=== PATIENT | female | born 1960 | race Caucasian/White ===

== ENCOUNTER → 2020-12-25 09:37 | Outpatient (BNVA) | payer MEDICARE, MEDICAID, SELFPAY | PROVIDERS: Visit Provider Psychiatry & Neurology Neurology | DX: G47.61 Periodic limb movement disorder (principal); G25.81 Restless legs syndrome; G47.33 Obstructive sleep apnea (adult) (pediatric) | CPT/HCPCS: Q3014 ==

== ENCOUNTER 2021-02-05 | Outpatient (REF) | payer MEDICARE, MEDICAID, SELFPAY | END 2021-02-05 00:01 | disposition home or self-care (01) | LOC: HO.LNP | PROVIDERS: Visit Provider Hospitalist | DX: B34.9 Viral infection, unspecified (principal); Z20.822 Contact with and (suspected) exposure to COVID-19 | CPT/HCPCS: U0003; U0005 ==

== ENCOUNTER → 2021-02-26 09:47 | Outpatient (BNVA) | payer MEDICARE, MEDICAID, SELFPAY | PROVIDERS: PCP Internal Medicine; Visit Provider Psychiatry & Neurology Neurology | DX: G47.61 Periodic limb movement disorder (principal); G25.81 Restless legs syndrome; G47.33 Obstructive sleep apnea (adult) (pediatric); Z88.2 Allergy status to sulfonamides; Z88.8 Allergy status to other drugs, medicaments and biological substances; Z99.89 Dependence on other enabling machines and devices | CPT/HCPCS: Q3014 ==

== ENCOUNTER → 2021-05-07 09:31 | Outpatient (BNVA) | payer MEDICARE, MEDICAID, SELFPAY | PROVIDERS: PCP Internal Medicine; Visit Provider Psychiatry & Neurology Neurology | CPT/HCPCS: Q3014 ==

== ENCOUNTER 2021-05-08 14:12 | Outpatient (REF) | payer MEDICARE, MEDICAID, SELFPAY ==
[2021-05-08 16:30] LABS: MANUAL DIFF FLAG NO
[2021-05-08 16:35] LABS: Glucose Urine UA NEG (NEG); Leukocyte Esterase Urine NEG (NEG); Nitrite Urine NEG (NEG); Specific Gravity - Urine >= 1.030 (1.005-1.025); Urine Blood 2+ (NEG); Urine Ketones NEG (NEG); Urine Protein NEG (NEG-TRACE)
[2021-05-08 16:37] LABS: Basophils Percent Auto 0.6 % (0-2); Eosinophils Absolute Auto 0.1 X10*3/uL (0.0-0.4); Eosinophils Percent Auto 1.8 % (0-4); Hematocrit 38.9 % (37-47); Hemoglobin 12.8 g/dl (12.0-16.0); Imm Gran Abs Auto 0.02 X10*3/uL (0.00-0.03); Imm Gran Pct Auto 0.3 % (0.0-0.4); Lymphocytes Absolute Auto 1.9 X10*3/uL (1.2-4.9); Lymphocytes Percent Auto 26.2 % (20-40); Mean Corpuscular HGB Conc 32.9 g/dl (31.0-35.0); Mean Corpuscular Hemoglobin 28.6 pg (27.0-33.0); Mean Platelet Volume 9.4 fL (9.4-12.3); Monocytes Absolute Auto 0.5 X10*3/uL (0.1-1.2); Monocytes Percent Auto 6.6 % (2-11); Neutrophils Absolute Auto 4.7 X10*3/uL (2.0-8.3); Neutrophils Percent Auto 64.5 % (45-73); Platelet Count 285 X10*3/uL (160-400); Red Blood Count 4.47 X10*6/uL (4.20-5.50); Red Cell Distribution Width 13.1 % (11.0-16.0); White Blood Count 7.3 X10*3/uL (4.8-10.8)
[2021-05-08 16:38] LABS: Appearance Urine CLEAR; Color Urine YELLOW
[2021-05-08 17:01] LABS: Mucus Urine TRACE /LPF; WBC Urine 0 /HPF (0-4)
[2021-05-08 17:01] LABS: Alanine Aminotransferase 9 U/L (0-31); Albumin Level 4.1 g/dL (3.5-5.0); Alkaline Phosphatase 130 U/L (39-117); Anion Gap 12 (12-20); Aspartate Amino Transferase 17 U/L (5-31); Bilirubin Total 0.4 mg/dL (0.0-1.0); Blood Urea Nitrogen 23 mg/dL (9-16); Calcium 9.3 mg/dL (8.4-10.2); Carbon Dioxide 26 mmol/L (22-29); Chloride 105 mmol/L (96-108); Estimated Glomerular Filt Rate > 60; Glucose Random 102 mg/dL (60-115); Lipase 5 U/L (8-78); Potassium 4.2 mmol/L (3.3-5.1); Sodium 139 mmol/L (135-145); Total Protein 6.5 g/dL (6.5-8.0)
[2021-05-09 03:48] LABS: SARS COV2 IgG Negative (Negative)
== END 2021-05-08 14:13 | disposition home or self-care (01) ==
LOC: HO.HMGCLDS 14:12
PROVIDERS: Absent Provider Internal Medicine; PCP Internal Medicine; Visit Provider Hospitalist
DX: Z20.822 Contact with and (suspected) exposure to COVID-19 (principal); B34.9 Viral infection, unspecified
CPT/HCPCS: 36415; 80053; 81001; 83690; 85025; 86769

== ENCOUNTER 2021-05-23 14:40 | Outpatient (REF) | payer MEDICARE, MEDICAID, SELFPAY ==
[2021-05-23 16:32] LABS: Glucose Urine UA NEG (NEG); Leukocyte Esterase Urine NEG (NEG); Nitrite Urine NEG (NEG); Specific Gravity - Urine >= 1.030 (1.005-1.025); Urine Blood 2+ (NEG); Urine Ketones 5 MG/DL (NEG); Urine Protein NEG (NEG-TRACE)
[2021-05-23 16:36] LABS: Appearance Urine CLEAR; Color Urine YELLOW
[2021-05-23 16:51] LABS: Calcium Oxalate Crystals Urine 2+ /LPF; Mucus Urine TRACE /LPF; Squamous Epithelial Cell Urine TRACE /LPF; WBC Urine 0 /HPF (0-4)
== END 2021-05-23 14:41 | disposition home or self-care (01) ==
LOC: HO.HMGCLDS 14:40
PROVIDERS: PCP Internal Medicine; Visit Provider Internal Medicine
DX: R31.9 Hematuria, unspecified (principal); R30.0 Dysuria
CPT/HCPCS: 81001

== ENCOUNTER → 2021-07-23 10:01 | Outpatient (BNVA) | payer MEDICARE, MEDICAID, SELFPAY | PROVIDERS: PCP Internal Medicine; Visit Provider Psychiatry & Neurology Neurology | CPT/HCPCS: Q3014 ==

== ENCOUNTER → 2021-08-27 10:25 | Outpatient (BNVA) | payer MEDICARE, MEDICAID, SELFPAY | PROVIDERS: PCP Internal Medicine; Visit Provider Psychiatry & Neurology Neurology | DX: Z13.89 Encounter for screening for other disorder (principal) | CPT/HCPCS: Q3014 ==

== ENCOUNTER 2021-10-22 | Outpatient (REF) | payer MEDICARE, MEDICAID, SELFPAY ==
[2021-10-23 11:41] LABS: Appearance Urine CLEAR; Color Urine YELLOW; Glucose Urine UA NEG (NEG); Leukocyte Esterase Urine NEG (NEG); Nitrite Urine NEG (NEG); Specific Gravity - Urine 1.015 (1.005-1.025); Urine Blood NEG (NEG); Urine Ketones NEG (NEG); Urine Protein NEG (NEG-TRACE)
== END 2021-10-22 00:01 | disposition home or self-care (01) ==
LOC: HO.LNP
PROVIDERS: Visit Provider Internal Medicine
DX: R35.0 Frequency of micturition (principal)
CPT/HCPCS: 81003

== ENCOUNTER 2021-10-22 16:09 | Outpatient (REF) | payer MEDICARE, MEDICAID, SELFPAY ==
--- NOTE | ~2021-10-22 | XR_ITS ---
EXAMINATION: XR CHEST CLINICAL INFORMATION: Other specified symptoms and signs involving respiratory system COMPARISON: Previous chest x-ray December 2019 TECHNIQUE: 2 views of the chest were obtained. FINDINGS: No significant abnormality is noted involving the heart, lungs, mediastinum, bony thorax or soft tissues. XR/XR chest 2V IMPRESSION: Unremarkable examination.
== END 2021-10-22 16:10 | disposition home or self-care (01) ==
LOC: HO.HMGCX 16:09
PROVIDERS: PCP Internal Medicine; Visit Provider Internal Medicine
DX: R09.89 Other specified symptoms and signs involving the circulatory and respiratory systems (principal); R05.9 Cough, unspecified
CPT/HCPCS: 71046

== ENCOUNTER 2021-10-23 11:15 | Outpatient (REF) | payer MEDICARE, MEDICAID, SELFPAY | END 2021-10-23 11:16 | disposition home or self-care (01) | LOC: HO.LNP 11:15 | PROVIDERS: Visit Provider Internal Medicine | DX: Z13.89 Encounter for screening for other disorder (principal) ==

== ENCOUNTER → 2021-12-12 15:35 | Outpatient (BNVA) | payer MEDICARE, MEDICAID, SELFPAY | PROVIDERS: PCP Internal Medicine; Visit Provider Psychiatry & Neurology Neurology | DX: G47.33 Obstructive sleep apnea (adult) (pediatric) (principal); G47.61 Periodic limb movement disorder; G25.81 Restless legs syndrome | CPT/HCPCS: 99212 ==

== ENCOUNTER 2022-02-13 14:48 | Outpatient (REF) | payer MEDICARE, MEDICAID, SELFPAY ==
--- NOTE | ~2022-02-13 | XR_ITS ---
EXAMINATION: XR CHEST CLINICAL INFORMATION: Cough. COMPARISON: Most recent chest radiograph dated 10/22/2021. TECHNIQUE: 2 views of the chest were obtained. FINDINGS: The lungs are clear. The cardiomediastinal silhouette is normal in size. There is no pleural effusion or pneumothorax. No acute osseous abnormality. XR/XR chest 2V IMPRESSION: No acute cardiopulmonary findings.
[2022-02-13 16:49] LABS: Alanine Aminotransferase 12 U/L (0-31); Alkaline Phosphatase 126 U/L (39-117); Anion Gap 12 (12-20); Aspartate Amino Transferase 19 U/L (5-31); Bilirubin Total 0.4 mg/dL (0.0-1.0); Blood Urea Nitrogen 17 mg/dL (9-16); Calcium 9.3 mg/dL (8.4-10.2); Carbon Dioxide 27 mmol/L (22-29); Chloride 103 mmol/L (96-108); Estimated Glomerular Filt Rate > 60; Glucose Random 97 mg/dL (60-115); Potassium 4.4 mmol/L (3.3-5.1); Sodium 138 mmol/L (135-145); Total Protein 6.6 g/dL (6.5-8.0)
== END 2022-02-13 14:49 | disposition home or self-care (01) ==
LOC: HO.HMGCX 14:48
PROVIDERS: Absent Provider Internal Medicine; PCP Internal Medicine; Visit Provider Physician Assistant
DX: R05.9 Cough, unspecified (principal); E66.09 Other obesity due to excess calories; I10 Essential (primary) hypertension
CPT/HCPCS: 36415; 71046; 80053

== ENCOUNTER 2022-02-20 14:00 | Outpatient (REF) | payer MEDICARE, MEDICAID, SELFPAY ==
[2022-02-20 16:28] LABS: Appearance Urine CLEAR; Color Urine YELLOW; Glucose Urine UA NEG (NEG); Leukocyte Esterase Urine NEG (NEG); Nitrite Urine NEG (NEG); PH 5.5 (5.0-8.0); Specific Gravity - Urine 1.025 (1.005-1.025); Urine Blood NEG (NEG); Urine Ketones NEG (NEG); Urine Protein NEG (NEG-TRACE)
== END 2022-02-20 14:01 | disposition home or self-care (01) ==
LOC: HO.HMGCLDS 14:00
PROVIDERS: Visit Provider Internal Medicine
DX: R30.0 Dysuria (principal)
CPT/HCPCS: 81003

== ENCOUNTER → 2022-03-12 13:55 | Outpatient (BNVA) | payer MEDICARE, MEDICAID, SELFPAY | PROVIDERS: PCP Internal Medicine; Visit Provider Psychiatry & Neurology Neurology | DX: G47.33 Obstructive sleep apnea (adult) (pediatric) (principal); G25.81 Restless legs syndrome; G47.61 Periodic limb movement disorder | CPT/HCPCS: Q3014 ==

== ENCOUNTER → 2022-05-07 11:11 | Outpatient (BNVA) | payer MEDICARE, MEDICAID, SELFPAY | PROVIDERS: PCP Internal Medicine; Visit Provider Nurse Practitioner Family | DX: G47.33 Obstructive sleep apnea (adult) (pediatric) (principal); E66.09 Other obesity due to excess calories; Z68.38 Body mass index [BMI] 38.0-38.9, adult; G25.81 Restless legs syndrome; Z99.89 Dependence on other enabling machines and devices | CPT/HCPCS: 99212 ==

== ENCOUNTER → 2022-09-04 09:58 | Outpatient (BNVA) | payer MEDICARE, MEDICAID, SELFPAY | PROVIDERS: PCP Internal Medicine; Visit Provider Nurse Practitioner Family | DX: E66.09 Other obesity due to excess calories (principal); G47.33 Obstructive sleep apnea (adult) (pediatric); G25.81 Restless legs syndrome | CPT/HCPCS: 99212 ==

== ENCOUNTER 2022-09-24 11:31 | Outpatient (REF) | payer MEDICARE, MEDICAID, SELFPAY ==
[2022-09-24 14:36] LABS: MANUAL DIFF FLAG NO
[2022-09-24 14:44] LABS: Basophils Absolute Auto 0.1 X10*3/uL (0.0-0.2); Basophils Percent Auto 0.9 % (0-2); Eosinophils Absolute Auto 0.3 X10*3/uL (0.0-0.4); Eosinophils Percent Auto 2.6 % (0-4); Hematocrit 39.4 % (37.0-47.0); Hemoglobin 12.8 g/dl (12.0-16.0); Imm Gran Abs Auto 0.04 X10*3/uL (0.00-0.03); Imm Gran Pct Auto 0.4 % (0.0-0.4); Lymphocytes Absolute Auto 1.8 X10*3/uL (1.2-4.9); Lymphocytes Percent Auto 19.1 % (20-40); Mean Corpuscular HGB Conc 32.5 g/dl (31.0-35.0); Mean Corpuscular Hemoglobin 28.4 pg (27.0-33.0); Mean Corpuscular Volume 87.4 fL (80.0-98.0); Mean Platelet Volume 9.2 fL (9.4-12.3); Monocytes Absolute Auto 0.6 X10*3/uL (0.1-1.2); Monocytes Percent Auto 6.6 % (2-11); Neutrophils Absolute Auto 6.7 x10*3/uL (2.0-8.3); Neutrophils Percent Auto 70.4 % (45-73); Platelet Count 301 X10*3/uL (160-400); Red Blood Count 4.51 X10*6/uL (4.20-5.50); Red Cell Distribution Width 13.1 % (11.0-16.0); White Blood Count 9.5 X10*3/uL (4.8-10.8)
[2022-09-24 15:06] LABS: Alanine Aminotransferase 12 U/L (0-31); Alkaline Phosphatase 127 U/L (39-117); Anion Gap 16 (12-20); Aspartate Amino Transferase 19 U/L (5-31); Bilirubin Total < 0.2 mg/dL (0.0-1.0); Blood Urea Nitrogen 26 mg/dL (9-16); Carbon Dioxide 27 mmol/L (22-29); Chloride 100 mmol/L (96-108); Estimated Glomerular Filt Rate > 60; Glucose Random 104 mg/dL (60-115); Sodium 139 mmol/L (135-145); Total Protein 6.6 g/dL (6.5-8.0)
== END 2022-09-24 11:32 | disposition home or self-care (01) ==
LOC: HO.HMGCLDS 11:31
PROVIDERS: PCP Internal Medicine; Visit Provider Internal Medicine
DX: E66.09 Other obesity due to excess calories (principal); I10 Essential (primary) hypertension
CPT/HCPCS: 36415; 80053; 85025

== ENCOUNTER 2022-10-02 15:14 | Outpatient (REF) | payer MEDICARE, MEDICAID, SELFPAY ==
[2022-10-02 18:36] LABS: Influenza A PCR NEGATIVE (Negative); Influenza B PCR NEGATIVE (Negative); Resp Syncy Virus RNA Qual PCR NEGATIVE (Negative); SARS COV2 PCR INHOUSE NEGATIVE (Negative)
== END 2022-10-02 15:15 | disposition home or self-care (01) ==
LOC: HO.LAB 15:14
DX: J06.9 Acute upper respiratory infection, unspecified (principal); Z20.822 Contact with and (suspected) exposure to COVID-19
CPT/HCPCS: 0241U

== ENCOUNTER → 2022-12-08 10:52 | Outpatient (BNVA) | payer BC, SELFPAY | PROVIDERS: PCP Internal Medicine; Referring Provider Internal Medicine; Visit Provider Internal Medicine | DX: R94.31 Abnormal electrocardiogram [ECG] [EKG] (principal) | CPT/HCPCS: 93005 ==

== ENCOUNTER → 2022-12-10 10:32 | Outpatient (REF) | payer MEDICARE, SELFPAY ==
--- NOTE | 2022-12-10 10:34 | CA_ITS ---
Transthoracic Echocardiogram Patient (Last, First, Middle): Gayatri Stoddard, Gender: Female Date of : 1960 Age: 62 Procedure Date: 12/10/2022 Procedure Type: Transthoracic Echocardiogram Location: OP Height: 147.32 cm Weight: 83.46 kg BSA: 1.76 m2 Heart Rate: bpm BP: 130 / 90 mmHg Insulation Hoseman: TO Referring MD: Miles Polanco MD Sales Counselor: Oral López MD Symptoms: R07.2 CHEST PAIN, R94.31 - Abnormal electrocardiogram [ECG] [EKG] Study Quality: Fair ECG Rhythm: Sinus Conclusions: - 1. Normal LV systolic function with grade 1 diastolic dysfunction 2. Normal cardiac valvular Doppler 3. Normal RV systolic pressure 4. No gross pericardial effusion Findings Procedure Information Contrast agent, definity, is being given per protocol without apparent complications. Left Ventricle Normal left ventricular size, thickness, and systolic function. The visually estimated ejection fraction is between 60-65%. Spectral Doppler is indicative of an impaired relaxation filling pattern. E/E prime ratio is <8, consistent with normal filling pressures. Right Ventricle Normal right ventricular cavity size and systolic function. Atria Both atria are normal in size. Interatrial shunt cannot be excluded. Aortic Valve Normal aortic valve structure and function. There is no aortic valve stenosis. There is no aortic valve regurgitation. Mitral Valve Normal mitral valve structure and function. There is trace mitral valve regurgitation. There is no mitral valve stenosis. Pulmonic Valve The pulmonic valve is likely normal. Tricuspid Valve Normal tricuspid valve structure. There is trace tricuspid valve regurgitation. The right ventricular systolic pressure is normal. The right ventricular systolic pressure is 19 mmHg. Normal right atrial pressure. There is no evidence of pulmonary hypertension. Great Vessels All visible segments of the aorta are normal in size. The pulmonary artery was not well visualized. Venous The inferior vena cava is normal in size and collapses greater than 50% with inspiration. Pericardium/Pleural There is no evidence of pericardial effusion. Prior Study Comparison No prior study available for comparison. Measurements 2D Linear Measurements IVSd: 1.13 0.6-0.9/0.6-1.0 cm LVIDd: 4.52 3.9-5.3/4.2-5.9 cm LVIDd Index: 2.57 2.4-3.2/2.2-3.1 cm/m2 LVIDs: 3.01 2.0-3.6 cm LVPWd: 0.91 0.7-1.1 cm LA Diam: 3.70 2.7-3.8/3.0-4.0 cm LAIDs Index: 2.10 1.5-2.3 cm/m2 LV Mass: 198.09 67-162/88-224 g LV Mass Index: 112.55 43-95/49-115 g/m2 LVOT Diam: 2.00 3.0+(-)1.3 cm 2D Systolic Function EF 4C: 63.40 >55% EF 2C: 65.80 >55% EF BiP: 65.80 >55% Mitral Valve MV Pk E: 0.48 MV PK A: 0.89 MV Decel Time: 194.00 E/A: 0.50 E'Lateral: 5.77 E'Medial: 6.85 E/E' Med: 7.00 E/E' Lat: 8.30 PHT: 57.00 MVA PHT: 3.86 Decel [place]: 2.47 Aortic Valve AoV Pk Manjinder: 1.54 AoV Mn Manjinder: 1.07 AoV VTI: 0.29 AoV Pk Grad: 9.00 Aov Mn Grad: 5.00 TOYA Cont.VTI: 1.98 LVOT LVOT Pk Manjinder: 0.95 LVOT Mn Manjinder: 0.62 LVOT VTI: 0.18 LVOT Pk Grad: 4.00 LVOT Mn Grad: 2.00 LVOT Diam: 2.00 LVOT Area: 3.14 Diastolic Function MV Pk E: 0.48 MV Pk A: 0.89 E/A: 0.50 E'Medial: 6.85 E/E' Med: 7.00 E' Laterial: 5.77 E/E' Lat: 8.30 Right Ventricle TAPSE (mm): 25.00 TVS' Manjinder: 14.00 Tricuspid Valve TR Pk Manjinder: 2.00 TR Pk Grad: 16.00 RA Press: 3.00 RVSP: 19.00 Great Vessels Aorta Ao Asc: 3.40 2.1-3.4 cm Updated in Other Vendor System with Status of Final Oral López MD electronically signed on 12/11/2022 1:52:32 PM with status of Final
--- NOTE | 2022-12-10 10:34 | CA_ITS ---
Acquisition Time: 2022-12-10 10:58:15 Total Exercise Time: 00:05:31 Test Indications: abn ekg Medications: see chart Protocol: CELESTE Max HR: 134 BPM 85% of Pred: 156 BPM Max BP: 194/068 mmHG Max Work Load: 6.5 METS Exercise stress test with exercise 5 min 31 sec of Celeste protocol ( last minute speed reduced to 2.2 MPH) achieving 82% MPHR, with moderate shortness of breath and need to stop exercise, with isolated PACs, with hypertensive response to exercise with max BP 194/68, without EKG changes meeting criteria for ischemia at acheived workload. In recovery her breathing gradually improved back to baseline normal and BP came down to 142/76. Test reviewed with Dr López Referred By: Miles Polanco Overread By: ALAYNA LANE
== END ==
LOC: HO.CARD 10:32
PROVIDERS: PCP Internal Medicine; Visit Provider Internal Medicine
DX: R07.2 Precordial pain (principal); R94.31 Abnormal electrocardiogram [ECG] [EKG]
CPT/HCPCS: 93017; 93306; Q9957

== ENCOUNTER → 2022-12-31 11:30 | Outpatient (BNVA) | payer MEDICARE, MEDICAID, SELFPAY | PROVIDERS: PCP Internal Medicine; Visit Provider Nurse Practitioner Family | DX: K59.04 Chronic idiopathic constipation (principal); Z87.19 Personal history of other diseases of the digestive system | CPT/HCPCS: 99202 ==

== ENCOUNTER 2023-02-23 11:30 | Outpatient (REF) | payer MEDICARE, MEDICAID, SELFPAY ==
--- NOTE | ~2023-02-23 | MM_ITS ---
EXAMINATION: MM SCREENING DIGITAL BREAST TOMOSYNTHESIS, BILATERAL CLINICAL INFORMATION: Screening. Asymptomatic. The lifetime risk of breast cancer based on the Tyrer-Cuzick Model is 8%. COMPARISON: Outside mammography 03/18/2021, 12/14/2019, 11/30/2018 ([facility]). TECHNIQUE: Digital breast tomosynthesis is performed in both the craniocaudal and mediolateral oblique views along with computer-aided detection (CAD). Synthesized 2D images are generated from the tomosynthesis. Additional left CC view is provided. FINDINGS: There are scattered areas of fibroglandular density (ACR BI-RADS breast composition Category b). There is fine fibronodular parenchymal pattern is similar to prior studies. No developing density, significant mass, or architectural abnormality. There are random diffuse calcifications bilateral central and anterior breasts bilateral slightly increased over time without focal grouping or pleomorphic types. The axilla and skin contours are unremarkable. There are no significant changes. MM/MM tomosynthesis screening BI IMPRESSION: No significant changes from prior studies. ASSESSMENT: BI-RADS 2: Benign RECOMMENDATION: Routine annual mammography screening. This patient's information was entered into a reminder system with a target due date for their next mammogram.
== END 2023-02-23 11:31 | disposition home or self-care (01) ==
LOC: HO.MAMMO 11:30
PROVIDERS: PCP Internal Medicine; Visit Provider Internal Medicine
DX: Z12.31 Encounter for screening mammogram for malignant neoplasm of breast (principal)
CPT/HCPCS: 77063; 77067

== ENCOUNTER 2023-05-04 13:20 | Outpatient (REF) | payer MEDICARE, MEDICAID, SELFPAY ==
[2023-05-04 15:57] LABS: C Reactive Protein 0.21 mg/dL (< or = 0.50)
== END 2023-05-04 13:21 | disposition home or self-care (01) ==
LOC: HO.LAB 13:20
PROVIDERS: Absent Provider Internal Medicine; PCP Internal Medicine; Visit Provider Nurse Practitioner Family
DX: K58.2 Mixed irritable bowel syndrome (principal); K59.04 Chronic idiopathic constipation; Z87.19 Personal history of other diseases of the digestive system
CPT/HCPCS: 36415; 86140; 99212

== ENCOUNTER 2023-05-04 20:05 | Emergency (ER) | payer OTHER, SELFPAY ==
--- NOTE | ~2023-05-04 | XR_ITS ---
EXAMINATION: XR LUMBOSACRAL SPINE CLINICAL INFORMATION: Pain. COMPARISON: None available. TECHNIQUE: Three views of the lumbosacral spine. FINDINGS: Lumbar vertebrae have normal height. No fracture or bone destruction. Multilevel degenerative spondylosis spine. L5-S1: Marked disc height narrowing L5-S1 and severe bilateral facet joint arthrosis. L4-L5: Marked disc height narrowing L4-L5 facet joint arthrosis. Grade 1 anterolisthesis of L4 and L5 due to spondylolysis. L3-L4: Mild disc height narrowing at L3-L4. Mild facet joint arthrosis. L2-L3: Mild lumbar disc height narrowing. Facet joints are normal. L1-L2: Lumbar disc height normal. Mild anterior vertebral endplate spur. Normal facet joint. T12-L1: Marked disc height narrowing vacuum disc phenomena. Anterior vertebral endplate spurs. T11-T12: Marked disc height narrowing vacuum disc phenomenon and vertebral endplate spurs. Degenerative spurring and disc height narrowing at the anterior lower thoracic vertebrae visualized through the T7 vertebral body. No fracture. No bone destruction. Sacroiliac joints are normal. Large volume of stool in right colon. No abnormally dilated bowel loop. Nonobstructive bowel pattern. No radiopaque urinary calculus. XR/XR lumbar spine 2-3V IMPRESSION: 1. No acute abnormality. 2. Multilevel degenerative spondylosis of the lumbar spine. 3. Grade 1 anterolisthesis of L4 and L5 due to spondylolysis. 4. Degenerative spondylosis of the lower thoracic spine.
[2023-05-04 20:35] VITALS: BP 147/78; PULSE 106; RESP 18; TEMP 36.6; O2SAT 96; BMI 38.3
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
[2023-05-04] MEDS: Ibuprofen 400 MG TABLET PO (22:03)
== END 2023-05-04 22:19 | disposition home or self-care (01) ==
PROVIDERS: Emergency Provider Emergency Medicine Emergency Medical Services; PCP Internal Medicine
DX: M54.50 Low back pain, unspecified (principal); V43.52XA Car driver injured in collision with other type car in traffic accident, initial encounter; Y93.9 Activity, unspecified; Y92.9 Unspecified place or not applicable; Y99.9 Unspecified external cause status
CPT/HCPCS: 72100; 99283

== ENCOUNTER 2023-06-02 13:57 | Outpatient (AMB) | payer MEDICARE, MEDICAID, SELFPAY ==
--- NOTE | 2023-06-02 14:23 | A.OFFVIS_ITS ---
Intake Vital Signs 06/02/23 14:24 Height 4 ft 10 in Weight 180 lb 12.465 oz BMI 37.8 Blood Pressure Location Lt brachial Position Sitting Intake Visit Reasons: 1 [facility] Intake Note: Gayatri presents in office as a est.patient for a 1month f/u for [facility] PT CC: pt reports having some constipation , pt denies any other Issues Aquatics Specialist Required: No Accompanied by: Self / Same As Patient Allergies amlodipine Allergy (Unknown, Verified 06/02/23 14:25) unknown prednisolone Allergy (Unknown, Verified 06/02/23 14:25) anaphylaxis prednisone [PREDNISONE] Allergy (Unknown, Verified 06/02/23 14:25) DEPRESSION Sulfa (Sulfonamide Antibiotics) Allergy (Unknown, Verified 06/02/23 14:25) hives, rash sulfamethoxazole [From BACTRIM] Allergy (Unknown, Verified 06/02/23 14:25) RASH trimethoprim [From BACTRIM] Allergy (Unknown, Verified 06/02/23 14:25) RASH clindamycin Adverse Reaction (Severe, Verified 06/02/23 14:25) joint pain sumatriptan [From IMITREX] Adverse Reaction (Unknown, Verified 06/02/23 14:25) UNK ORCHIDS Allergy (Intermediate, Uncoded 06/02/23 14:35) Angioedema HPI 1 [facility] HPI Details LAST VISIT: History of rectal bleeding Patient denies rectal bleeding. Will send a script for practice so to see if we can help with hemorrhoid. Patient was also encouraged to do Epsom salt bath. Chronic idiopathic constipation Continue taking MiraLax. Patient will try to take Linzess again. She was encouraged to drink plenty fluids and increase activity to promote better bowel motility. IBS (irritable bowel syndrome) Episode of diarrhea in the past. Unsure if this was related to Linzess or just incidental. Patient does not remember if she was eating anything that could caused her having the episodes of diarrhea. Patient reports that currently she is constipated. Discussed with her low FODMAP diet. I will see patient in 1 month, sooner on as needed basis. Patient is agreeable to this plan and verbalizes understanding of instructions. She was given the opportunity to ask questions and all questions answered. ? Thank you for allowing me to participate in her care Plan Orders Orders C Reactive Protein Today K58.9 Medications New hydrocortisone 2.5% (Proctosol HC) 1 appl DE BID-QID 30 grams 2RF hemorrhoids K64.9 TODAY'S VISIT patient is here today for follow-up and to discuss going for colonoscopy. Patient reports of occasional constipation and postprandial abdominal bloating. History of colonoscopy in the past at [facility]. Patient denies melena, hematochezia, unintentional weight loss or ribbon like stools. Patient denies any dyspepsia, dysphagia or odynophagia. History of OS A. Not on any anticoagulation medication. No history of infectious diseases in the past or present. Patient denies any cardiac or respiratory symptoms. No issues with anesthesia in the past. [facility] Medical History (Updated 06/15/23 @ 10:09 by Samina Jenkins [facility]) History of deviated nasal septum History of nephrolithotomy with removal of calculi Surgical History H/O adenoidectomy History of back surgery History of tonsillectomy Family History Mother Hypertension Lung cancer Father Lung cancer COPD (chronic obstructive pulmonary disease) Arterial vascular disease Sister Stroke Hypertension Social History Housing: House Alcohol intake: current Alcohol intake frequency: holidays/special occasions only Patient Tobacco Use Status: Never used Tobacco e-Cigarette/Vaping Use: Never Used Second Hand Smoke Exposure: No Current occupational status: disabled Cognitive needs: No Hearing needs: No Vision needs: No Review of Systems Const Denies weight gain and Denies weight loss ENT Reports no additional complaints, Denies dysphagia and Denies odynophagia Card Reports no additional complaints Resp Reports no additional complaints GI Denies abdominal pain, Denies belching, Denies melena, Reports bloating (Occasional), Reports constipation (Occasional), Denies dysphagia, Denies ex cessive flatus, Denies dyspepsia, Denies heartburn, Denies diarrhea, Denies loose stools, Denies nausea, Denies odynophagia and Denies vomiting Reports no additional complaints Musc Reports no additional complaints Neuro Reports no additional complaints Psych Reports no additional complaints Endo Reports no additional complaints Physical Exam Vital Signs: BMI result Body Mass Index 37.8 Const General: healthy appearing, no acute distress and well developed Nutritional Appearance: obese Orientation/consciousness: patient oriented x3 HEENT Head: Yes normal to inspection, Yes normocephalic and Yes atraumatic Face and sinus: Yes normal facial exam Mouth: Normal oral and palatal mucosa present Throat: Yes posterior oropharynx normal, Yes tonsils normal and Yes uvula midline Eyes General: appearance normal, both eyes and all related structures Neck Neck: Yes normal visual inspection, Yes full ROM and Yes trachea midline Thyroid: Thyroid normal Resp Effort & Inspection: normal respiratory effort, able to speak in complete sentences, no tracheal deviation and symmetric chest movement Auscultation: clear to auscultation bilaterally Cardio Rate: regular rate Heart sounds: S1 normal heart sound present and S2 normal heart sound present GI Inspection: Yes normal to inspection, No distended and Yes obesity Palpation (GI): Soft to palpation, not firm, nontender and No hepatosplenomegaly present Auscultation: normal bowel sounds General: Yes no CVA tenderness Back/Spine/Pelvis Back: no CVA tenderness Skin General skin exam: elasticity normal, turgor normal and dry skin Neuro General: patient oriented x3 Psych Appearance: grossly normal Mental Status: mental status grossly normal Speech and movement: Normal speech and movement present Affect: normal affect Assessment & Plan Assessment & Plan (1) Chronic idiopathic constipation: Code(s): K59.04 - Chronic idiopathic constipation Plan: Continue taking MiraLax daily. Patient was encouraged to increase fluid intake and activity to promote better bowel motility (2) IBS (irritable bowel syndrome): Code(s): K58.9 - Irritable bowel syndrome without diarrhea Qualifiers: Irritable bowel syndrome type: with both diarrhea and constipation Qualified Code(s): K58.2 - Mixed irritable bowel syndrome Plan: Occasional postprandial abdominal bloating and occasional loose stools, however patient is more constipated now. Patient can use MiraLax daily. Low FODMAP diet discussed with patient. Patient does have a list of food that is recommended and food to avoid at home. (3) Screen for colon cancer: Code(s): Z12.11 - Encounter for screening for malignant neoplasm of colon Plan: Patient denies melena, hematochezia, unintentional weight loss or ribbon like stools. Patient does report occasional blood in the stool when she wipes, however patient has been constipated as well. History of polyps on previous colonoscopies. Colonoscopy done at [facility] over 5 years ago. Patient denies any issues with anesthesia in the past. Not on any anticoagulation medication. No history of infectious diseases in the past or present. History of sleep apnea. Patient denies any cardiac or respiratory symptoms. Discussed with patient the importance of good bowel prep and clear liquid diet day before the procedure. I will see her after the procedure, sooner on as needed basis. Patient is agreeable to this plan and verbalizes understanding of instructions. She was given the opportunity to ask questions and all questions answered. Thank you for allowing me to participate in her care Medications: New bisacodyl (Dulcolax (bisacodyl)) take 2 tabs at noon the day before your colonoscopy 10 mg (2 x 5 mg) PO ONCE 2 tabs 0RF 1 day Z12.11 - Encounter for screening for malignant neoplasm of colon polyethylene glycol 3350 (Miralax) As directed by gastroenterology department at [facility] 238 grams PO ONCE 238 grams 0RF Z12.11 - Encounter for screening for malignant neoplasm of colon Discontinued sennosides Discontinued Reason: Patient no longer taking 17.2 mg (2 x 8.6 mg) PO BEDTIME 60 tabs 3RF constipation K59.00 - Constipation, unspecified linaclotide Discontinued Reason: Patient no longer taking 145 mcg PO DAILY 30 caps 2RF Coding Level of Care Code Est Pt Level 3 (24965) Diagnoses Chronic idiopathic constipation K59.04 IBS (irritable bowel syndrome) K58.2 Irritable bowel syndrome type: with both diarrhea and constipation Screen for colon cancer Z12.11 Time Spent (min) 35 Comment 20 minutes spent with patient and additional 15 minutes spent reviewing her records
[2023-06-02 14:24] VITALS: BMI 37.8
== END 2023-06-02 15:44 | disposition home or self-care (01) ==
PROVIDERS: PCP Internal Medicine; Visit Provider Nurse Practitioner Family
DX: K59.04 Chronic idiopathic constipation (principal); K58.2 Mixed irritable bowel syndrome; Z12.11 Encounter for screening for malignant neoplasm of colon
CPT/HCPCS: 99213

== ENCOUNTER → 2023-06-02 13:57 | Outpatient (BNVA) | payer MEDICARE, MEDICAID, SELFPAY | PROVIDERS: PCP Internal Medicine; Visit Provider Nurse Practitioner Family | DX: Z01.818 Encounter for other preprocedural examination (principal); K59.04 Chronic idiopathic constipation; K58.2 Mixed irritable bowel syndrome | CPT/HCPCS: 99212 ==

== ENCOUNTER 2023-06-24 07:29 | Outpatient (REF) | payer MEDICARE, MEDICAID, SELFPAY ==
--- NOTE | ~2023-06-24 | XR_ITS ---
EXAMINATION: XR KNEE, RIGHT CLINICAL INFORMATION: Pain in right knee COMPARISON: Same day left knee TECHNIQUE: 3 views of the right knee. FINDINGS: No fracture or joint effusion. There is moderate to marked narrowing of the medial and patellofemoral joint compartments with tricompartment marginal osteophytes. Chondrocalcinosis is seen within the medial and lateral joint compartments. There is curvilinear calcification posterior to the knee. Question of loose body within the posterior knee joint. XR/XR knee RT 3V IMPRESSION: 1. Moderate to marked osteoarthritis. 2. Chondrocalcinosis. 3. Question of loose body within the posterior knee joint.
--- NOTE | ~2023-06-24 | XR_ITS ---
EXAMINATION: XR KNEE, LEFT CLINICAL INFORMATION: Pain in left knee COMPARISON: Same-day right knee TECHNIQUE: Four views of the left knee. FINDINGS: No fracture. Small joint effusion. Alignment is anatomic. Moderate narrowing of the patellofemoral joint compartment with marginal osteophytes.. No abnormal soft tissue calcification. XR/XR knee LT 3V IMPRESSION: Moderate osteoarthritis of the patellofemoral joint compartment.
== END 2023-06-24 07:30 | disposition home or self-care (01) ==
LOC: HO.HOSX 07:29
PROVIDERS: Visit Provider Orthopaedic Surgery
DX: M17.0 Bilateral primary osteoarthritis of knee (principal)
CPT/HCPCS: 20610; 73562; J3301

== ENCOUNTER 2023-06-24 11:01 | Outpatient (AMB) | payer MEDICARE, MEDICAID, SELFPAY ==
[2023-06-24 11:03] VITALS: BMI 37.6
--- NOTE | 2023-06-24 11:03 | MHC.OFFVIS ---
Intake Vital Signs 06/24/23 11:03 Height 4 ft 10 in Weight 180 lb BMI 37.6 Intake Visit Reasons: New Pt - Knee Pain Intake Note: Gayatri is a 63 year old female who presents today as a new patient for her bilateral knee pain. Previous patient of Dr. Cox. Patient reports that her right knee is worse the left. Hx of injections. Hx of PT. Her pain is worse when using the stairs, getting up from a sitting position, walking for a long time, and standing per patient. She has done physical therapy which aggravated her pain. She has also tried Tylenol and anti-inflammatory medicines which gave her minimal relief. She would like to hold off on surgery for as long as possible. Allergies amlodipine Allergy (Unknown, Verified 06/24/23 11:08) unknown prednisolone Allergy (Unknown, Verified 06/24/23 11:08) anaphylaxis prednisone [PREDNISONE] Allergy (Unknown, Verified 06/24/23 11:08) DEPRESSION Sulfa (Sulfonamide Antibiotics) Allergy (Unknown, Verified 06/24/23 11:08) hives, rash sulfamethoxazole [From BACTRIM] Allergy (Unknown, Verified 06/24/23 11:08) RASH trimethoprim [From BACTRIM] Allergy (Unknown, Verified 06/24/23 11:08) RASH clindamycin Adverse Reaction (Severe, Verified 06/24/23 11:08) joint pain sumatriptan [From IMITREX] Adverse Reaction (Unknown, Verified 06/24/23 11:08) UNK ORCHIDS Allergy (Intermediate, Uncoded 06/02/23 14:35) Angioedema Medication List - Last Reconciled 06/24/23 by Rakesh Cox MD albuterol sulfate 90 mcg/actuation (ProAir HFA) 2 puffs inhalation Q6H PRN 30 days bisacodyl (Dulcolax (bisacodyl)) 10 mg (2 x 5 mg) PO ONCE 1 day docusate sodium 100 mg PO BEDTIME duloxetine 20 mg PO DAILY fluticasone propionate 50 mcg/actuation (Flonase Allergy Relief) 2 sprays intranasal DAILY hydrocortisone 2.5% (Proctosol HC) 1 appl MD BID-QID hydroxyzine HCl 25 mg PO BEDTIME PRN 14 days ibuprofen 400 mg PO Q6H PRN mirabegron ER (Myrbetriq) 50 mg PO DAILY polyethylene glycol 3350 (Miralax) 238 grams PO ONCE ropinirole 3 mg PO BID sumatriptan succinate 50 mg PO Q2-4H PRN verapamil ER 120 mg PO DAILY PFSH Medical History History of deviated nasal septum History of nephrolithotomy with removal of calculi Surgical History H/O adenoidectomy History of back surgery History of tonsillectomy Family History Mother Hypertension Lung cancer Father Lung cancer COPD (chronic obstructive pulmonary disease) Arterial vascular disease Sister Stroke Hypertension Social History Housing: House Alcohol intake: current Alcohol intake frequency: holidays/special occasions only Patient Tobacco Use Status: Never used Tobacco e-Cigarette/Vaping Use: Never Used Second Hand Smoke Exposure: No Current occupational status: disabled Cognitive needs: No Hearing needs: No Vision needs: No Physical Exam Vital Signs: BMI result Body Mass Index 37.6 Const Other: Well-nourished well-developed very friendly female awake alert and oriented x3 in no acute distress Extrem Other: Bilateral lower extremity examination shows good capillary refill, no skin lesions noted, normal sensation light touch Bilateral knee examination shows minimal effusions, palpable crepitus with range of motion, pain with range of motion, range of motion from -3 degrees to 115 degrees, no instability Office Procedures Joint Injection/Drain Joint Injection/Drain Primary Site: left knee Prep: site was prepped using aseptic technique Injected: 40 mg of, Kenalog and 1% plain lidocaine Procedure: The patient tolerated the procedure well Coding 89106 - Large joint Procedure code (CPT) selection complete Joint Injection/Drain Joint Injection/Drain Primary Site: right knee Prep: site was prepped using aseptic technique Injected: 40 mg of, Kenalog and 1% plain lidocaine Procedure: The patient tolerated the procedure well Coding 18140 - Large joint Procedure code (CPT) selection complete Results Reviewed Results Reviewed: 06/24/23 11:32 Lidocaine HCl 2 % MPF [Xylocaine 2 % MPF] 5 ml .ROUTE .[facility]MED ONE Triamcinolone Acetonide [Kenalog-40] 40 mg .ROUTE .[facility]-MED ONE X-rays of the patient's bilateral knees taken today show moderate diffuse joint space narrowing most significant in the medial compartments, subchondral sclerosis, no acute bony Assessment & Plan Assessment & Plan (1) Arthritis of both knees: Code(s): M17.0 - Bilateral primary osteoarthritis of knee Plan Ms. Stoddard presents with bilateral knee pains due to degenerative joint disease. I had a lengthy discussion with the patient regarding the treatment options. She wishes to hold off on surgery for as long as possible. I agree with this plan. The risks and benefits of bilateral knee cortisone injections were discussed at length with the patient. The patient wished to proceed. She tolerated the bilateral knee injections well. She will continue with her home exercise program. She will follow up with me on an as-needed basis should her symptoms not plateau at an acceptable level over the next few months. Feel free to call me at any time should questions regarding her orthopedic management arise. I spent 24 minutes in reviewing the patient's records and imaging studies, seeing the patient and documenting in the medical record. Orders: Orders XR knee LT 3V Today M25.562 - Pain in left knee XR knee RT 3V Today M25.561 - Pain in right knee AMB Joint Injection/Aspiration Today M25.562 - Pain in left knee AMB Joint Injection/Aspiration Today M25.561 - Pain in right knee Coding Level of Care Code Est Pt Level 2 (29993) Diagnoses Arthritis of both knees M17.0 CPT Codes Coding - 20002 Large joint: 79755 - Large joint ([id number]) Coding - 10201 Large joint: 13224 - Large joint ([id number])
== END 2023-06-24 11:53 | disposition home or self-care (01) ==
PROVIDERS: PCP Internal Medicine; Visit Provider Orthopaedic Surgery
DX: M17.0 Bilateral primary osteoarthritis of knee (principal)
CPT/HCPCS: 20610; 99204

== ENCOUNTER 2023-07-01 09:17 | Outpatient (AMB) | payer MEDICARE, MEDICAID, SELFPAY ==
--- NOTE | 2023-07-01 09:14 | MHC.OFFVIS ---
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 Allergies amlodipine Allergy (Unknown, Verified 07/01/23 09:14) unknown prednisolone Allergy (Unknown, Verified 07/01/23 09:14) anaphylaxis prednisone [PREDNISONE] Allergy (Unknown, Verified 07/01/23 09:14) DEPRESSION Sulfa (Sulfonamide Antibiotics) Allergy (Unknown, Verified 07/01/23 09:14) hives, rash sulfamethoxazole [From BACTRIM] Allergy (Unknown, Verified 07/01/23 09:14) RASH trimethoprim [From BACTRIM] Allergy (Unknown, Verified 07/01/23 09:14) RASH clindamycin Adverse Reaction (Severe, Verified 07/01/23 09:14) joint pain sumatriptan [From IMITREX] Adverse Reaction (Unknown, Verified 07/01/23 09:14) UNK ORCHIDS Allergy (Intermediate, Uncoded 07/01/23 09:14) Angioedema HPI HPI Comments History of Present Illness Details 63 y/o female patient presents for follow up of GERRY on BiPAP. Pt is not compliant BiPAP. Pt states she is not tolerate the BiPAP mask, and not having good sleep hours. She is interested in [facility] to manage her GERRY. She tried clonazepam 0.5 mg but it caused SI and she stopped it. She uses Xanax 0.5 mg as needed and it helps her sleep more. The last sleep study was 2 years ago. Pt's restless legs manages well with ropinirole BID. Pt states that she still has difficulty to cope with the loss of her daughter. Pt's anxiety has been worsened, and she is in processing to have new therapist. [facility] Medical History History of deviated nasal septum History of nephrolithotomy with removal of calculi Surgical History H/O adenoidectomy History of back surgery History of tonsillectomy Family History Mother Hypertension Lung cancer Father Lung cancer COPD (chronic obstructive pulmonary disease) Arterial vascular disease Sister Stroke Hypertension Social History Housing: House Alcohol intake: current Alcohol intake frequency: holidays/special occasions only Patient Tobacco Use Status: Never used Tobacco e-Cigarette/Vaping Use: Never Used Second Hand Smoke Exposure: No Current occupational status: disabled Cognitive needs: No Hearing needs: No Vision needs: No Review of Systems Const All systems reviewed & are unremarkable except as noted in HPI and below ENT Reports Normal hearing present Neuro Reports Normal hearing present Physical Exam Vital Signs: Last Vital Signs Pulse 88 07/01/23 09:27 BP 122/76 07/01/23 09:27 Pulse Ox 98 07/01/23 09:27 Oxygen Delivery Method Room Air 07/01/23 09:27 Const General: cooperative Nutritional Appearance: obese Orientation/consciousness: patient oriented x3 Resp Effort & Inspection: normal respiratory effort and able to speak in complete sentences Neuro General: patient oriented x3, gait normal and moves all extremities Cranial nerves: Yes Bilaterally intact EOM present, Yes Normal facial strength present, Yes Midline tongue present, Yes Symmetric palate elevation present, Yes Normal hearing present and Yes Ability to bilaterally rotate head present Cognition (Neuro): normal cognition Psych Appearance: grossly normal Mental Status: mental status grossly normal Speech and movement: Normal speech and movement present Attitude: cooperative Assessment & Plan Assessment & Plan (1) Obstructive sleep apnea: Code(s): G47.33 - Obstructive sleep apnea (adult) (pediatric) (2) Restless legs syndrome: Code(s): G25.81 - Restless legs syndrome Plan Advised patient to have a repeat sleep study to assess sleep apnea and refer for [facility] consult. Continue to take ropinirole 3mg BID to manage restless legs. Wt reduction advised. Orders: Orders RT PSG in-lab sleep study Today E66.09 - Other obesity due to excess calories, G25.81 - Restless legs syndrome, G47.33 - Obstructive sleep apnea (adult) (pediatric), G47.61 - Periodic limb movement disorder, I10 - Essential (primary) hypertension, R94.31 - Abnormal electrocardiogram [ECG] [EKG] Coding Level of Care Code Est Pt Level 4 (00706) Diagnoses Obstructive sleep apnea G47.33 Restless legs syndrome G25.81
[2023-07-01 09:27] VITALS: BP 122/76; PULSE 88; O2SAT 98; BMI 37.6
== END 2023-07-01 09:48 | disposition home or self-care (01) ==
PROVIDERS: PCP Internal Medicine; Visit Provider Nurse Practitioner Family
DX: G47.33 Obstructive sleep apnea (adult) (pediatric) (principal); G25.81 Restless legs syndrome
CPT/HCPCS: 99214

== ENCOUNTER → 2023-07-01 09:17 | Outpatient (BNVA) | payer MEDICARE, MEDICAID, SELFPAY | PROVIDERS: PCP Internal Medicine; Visit Provider Nurse Practitioner Family | DX: G47.33 Obstructive sleep apnea (adult) (pediatric) (principal); G25.81 Restless legs syndrome | CPT/HCPCS: 99212 ==

== ENCOUNTER 2023-07-29 10:32 | Day surgery (SDC) | payer MEDICARE, MEDICAID, SELFPAY ==
--- NOTE | 2023-07-28 10:08 | HO.ANESPROP2 ---
Documented by User: Magi Dial NP 07/28/23 10:11 HPI - Anesthesia Eval Consult details Narrative: 63yo F for Colonoscopy Cardiac w/u 11/2022 for abn EKG, all negative. No cardiac f/u needed [facility] Active Problems Active Problems: All Active Problems (Updated 06/24/23 @ 12:31 by Rakesh Cox MD) Arthritis of both knees (Acute) Left knee pain (Acute) Right knee pain (Acute) Impaired fasting blood sugar (Acute) Pain in both feet (Acute) Stress and adjustment reaction (Acute) Encounter for general adult medical examination with abnormal findings (Acute) Prolonged QT interval (Acute) Nonspecific ST-T wave electrocardiographic changes (Acute) Family history of coronary artery disease (Acute) History of rectal bleeding (Acute) Left arm pain (Acute) Strain of left trapezius muscle (Acute) Medicare annual wellness visit, subsequent (Acute) Bereavement counseling (Acute) Headache syndrome (Acute) Psychiatric illness (Acute) Pneumonia (Acute) Frequency of urination (Acute) Cough (Acute) Chest congestion (Acute) Obesity due to excess calories (Acute) Hypertension, essential (Acute) Urine blood (Acute) Dysuria (Acute) Viral syndrome (Acute) Hypertension (Acute) Periodic limb movement disorder (Acute) Restless legs syndrome (Acute) Obstructive sleep apnea (Acute) Past Medical History Medical History History of deviated nasal septum History of nephrolithotomy with removal of calculi Family History Family History Mother Hypertension Lung cancer Father Lung cancer COPD (chronic obstructive pulmonary disease) Arterial vascular disease Sister Stroke Hypertension Surgical History Surgical History H/O adenoidectomy History of back surgery History of tonsillectomy Social History Social History Housing: House Alcohol intake: current Alcohol intake frequency: holidays/special occasions only Patient Tobacco Use Status: Never used Tobacco e-Cigarette/Vaping Use: Never Used Second Hand Smoke Exposure: No Advance Directives: No Advance Directives Information Provided: Yes Current occupational status: disabled Cognitive needs: No Hearing needs: No Vision needs: No Meds Allergies Allergy/AdvReac Type Severity Reaction Status Date / Time amlodipine Allergy Unknown unknown Verified 07/01/23 09:14 prednisolone Allergy Unknown anaphylaxis Verified 07/01/23 09:14 prednisone [PREDNISONE] Allergy Unknown DEPRESSION Verified 07/01/23 09:14 Sulfa (Sulfonamide Allergy Unknown hives, rash Verified 07/01/23 09:14 Antibiotics) sulfamethoxazole Allergy Unknown RASH Verified 07/01/23 09:14 [From BACTRIM] trimethoprim [From BACTRIM] Allergy Unknown RASH Verified 07/01/23 09:14 clindamycin AdvReac Severe joint pain Verified 07/01/23 09:14 sumatriptan [From IMITREX] AdvReac Unknown UNK Verified 07/01/23 09:14 ORCHIDS Allergy Intermediate Angioedema Uncoded 07/01/23 09:14 Home Medications Medication Instructions Recorded Confirmed Last Taken Type duloxetine 30 mg capsule,delayed 20 mg PO DAILY 09/24/22 06/24/23 Unknown History release mirabegron 50 mg tablet,extended 50 mg PO DAILY 02/24/23 06/24/23 Unknown History release 24 hr (Myrbetriq) Exam Exam Date and Time: July 28, 2023 1008 Narrative Narrative: EKG 11/2022 sinus rhythm at 85/Min; sinus arrhythmia; cannot exclude old lateral infarct but could be from body habitus. Exercise Stress 11/2022 Protocol: JORGE ? Max HR: 134 BPM? 85% of? Pred: 156 BPM Max BP: 194/068 mmHG Max Work Load: 6.5 METS ? Exercise stress test with exercise 5 min 31 sec of Jorge protocol ( last minute speed reduced to 2.2 MPH) achieving 82% MPHR, with moderate shortness of breath ?and need to stop exercise, with isolated PACs, with hypertensive response to ?exercise with max BP 194/68, without EKG changes meeting criteria for ischemia ?at acheived workload. In recovery her breathing gradually improved back to ?baseline normal and BP came down to 142/76.? Test reviewed with Dr López ECHO 11/2022 Conclusions: - 1.? Normal LV systolic function with grade 1 diastolic ? dysfunction? 2.? Normal cardiac valvular Doppler? 3.? Normal RV systolic pressure? 4.? No gross pericardial effusion? ?? Assessment and Plan Assessment Anesthesia Assessment: Chart Reviewed Documented by User: Josh Holcomb MD 07/29/23 11:04 [facility] Past Medical History Medical History History of deviated nasal septum History of nephrolithotomy with removal of calculi Family History Family History Mother Hypertension Lung cancer Father Lung cancer COPD (chronic obstructive pulmonary disease) Arterial vascular disease Sister Stroke Hypertension Family history of problems with anesthesia: No Surgical History Surgical History H/O adenoidectomy History of back surgery History of tonsillectomy History of Problems with Anesthesia: No Social History Social History Housing: House Alcohol intake: current Alcohol intake frequency: holidays/special occasions only Patient Tobacco Use Status: Never used Tobacco e-Cigarette/Vaping Use: Never Used Second Hand Smoke Exposure: No Advance Directives: No Advance Directives Information Provided: Yes Current occupational status: disabled Cognitive needs: No Hearing needs: No Vision needs: No Meds Allergies Allergy/AdvReac Type Severity Reaction Status Date / Time amlodipine Allergy Unknown unknown Verified 07/01/23 09:14 prednisolone Allergy Unknown anaphylaxis Verified 07/01/23 09:14 prednisone [PREDNISONE] Allergy Unknown DEPRESSION Verified 07/01/23 09:14 Sulfa (Sulfonamide Allergy Unknown hives, rash Verified 07/01/23 09:14 Antibiotics) sulfamethoxazole Allergy Unknown RASH Verified 07/01/23 09:14 [From BACTRIM] trimethoprim [From BACTRIM] Allergy Unknown RASH Verified 07/01/23 09:14 clindamycin AdvReac Severe joint pain Verified 07/01/23 09:14 sumatriptan [From IMITREX] AdvReac Unknown UNK Verified 07/01/23 09:14 ORCHIDS Allergy Intermediate Angioedema Uncoded 07/01/23 09:14 Home Medications Medication Instructions Recorded Confirmed Last Taken Type duloxetine 30 mg capsule,delayed 20 mg PO DAILY 09/24/22 06/24/23 Unknown History release mirabegron 50 mg tablet,extended 50 mg PO DAILY 02/24/23 06/24/23 Unknown History release 24 hr (Myrbetriq) Exam Airway Mallampati Class: II TM Dist: >3cm Neck ROM: Full Assessment and Plan Assessment Anesthesia Assessment: Anesthesia Plan Discussed Final Anesthetic Review Family History of Problems with Anesthesia: No History of Problems with Anesthesia: No NPO: Yes ASA Class: III Final Preanesthetic Review: No Changes in Pt Med Stat, Meds/Allgs Chart Reviewed, Consent Obtained/Reviewed and Anes Risks/Benef Reviewed Patient Risk: Intermediate Procedure Risk: Low Anesthetic Plan Anesthetic Plan: MAC: Disposition: Standard PACU
--- NOTE | 2023-07-29 10:38 | MHC.SHP ---
Pre-Procedural Eval Section A Date of Service: 07/29/23 Section B Chief Complaint: Chronic idiopathic constipation Relevant Family History (Specify if Yes): No Relevant Social History: None Present Medications: see Short Stay Collaborative assessment Medical History: Significant History (History of deviated nasal septum History of nephrolithotomy with removal of calculi) History of Previous Operations: Relevant previous surgery/procedure and date(s) (H/O adenoidectomy History of back surgery History of tonsillectomy) Allergies: Allergies Allergy/AdvReac Type Severity Reaction Status Date / Time amlodipine Allergy Unknown unknown Verified 07/01/23 09:14 prednisolone Allergy Unknown anaphylaxis Verified 07/01/23 09:14 prednisone [PREDNISONE] Allergy Unknown DEPRESSION Verified 07/01/23 09:14 Sulfa (Sulfonamide Allergy Unknown hives, rash Verified 07/01/23 09:14 Antibiotics) sulfamethoxazole Allergy Unknown RASH Verified 07/01/23 09:14 [From BACTRIM] trimethoprim [From BACTRIM] Allergy Unknown RASH Verified 07/01/23 09:14 clindamycin AdvReac Severe joint pain Verified 07/01/23 09:14 sumatriptan [From IMITREX] AdvReac Unknown UNK Verified 07/01/23 09:14 ORCHIDS Allergy Intermediate Angioedema Uncoded 07/01/23 09:14 Review of Systems Sugical H&P ROS: Negative: Constitution, Cardiovascular, Respiratory, Neurological, Psychiatric, Hem-Onc, Allergic/Immunologic, Gastrointestinal, Genitourinary, Musculoskeletal, Integumentary, Endocrine and Eyes/Ears/Nose/Throat Exam Surgical H&P Exam: Normal: HEENT, Normal: Heart, Normal: Lungs, Normal: Extremities, Normal: Abdomen, Normal: Skin and Normal: Neurological Plan Diagnosis/Plan: Unchanged I have reviewed the history and physical and performed a pertinent physical examination on my patient. No changes have occurred unless specified. Time Spent With Patient Time: Total time managing care of this patient today ____ minutes.
[2023-07-29 10:40] VITALS: BMI 36.6
[2023-07-29 10:51] VITALS: BP 152/74; PULSE 81; RESP 16; TEMP 36.2; O2SAT 96
[2023-07-29] MEDS: Lactated Ringers 1,000 ML 100 ML IVCONT (10:53)
--- NOTE | 2023-07-29 11:49 | W.PM.OPN ---
Operative Note Operative Note Date of Service: 07/29/23 Narrative: Operative Information Procedure Description: Colonoscopy Indication: screening Anesthesia: MAC COLONOSCOPY Instrument: Olympus variable stiffness pediatric scope 190L Colonoscopy Monitoring: Vital signs and clinical assessment, continuous EKG monitoring, Pulse oximetry, Carbon Dioxide monitoring and blood pressure monitoring were done throughout the procedure. Colon withdrawal time was 16 minutes. Procedure: The patient was placed in the left lateral decubitis position and pre-procedure medications were administered. After a digital rectal examination of the ano-rectum, the video colonoscope was inserted into the rectum and advanced through the colon to the cecum/TI. The colonoscope was slowly withdrawn in a retrograde panoramic fashion and the colon mucosa was carefully examined including a retroflexed view of the rectum. Findings and interventions are described below. Procedure Difficulty: moderate due to looping Findings: Terminal Ileum- normal Cecum:normal Ascending Colon: normal Transverse Colon -normal Descending Colon:normal Sigmoid Colon: normal Rectum: Retroflexion with small internal hemorrhoids, grade I, x2 sessile polyps 8-9 mm, one removed with cold snare and the other with cold forceps Anorectum - normal Colon preparation: [place] Bowel Preparation Scale Right colon; 2 Transverse colon: 1-2 Left colon; 2 (0 = Unprepared colon segment with mucosa not seen due to solid stool that cannot be cleared. 1 = Portion of mucosa of the colon segment seen, but other areas of the colon segment not well seen due to staining, residual stool and/or opaque liquid. 2 = Minor amount of residual staining, small fragments of stool and/or opaque liquid, but mucosa of colon segment seen well. 3 = Entire mucosa of colon segment seen well with no residual staining, small fragments of stool or opaque liquid) Impression and Post Procedure Diagnosis: polyps internal hemorrhoids Plan: High fiber diet leaflet Avoid straining at stool, epsom salts and sitz bath, anusol supps or cream Repeat Colonoscopy in 5 years due to fair prep in some areas or earlier if clinically indicated Above findings were reviewed with the patient and relevant handouts were provided if indicated.
[2023-07-29 11:56] VITALS: BP 98/45; PULSE 76; RESP 16; TEMP 36.1; O2SAT 97
[2023-07-29 12:11] VITALS: BP 114/88; PULSE 70; RESP 16; TEMP 36.6; O2SAT 98
== END 2023-07-29 13:00 | disposition home or self-care (01) ==
PROVIDERS: PCP Internal Medicine; Visit Provider Internal Medicine Gastroenterology
PROC: 0DJD8ZZ Inspection of Lower Intestinal Tract, Via Natural or Artificial Opening Endoscopic (ICD-10-PCS; CPT 45378; principal; 2023-07-29 12:00)
DX: Z12.11 Encounter for screening for malignant neoplasm of colon (principal); K62.1 Rectal polyp; K64.0 First degree hemorrhoids; K59.04 Chronic idiopathic constipation; Z79.899 Other long term (current) drug therapy; Z88.2 Allergy status to sulfonamides; Z88.8 Allergy status to other drugs, medicaments and biological substances; Z87.442 Personal history of urinary calculi
CPT/HCPCS: 45385; 45380; 88305

== ENCOUNTER → 2023-07-29 10:32 | Outpatient (BNV) | payer MEDICARE, MEDICAID, SELFPAY | PROVIDERS: PCP Internal Medicine; Visit Provider Internal Medicine Gastroenterology | DX: Z12.11 Encounter for screening for malignant neoplasm of colon (principal); K63.5 Polyp of colon; K64.9 Unspecified hemorrhoids | CPT/HCPCS: 45380; 45385 ==

== ENCOUNTER → 2023-08-11 20:30 | Outpatient (REF) | payer MEDICARE, MEDICAID, SELFPAY | LOC: HO.SL 20:30 | PROVIDERS: PCP Internal Medicine; Visit Provider Nurse Practitioner Family | DX: R94.31 Abnormal electrocardiogram [ECG] [EKG] (principal); E66.09 Other obesity due to excess calories; I10 Essential (primary) hypertension; G25.81 Restless legs syndrome; G47.33 Obstructive sleep apnea (adult) (pediatric); G47.61 Periodic limb movement disorder; G47.19 Other hypersomnia | CPT/HCPCS: 95810 ==

== ENCOUNTER → 2023-08-11 22:35 | Outpatient (BNV) | payer MEDICARE, MEDICAID, SELFPAY | PROVIDERS: PCP Internal Medicine; Visit Provider Psychiatry & Neurology Neurology | DX: G47.33 Obstructive sleep apnea (adult) (pediatric) (principal); R94.31 Abnormal electrocardiogram [ECG] [EKG] | CPT/HCPCS: 95810 ==

== ENCOUNTER 2023-08-25 10:11 | Outpatient (AMB) | payer BC, MEDICAID, SELFPAY ==
[2023-08-25 10:19] VITALS: BP 148/80; PULSE 77; O2SAT 98; BMI 36.6
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
== END 2023-08-25 11:44 | disposition home or self-care (01) ==
PROVIDERS: Visit Provider Internal Medicine
DX: I10 Essential (primary) hypertension (principal); F43.29 Adjustment disorder with other symptoms; F33.1 Major depressive disorder, recurrent, moderate; M54.50 Low back pain, unspecified; G89.29 Other chronic pain
CPT/HCPCS: 99215

== ENCOUNTER 2023-08-25 11:47 | Outpatient (REF) | payer MEDICARE, MEDICAID, SELFPAY ==
[2023-08-25 13:20] LABS: MANUAL DIFF FLAG NO
[2023-08-25 13:42] LABS: Basophils Absolute Auto 0.1 X10*3/uL (0.0-0.2); Basophils Percent Auto 0.8 % (0-2); Eosinophils Absolute Auto 0.2 X10*3/uL (0.0-0.4); Hematocrit 43.1 % (37.0-47.0); Imm Gran Abs Auto 0.05 X10*3/uL (0.00-0.03); Imm Gran Pct Auto 0.5 % (0.0-0.4); Lymphocytes Absolute Auto 2.5 X10*3/uL (1.2-4.9); Lymphocytes Percent Auto 24.2 % (20-40); Mean Corpuscular HGB Conc 32.5 g/dl (31.0-35.0); Mean Corpuscular Hemoglobin 28.5 pg (27.0-33.0); Mean Corpuscular Volume 87.8 fL (80.0-98.0); Mean Platelet Volume 9.3 fL (9.4-12.3); Monocytes Absolute Auto 0.7 X10*3/uL (0.1-1.2); Monocytes Percent Auto 6.8 % (2-11); Neutrophils Absolute Auto 6.8 x10*3/uL (2.0-8.3); Neutrophils Percent Auto 65.7 % (45-73); Platelet Count 300 X10*3/uL (160-400); Red Blood Count 4.91 X10*6/uL (4.20-5.50); Red Cell Distribution Width 13.2 % (11.0-16.0); White Blood Count 10.4 X10*3/uL (4.8-10.8)
[2023-08-25 13:56] LABS: Alanine Aminotransferase 8 U/L (0-31); Albumin Level 4.1 g/dL (3.5-5.0); Alkaline Phosphatase 111 U/L (39-117); Anion Gap 11 (12-20); Aspartate Amino Transferase 17 U/L (5-31); Bilirubin Total 0.4 mg/dL (0.0-1.0); Blood Urea Nitrogen 20 mg/dL (9-16); Carbon Dioxide 29 mmol/L (22-29); Chloride 104 mmol/L (96-108); Cholesterol 212 mg/dL (<200); Estimated Glomerular Filt Rate > 60; Glucose Fasting 123 mg/dL (60-99); Glucose Random 121 mg/dL (60-115); HDL Cholesterol 61 mg/dL (>40); LDL Cholesterol Calculated 132 mg/dL (<100); Potassium 4.1 mmol/L (3.3-5.1); Sodium 140 mmol/L (135-145); Total Protein 7.2 g/dL (6.5-8.0); Triglycerides 99 mg/dL (<150)
[2023-08-25 14:15] LABS: TSH reflex Free T4 0.49 uIU/mL (0.32-4.0)
[2023-08-27 06:48] LABS: LDL Cholesterol Direct 130 mg/dL (<100)
== END 2023-08-25 11:48 | disposition home or self-care (01) ==
LOC: HO.HMGCLDS 11:47
PROVIDERS: PCP Internal Medicine; Visit Provider Internal Medicine
DX: Z00.01 Encounter for general adult medical examination with abnormal findings (principal); I10 Essential (primary) hypertension; E66.09 Other obesity due to excess calories; R35.0 Frequency of micturition; F99 Mental disorder, not otherwise specified; F43.29 Adjustment disorder with other symptoms; J18.9 Pneumonia, unspecified organism
CPT/HCPCS: 36415; 80053; 80061; 83721; 84443; 85025

== ENCOUNTER 2023-09-29 11:37 | Outpatient (AMB) | payer MEDICARE, MEDICAID, SELFPAY ==
[2023-09-29 11:39] VITALS: BMI 36.6
--- NOTE | 2023-09-29 11:39 | MHC.OFFVIS ---
Intake Vital Signs 09/29/23 11:39 Height 4 ft 10 in Weight 175 lb BMI 36.6 Intake Visit Reasons: Bilateral Knees Intake Note: Gayatri 63 yr old female presents today for her follow up visit for her bilateral knee pains. The patient describes her pains as sharp in nature. She has had cortisone injections in the past which gave her fairly good relief. She denies any fevers or chills. She has taken Tylenol and ibuprofen which gave her mild relief. She has also done physical therapy exercises which aggravated her pain. She wishes to hold off on surgery for as long as possible. Allergies amlodipine Allergy (Unknown, Verified 08/25/23 10:20) unknown prednisolone Allergy (Unknown, Verified 08/25/23 10:20) anaphylaxis prednisone [PREDNISONE] Allergy (Unknown, Verified 08/25/23 10:20) DEPRESSION Sulfa (Sulfonamide Antibiotics) Allergy (Unknown, Verified 08/25/23 10:20) hives, rash sulfamethoxazole [From BACTRIM] Allergy (Unknown, Verified 08/25/23 10:20) RASH trimethoprim [From BACTRIM] Allergy (Unknown, Verified 08/25/23 10:20) RASH clindamycin Adverse Reaction (Severe, Verified 08/25/23 10:20) joint pain sumatriptan [From IMITREX] Adverse Reaction (Unknown, Verified 08/25/23 10:20) UNK ORCHIDS Allergy (Intermediate, Uncoded 07/01/23 09:14) Angioedema Medication List - Last Reconciled 09/29/23 by Rakesh Cox MD albuterol sulfate 90 mcg/actuation (ProAir HFA) 2 puffs inhalation Q6H PRN 30 days bisacodyl (Dulcolax (bisacodyl)) 10 mg (2 x 5 mg) PO ONCE 1 day docusate sodium 100 mg PO BEDTIME duloxetine 20 mg PO DAILY fluticasone propionate 50 mcg/actuation (Flonase Allergy Relief) 2 sprays intranasal DAILY hydrocortisone 2.5% (Proctosol HC) 1 appl [place] BID-QID mirabegron ER (Myrbetriq) 50 mg PO DAILY polyethylene glycol 3350 (Miralax) 238 grams PO ONCE ropinirole 3 mg PO BID verapamil ER 120 mg PO DAILY [facility] Medical History History of deviated nasal septum History of nephrolithotomy with removal of calculi Surgical History History of tonsillectomy H/O adenoidectomy History of back surgery Family History Mother Hypertension Lung cancer Father Lung cancer COPD (chronic obstructive pulmonary disease) Arterial vascular disease Sister Stroke Hypertension Social History Housing: House Alcohol intake: current Alcohol intake frequency: holidays/special occasions only Patient Tobacco Use Status: Never used Tobacco e-Cigarette/Vaping Use: Never Used Second Hand Smoke Exposure: No service: No Current occupational status: disabled Cognitive needs: No Hearing needs: No Vision needs: No Physical Exam Vital Signs: BMI result Body Mass Index 36.6 Const Other: Well-nourished well-developed very friendly female awake alert and oriented x3 in no acute distress Extrem Other: Bilateral lower extremity examination shows good capillary refill, no skin lesions noted, normal sensation light touch Bilateral knee examination shows minimal effusions, palpable crepitus with range of motion, pain with range of motion, range of motion from -3 degrees to 115 degrees, no instability Office Procedures Joint Injection/Drain Joint Injection/Drain Primary Site: left knee Prep: site was prepped using aseptic technique Injected: 40 mg of, Kenalog and 1% plain lidocaine Procedure: The patient tolerated the procedure well Coding 78703 - Large joint Procedure code (CPT) selection complete Joint Injection/Drain Joint Injection/Drain Primary Site: right knee Prep: site was prepped using aseptic technique Injected: 40 mg of, Kenalog and 1% plain lidocaine Procedure: The patient tolerated the procedure well Coding 97537 - Large joint Procedure code (CPT) selection complete Results Reviewed Results Reviewed: 09/29/23 11:41 Lidocaine HCl 2 % MPF [Xylocaine 2 % MPF] 5 ml .ROUTE .STK-MED ONE Triamcinolone Acetonide [Kenalog-40] 40 mg .ROUTE .STK-MED ONE X-rays of the patient's bilateral knee show joint space narrowing, subchondral sclerosis, no acute bony abnormalities Assessment & Plan Assessment & Plan (1) Arthritis of right knee: Code(s): M17.11 - Unilateral primary osteoarthritis, right knee (2) Arthritis of left knee: Code(s): M17.12 - Unilateral primary osteoarthritis, left knee Plan: Ms. Jacobson presents with bilateral knee pains due to degenerative joint disease. I had a lengthy discussion with the patient regarding the treatment options. She wishes to hold off on surgery for as long as possible. I agree with this plan. The risks and benefits of bilateral knee cortisone injections were discussed at length with the patient. The patient wished to proceed. She tolerated the injections well. She will continue with her home exercise program. She will follow up with me on an as-needed basis should her symptoms not plateau at an unacceptable level over the next few months. Feel free to call me at any time should questions regarding her orthopedic management arise. I spent 22 minutes in reviewing the patient's records and imaging studies, seeing the patient and documenting in the medical record. Orders: Orders AMB Joint Injection/Aspiration Today M17.12 - Unilateral primary osteoarthritis, left knee AMB Joint Injection/Aspiration Today M17.11 - Unilateral primary osteoarthritis, right knee Medications: New ibuprofen 600 mg PO Q8H PRN 60 tabs 2RF pain Coding Level of Care Code Est Pt Level 2 (32875) Diagnoses Arthritis of right knee M17.11 Arthritis of left knee M17.12 CPT Codes Coding - 86493 Large joint: 19395 - Large joint ([id number]) Coding - 55106 Large joint: 75123 - Large joint ([id number])
== END 2023-09-29 12:06 | disposition home or self-care (01) ==
PROVIDERS: PCP Internal Medicine; Visit Provider Orthopaedic Surgery
DX: M17.0 Bilateral primary osteoarthritis of knee (principal)
CPT/HCPCS: 20610; 99213

== ENCOUNTER → 2023-09-29 11:37 | Outpatient (BNVA) | payer MEDICARE, MEDICAID, SELFPAY | PROVIDERS: PCP Internal Medicine; Visit Provider Orthopaedic Surgery | DX: M17.0 Bilateral primary osteoarthritis of knee (principal) | CPT/HCPCS: 20610; 99212; J3301 ==

== ENCOUNTER 2023-11-25 09:42 | Outpatient (AMB) | payer MEDICARE, MEDICAID, SELFPAY ==
[2023-11-25 09:45] VITALS: BP 140/78; PULSE 104; O2SAT 98; BMI 37.2
--- NOTE | 2023-11-25 09:45 | MHC.PC.OV ---
Vital Signs 11/25/23 09:45 Height 4 ft 10 in Weight 178 lb BMI 37.2 BP 140/78 H Blood Pressure Location Rt brachial Position Sitting Pulse 104 H Pulse Source Pulse Oximeter Pulse Oximetry (%) 98 Oxygen Delivery Method Room Air Intake Visit Reasons: 3 month follow up Allergies amlodipine Allergy (Unknown, Verified 11/25/23 09:46) unknown prednisolone Allergy (Unknown, Verified 11/25/23 09:46) anaphylaxis prednisone [PREDNISONE] Allergy (Unknown, Verified 11/25/23 09:46) DEPRESSION Sulfa (Sulfonamide Antibiotics) Allergy (Unknown, Verified 11/25/23 09:46) hives, rash sulfamethoxazole [From BACTRIM] Allergy (Unknown, Verified 11/25/23 09:46) RASH trimethoprim [From BACTRIM] Allergy (Unknown, Verified 11/25/23 09:46) RASH clindamycin Adverse Reaction (Severe, Verified 11/25/23 09:46) joint pain sumatriptan [From IMITREX] Adverse Reaction (Unknown, Verified 11/25/23 09:46) UNK ORCHIDS Allergy (Intermediate, Uncoded 11/25/23 09:46) Angioedema Medication List - Last Reconciled 11/25/23 by Timbo Lucas MD albuterol sulfate 90 mcg/actuation (ProAir HFA) 2 puffs inhalation Q6H PRN 30 days atomoxetine 80 mg PO QAM bisacodyl (Dulcolax (bisacodyl)) 10 mg (2 x 5 mg) PO ONCE 1 day docusate sodium 100 mg PO BEDTIME duloxetine 20 mg PO DAILY fluticasone propionate 50 mcg/actuation (Flonase Allergy Relief) 2 sprays intranasal DAILY hydrocortisone 2.5% (Proctosol HC) 1 appl [place] BID-QID ibuprofen 600 mg PO Q8H PRN mirabegron ER (Myrbetriq) 50 mg PO DAILY polyethylene glycol 3350 (Miralax) 238 grams PO ONCE ropinirole 3 mg PO BID verapamil ER 120 mg PO DAILY Tobacco use date assessed: 11/25/23 Fall risk assessment: No Falls in past year Last assessed Fall Risk: 11/25/23 Dental Screening Dental Screen Date: 11/25/23 Did you have a dental visit in the last 12 months?: Yes Did you have a dental problem in the last 6 months where you did not have access to dental care?: No Was dental information given to patient?: Patient has dentist HPI 3 month follow up HPI Details Patient is 63-year-old female Patient is still going grieving process due to loss of family member She has a psychiatrist and counselor, and is still waiting for grieving counselor. I notified our behavior health coordinator who will be calling the patient for assistance She suffers from major depression, is on duloxetine 20 mg through Psychiatry along with Adderall and Xanax Her blood pressure is 140/80, patient was on verapamil 120 mg tolerating medication no side effects Patient has seen urologist Dr. Rizvi who has worked her up and did not find any kidney stone She is currently taking medication for urine incontinence which is somewhat helping her. 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 Patient has impaired fasting sugar, I recommend to lose weight which patient is having difficulty with PFSH Medical History History of deviated nasal septum History of nephrolithotomy with removal of calculi Surgical History History of tonsillectomy H/O adenoidectomy History of back surgery Family History Mother Hypertension Lung cancer Father Lung cancer COPD (chronic obstructive pulmonary disease) Arterial vascular disease Sister Stroke Hypertension Social History Housing: House Alcohol intake: current Alcohol intake frequency: holidays/special occasions only Patient Tobacco Use Status: Never used Tobacco e-Cigarette/Vaping Use: Never Used Second Hand Smoke Exposure: No service: No Current occupational status: disabled Cognitive needs: No Hearing needs: No Vision needs: Yes Questionnaire PHQ-9 Over the last 2 weeks, how often have you been bothered by any of the following problems? 1. Little interest or pleasure in doing things: not at all 2. Feeling down, depressed, or hopeless: several days 3. Trouble falling or staying asleep, or sleeping too much: several days 4. Feeling tired or having little energy: several days 5. Poor appetite or overeating: several days 6. Feeling bad about yourself - or that you are a failure or have let yourself or your family down: several days 7. Trouble concentrating on things, such as reading the newspaper or watching television: several days 8. Moving or speaking so slowly that other people could have noticed. Or the opposite - being so fidgety or restless that you have been moving around a lot more than usual: not at all 9. Thoughts that you would be better off or of hurting yourself in some way: not at all Total score: 6 Depression Screening Interpretation: Negative Depression Screening Done: Yes 07034 - PHQ-9 Billing: Yes Source: Developed by Drs. Isaac Pak, Jacey Ingram, Paramjit Barker and colleagues, with an educational kathy from [employer]. Thrive Questionnaire Date Thrive assessed: 11/25/23 I am a: Patient What is your living situation today?: I have a steady place to live Within the past 12 months, did the food you bought not last and you didn't have the money to get more?: Never true Within the past 12 months, did you worry whether your food would run out before you got money to buy more?: Never true Do you have trouble paying for medicines?: No Do you have trouble getting transportation to medical appointments?: Yes Do you have trouble paying your heating and electricity bill?: No Do you have trouble taking care of your child, family member or friend?: No Do you have trouble with day-to-day activities such as bathing, preparing meals, shopping, managing finances, etc.?: No Are you currently unemployed and looking for a job?: No Are you interested in more education?: No Please select the resources that you would like help with: None Currently or been in a relationship where the following occur: no concerns reported AUDIT C Alcohol Use Questionnaire (AUDIT-C) 1. How often do you have a drink containing alcohol?: Never Total Score: 0 WAQAS-7 AMB Questionnaire WAQAS-7 Date WAQAS - 7 assessed: 11/25/23 Feeling nervous, anxious, or on edge: 0 = Not at all Not being able to stop or control worryin = Not at all Worrying too much about different things: 0 = Not at all Trouble relaxin = Not at all Being so restless that it is hard to sit still: 0 = Not at all Becoming easily annoyed or irritable: 0 = Not at all Feeling afraid as if something awful might happen: 0 = Not at all Total WAQAS-7 score (0-4 normal; 5-9 mild; 10-14 moderate; 15-21 severe): 0 Source: Developed by Drs. Isaac Pak, Jacey Ingram, Paramjit Barker and colleagues, with an educational kathy from [employer]. WAQAS-7 Assessment Billing WAQAS-7 Assessment Tool: WAQAS-7 Assessment 34665 Review of Systems Const Denies chills and Denies fever(s) ENT Denies epistaxis and Denies nasal discharge Card Denies chest pain Resp Denies chest congestion, Denies cough and Denies hemoptysis GI Denies diarrhea and Denies nausea Skin/Breast Denies rash Neuro Reports no additional complaints Psych Reports no additional complaints Endo Reports no additional complaints Physical exam (Primary Care) Vital Signs: Last Vital Signs Pulse 104 H 11/25/23 09:45 BP 140/78 H 11/25/23 09:45 Pulse Ox 98 11/25/23 09:45 Oxygen Delivery Method Room Air 11/25/23 09:45 BMI result Body Mass Index 37.2 Tobacco/Smoking Status: Tobacco use Status Tobacco use date assessed 11/25/23 11/25/23 09:52 Patient Tobacco Use Status Never used Tobacco 11/25/23 09:52 e-Cigarette/Vaping Use Never Used 11/25/23 09:52 PHQ-9: PHQ-9 Score PHQ-9: Total score 6 11/25/23 10:15 Depression Screening Interpretation: Negative Thrive Assessment: Date of Thrive Assessment Date Thrive assessed 11/25/23 11/25/23 10:15 Currently or been in a relationship where the following occur: no concerns reported Const General: cooperative, comfortable and no acute distress Orientation/consciousness: patient oriented x3 HENMT Head: Yes normocephalic Eyes General: appearance normal, both eyes and all related structures Neck Neck: Yes supple Resp Effort & Inspection: normal respiratory effort, no cough and no stridor Cardio Rhythm: regular rhythm Heart sounds: S1 normal heart sound present and S2 normal heart sound present Skin General skin exam: turgor normal Neuro General: patient oriented x3, tone normal and moves all extremities Extrem Right lower extremity: no edema Left lower extremity: no edema Assessment and Plan Assessment & Plan (1) Major depression, recurrent: Code(s): F33.9 - Major depressive disorder, recurrent, unspecified Qualifiers: Active/Remission status: currently active Major depression episode severity: moderate Qualified Code(s): F33.1 - Major depressive disorder, recurrent, moderate (2) Impaired fasting blood sugar: Comment: Some information regarding diabetic diet __Carbohydrates, proteins, and fats : Our bodies break down the food we eat into small pieces called carbohydrates, proteins, and fats. Carbohydrates, which are sugars that our bodies use for energy, can raise a person's blood sugar level. Your doctor, nurse, or dietitian will tell you how many carbohydrates you should eat at each meal or snack. Foods that have carbohydrates include: 1] Bread, pasta, and rice ----- 2 ] Vegetables and fruits ....... 3 ] Dairy foods ...... 4 ] Foods with added sugar ...... ------Calories : People need to eat a certain amount of calories each day to keep their weight the same. People who are overweight and want to lose weight need to eat fewer calories each day......... ......Fiber : Eating foods with a lot of fiber can help control a person's blood sugar level.......... ......Cholesterol : People who have high cholesterol levels might need to reduce the amount of cholesterol they eat. Foods with a lot of cholesterol include red meat, whole milk, and egg yolks......... .......Salt : People who have high blood pressure should not eat foods that contain a lot of salt (also called sodium). People with high blood pressure should also eat healthy foods, such as fruits, vegetables, and low-fat dairy foods......... ......Alcohol : Having more than 1 drink (for women) or 2 drinks (for men) a day can raise blood sugar levels. Also, drinks that have fruit juice or soda in them can raise blood sugar levels.......... What can I do if I need to lose weight? If you need to lose weight, you can: .......Exercise : Try to exercise for 30 minutes a day, most days of the week. Some people with diabetes need to change their medicine dose before they exercise. They might also need to check their blood sugar levels before and after exercising......... ......Eat fewer calories : Your doctor, nurse, or dietitian can tell you how many calories you should eat each day in order to lose weight. Code(s): R73.01 - Impaired fasting glucose (3) Stress and adjustment reaction: Code(s): F43.29 - Adjustment disorder with other symptoms (4) Headache syndrome: Code(s): G44.89 - Other headache syndrome (5) Obesity due to excess calories: Code(s): E66.09 - Other obesity due to excess calories Qualifiers: Obesity classification: adult class 2 (BMI 35 - 39.9) Serious obesity comorbidity presence: with serious comorbidity Body mass index: BMI 37.0-37.9 Qualified Code(s): E66.01 - Morbid (severe) obesity due to excess calories; Z68.37 - Body mass index [BMI] 37.0-37.9, adult (6) Hypertension, essential: Code(s): I10 - Essential (primary) hypertension (7) Chronic lower back pain: Code(s): M54.50 - Low back pain, unspecified; G89.29 - Other chronic pain Qualifiers: Back pain laterality: right Sciatica presence: without sciatica Qualified Code(s): M54.50 - Low back pain, unspecified; G89.29 - Other chronic pain Plan Patient is 63-year-old female Patient is still going grieving process due to loss of family member She has a psychiatrist and counselor, and is still waiting for grieving counselor. I notified our behavior health coordinator who will be calling the patient for assistance She suffers from major depression, is on duloxetine 20 mg through Psychiatry along with Adderall and Xanax Her blood pressure is 140/80, patient was on verapamil 120 mg tolerating medication no side effects Patient has seen urologist Dr. Rizvi who has worked her up and did not find any kidney stone She is currently taking medication for urine incontinence which is somewhat helping her. 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 Patient has impaired fasting sugar, I recommend to lose weight which patient is having difficulty with Orders: Orders Hemoglobin A1c Today E66.09 - Other obesity due to excess calories, F33.9 - Major depressive disorder, recurrent, unspecified, F43.29 - Adjustment disorder with other symptoms, G44.89 - Other headache syndrome, I10 - Essential (primary) hypertension, R73.01 - Impaired fasting glucose Complete Blood Count Auto Diff Today E66.09 - Other obesity due to excess calories, F33.9 - Major depressive disorder, recurrent, unspecified, F43.29 - Adjustment disorder with other symptoms, G44.89 - Other headache syndrome, I10 - Essential (primary) hypertension, R73.01 - Impaired fasting glucose Lipid Panel Today E66.09 - Other obesity due to excess calories, F33.9 - Major depressive disorder, recurrent, unspecified, F43.29 - Adjustment disorder with other symptoms, G44.89 - Other headache syndrome, I10 - Essential (primary) hypertension, R73.01 - Impaired fasting glucose Comprehensive [place]. Panel Fast Today E66.09 - Other obesity due to excess calories, F33.9 - Major depressive disorder, recurrent, unspecified, F43.29 - Adjustment disorder with other symptoms, G44.89 - Other headache syndrome, I10 - Essential (primary) hypertension, R73.01 - Impaired fasting glucose Medications: Refilled albuterol sulfate 90 mcg/actuation (ProAir HFA) 2 puffs inhalation Q6H PRN 8.5 grams 1RF bronchospasm 30 days Coding Level of Care Code Est Pt Level 4 (14177) Diagnoses Moderate episode of recurrent major depressive disorder F33.1 Active/Remission status: currently active Major depression episode severity: moderate Impaired fasting blood sugar R73.01 Stress and adjustment reaction F43.29 Headache syndrome G44.89 Class 2 severe obesity due to excess calories with serious comorbidity and body mass index (BMI) of 37.0 to 37.9 in adult E66.01; Z68.37 Obesity classification: adult class 2 (BMI 35 - 39.9) Serious obesity comorbidity presence: with serious comorbidity Body mass index: BMI 37.0-37.9 Hypertension, essential I10 Chronic right-sided low back pain without sciatica M54.50; G89.29 Back pain laterality: right Sciatica presence: without sciatica Additional Codes WAQAS-7 Assessment Billing - WAQAS-7 Assessment Tool: WAQAS-7 Assessment 12720 ([id number])
== END 2023-11-25 10:11 | disposition home or self-care (01) ==
PROVIDERS: PCP Internal Medicine; Visit Provider Internal Medicine
DX: R73.01 Impaired fasting glucose (principal); F33.1 Major depressive disorder, recurrent, moderate; E66.01 Morbid (severe) obesity due to excess calories; Z68.37 Body mass index [BMI] 37.0-37.9, adult; F43.29 Adjustment disorder with other symptoms; G44.89 Other headache syndrome; I10 Essential (primary) hypertension; M54.50 Low back pain, unspecified; G89.29 Other chronic pain
CPT/HCPCS: 99214

== ENCOUNTER 2023-12-31 10:39 | Outpatient (AMB) | payer MEDICARE, MEDICAID, SELFPAY ==
[2023-12-31 10:40] VITALS: BMI 37.2
--- NOTE | 2023-12-31 10:40 | A.OFFVIS_ITS ---
Intake Vital Signs 12/31/23 10:40 Height 4 ft 10 in Weight 178 lb BMI 37.2 Intake Visit Reasons: ov- Bilateral Knees last injection 09/29/23 Intake Note: Gayatri is a 63 year old female who presents for a follow up for her bilateral knee pain. Patient reports her last injection was on 09/29/2023. She states that the injections gave her relief and she would like to repeat the injections. She has done physical therapy exercises which aggravated her pain. She has also tried Tylenol and anti-inflammatory medicines which gave her minimal relief. She would like to hold off on surgery for as long as possible. Allergies amlodipine Allergy (Unknown, Verified 12/31/23 10:43) unknown prednisolone Allergy (Unknown, Verified 12/31/23 10:43) anaphylaxis prednisone [PREDNISONE] Allergy (Unknown, Verified 12/31/23 10:43) DEPRESSION Sulfa (Sulfonamide Antibiotics) Allergy (Unknown, Verified 12/31/23 10:43) hives, rash sulfamethoxazole [From BACTRIM] Allergy (Unknown, Verified 12/31/23 10:43) RASH trimethoprim [From BACTRIM] Allergy (Unknown, Verified 12/31/23 10:43) RASH clindamycin Adverse Reaction (Severe, Verified 12/31/23 10:43) joint pain sumatriptan [From IMITREX] Adverse Reaction (Unknown, Verified 12/31/23 10:43) UNK ORCHIDS Allergy (Intermediate, Uncoded 11/25/23 09:46) Angioedema Medication List - Last Reconciled 12/31/23 by Rakesh Cox MD albuterol sulfate 90 mcg/actuation (ProAir HFA) 2 puffs inhalation Q6H PRN 30 days atomoxetine 80 mg PO QAM bisacodyl (Dulcolax (bisacodyl)) 10 mg (2 x 5 mg) PO ONCE 1 day docusate sodium 100 mg PO BEDTIME duloxetine 20 mg PO DAILY fluticasone propionate 50 mcg/actuation (Flonase Allergy Relief) 2 sprays intranasal DAILY hydrocortisone 2.5% (Proctosol HC) 1 appl PA BID-QID ibuprofen 600 mg PO Q8H PRN mirabegron ER (Myrbetriq) 50 mg PO DAILY polyethylene glycol 3350 (Miralax) 238 grams PO ONCE ropinirole 3 mg PO BID verapamil ER 120 mg PO DAILY [facility] Medical History History of deviated nasal septum History of nephrolithotomy with removal of calculi Surgical History History of tonsillectomy H/O adenoidectomy History of back surgery Family History Mother Hypertension Lung cancer Father Lung cancer COPD (chronic obstructive pulmonary disease) Arterial vascular disease Sister Stroke Hypertension Social History Housing: House Alcohol intake: current Alcohol intake frequency: holidays/special occasions only Patient Tobacco Use Status: Never used Tobacco e-Cigarette/Vaping Use: Never Used Second Hand Smoke Exposure: No service: No Current occupational status: disabled Cognitive needs: No Hearing needs: No Vision needs: Yes Physical Exam Vital Signs: BMI result Body Mass Index 37.2 Const Other: Well-nourished well-developed very friendly female awake alert and oriented x3 in no acute distress Extrem Other: Bilateral lower extremity examination shows good capillary refill, no skin lesions noted, normal sensation light touch Bilateral knee examination shows minimal effusions, palpable crepitus with range of motion, pain with range of motion, range of motion from-3 degrees to 115 degrees, no instability Office Procedures Joint Injection/Drain Joint Injection/Drain Primary Site: right knee Prep: site was prepped using aseptic technique Injected: 40 mg of, DepoMedrol and 1% plain lidocaine Procedure: The patient tolerated the procedure well Coding 99739 - Large joint Procedure code (CPT) selection complete Joint Injection/Drain Joint Injection/Drain Primary Site: left knee Prep: site was prepped using aseptic technique Injected: 40 mg of, DepoMedrol and 1% plain lidocaine Procedure: The patient tolerated the procedure well Coding 85579 - Large joint Procedure code (CPT) selection complete Results Reviewed Results Reviewed: X-rays of the patient's bilateral knee show joint space narrowing, subchondral sclerosis, no acute bony abnormalities Assessment & Plan Assessment & Plan (1) Arthritis of left knee: Code(s): M17.12 - Unilateral primary osteoarthritis, left knee (2) Arthritis of right knee: Code(s): M17.11 - Unilateral primary osteoarthritis, right knee Plan Ms. Stoddard presents with bilateral knee pains due to degenerative joint disease. I had a lengthy discussion with the patient regarding the treatment options. She wishes to hold off on surgery for as long as possible. I agree with this plan. The risks and benefits of bilateral knee cortisone injections were discussed at length with the patient. The patient wished to proceed. She tolerated the injections well. She will continue with her home exercise progr am. She will follow up with me on an as-needed basis should her symptoms not plateau at an unacceptable level over the next few months. Feel free to call me at any time should questions regarding her orthopedic management arise. I spent 22 minutes in reviewing the patient's records and imaging studies, seeing the patient and documenting in the medical record. Orders: Orders AMB Joint Injection/Aspiration Today M17.12 - Unilateral primary osteoarthritis, left knee AMB Joint Injection/Aspiration Today M17.11 - Unilateral primary osteoarthritis, right knee Coding Level of Care Code Est Pt Level 2 (06947) Diagnoses Arthritis of left knee M17.12 Arthritis of right knee M17.11 CPT Codes Coding - 90781 Large joint: 32237 - Large joint ([id number]) Coding - 72412 Large joint: 05001 - Large joint ([id number])
== END 2023-12-31 11:12 | disposition home or self-care (01) ==
PROVIDERS: PCP Internal Medicine; Visit Provider Orthopaedic Surgery
DX: M17.0 Bilateral primary osteoarthritis of knee (principal)
CPT/HCPCS: 20610; 99213

== ENCOUNTER → 2023-12-31 10:39 | Outpatient (BNVA) | payer MEDICARE, MEDICAID, SELFPAY | PROVIDERS: PCP Internal Medicine; Visit Provider Orthopaedic Surgery | DX: M17.12 Unilateral primary osteoarthritis, left knee (principal); M17.11 Unilateral primary osteoarthritis, right knee | CPT/HCPCS: 20610; 99212; J1020 ==

== ENCOUNTER 2024-02-23 12:57 | Outpatient (REF) | payer MEDICARE, MEDICAID, SELFPAY ==
[2024-02-23 13:10] LABS: MANUAL DIFF FLAG NO
[2024-02-23 13:22] LABS: Basophils Absolute Auto 0.1 X10*3/uL (0.0-0.2); Basophils Percent Auto 0.7 % (0-2); Eosinophils Absolute Auto 0.1 X10*3/uL (0.0-0.4); Eosinophils Percent Auto 1.8 % (0-4); Hematocrit 40.2 % (37.0-47.0); Hemoglobin 13.2 g/dl (12.0-16.0); Imm Gran Abs Auto 0.03 X10*3/uL (0.00-0.03); Imm Gran Pct Auto 0.4 % (0.0-0.4); Lymphocytes Absolute Auto 1.6 X10*3/uL (1.2-4.9); Lymphocytes Percent Auto 23.3 % (20-40); Mean Corpuscular HGB Conc 32.8 g/dl (31.0-35.0); Mean Corpuscular Hemoglobin 28.7 pg (27.0-33.0); Mean Corpuscular Volume 87.4 fL (80.0-98.0); Mean Platelet Volume 8.7 fL (9.4-12.3); Monocytes Absolute Auto 0.4 X10*3/uL (0.1-1.2); Monocytes Percent Auto 6.2 % (2-11); Neutrophils Absolute Auto 4.6 x10*3/uL (2.0-8.3); Neutrophils Percent Auto 67.6 % (45-73); Platelet Count 244 X10*3/uL (160-400); White Blood Count 6.7 X10*3/uL (4.8-10.8)
[2024-02-23 13:32] LABS: Estimated Average Glucose 114 mg/dL; Hemoglobin A1c % 5.6 % (<6.0)
[2024-02-23 14:02] LABS: Alanine Aminotransferase 11 U/L (0-31); Alkaline Phosphatase 117 U/L (39-117); Anion Gap 9 (12-20); Aspartate Amino Transferase 18 U/L (5-31); Bilirubin Total 0.3 mg/dL (0.0-1.0); Blood Urea Nitrogen 22 mg/dL (9-16); Calcium 9.1 mg/dL (8.4-10.2); Carbon Dioxide 30 mmol/L (22-29); Chloride 103 mmol/L (96-108); Cholesterol 188 mg/dL (<200); Estimated Glomerular Filt Rate > 60; Glucose Fasting 120 mg/dL (60-99); HDL Cholesterol 60 mg/dL (>40); LDL Cholesterol Calculated 114 mg/dL (<100); Potassium 4.4 mmol/L (3.3-5.1); Sodium 138 mmol/L (135-145); Total Protein 6.9 g/dL (6.5-8.0); Triglycerides 73 mg/dL (<150)
== END 2024-02-23 12:58 | disposition home or self-care (01) ==
LOC: HO.LAB 12:57
PROVIDERS: PCP Internal Medicine; Visit Provider Internal Medicine
DX: I10 Essential (primary) hypertension (principal); R73.01 Impaired fasting glucose; E66.09 Other obesity due to excess calories; G44.89 Other headache syndrome; F33.9 Major depressive disorder, recurrent, unspecified; F43.29 Adjustment disorder with other symptoms
CPT/HCPCS: 36415; 80053; 80061; 83036; 85025

== ENCOUNTER 2024-03-01 10:26 | Outpatient (AMB) | payer BC, MEDICAID, SELFPAY ==
[2024-03-01 10:34] VITALS: BP 130/72; PULSE 87; O2SAT 100; BMI 38.5
--- NOTE | 2024-03-01 10:34 | MHC.PC.OV ---
Vital Signs 03/01/24 10:34 Height 4 ft 10 in Weight 184 lb 2 oz BMI 38.5 BP 130/72 Blood Pressure Location Rt brachial Position Sitting Pulse 87 Pulse Source Pulse Oximeter Pulse Oximetry (%) 100 Oxygen Delivery Method Room Air Intake Visit Reasons: Annual PE Allergies amlodipine Allergy (Unknown, Verified 03/01/24 10:36) unknown prednisolone Allergy (Unknown, Verified 03/01/24 10:36) anaphylaxis prednisone [PREDNISONE] Allergy (Unknown, Verified 03/01/24 10:36) DEPRESSION Sulfa (Sulfonamide Antibiotics) Allergy (Unknown, Verified 03/01/24 10:36) hives, rash sulfamethoxazole [From BACTRIM] Allergy (Unknown, Verified 03/01/24 10:36) RASH trimethoprim [From BACTRIM] Allergy (Unknown, Verified 03/01/24 10:36) RASH clindamycin Adverse Reaction (Severe, Verified 03/01/24 10:36) joint pain sumatriptan [From IMITREX] Adverse Reaction (Unknown, Verified 03/01/24 10:36) UNK ORCHIDS Allergy (Intermediate, Uncoded 03/01/24 10:36) Angioedema Medication List - Last Reconciled 03/01/24 by Timbo Lucas MD albuterol sulfate 90 mcg/actuation (ProAir HFA) 2 puffs inhalation Q6H PRN 30 days alprazolam (Xanax) 0.5 mg PO DAILY PRN atomoxetine 80 mg PO QAM bisacodyl (Dulcolax (bisacodyl)) 10 mg (2 x 5 mg) PO ONCE 1 day dextroamphetamine-amphetamine 20 mg ER (Adderall XR) 20 mg PO DAILY docusate sodium 100 mg PO BEDTIME duloxetine 20 mg PO DAILY fluticasone propionate 50 mcg/actuation (Flonase Allergy Relief) 2 sprays intranasal DAILY hydrocortisone 2.5% (Proctosol HC) 1 appl NC BID-QID ibuprofen 600 mg PO Q8H PRN mirabegron ER (Myrbetriq) 50 mg PO DAILY polyethylene glycol 3350 (Miralax) 238 grams PO ONCE ropinirole 3 mg PO BID verapamil ER 120 mg PO DAILY Tobacco use date assessed: 03/01/24 Fall risk assessment: No Falls in past year Last assessed Fall Risk: 03/01/24 Dental Screening Dental Screen Date: 03/01/24 Did you have a dental visit in the last 12 months?: Yes Did you have a dental problem in the last 6 months where you did not have access to dental care?: No Was dental information given to patient?: Patient has dentist HPI Annual PE HPI Details Patient is 63-year-old female came in today for her physical exam Hypertension:? Blood pressure is stable patient is taking verapamil ER 120 mg once a day tolerating medication Obstructive sleep apnea:?she is seeing Dr Gregg, and is using BiPAP Restless leg syndrome: Taking Ropinirole through sleep specialist Patient's psychiatrist is, Blaze Bahena physician power plant assistant all her psych meds are through him Neurology is Dr. Kaufman treating patient's headache with promethazine suppository. Mammogram appointment coming Pap smear through OBGYN doctor Mindi Colonoscopy was July of 2023 [facility] BMI is elevated need to lose weight Labs done recently reviewed with the patient, fasting sugar is 120 with hemoglobin A1c of 5.6% LDL is 114 Allergies are stable patient is on Flonase nasal spray Follow-up 6 months [facility] Medical History History of deviated nasal septum History of nephrolithotomy with removal of calculi Surgical History History of tonsillectomy H/O adenoidectomy History of back surgery Family History Mother Hypertension Lung cancer Father Lung cancer COPD (chronic obstructive pulmonary disease) Arterial vascular disease Sister Stroke Hypertension Social History Housing: House Alcohol intake: current Alcohol intake frequency: holidays/special occasions only Patient Tobacco Use Status: Never used Tobacco e-Cigarette/Vaping Use: Never Used Second Hand Smoke Exposure: No service: No Current occupational status: disabled Cognitive needs: No Hearing needs: No Vision needs: Yes Questionnaire Thrive Questionnaire Date Thrive assessed: 11/25/23 I am a: Patient What is your living situation today?: I have a steady place to live Within the past 12 months, did the food you bought not last and you didn't have the money to get more?: I choose not to answer this question Within the past 12 months, did you worry whether your food would run out before you got money to buy more?: I choose not to answer this question Please select the resources that you would like help with: None Currently or been in a relationship where the following occur: no concerns reported THRIVE Score: 0 AUDIT C Alcohol Use Questionnaire (AUDIT-C) 1. How often do you have a drink containing alcohol?: Never 3. How often do you have six or more drinks on one occasion?: Never Total Score: 0 WAQAS-7 AMB Questionnaire WAQAS-7 Date WAQAS - 7 assessed: 11/25/23 Feeling nervous, anxious, or on edge: 1 = Several days Not being able to stop or control worryin = Several days Worrying too much about different things: 1 = Several days Trouble relaxin = Several days Being so restless that it is hard to sit still: 1 = Several days Becoming easily annoyed or irritable: 1 = Several days Feeling afraid as if something awful might happen: 1 = Several days Total WAQAS-7 score (0-4 normal; 5-9 mild; 10-14 moderate; 15-21 severe): 7 Source: Developed by Drs. Isaac Pak, Jacey Ingram, Paramjit Barker and colleagues, with an educational kathy from [employer]. WAQAS-7 Assessment Billing WAQAS-7 Assessment Tool: WAQAS-7 Assessment 27111 Review of Systems Const Denies chills, Denies fever(s) and Denies headache(s) Eyes Denies blurry vision ENT Denies headache(s), Denies nasal discharge, Denies nasal obstruction, Denies odynophagia and Denies sinus pain Card Denies chest pain at rest and Denies chest pain with activity Resp Denies cough and Denies hemoptysis GI Denies diarrhea, Denies odynophagia, Denies vomiting and Denies hematemesis Reports as per HPI Musc Denies abnormal gait Skin/Breast Reports as per HPI Neuro Denies Neuro-related abnormal movements, Denies Abnormal speech present, Denies abnormal gait, Denies headache(s) and Denies Sensory deficit (Neuro) Psych Denies mood swings and Denies paranoia Endo Reports as per HPI Trever/Lymph Reports as per HPI Aller/Immun Reports as per HPI Physical exam (Primary Care) Vital Signs: Last Vital Signs Pulse 87 03/01/24 10:34 BP 130/72 03/01/24 10:34 Pulse Ox 100 03/01/24 10:34 Oxygen Delivery Method Room Air 03/01/24 10:34 BMI result Body Mass Index 38.5 Tobacco/Smoking Status: Tobacco use Status Tobacco use date assessed 03/01/24 03/01/24 10:40 Patient Tobacco Use Status Never used Tobacco 03/01/24 10:34 e-Cigarette/Vaping Use Never Used 03/01/24 10:34 Thrive Assessment: Date of Thrive Assessment Date Thrive assessed 11/25/23 03/01/24 10:34 Currently or been in a relationship where the following occur: no concerns reported Const General: cooperative, comfortable and no acute distress Orientation/consciousness: patient oriented x3 HENMT Head: Yes normocephalic and Yes atraumatic Eyes General: appearance normal, both eyes and all related structures Pupils: Equal, round and reactive pupils present EOM: EOMs intact bilaterally Neck Neck: Yes supple and No lymphadenopathy Thyroid: Thyroid normal Lymphatic: no lymphadenopathy noted Resp Effort & Inspection: normal respiratory effort and able to speak in complete sentences Auscultation: clear to auscultation bilaterally Cardio Heart sounds: S1 normal heart sound present and S2 normal heart sound present GI Palpation (GI): Soft to palpation and nontender Auscultation: normal bowel sounds General: Yes no CVA tenderness Back/Spine/Pelvis Back: no CVA tenderness Skin General skin exam: elasticity normal and turgor normal Neuro General: patient oriented x3 and gait normal Cranial nerves: Yes Equal, round and reactive pupils present Speech: No Abnormal speech present Sensory Exam: No Sensory deficit (Neuro) Coordination: tandem gait normal and Romberg test negative Extrem General: Yes normal exam except as noted and No edema Assessment and Plan Assessment & Plan (1) Encounter for general adult medical examination with abnormal findings: Code(s): Z00.01 - Encounter for general adult medical examination with abnormal findings (2) Hypertension, essential: Code(s): I10 - Essential (primary) hypertension (3) Obesity due to excess calories: Code(s): E66.09 - Other obesity due to excess calories Qualifiers: Body mass index: BMI 37.0-37.9 Obesity classification: adult class 2 (BMI 35 - 39.9) Serious obesity comorbidity presence: with serious comorbidity Qualified Code(s): E66.01 - Morbid (severe) obesity due to excess calories; Z68.37 - Body mass index [BMI] 37.0-37.9, adult (4) Major depression, recurrent: Code(s): F33.9 - Major depressive disorder, recurrent, unspecified Qualifiers: Active/Remission status: currently active Major depression episode severity: moderate Qualified Code(s): F33.1 - Major depressive disorder, recurrent, moderate (5) Impaired fasting blood sugar: Comment: Some information regarding diabetic diet __Carbohydrates, proteins, and fats : Our bodies break down the food we eat into small pieces called carbohydrates, proteins, and fats. Carbohydrates, which are sugars that our bodies use for energy, can raise a person's blood sugar level. Your doctor, nurse, or dietitian will tell you how many carbohydrates you should eat at each meal or snack. Foods that have carbohydrates include: 1] Bread, pasta, and rice ----- 2 ] Vegetables and fruits ....... 3 ] Dairy foods ...... 4 ] Foods with added sugar ...... ------Calories : People need to eat a certain amount of calories each day to keep their weight the same. People who are overweight and want to lose weight need to eat fewer calories each day......... ......Fiber : Eating foods with a lot of fiber can help control a person's blood sugar level.......... ......Cholesterol : People who have high cholesterol levels might need to reduce the amount of cholesterol they eat. Foods with a lot of cholesterol include red meat, whole milk, and egg yolks......... .......Salt : People who have high blood pressure should not eat foods that contain a lot of salt (also called sodium). People with high blood pressure should also eat healthy foods, such as fruits, vegetables, and low-fat dairy foods......... ......Alcohol : Having more than 1 drink (for women) or 2 drinks (for men) a day can raise blood sugar levels. Also, drinks that have fruit juice or soda in them can raise blood sugar levels.......... What can I do if I need to lose weight? If you need to lose weight, you can: .......Exercise : Try to exercise for 30 minutes a day, most days of the week. Some people with diabetes need to change their medicine dose before they exercise. They might also need to check their blood sugar levels before and after exercising......... ......Eat fewer calories : Your doctor, nurse, or dietitian can tell you how many calories you should eat each day in order to lose weight. Code(s): R73.01 - Impaired fasting glucose (6) Headache syndrome: Code(s): G44.89 - Other headache syndrome (7) Chronic lower back pain: Code(s): M54.50 - Low back pain, unspecified; G89.29 - Other chronic pain Qualifiers: Back pain laterality: right Sciatica presence: without sciatica Qualified Code(s): M54.50 - Low back pain, unspecified; G89.29 - Other chronic pain Plan Patient is 63-year-old female came in today for her physical exam Hypertension:? Blood pressure is stable patient is taking verapamil ER 120 mg once a day tolerating medication Obstructive sleep apnea:?she is seeing Dr Gregg, and is using BiPAP Restless leg syndrome: Taking Ropinirole through sleep specialist Patient's psychiatrist is, Blaze Bahena physician power plant assistant all her psych meds are through him Neurology is Dr. Kuafman treating patient's headache with promethazine suppository. Mammogram appointment coming Pap smear through OBGYN doctor Mindi Colonoscopy was July of 2023 [facility] BMI is elevated need to lose weight Labs done recently reviewed with the patient, fasting sugar is 120 with hemoglobin A1c of 5.6% LDL is 114 Allergies are stable patient is on Flonase nasal spray Follow-up 6 months Coding Level of Care Code Est Pt Prev Care 40-64y(26063) Diagnoses Encounter for general adult medical examination with abnormal findings Z00.01 Hypertension, essential I10 Class 2 severe obesity due to excess calories with serious comorbidity and body mass index (BMI) of 37.0 to 37.9 in adult E66.01; Z68.37 Body mass index: BMI 37.0-37.9 Obesity classification: adult class 2 (BMI 35 - 39.9) Serious obesity comorbidity presence: with serious comorbidity Moderate episode of recurrent major depressive disorder F33.1 Active/Remission status: currently active Major depression episode severity: moderate Impaired fasting blood sugar R73.01 Headache syndrome G44.89 Chronic right-sided low back pain without sciatica M54.50; G89.29 Back pain laterality: right Sciatica presence: without sciatica Additional Codes WAQAS-7 Assessment Billing - WAQAS-7 Assessment Tool: WAQAS-7 Assessment 80159 ([id number])
== END 2024-03-01 10:59 | disposition home or self-care (01) ==
PROVIDERS: Visit Provider Internal Medicine
DX: Z00.00 Encounter for general adult medical examination without abnormal findings (principal); E66.01 Morbid (severe) obesity due to excess calories; F33.1 Major depressive disorder, recurrent, moderate; Z68.37 Body mass index [BMI] 37.0-37.9, adult; I10 Essential (primary) hypertension; R73.01 Impaired fasting glucose; G44.89 Other headache syndrome; M54.50 Low back pain, unspecified; G89.29 Other chronic pain
CPT/HCPCS: 99397

== ENCOUNTER 2024-03-02 14:48 | Outpatient (AMB) | payer MEDICARE, MEDICAID, SELFPAY ==
--- NOTE | 2024-03-02 14:59 | A.OFFVIS_ITS ---
Intake Vital Signs 03/02/24 15:06 Height 4 ft 10 in Weight 184 lb 2 oz BMI 38.5 BP 124/70 Blood Pressure Location Lt brachial Position Sitting Pulse 85 Pulse Source Pulse Oximeter Pulse Oximetry (%) 97 Oxygen Delivery Method Room Air Intake Visit Reasons: Follow up for BAILEY - Conf Intake Note: Patient presents for F/U. Allergies amlodipine Allergy (Unknown, Verified 03/02/24 15:05) unknown prednisolone Allergy (Unknown, Verified 03/02/24 15:05) anaphylaxis prednisone [PREDNISONE] Allergy (Unknown, Verified 03/02/24 15:05) DEPRESSION Sulfa (Sulfonamide Antibiotics) Allergy (Unknown, Verified 03/02/24 15:05) hives, rash sulfamethoxazole [From BACTRIM] Allergy (Unknown, Verified 03/02/24 15:05) RASH trimethoprim [From BACTRIM] Allergy (Unknown, Verified 03/02/24 15:05) RASH clindamycin Adverse Reaction (Severe, Verified 03/02/24 15:05) joint pain sumatriptan [From IMITREX] Adverse Reaction (Unknown, Verified 03/02/24 15:05) UNK ORCHIDS Allergy (Intermediate, Uncoded 03/01/24 10:36) Angioedema HPI HPI Comments History of Present Illness Details 63 y/o female patient presents for re-qu alifying for CPAP. The CPAP compliance and therapy response (01/31/24-02/29/24) reviewed. Pt re-started APAP at [id number]. The usage days 70% and the average usage hours 3 hrs 37 min. The max pressure 10.1 and the residual AHI was 1.6/hr. Pt states that she started using CPAP a little more than before. However, she still can be really agitated and anxious with CPAP. She uses Xanax 0.5 mg as needed and it helps her sleep more. Pt states that she still has difficulty to cope with the loss of her daughter. Pt's anxiety has been worsened, and will have grief consultation and followed by psychiatrist. Pt's restless legs manages well with ropinirole BID. Pt wants to retry CPAP. She feels better in the morning when she uses CPAP. [facility] Medical History History of deviated nasal septum History of nephrolithotomy with removal of calculi Surgical History History of tonsillectomy H/O adenoidectomy History of back surgery Family History Mother Hypertension Lung cancer Father Lung cancer COPD (chronic obstructive pulmonary disease) Arterial vascular disease Sister Stroke Hypertension Social History Housing: House Alcohol intake: current Alcohol intake frequency: holidays/special occasions only Patient Tobacco Use Status: Never used Tobacco e-Cigarette/Vaping Use: Never Used Second Hand Smoke Exposure: No service: No Current occupational status: disabled Cognitive needs: No Hearing needs: No Vision needs: Yes Review of Systems Const All systems reviewed & are unremarkable except as noted in HPI and below ENT Reports Normal hearing present Neuro Reports Normal hearing present Physical Exam Vital Signs: Last Vital Signs Pulse 85 03/02/24 15:06 BP 124/70 03/02/24 15:06 Pulse Ox 97 03/02/24 15:06 Oxygen Delivery Method Room Air 03/02/24 15:06 BMI result Body Mass Index 38.5 Const General: cooperative Nutritional Appearance: obese Orientation/consciousness: patient oriented x3 Resp Effort & Inspection: normal respiratory effort and able to speak in complete sentences Neuro General: patient oriented x3, gait normal and moves all extremities Cranial nerves: Yes Bilaterally intact EOM present, Yes Normal facial strength present, Yes Midline tongue present, Yes Symmetric palate elevation present, Yes Normal hearing present and Yes Ability to bilaterally rotate head present Cognition (Neuro): normal cognition Psych Appearance: grossly normal Mental Status: mental status grossly normal Speech and movement: Normal speech and movement present Attitude: cooperative Assessment & Plan Assessment & Plan (1) Obstructive sleep apnea: Code(s): G47.33 - Obstructive sleep apnea (adult) (pediatric) (2) Restless legs syndrome: Code(s): G25.81 - Restless legs syndrome Plan Continue to use APAP at [id number] as patient experiences good clinical effects. Continue follow up with psychiatrist for anxiety. Continue to take ropinirole 3mg BID to manage restless legs. Advised patient to try melatonin 3 mg qHS. Wt reduction advised. Medications: New melatonin 3 mg PO BEDTIME PRN 90 caps 1RF sleep 90 days Coding Level of Care Code Est Pt Level 3 (32684) Diagnoses Obstructive sleep apnea G47.33 Restless legs syndrome G25.81
[2024-03-02 15:06] VITALS: BP 124/70; PULSE 85; O2SAT 97; BMI 38.5
== END 2024-03-02 15:33 | disposition home or self-care (01) ==
PROVIDERS: PCP Internal Medicine; Visit Provider Nurse Practitioner Family
DX: G47.33 Obstructive sleep apnea (adult) (pediatric) (principal); G25.81 Restless legs syndrome
CPT/HCPCS: 99213

== ENCOUNTER → 2024-03-02 14:48 | Outpatient (BNVA) | payer MEDICARE, MEDICAID, SELFPAY | PROVIDERS: PCP Internal Medicine; Visit Provider Nurse Practitioner Family | DX: G47.33 Obstructive sleep apnea (adult) (pediatric) (principal); G25.81 Restless legs syndrome | CPT/HCPCS: 99212 ==

== ENCOUNTER 2024-03-31 11:03 | Outpatient (AMB) | payer MEDICARE, MEDICAID, SELFPAY ==
[2024-03-31 11:06] VITALS: BMI 38.5
--- NOTE | 2024-03-31 11:06 | MHC.OFFVIS ---
Vital Signs 03/31/24 11:06 Height 4 ft 10 in Weight 184 lb BMI 38.5 Intake Visit Reasons: ov- Bilateral Knees last injection-12/31/23 Intake Note: Gayatri is a 63 year old female who presents for a follow up bilateral knee pain. Patient reports she had bilateral knee cortisone injections on 12/31/2023 and they gave her some relief. She states she is having pain from the knee down to her toes and bumps on her legs and is wondering if she is having circulation problems. She would like to repeat the bilateral knee injections today. The patient states that she has noted an increase in her varicose veins over the last few years. She states that the veins are painful to her. She wishes to hold off on total knee replacement surgery for as long as possible. She has done physical therapy exercises which aggravated her pain. She has also tried Tylenol and anti-inflammatory medicines which gave her minimal relief. Allergies amlodipine Allergy (Unknown, Verified 03/02/24 15:05) unknown prednisolone Allergy (Unknown, Verified 03/02/24 15:05) anaphylaxis prednisone [PREDNISONE] Allergy (Unknown, Verified 03/02/24 15:05) DEPRESSION Sulfa (Sulfonamide Antibiotics) Allergy (Unknown, Verified 03/02/24 15:05) hives, rash sulfamethoxazole [From BACTRIM] Allergy (Unknown, Verified 03/02/24 15:05) RASH trimethoprim [From BACTRIM] Allergy (Unknown, Verified 03/02/24 15:05) RASH clindamycin Adverse Reaction (Severe, Verified 03/02/24 15:05) joint pain sumatriptan [From IMITREX] Adverse Reaction (Unknown, Verified 03/02/24 15:05) UNK ORCHIDS Allergy (Intermediate, Uncoded 03/01/24 10:36) Angioedema Medication List - Last Reconciled 04/01/24 by Rakesh Cox MD albuterol sulfate 90 mcg/actuation (ProAir HFA) 2 puffs inhalation Q6H PRN 30 days alprazolam (Xanax) 0.5 mg PO DAILY PRN atomoxetine 80 mg PO QAM bisacodyl (Dulcolax (bisacodyl)) 10 mg (2 x 5 mg) PO ONCE 1 day dextroamphetamine-amphetamine 20 mg ER (Adderall XR) 20 mg PO DAILY docusate sodium 100 mg PO BEDTIME duloxetine 20 mg PO DAILY fluticasone propionate 50 mcg/actuation (Flonase Allergy Relief) 2 sprays intranasal DAILY hydrocortisone 2.5% (Proctosol HC) 1 appl CA BID-QID ibuprofen 600 mg PO Q8H PRN melatonin 3 mg PO BEDTIME PRN 90 days mirabegron ER (Myrbetriq) 50 mg PO DAILY polyethylene glycol 3350 (Miralax) 238 grams PO ONCE ropinirole 3 mg PO BID verapamil ER 120 mg PO DAILY PFSH Medical History History of deviated nasal septum History of nephrolithotomy with removal of calculi Surgical History History of tonsillectomy H/O adenoidectomy History of back surgery Family History Mother Hypertension Lung cancer Father Lung cancer COPD (chronic obstructive pulmonary disease) Arterial vascular disease Sister Stroke Hypertension Social History Housing: House Alcohol intake: current Alcohol intake frequency: holidays/special occasions only Patient Tobacco Use Status: Never used Tobacco e-Cigarette/Vaping Use: Never Used Second Hand Smoke Exposure: No service: No Current occupational status: disabled Cognitive needs: No Hearing needs: No Vision needs: Yes Physical Exam Vital Signs: BMI result Body Mass Index 38.5 Const Other: Well-nourished well-developed very friendly female awake alert and oriented x3 in no acute distress Extrem Other: Bilateral knee examination shows minimal effusions, palpable crepitus with range of motion, pain with range of motion, no instability Bilateral lower extremity examination shows multiple varicose veins which are tender to palpation, no overlying skin lesions, good capillary refill Office Procedures Joint Injection/Drain Joint Injection/Drain Primary Site: left knee Prep: site was prepped using aseptic technique Injected: 40 mg of, DepoMedrol and 1% plain lidocaine Procedure: The patient tolerated the procedure well Coding 22374 - Large joint Procedure code (CPT) selection complete Joint Injection/Drain Joint Injection/Drain Primary Site: right knee Prep: site was prepped using aseptic technique Injected: 40 mg of, DepoMedrol and 1% plain lidocaine Procedure: The patient tolerated the procedure well Coding 57873 - Large joint Procedure code (CPT) selection complete Results Reviewed Results Reviewed: X-rays of the patient's bilateral knee show joint space narrowing, subchondral sclerosis, no acute bony abnormalities Assessment & Plan Assessment & Plan (1) Arthritis of left knee: Code(s): M17.12 - Unilateral primary osteoarthritis, left knee Category: Medical (2) Arthritis of right knee: Code(s): M17.11 - Unilateral primary osteoarthritis, right knee Category: Medical Plan Ms. Stoddard presents with bilateral knee pains due to degenerative joint disease. I had a lengthy discussion with the patient regarding the treatment options. She wishes to hold off on total knee replacement surgery for as long as possible. I agree with this plan. The risks and benefits of bilateral knee cortisone injections were discussed at length with the patient. The patient wished to proceed. She tolerated the injections well. I will also arrange for the patient to have an evaluation in our Vascular Department here at [facility]. She will follow-up as instructed. She will follow up with me on an as-needed basis should her symptoms not plateau at an unacceptable level over the next few months. Feel free to call me at any time should questions regarding her orthopedic management arise. I spent 20 minutes in reviewing the patient's records and imaging studies, seeing the patient and documenting in the medical record. Orders: Orders AMB Joint Injection/Aspiration 03/31/24 M17.12 - Unilateral primary osteoarthritis, left knee AMB Joint Injection/Aspiration 03/31/24 M17.11 - Unilateral primary osteoarthritis, right knee Referrals Vascular Surgery Referral I83.813 - Varicose veins of bilateral lower extremities with pain Coding Level of Care Code Est Pt Level 3 (07870) Diagnoses Arthritis of left knee M17.12 Arthritis of right knee M17.11 CPT Codes Coding - 92899 Large joint: 45469 - Large joint ([id number]) Coding - 45757 Large joint: 91851 - Large joint ([id number])
== END 2024-03-31 11:45 | disposition home or self-care (01) ==
PROVIDERS: PCP Internal Medicine; Visit Provider Orthopaedic Surgery
DX: M17.0 Bilateral primary osteoarthritis of knee (principal)
CPT/HCPCS: 20610; 99213

== ENCOUNTER → 2024-03-31 11:03 | Outpatient (BNVA) | payer MEDICARE, MEDICAID, SELFPAY | PROVIDERS: PCP Internal Medicine; Visit Provider Orthopaedic Surgery | DX: M17.0 Bilateral primary osteoarthritis of knee (principal) | CPT/HCPCS: 20610; 99212; J1010 ==

== ENCOUNTER 2024-05-10 11:23 | Outpatient (AMB) | payer MEDICARE, MEDICAID, SELFPAY ==
--- NOTE | 2024-05-10 11:28 | A.OFFVIS_ITS ---
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 Patient states her pain is unbearable especially at night . Feels like something is crawling on her legs. She gets discoloration on both legs and feet. Has noticable varicose veins on both legs. Allergies amlodipine Allergy (Unknown, Verified 05/10/24 11:37) unknown prednisolone Allergy (Unknown, Verified 05/10/24 11:37) anaphylaxis prednisone [PREDNISONE] Allergy (Unknown, Verified 05/10/24 11:37) DEPRESSION Sulfa (Sulfonamide Antibiotics) Allergy (Unknown, Verified 05/10/24 11:37) hives, rash sulfamethoxazole [From BACTRIM] Allergy (Unknown, Verified 05/10/24 11:37) RASH trimethoprim [From BACTRIM] Allergy (Unknown, Verified 05/10/24 11:37) RASH clindamycin Adverse Reaction (Severe, Verified 05/10/24 11:37) joint pain sumatriptan [From IMITREX] Adverse Reaction (Unknown, Verified 05/10/24 11:37) UNK ORCHIDS Allergy (Intermediate, Uncoded 03/01/24 10:36) Angioedema HPI HPI 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 She has had bilateral lower extremity knee issues and has had prior cortisone injections. She actually has seen Neurology several times in the past. She has a prior history of migraine headaches and has had Botox injections regarding those as well. She notes that she has continued lower extremity pain and upon workup was noted to have significant varicose veins. She does have a history of back pain as well. She does describe restless leg syndrome as well. She reports that the pain is right more so than left. Of note she is a nonsmoker nondiabetic [facility] Medical History History of deviated nasal septum History of nephrolithotomy with removal of calculi Surgical History History of tonsillectomy H/O adenoidectomy History of back surgery Family History Mother Hypertension Lung cancer Father Lung cancer COPD (chronic obstructive pulmonary disease) Arterial vascular disease Sister Stroke Hypertension Social History Housing: House Alcohol intake: current Alcohol intake frequency: holidays/special occasions only Patient Tobacco Use Status: Never used Tobacco e-Cigarette/Vaping Use: Never Used Second Hand Smoke Exposure: No service: No Current occupational status: disabled Cognitive needs: No Hearing needs: No Vision needs: Yes Review of Systems Const All systems reviewed & are unremarkable except as noted in HPI and below Reports no additional complaints ENT Reports Normal hearing present Card Denies chest pain, Denies chest pain at rest, Denies chest pain with activity and Denies pedal edema Resp Denies cough GI Denies abdominal pain Musc Details: pain over varicosities, aching of lower extremities, swelling, cramping, heaviness and tiredness, itching Denies abnormal gait, Denies muscle cramps and Denies radiating pain into limb Skin/Breast Denies skin ulcer and Denies wounds Neuro Reports Normal hearing present and Denies abnormal gait Psych Reports no additional complaints Physical Exam Const General: cooperative, healthy appearing and comfortable Orientation/consciousness: oriented to person, oriented to place and oriented to time HEENT Head: Yes normal to inspection Neck Neck: Yes normal visual inspection Carotids: no bruits Chest Chest palpation & inspection: normal inspection of the chest Resp Effort & Inspection: normal respiratory effort and able to speak in complete sentences Auscultation: clear to auscultation bilaterally, no crackles, no rales, no rhonchi and no wheezes Cardio Rate: regular rate Rhythm: regular rhythm Heart sounds: S1 normal heart sound present and S2 normal heart sound present Bruits: no carotid bruits Peripheral pulses: Peripheral pulses 2+ throughout GI Inspection: Yes normal to inspection Skin Other: +2 edema, large rope-like varicosities greater than 4 mm CEAP Classification C4 - skin color changes Ep - Etiology Primary As - superficial veins P - reflux General skin exam: dry skin Wounds: no wounds Hair: normal Neuro General: oriented to person, oriented to place and oriented to time Cranial nerves: Yes CN's II-XII intact bilaterally and Yes Normal hearing present Cognition (Neuro): normal cognition Motor exam (neuro): 5/5 motor strength present throughout Extrem Other: venous exam: No significant superficial varicosities or spider telangiectasias, minimal edema General: No clubbing, No cyanosis and No edema Right lower extremity: full ROM, normal capillary refill and edema Left lower extremity: full ROM, normal capillary refill and edema Psych Appearance: grossly normal Mental Status: mental status grossly normal Speech and movement: Normal speech and movement present Assessment & Plan Assessment & Plan (1) Varicose veins of right lower extremity with inflammation: Code(s): I83.11 - Varicose veins of right lower extremity with inflammation Category: Medical Plan: In short, the patient has evidence of venous insufficiency. I have discussed the pathophysiology with the patient. In addition I have provided informational material regarding venous disease to the patient. We have discussed conservative measures including compression, elevation, and exercise. I have also provided a handout regarding appropriate use of compression stockings and where to purchase good compression stockings as well. I have taken the liberty of ordering venous insufficiency testing with the patient. They will follow up with me after testing. The patient had an opportunity to ask questions regarding the treatment plan. All questions were answered. Imaging studies, laboratory studies and physical exam results were discussed and reviewed in detail. No major barriers to understanding were identified. The patient expressed understanding and agreement with the above treatment plan. The patient is aware they should contact our office by phone for worsening of the current condition or the appearance of new symptoms. Thank you for allowing me to participate in the vascular care of this patient. If you have any questions or concerns regarding the treatment for the above condition please do not hesitate to contact me. The office telephone contact is [phone]. This note is constructed using voice recognition software. While every effort has been made to ensure accuracy, atmospheric chemist errors may have been included. Thank you for allowing me to participate in the care of your patient. Yours sincerely, Dariel Florez MD, FACS, R.P.V.I. Orders: Orders US venous duplex LE BI 1 Week I83.11 - Varicose veins of right lower extremity with inflammation Coding Level of Care Code New Pt Level 4 (52879) Diagnoses Varicose veins of right lower extremity with inflammation I83.11
== END 2024-05-10 11:57 | disposition home or self-care (01) ==
PROVIDERS: PCP Internal Medicine; Visit Provider Surgery Vascular Surgery
DX: I83.11 Varicose veins of right lower extremity with inflammation (principal)
CPT/HCPCS: 99203

== ENCOUNTER → 2024-05-10 11:23 | Outpatient (BNVA) | payer MEDICARE, MEDICAID, SELFPAY | PROVIDERS: PCP Internal Medicine; Visit Provider Surgery Vascular Surgery | DX: I83.11 Varicose veins of right lower extremity with inflammation (principal) | CPT/HCPCS: 99202 ==

== ENCOUNTER 2024-05-23 10:30 | Outpatient (REF) | payer MEDICARE, MEDICAID, SELFPAY ==
--- NOTE | ~2024-05-23 | US_ITS ---
EXAMINATION: US LOWER EXTREMITY VENOUS (REFLUX EXAM), BILATERAL CLINICAL INDICATION: Chronic venous insufficiency with lower extremity varicose veins with inflammation COMPARISON: None. TECHNIQUE: Color flow triplex imaging and compression Doppler was performed to evaluate both the deep and the superficial systems bilaterally. To evaluate the superficial system, the examination was performed in the upright position. Color-flow Doppler ultrasound and compression ultrasound were utilized. In addition, maneuvers were utilized to demonstrate reflux. FINDINGS: 1. DEEP VENOUS ULTRASOUND OF THE RIGHT LOWER EXTREMITY: Common Femoral Vein: Compressible, normal respiratory variation and augmented flow. Femoral Vein: Compressible, normal color flow and augmentation. Popliteal Vein: Compressible, normal augmentation. Deep Reflux: There is no evidence of reflux in the deep system in either the common femoral vein, superficial femoral or the popliteal vein. There is a Gramajo's cyst cyst in the popliteal fossa measuring 5.2 x 1.5 x 3.6 cm 2. SUPERFICIAL ULTRASOUND WITH DOPPLER OF RIGHT LOWER EXTREMITY: GREAT SAPHENOUS VEIN: Saphenofemoral Junction: 0.5 cm; Reflux: 0 ms Proximal Thigh: 0.5 cm; Reflux: 0 ms Mid Thigh: 0.4 cm; Reflux: 0 ms Above Knee: 0.5 cm; Reflux: 0 ms At Knee: 0.4 cm; Reflux: 0 ms Below Knee: 0.3 cm; Reflux: 0 ms Mid Calf: 0.2 cm; Reflux: 0 ms Ankle: 0.2 cm; Reflux: 0 ms DUPLICATED MEDIAL GREAT SAPHENOUS VEIN: Diameter: 0.5 cm Reflux: None DUPLICATED LATERAL GREAT SAPHENOUS VEIN: Diameter: None imaged Reflux: NA SMALL SAPHENOUS VEIN: Saphenopopliteal Junction: 0.4 cm; Reflux: 0 ms Mid: 0.3 cm; Reflux: 944 ms Distal: 0.2 cm; Reflux: 0 ms VEIN OF GIACOMINI: Size: NA Reflux: NA PERFORATORS: Location: None significant Size: NA Reflux: NA VARICOSITIES: Location: None imaged Size: NA Reflux: NA 3. DEEP VENOUS ULTRASOUND OF THE LEFT LOWER EXTREMITY: Common Femoral Vein: Compressible, normal respiratory variation and augmented flow. Femoral Vein: Compressible, normal color flow and augmentation. Popliteal Vein: Compressible, normal augmentation. Deep Reflux: There is no evidence of reflux in the deep system in either the common femoral vein, superficial femoral or the popliteal vein. There is no evidence of a Gramajo's cyst. 4. SUPERFICIAL ULTRASOUND WITH DOPPLER OF LEFT LOWER EXTREMITY: GREAT SAPHENOUS VEIN: Saphenofemoral Junction: 0.7 cm; Reflux: 0 ms Proximal Thigh: 0.4 cm; Reflux: 0 ms Mid Thigh: 0.3 cm; Reflux: 0 ms Above Knee: 0.3 cm; Reflux: 0 ms At Knee: 0.3 cm; Reflux: 0 ms Below Knee: 0.3 cm; Reflux: 0 ms Mid Calf: 0.2 cm; Reflux: 0 ms Ankle: 0.2 cm; Reflux: 0 ms DUPLICATED MEDIAL GREAT SAPHENOUS VEIN: Diameter: None imaged Reflux: NA DUPLICATED LATERAL GREAT SAPHENOUS VEIN: Diameter: None imaged Reflux: NA SMALL SAPHENOUS VEIN: Saphenopopliteal Junction: 0.5 cm; Reflux: 0 ms Proximal: 0.2 cm; Reflux: 0 ms Distal: 0.2 cm; Reflux: 0 ms VEIN OF GIACOMINI: Size: NA Reflux: NA PERFORATORS: Location: None significant Size: NA Reflux: NA VARICOSITIES: Location: None Imaged Size: NA Reflux: NA US/US venous duplex LE BI IMPRESSION: Right: Focal area of segmental reflux in the mid small saphenous vein. No significant reflux in the great saphenous vein. Left: No significant reflux in the great saphenous vein or small saphenous vein
== END 2024-05-23 10:31 | disposition home or self-care (01) ==
LOC: HO.US 10:30
PROVIDERS: Visit Provider Surgery Vascular Surgery
DX: I83.11 Varicose veins of right lower extremity with inflammation (principal)
CPT/HCPCS: 93970

== ENCOUNTER → 2024-06-07 23:24 | Outpatient (BNV) | payer MEDICARE, MEDICAID, SELFPAY | PROVIDERS: Visit Provider Psychiatry & Neurology Neurology | DX: G47.61 Periodic limb movement disorder (principal) | CPT/HCPCS: 95810 ==

== ENCOUNTER → 2024-06-07 23:29 | Outpatient (REF) | payer MEDICARE, MEDICAID, SELFPAY | LOC: HO.SL 23:29 | PROVIDERS: Visit Provider Nurse Practitioner Family | DX: G47.33 Obstructive sleep apnea (adult) (pediatric) (principal) | CPT/HCPCS: 95810 ==

== ENCOUNTER 2024-06-23 08:07 | Outpatient (AMB) | payer MEDICARE, MEDICAID, SELFPAY ==
--- NOTE | 2024-06-23 08:32 | A.OFFPC_ITS ---
Intake Visit Reasons: Requesting lab order~[phone] Allergies amlodipine Allergy (Unknown, Verified 06/23/24 10:35) unknown prednisolone Allergy (Unknown, Verified 06/23/24 10:35) anaphylaxis prednisone [PREDNISONE] Allergy (Unknown, Verified 06/23/24 10:35) DEPRESSION Sulfa (Sulfonamide Antibiotics) Allergy (Unknown, Verified 06/23/24 10:35) hives, rash sulfamethoxazole [From BACTRIM] Allergy (Unknown, Verified 06/23/24 10:35) RASH trimethoprim [From BACTRIM] Allergy (Unknown, Verified 06/23/24 10:35) RASH clindamycin Adverse Reaction (Severe, Verified 06/23/24 10:35) joint pain procaine [From Novocain] Adverse Reaction (Unknown, Verified 06/23/24 10:36) Chest Pain sumatriptan [From IMITREX] Adverse Reaction (Unknown, Verified 06/23/24 10:35) UNK ORCHIDS Allergy (Intermediate, Uncoded 03/01/24 10:36) Angioedema Medication List - Last Reconciled 06/23/24 by Timbo Lucas MD albuterol sulfate 90 mcg/actuation 2 puffs inhalation Q6H PRN 30 days alprazolam (Xanax) 0.5 mg PO DAILY PRN atomoxetine 80 mg PO QAM bisacodyl (Dulcolax (bisacodyl)) 10 mg (2 x 5 mg) PO ONCE 1 day dextroamphetamine-amphetamine 20 mg ER (Adderall XR) 20 mg PO DAILY docusate sodium 100 mg PO BEDTIME duloxetine 40 mg PO DAILY fluticasone propionate 50 mcg/actuation (Flonase Allergy Relief) 2 sprays intranasal DAILY hydrocortisone 2.5% (Proctosol HC) 1 appl [place] BID-QID ibuprofen 600 mg PO Q8H PRN melatonin 3 mg PO BEDTIME PRN 90 days mirabegron ER (Myrbetriq) 50 mg PO DAILY polyethylene glycol 3350 (Miralax) 238 grams PO ONCE ropinirole 3 mg PO BID verapamil ER 120 mg PO DAILY Tobacco use date assessed: 06/23/24 Fall risk assessment: No Falls in past year Last assessed Fall Risk: 06/23/24 Dental Screening Dental Screen Date: 06/23/24 Did you have a dental visit in the last 12 months?: Yes Did you have a dental problem in the last 6 months where you did not have access to dental care?: No Was dental information given to patient?: Patient has dentist HPI Requesting lab order~[phone] HPI Details Patient states she was attending her grand Son's Alliance Party end of February while she was dancing, she felt weak in legs long with pain , so she sat down and just moved her upper body to participate later on she felt very tired and slept for almost 10 hours had mirgain headache, also felt as if she need to use her inhaler more frequently felt nausea and vomited twice as well her legs continue to be painful along with her knees so she went to her Ortho for evaluation she was diagnosed with tobias's cyst and was also sent to Vascular Dr Florez for further evaluation she had US of her legs, i dont have the report yet I do have her lumber X ray which shows Multilevel degenerative spondylosis of the lumbar spine. Grade 1 anterolisthesis of L4 and L5 due to spondylolysis. Degenerative spondylosis of the lower thoracic spine. Knee X ray done showed Moderate osteoarthritis of the patellofemoral joint compartment. she is now feeling some wheat better compare to before requesting labs to make sure there are no abnormalities there is no more vomiting, or KELLY, energy level has also come back to baseline [facility] Medical History History of deviated nasal septum History of nephrolithotomy with removal of calculi Surgical History History of tonsillectomy H/O adenoidectomy History of back surgery Family History Mother Hypertension Lung cancer Father Lung cancer COPD (chronic obstructive pulmonary disease) Arterial vascular disease Sister Stroke Hypertension Social History Housing: House Alcohol intake: current Alcohol intake frequency: holidays/special occasions only Patient Tobacco Use Status: Never used Tobacco e-Cigarette/Vaping Use: Never Used Second Hand Smoke Exposure: No service: No Current occupational status: disabled Cognitive needs: No Hearing needs: No Vision needs: Yes Questionnaire Thrive Questionnaire Date Thrive assessed: 11/25/23 AUDIT C Alcohol Use Questionnaire (AUDIT-C) 1. How often do you have a drink containing alcohol?: Never 3. How often do you have six or more drinks on one occasion?: Never Total Score: 0 Score Reviewed/Action Taken: Yes WAQAS-7 AMB Questionnaire WAQAS-7 Date WAQAS - 7 assessed: 11/25/23 Source: Developed by Drs. Isaac Pak, Jacey Ingram, Paramjit Barker and colleagues, with an educational kathy from [email or web address]. Review of Systems Const Denies chills and Denies fever(s) ENT Denies epistaxis and Denies nasal discharge Card Denies chest pain Resp Denies chest congestion, Denies cough and Denies hemoptysis GI Denies diarrhea Skin/Breast Denies rash Neuro Reports no additional complaints Psych Reports no additional complaints Endo Reports no additional complaints Physical exam (Primary Care) Tobacco/Smoking Status: Tobacco use Status Tobacco use date assessed 06/23/24 06/23/24 08:53 Patient Tobacco Use Status Never used Tobacco 06/23/24 08:32 e-Cigarette/Vaping Use Never Used 06/23/24 08:32 Thrive Assessment: Date of Thrive Assessment Date Thrive assessed 11/25/23 06/23/24 08:32 Telehealth Telehealth Telehealth Platform: [facility] Location of provider rendering services: practice address Location of patient: address on file Patient Identification confirmed using: Name, : Yes Telehealth method: video Patient verbally consented to treatment: Yes Patient verbally consented to billing insurance company: Yes Patient informed of any privacy concerns related to visit: Yes Assessment and Plan Assessment & Plan (1) Viral syndrome: Code(s): B34.9 - Viral infection, unspecified (2) Feeling sick: Code(s): R68.89 - Other general symptoms and signs (3) Migraine headache: Code(s): G43.909 - Migraine, unspecified, not intractable, without status migrainosus Qualifiers: Migraine type: unspecified Status migrainosus presence: without status migrainosus Intractability: not intractable Qualified Code(s): G43.909 - Migraine, unspecified, not intractable, without status migrainosus (4) Shortness of breath: Code(s): R06.02 - Shortness of breath (5) Excessive sleepiness: Code(s): G47.10 - Hypersomnia, unspecified (6) Vomiting: Code(s): R11.10 - Vomiting, unspecified Qualifiers: Vomiting type: unspecified Nausea presence: with nausea Qualified Code(s): R11.2 - Nausea with vomiting, unspecified Plan Patient states she was attending her grand Son's [employer] Party end of February while she was dancing, she felt weak in legs long with pain , so she sat down and just moved her upper body to participate later on she felt very tired and slept for almost 10 hours had mirgain headache, also felt as if she need to use her inhaler more frequently felt nausea and vomited twice as well her legs continue to be painful along with her knees so she went to her Ortho for evaluation she was diagnosed with tobias's cyst and was also sent to Vascular Dr Florez for further evaluation she had US of her legs, i dont have the report yet I do have her lumber X ray which shows Multilevel degenerative spondylosis of the lumbar spine. Grade 1 anterolisthesis of L4 and L5 due to spondylolysis. Degenerative spondylosis of the lower thoracic spine. Knee X ray done showed Moderate osteoarthritis of the patellofemoral joint compartment. she is now feeling some wheat better compare to before requesting labs to make sure there are no abnormalities there is no more vomiting, or KELLY, energy level has also come back to baseline 30 min spent in care of this patient Orders: Orders Complete Blood Count Auto Diff Today B34.9 - Viral infection, unspecified, G43.909 - Migraine, unspecified, not intractable, without status migrainosus, G47.10 - Hypersomnia, unspecified, R06.02 - Shortness of breath, R11.10 - Vomiting, unspecified, R68.89 - Other general symptoms and signs Comprehensive Met. Panel Today B34.9 - Viral infection, unspecified, G43.909 - Migraine, unspecified, not intractable, without status migrainosus, G47.10 - Hypersomnia, unspecified, R06.02 - Shortness of breath, R11.10 - Vomiting, unspecified, R68.89 - Other general symptoms and signs TSH reflex Free T4 Today B34.9 - Viral infection, unspecified, G43.909 - M igraine, unspecified, not intractable, without status migrainosus, G47.10 - Hypersomnia, unspecified, R06.02 - Shortness of breath, R11.10 - Vomiting, unspecified, R68.89 - Other general symptoms and signs UA CC w/rflx Micro + Cult Today B34.9 - Viral infection, unspecified, G43.909 - Migraine, unspecified, not intractable, without status migrainosus, G47.10 - Hypersomnia, unspecified, R06.02 - Shortness of breath, R11.10 - Vomiting, unspecified, R68.89 - Other general symptoms and signs Vitamin D 25-OH (D2 and D3) Today B34.9 - Viral infection, unspecified, G43.909 - Migraine, unspecified, not intractable, without status migrainosus, G47.10 - Hypersomnia, unspecified, R06.02 - Shortness of breath, R11.10 - Vomiting, unspecified, R68.89 - Other general symptoms and signs Vitamin B12 Today B34.9 - Viral infection, unspecified, G43.909 - Migraine, unspecified, not intractable, without status migrainosus, G47.10 - Hypersomnia, unspecified, R06.02 - Shortness of breath, R11.10 - Vomiting, unspecified, R68.89 - Other general symptoms and signs Magnesium Today B34.9 - Viral infection, unspecified, G43.909 - Migraine, unspecified, not intractable, without status migrainosus, G47.10 - Hypersomnia, unspecified, R06.02 - Shortness of breath, R11.10 - Vomiting, unspecified, R68.89 - Other general symptoms and signs Coding Level of Care Code Tele Est Pt Level 4 (87048) Diagnoses Viral syndrome B34.9 Feeling sick R68.89 Migraine without status migrainosus, not intractable, unspecified migraine type G43.909 Migraine type: unspecified Status migrainosus presence: without status migrainosus Intractability: not intractable Shortness of breath R06.02 Excessive sleepiness G47.10 Nausea and vomiting, unspecified vomiting type R11.2 Vomiting type: unspecified Nausea presence: with nausea
== END 2024-06-23 09:27 | disposition home or self-care (01) ==
PROVIDERS: PCP Internal Medicine; Visit Provider Internal Medicine
DX: B34.9 Viral infection, unspecified (principal); G43.909 Migraine, unspecified, not intractable, without status migrainosus; R06.02 Shortness of breath; G47.10 Hypersomnia, unspecified; R11.2 Nausea with vomiting, unspecified
CPT/HCPCS: 99214

== ENCOUNTER 2024-06-23 10:13 | Outpatient (AMB) | payer MEDICARE, MEDICAID, SELFPAY ==
--- NOTE | 2024-06-23 10:29 | MHC.OFFVIS ---
Intake Visit Reasons: Follow up US 7 Intake Note: Patient presents for follow up US 05/23. She states both legs have been hurting for 4 months. Says she stays in bed most of the day due to her leg pain. Right leg is worse. Has swelling in her leg and ankle on and off Has trouble getting out of bed due to the pain. Allergies amlodipine Allergy (Unknown, Verified 06/23/24 10:35) unknown prednisolone Allergy (Unknown, Verified 06/23/24 10:35) anaphylaxis prednisone [PREDNISONE] Allergy (Unknown, Verified 06/23/24 10:35) DEPRESSION Sulfa (Sulfonamide Antibiotics) Allergy (Unknown, Verified 06/23/24 10:35) hives, rash sulfamethoxazole [From BACTRIM] Allergy (Unknown, Verified 06/23/24 10:35) RASH trimethoprim [From BACTRIM] Allergy (Unknown, Verified 06/23/24 10:35) RASH clindamycin Adverse Reaction (Severe, Verified 06/23/24 10:35) joint pain procaine [From Novocain] Adverse Reaction (Unknown, Verified 06/23/24 10:36) Chest Pain sumatriptan [From IMITREX] Adverse Reaction (Unknown, Verified 06/23/24 10:35) UNK ORCHIDS Allergy (Intermediate, Uncoded 03/01/24 10:36) Angioedema HPI HPI Follow up US 05/23: Details: Pleasant 63-year-old female presents for follow-up regarding lower extremity pain and discomfort. She reports this constant sensation of pain, and in particular numbness with ?ants crawling on her legs? throughout the lower extremities. She has been seen by Orthopedics and was referred to us. At the time of my previous exam I did appreciate palpable pulses and now presents for follow-up with venous insufficiency testing. Upon further discussion with her she does report a history of back pain issues. She does have a prior history of back surgery L5-S1 along with carpal tunnel release. She has been seen by neurology in the past regarding this and migraines. She now presents for re-evaluation of her lower extremities. [facility] [place] Medical History History of deviated nasal septum History of nephrolithotomy with removal of calculi Surgical History History of tonsillectomy H/O adenoidectomy History of back surgery Family History Mother Hypertension Lung cancer Father Lung cancer COPD (chronic obstructive pulmonary disease) Arterial vascular disease Sister Stroke Hypertension Social History Housing: House Alcohol intake: current Alcohol intake frequency: holidays/special occasions only Patient Tobacco Use Status: Never used Tobacco e-Cigarette/Vaping Use: Never Used Second Hand Smoke Exposure: No service: No Current occupational status: disabled Cognitive needs: No Hearing needs: No Vision needs: Yes Review of Systems Const All systems reviewed & are unremarkable except as noted in HPI and below Reports no additional complaints ENT Reports Normal hearing present Card Denies chest pain, Denies chest pain at rest, Denies chest pain with activity and Denies pedal edema Resp Denies cough GI Denies abdominal pain Musc Denies abnormal gait, Denies muscle cramps and Denies radiating pain into limb Skin/Breast Denies skin ulcer and Denies wounds Neuro Reports Normal hearing present and Denies abnormal gait Psych Reports no additional complaints Physical Exam Const General: cooperative, healthy appearing and comfortable Orientation/consciousness: oriented to person, oriented to place and oriented to time HEENT Head: Yes normal to inspection Neck Neck: Yes normal visual inspection Carotids: no bruits Chest Chest palpation & inspection: normal inspection of the chest Resp Effort & Inspection: normal respiratory effort and able to speak in complete sentences Auscultation: clear to auscultation bilaterally, no crackles, no rales, no rhonchi and no wheezes Cardio Rate: regular rate Rhythm: regular rhythm Heart sounds: S1 normal heart sound present and S2 normal heart sound present Bruits: no carotid bruits Peripheral pulses: Peripheral pulses 2+ throughout GI Inspection: Yes normal to inspection Skin Wounds: no wounds Hair: normal Neuro General: oriented to person, oriented to place and oriented to time Cranial nerves: Yes CN's II-XII intact bilaterally and Yes Normal hearing present Cognition (Neuro): normal cognition Motor exam (neuro): 5/5 motor strength present throughout Extrem Other: venous exam: +1 edema General: No clubbing, No cyanosis and No edema Psych Appearance: grossly normal Mental Status: mental status grossly normal Speech and movement: Normal speech and movement present Results Reviewed Results Reviewed: Brief summary of venous insufficiency testing is as follows: right great saphenous vein: negative right small saphenous vein: negative right accessory vein: none present left great saphenous vein: negative left small saphenous vein: negative left accessory vein: none present Please note there is no evidence of any venous aneurysms or significant tortuosity Assessment & Plan Assessment & Plan (1) Varicose veins of bilateral lower extremities with pain: Code(s): I83.813 - Varicose veins of bilateral lower extremities with pain Category: Medical Plan: In short patient is negative for any significant venous insufficiency. It does not appear to be vascular in nature as she does have palpable arterial pulses and venous insufficiency testing has shown to be negative. We did discuss routine conservative measures including compression elevation and exercise. She will follow up with us on an as-needed basis. (2) Back pain with sciatica: Code(s): M54.9 - Dorsalgia, unspecified; M54.30 - Sciatica, unspecified side Category: Medical Plan: She does have a history of back issues along with prior back surgery. At the current time her description of the pains an unusual feeling of ?ants crawling on her legs? makes me believe that there may be a neurogenic origin to this. She has seen neurology in the past regarding the lower extremities and migraines as well. I have taken the liberty of referring her to pain management for further workup and possible treatment of her back. She will follow up with us on an as-needed basis. Thank you for allowing us to assist in her care. If there are any questions or concerns please do not hesitate to contact us. Coding Level of Care Code Est Pt Level 4 (15872) Diagnoses Varicose veins of bilateral lower extremities with pain I83.813 Back pain with sciatica M54.9; M54.30
== END 2024-06-23 11:00 | disposition home or self-care (01) ==
PROVIDERS: PCP Internal Medicine; Visit Provider Surgery Vascular Surgery
DX: I83.813 Varicose veins of bilateral lower extremities with pain (principal); M54.9 Dorsalgia, unspecified; M54.30 Sciatica, unspecified side
CPT/HCPCS: 99214

== ENCOUNTER 2024-06-23 11:05 | Outpatient (REF) | payer MEDICARE, MEDICAID, SELFPAY ==
--- NOTE | ~2024-06-23 | MM_ITS ---
EXAMINATION: MM SCREENING DIGITAL BREAST TOMOSYNTHESIS, BILATERAL CLINICAL INFORMATION: Screening. Asymptomatic. COMPARISON: Mammography: This study is compared with prior exams dating back to 2019. TECHNIQUE: Digital breast tomosynthesis is performed in both the craniocaudal and mediolateral oblique views along with computer-aided detection (CAD). Synthesized 2D images are generated from the tomosynthesis. FINDINGS: There are scattered areas of fibroglandular density (ACR BI-RADS breast composition Category b). There are no significant masses, abnormal calcifications, or other abnormalities. There are scattered, unchanged, benign calcifications in each breast. MM/MM tomosynthesis screening BI IMPRESSION: No mammographic evidence of malignancy. ASSESSMENT: BI-RADS BI-RADS 2 - Benign Findings RECOMMENDATION: Routine annual mammography screening. 1 year F/U This examination should not preclude the clinical evaluation of a suspicious palpable abnormality. This patient's information was entered into a reminder system with a target due date for their next mammogram. Electronically signed by: Luzma Price MD 07/18/2024 02:41 AM EDT
[2024-06-23 11:29] LABS: MANUAL DIFF FLAG NO
[2024-06-23 11:57] LABS: Basophils Absolute Auto 0.1 X10*3/uL (0.0-0.2); Basophils Percent Auto 0.9 % (0-2); Eosinophils Absolute Auto 0.1 X10*3/uL (0.0-0.4); Eosinophils Percent Auto 1.5 % (0-4); Hemoglobin 12.3 g/dl (12.0-16.0); Imm Gran Abs Auto 0.03 X10*3/uL (0.00-0.03); Imm Gran Pct Auto 0.3 % (0.0-0.4); Lymphocytes Absolute Auto 2.1 X10*3/uL (1.2-4.9); Lymphocytes Percent Auto 23.8 % (20-40); Mean Corpuscular HGB Conc 33.2 g/dl (31.0-35.0); Mean Corpuscular Hemoglobin 28.9 pg (27.0-33.0); Mean Corpuscular Volume 86.9 fL (80.0-98.0); Mean Platelet Volume 9.1 fL (9.4-12.3); Monocytes Absolute Auto 0.5 X10*3/uL (0.1-1.2); Monocytes Percent Auto 6.1 % (2-11); Neutrophils Absolute Auto 5.9 x10*3/uL (2.0-8.3); Neutrophils Percent Auto 67.4 % (45-73); Platelet Count 269 X10*3/uL (160-400); Red Blood Count 4.26 X10*6/uL (4.20-5.50); Red Cell Distribution Width 12.9 % (11.0-16.0); White Blood Count 8.7 X10*3/uL (4.8-10.8)
[2024-06-23 12:02] LABS: Appearance Urine Clear; Color Urine Yellow; Glucose Urine UA Negative (Negative); Leukocyte Esterase Urine Negative (Negative); Nitrite Urine Negative (Negative); PH 5.5 (5.0-9.0); Urine Blood Negative (Negative); Urine Ketones Trace mg/dL (Negative); Urine Protein Negative (Neg-Trace)
[2024-06-23 12:38] LABS: Alanine Aminotransferase 8 U/L (0-31); Albumin Level 4.1 g/dL (3.5-5.0); Alkaline Phosphatase 117 U/L (39-117); Anion Gap 11 (12-20); Aspartate Amino Transferase 16 U/L (5-31); Bilirubin Total 0.3 mg/dL (0.0-1.0); Blood Urea Nitrogen 21 mg/dL (9-16); Calcium 9.3 mg/dL (8.4-10.2); Carbon Dioxide 29 mmol/L (22-29); Chloride 101 mmol/L (96-108); Estimated Glomerular Filt Rate > 60; Glucose Random 125 mg/dL (60-115); Magnesium 2.1 mg/dL (1.6-2.6); Sodium 137 mmol/L (135-145); Total Protein 6.7 g/dL (6.5-8.0)
[2024-06-23 12:55] LABS: TSH reflex Free T4 0.77 uIU/mL (0.32-4.0)
[2024-06-23 12:57] LABS: Vitamin B12 310 pg/mL (200-900)
[2024-06-28 12:44] LABS: Vitamin D 25-OH, D2 <4 ng/mL; Vitamin D 25-OH, D3 21 ng/mL; Vitamin D 25-OH, Total 21 ng/mL (30-100)
== END 2024-06-23 11:06 | disposition home or self-care (01) ==
LOC: HO.MAMMO 11:05
PROVIDERS: PCP Internal Medicine; Visit Provider Internal Medicine
DX: B34.9 Viral infection, unspecified (principal); R11.10 Vomiting, unspecified; G47.10 Hypersomnia, unspecified; R06.02 Shortness of breath; G43.909 Migraine, unspecified, not intractable, without status migrainosus; R68.89 Other general symptoms and signs; Z12.31 Encounter for screening mammogram for malignant neoplasm of breast; I83.813 Varicose veins of bilateral lower extremities with pain; M54.9 Dorsalgia, unspecified; M54.30 Sciatica, unspecified side
CPT/HCPCS: 36415; 77063; 77067; 80053; 81003; 82306; 82607; 83735; 84443; 85025; 99212

== ENCOUNTER → 2024-06-23 11:15 | Outpatient (BNV) | payer MEDICARE, MEDICAID, SELFPAY | PROVIDERS: PCP Internal Medicine; Visit Provider Radiology Diagnostic Radiology | DX: Z12.31 Encounter for screening mammogram for malignant neoplasm of breast (principal) | CPT/HCPCS: 77063; 77067 ==

== ENCOUNTER 2024-06-30 13:26 | Outpatient (AMB) | payer MEDICARE, MEDICAID, SELFPAY ==
--- NOTE | 2024-06-30 13:28 | A.OFFVIS_ITS ---
Intake Visit Reasons: Bilateral knee pain Intake Note: Gayatri is a 64 yo female who presents today for bilateral knee pains. She describes her pains as sharp in nature. Her pains have gotten worse over the last year in spite of continued non operative treatments. She has had multiple cortisone injections given into both of her knees. The most recent set of injections gave her minimal relief. She has not had a viscosupplementation injection. She has failed the last 3 months of a home exercise program, T ylenol, anti-inflammatory medicines and topical creams. At this point her bilateral knee pains are interfering with her activities of daily living and her ability to sleep well through the night. She wishes to hold off on total knee replacement surgery for as long as possible. Allergies amlodipine Allergy (Unknown, Verified 06/30/24 13:29) unknown prednisolone Allergy (Unknown, Verified 06/30/24 13:29) anaphylaxis prednisone [PREDNISONE] Allergy (Unknown, Verified 06/30/24 13:29) DEPRESSION Sulfa (Sulfonamide Antibiotics) Allergy (Unknown, Verified 06/30/24 13:29) hives, rash sulfamethoxazole [From BACTRIM] Allergy (Unknown, Verified 06/30/24 13:29) RASH trimethoprim [From BACTRIM] Allergy (Unknown, Verified 06/30/24 13:29) RASH clindamycin Adverse Reaction (Severe, Verified 06/30/24 13:29) joint pain procaine [From Novocain] Adverse Reaction (Unknown, Verified 06/30/24 13:29) Chest Pain sumatriptan [From IMITREX] Adverse Reaction (Unknown, Verified 06/30/24 13:29) UNK ORCHIDS Allergy (Intermediate, Uncoded 06/30/24 13:29) Angioedema Medication List - Last Reconciled 06/30/24 by Rakesh Cox MD albuterol sulfate 90 mcg/actuation 2 puffs inhalation Q6H PRN 30 days alprazolam (Xanax) 0.5 mg PO DAILY PRN atomoxetine 80 mg PO QAM bisacodyl (Dulcolax (bisacodyl)) 10 mg (2 x 5 mg) PO ONCE 1 day dextroamphetamine-amphetamine 20 mg ER (Adderall XR) 20 mg PO DAILY docusate sodium 100 mg PO BEDTIME duloxetine 40 mg PO DAILY fluticasone propionate 50 mcg/actuation (Flonase Allergy Relief) 2 sprays intranasal DAILY guanfacine 1 mg PO DAILY hydrocortisone 2.5% (Proctosol HC) 1 appl [place] BID-QID ibuprofen 600 mg PO Q8H PRN mirabegron ER (Myrbetriq) 50 mg PO DAILY polyethylene glycol 3350 (Miralax) 238 grams PO ONCE ropinirole 3 mg PO BID verapamil ER 120 mg PO DAILY PFSH Medical History History of deviated nasal septum History of nephrolithotomy with removal of calculi Surgical History History of tonsillectomy H/O adenoidectomy History of back surgery Family History Mother Hypertension Lung cancer Father Lung cancer COPD (chronic obstructive pulmonary disease) Arterial vascular disease Sister Stroke Hypertension Social History Housing: House Alcohol intake: current Alcohol intake frequency: holidays/special occasions only Patient Tobacco Use Status: Never used Tobacco e-Cigarette/Vaping Use: Never Used Second Hand Smoke Exposure: No service: No Current occupational status: disabled Cognitive needs: No Hearing needs: No Vision needs: Yes Physical Exam Const Other: Well-nourished well-developed very friendly female awake alert and oriented x3 in no acute distress Extrem Other: Bilateral lower extremity examination shows good capillary refill, no skin lesions noted, normal sensation light touch Bilateral knee examination shows minimal effusions, palpable crepitus with range of motion, pain with range of motion, range of motion from -3 degrees to 115 degrees, no instability Results Reviewed Results Reviewed: X-rays of the patient's bilateral knees taken previously show joint space narrowing, subchondral sclerosis, no acute bony abnormalities Assessment & Plan Assessment & Plan (1) Pain in both knees: Code(s): M25.561 - Pain in right knee; M25.562 - Pain in left knee Plan Ms. Stoddard presents with bilateral knee pains due to degenerative joint disease. I had a lengthy discussion with the patient regarding the treatment options. She wishes to hold off on surgery for as long as possible. I agree with this plan. Whether or not the patient's insurance company will cover a viscosupplementation injection for both of her knees. I will back once the injections are available. I did give her prescriptions for tramadol and a Medrol Dosepak to help with her pain in the meantime. Feel free to call me at any time should questions regarding her orthopedic management arise. I spent 21 minutes in reviewing the patient's records and imaging studies, seeing the patient and documenting in the medical record. Medications: New methylprednisolone (Medrol (Kiran)) PO PER PKG DIR 21 ea 0RF tramadol 50 mg PO Q12H PRN 30 tabs 0RF pain Coding Level of Care Code Est Pt Level 3 (27078) Diagnoses Pain in both knees M25.561; M25.562
== END 2024-06-30 14:12 | disposition home or self-care (01) ==
PROVIDERS: PCP Internal Medicine; Visit Provider Orthopaedic Surgery
DX: M17.0 Bilateral primary osteoarthritis of knee (principal)
CPT/HCPCS: 99213

== ENCOUNTER → 2024-06-30 13:26 | Outpatient (BNVA) | payer MEDICARE, MEDICAID, SELFPAY | PROVIDERS: PCP Internal Medicine; Visit Provider Orthopaedic Surgery | DX: M25.561 Pain in right knee (principal); M25.562 Pain in left knee | CPT/HCPCS: 99212 ==

== ENCOUNTER 2024-07-20 11:27 | Outpatient (REF) | payer MEDICARE, MEDICAID, SELFPAY ==
[2024-07-20 13:33] LABS: Iron 64 mcg/dL (30-160); Percent Iron Saturation 19 % (15-50); Total Iron Binding Capacity 334 mcg/dL (228-428); Unsaturated Iron Binding 270 ug/dL
[2024-07-20 13:50] LABS: Ferritin 72 ng/mL (10-250)
[2024-07-20 14:07] LABS: Folate 6.8 ng/mL (> or = 4.0); Vitamin B12 333 pg/mL (200-900)
[2024-07-21 16:58] LABS: Homocysteine 13.6 umol/L (<10.4)
[2024-07-31 03:28] LABS: Methylmalonic Acid 195 nmol/L (69-390)
== END 2024-07-20 11:28 | disposition home or self-care (01) ==
LOC: HO.LAB 11:27
PROVIDERS: PCP Internal Medicine; Referring Provider Nurse Practitioner Family; Visit Provider Registered Nurse Emergency
DX: R79.0 Abnormal level of blood mineral (principal); R79.89 Other specified abnormal findings of blood chemistry
CPT/HCPCS: 36415; 82607; 82728; 82746; 83090; 83540; 83921; 99202

== ENCOUNTER 2024-07-20 11:27 | Outpatient (AMB) | payer MEDICARE, MEDICAID, SELFPAY ==
[2024-07-20 11:31] VITALS: BP 186/93; PULSE 100; O2SAT 98; BMI 37.6
--- NOTE | 2024-07-20 11:31 | MHC.OFFVIS ---
Vital Signs 07/20/24 11:31 Height 4 ft 10 in Weight 180 lb BMI 37.6 BP 186/93 H Blood Pressure Location Lt brachial Position Sitting Pulse 100 Pulse Source Pulse Oximeter Pulse Oximetry (%) 98 Oxygen Delivery Method Room Air Intake Visit Reasons: Right Leg Pain Allergies amlodipine Allergy (Unknown, Verified 07/20/24 11:34) unknown prednisolone Allergy (Unknown, Verified 07/20/24 11:34) anaphylaxis prednisone [PREDNISONE] Allergy (Unknown, Verified 07/20/24 11:34) DEPRESSION Sulfa (Sulfonamide Antibiotics) Allergy (Unknown, Verified 07/20/24 11:34) hives, rash sulfamethoxazole [From BACTRIM] Allergy (Unknown, Verified 07/20/24 11:34) RASH trimethoprim [From BACTRIM] Allergy (Unknown, Verified 07/20/24 11:34) RASH clindamycin Adverse Reaction (Severe, Verified 07/20/24 11:34) joint pain methylprednisolone Adverse Reaction (Unknown, Verified 07/20/24 11:34) Tingling procaine [From Novocain] Adverse Reaction (Unknown, Verified 07/20/24 11:34) Chest Pain sumatriptan [From IMITREX] Adverse Reaction (Unknown, Verified 07/20/24 11:34) UNK ORCHIDS Allergy (Intermediate, Uncoded 07/20/24 11:34) Angioedema Medication List - Last Reconciled 07/20/24 by Charlotte Barnes albuterol sulfate 90 mcg/actuation 2 puffs inhalation Q6H PRN 30 days alprazolam (Xanax) 0.5 mg PO DAILY PRN atomoxetine 80 mg PO QAM bisacodyl (Dulcolax (bisacodyl)) 10 mg (2 x 5 mg) PO ONCE 1 day dextroamphetamine-amphetamine 20 mg ER (Adderall XR) 20 mg PO DAILY docusate sodium 100 mg PO BEDTIME duloxetine 40 mg PO DAILY fluticasone propionate 50 mcg/actuation (Flonase Allergy Relief) 2 sprays intranasal DAILY guanfacine 1 mg PO DAILY hydrocortisone 2.5% (Proctosol HC) 1 appl [place] BID-QID ibuprofen 600 mg PO Q8H PRN methylprednisolone (Medrol (Kiran)) PO PER PKG DIR mirabegron ER (Myrbetriq) 50 mg PO DAILY polyethylene glycol 3350 (Miralax) 238 grams PO ONCE ropinirole 3 mg PO BID tramadol 50 mg PO Q12H PRN verapamil ER 120 mg PO DAILY HPI Comments Details: Gayatri is a very pleasant 64-year-old female who presents to the office today for evaluation and management of her bilateral lower leg pain Patient reports she has been suffering with this pain for approximately 4 months, denies inciting injury, fall, trauma Endorses fatigue and heaviness in the legs. Worse with walking and improves with rest. While shopping she will utilize the car to maintain a forward flexed position that aids with the discomfort in her legs Patient was evaluated by Orthopedics, she had injections in her knees did not improve her symptoms. Recently evaluated by our vascular surgeons, ultrasound was negative for vascular concerns. Endorses some midline lower back discomfort, worse with sitting. She states this is most pronounced when she is on the toilet having a bowel movement even if she does not to push Reports burning shooting pain down the right leg to the foot. Endorses numbness and tingling of both thighs. Also has occasional feeling of ?bugs crawling up the legs? Denies red flag symptoms including new loss of bowel, bladder or saddle anesthesia. Patient has tried anti-inflammatory medications with minimal improvement. Recently was given tramadol from the orthopedic doctor. Has not noticed any improvement with this medication either Underwent injections to the right knee with no improvement. Scheduled for gel injections, awake appointment with ortho In terms of muscle damage condition is described as numbness, burning, jumping, tiring, heavy, tingling, spreading Pain is negatively impacting patient's ability to sleep, perform activities of daily living, function normally, mood, general activity Denies implantable devices, pacemaker or defibrillator Denies current use of anticoagulation Denies current use of alcohol, tobacco, nicotine or illicit substances. [facility] Medical History History of deviated nasal septum History of nephrolithotomy with removal of calculi Surgical History History of tonsillectomy H/O adenoidectomy History of back surgery Family History Mother Hypertension Lung cancer Father Lung cancer COPD (chronic obstructive pulmonary disease) Arterial vascular disease Sister Stroke Hypertension Social History Housing: House Alcohol intake: current Alcohol intake frequency: holidays/special occasions only Patient Tobacco Use Status: Never used Tobacco e-Cigarette/Vaping Use: Never Used Second Hand Smoke Exposure: No service: No Current occupational status: disabled Cognitive needs: No Hearing needs: No Vision needs: Yes Review of Systems Const All systems reviewed & are unremarkable except as noted in HPI and below Physical Exam Vital Signs: Last Vital Signs Pulse 100 07/20/24 11:31 BP 186/93 H 07/20/24 11:31 Pulse Ox 98 07/20/24 11:31 Oxygen Delivery Method Room Air 07/20/24 11:31 BMI result Body Mass Index 37.6 General: awake, alert, oriented. Answers questions appropriately. Fully engaged in examination. Skin: warm, dry, intact HEENT: Normocephalic. Hearing intact. Cardiac: External chest normal in appearance. Respiratory: No cough, audible wheezing or stridor. Abdomen: without gross distension. MS: No obvious swelling or deformities. Able to stand on bilateral tiptoes and bilateral heels.? Able to transition from sit to stand unassisted. Ambulates with bilaterally normal heel strike and toe off BELA negative bilaterally SLR negative bilaterally Nontender over bilateral PSIS Minimally tender over midline lumbar vertebrae and lumbar paraspinal muscles [place] negative bilaterally Thigh thrust negative bilaterally Negative footdrop Negative clonus Neurological: Oriented to person, place, time and situation. Thought process intact. No gait abnormalities appreciated. Psychiatric: Appropriate mood and affect. Good judgment and insight. Results Reviewed Results Reviewed: 05/04/23 XR/XR lumbar spine 2-3V FINDINGS: Lumbar vertebrae have normal height. No fracture or bone destruction. Multilevel degenerative spondylosis spine. L5-S1: Marked disc height narrowing L5-S1 and severe bilateral facet joint arthrosis. L4-L5: Marked disc height narrowing L4-L5 facet joint arthrosis. Grade 1 anterolisthesis of L4 and L5 due to spondylolysis. L3-L4: Mild disc height narrowing at L3-L4. Mild facet joint arthrosis. L2-L3: Mild lumbar disc height narrowing. Facet joints are normal. L1-L2: Lumbar disc height normal. Mild anterior vertebral endplate spur. Normal facet joint. T12-L1: Marked disc height narrowing vacuum disc phenomena. Anterior vertebral endplate spurs. T11-T12: Marked disc height narrowing vacuum disc phenomenon and vertebral endplate spurs. Degenerative spurring and disc height narrowing at the anterior lower thoracic vertebrae visualized through the T7 vertebral body. No fracture. No bone destruction. Sacroiliac joints are normal. Large volume of stool in right colon. No abnormally dilated bowel loop. Nonobstructive bowel pattern. No radiopaque urinary calculus. IMPRESSION: 1. No acute abnormality. 2. Multilevel degenerative spondylosis of the lumbar spine. 3. Grade 1 anterolisthesis of L4 and L5 due to spondylolysis. 4. Degenerative spondylosis of the lower thoracic spine. Assessment & Plan Assessment & Plan (1) Painful paresthesia: Comment: right lower extremity Code(s): R20.2 - Paresthesia of skin; R52 - Pain, unspecified Category: Medical (2) Back pain with sciatica: Code(s): M54.9 - Dorsalgia, unspecified; M54.30 - Sciatica, unspecified side Category: Medical (3) Chronic lower back pain: Code(s): M54.50 - Low back pain, unspecified; G89.29 - Other chronic pain Category: Medical Qualifiers: Back pain laterality: right Sciatica presence: without sciatica Qualified Code(s): M54.50 - Low back pain, unspecified; G89.29 - Other chronic pain Plan Gayatri is a very pleasant 64-year-old female who presented to the office today for evaluation and management of her chronic bilateral leg pain MRI ordered for evaluation, symptoms concerning for spinal stenosis with neurogenic claudication. She is requesting open MRI, order will be sent to [facility] ordered for evaluation of patient's right lower extremity burning, numbness, tingling Discuss options for medication management. Patient has not tolerated multiple medications in the past. She is not interested trying anything new today. All questions and concerns were answered, patient agrees to the plan. Follow up after MRI, sooner if needed Orders: Orders MR lumbar spine wo con Today G89.29 - Other chronic pain, M54.30 - Sciatica, unspecified side, M54.50 - Low back pain, unspecified, M54.9 - Dorsalgia, unspecified, R20.2 - Paresthesia of skin, R52 - Pain, unspecified NE electromyogram (EMG) Today R20.2 - Paresthesia of skin, R52 - Pain, unspecified Medications: Changed From duloxetine 40 mg PO DAILY To duloxetine 30 mg PO DAILY Discontinued docusate sodium Discontinued Reason: Patient no longer taking 100 mg PO BEDTIME 90 caps 3RF K59.00 - Constipation, unspecified methylprednisolone (Medrol (Kiran)) Discontinued Reason: Patient no longer taking PO PER PKG DIR 21 ea 0RF Coding Level of Care Code New Pt Level 4 (89312) Diagnoses Painful paresthesia R20.2; R52 Back pain with sciatica M54.9; M54.30 Chronic right-sided low back pain without sciatica M54.50; G89.29 Back pain laterality: right Sciatica presence: without sciatica
== END 2024-07-20 12:30 | disposition home or self-care (01) ==
PROVIDERS: PCP Internal Medicine; Visit Provider Registered Nurse Emergency
DX: R20.2 Paresthesia of skin (principal); M54.9 Dorsalgia, unspecified; M54.30 Sciatica, unspecified side; M54.50 Low back pain, unspecified; G89.29 Other chronic pain
CPT/HCPCS: 99204

== ENCOUNTER 2024-08-02 11:10 | Outpatient (AMB) | payer MEDICARE, MEDICAID, SELFPAY ==
--- NOTE | 2024-08-02 11:17 | MHC.OFFVIS ---
Vital Signs 08/02/24 11:18 Height 4 ft 10 in Weight 180 lb BMI 37.6 Intake Visit Reasons: B/L Knees Euflexxa #1 Intake Note: Gayatri is a 64 year old female that presents herself today for bilateral knee Euflexa injections. She describes her bilateral knee pains as sharp in nature. She has had cortisone injections in the past. The most recent set of injections gave her minimal relief. She has not had a viscosupplementation injection. She wishes to hold off on surgery for as long as possible. She has failed the last 3 months of conservative treatment. She has tried Tylenol and anti-inflammatory medicines which gave her minimal relief. She has also done physical therapy exercises which aggravated her pain. She denies any locking or giving way. Allergies amlodipine Allergy (Unknown, Verified 08/02/24 11:20) unknown prednisolone Allergy (Unknown, Verified 08/02/24 11:20) anaphylaxis prednisone [PREDNISONE] Allergy (Unknown, Verified 08/02/24 11:20) DEPRESSION Sulfa (Sulfonamide Antibiotics) Allergy (Unknown, Verified 08/02/24 11:20) hives, rash sulfamethoxazole [From BACTRIM] Allergy (Unknown, Verified 08/02/24 11:20) RASH trimethoprim [From BACTRIM] Allergy (Unknown, Verified 08/02/24 11:20) RASH clindamycin Adverse Reaction (Severe, Verified 08/02/24 11:20) joint pain methylprednisolone Adverse Reaction (Unknown, Verified 08/02/24 11:20) Tingling procaine [From Novocain] Adverse Reaction (Unknown, Verified 08/02/24 11:20) Chest Pain sumatriptan [From IMITREX] Adverse Reaction (Unknown, Verified 08/02/24 11:20) UNK ORCHIDS Allergy (Intermediate, Uncoded 07/20/24 11:34) Angioedema Medication List - Last Reconciled 08/02/24 by Rakesh Cox MD albuterol sulfate 90 mcg/actuation 2 puffs inhalation Q6H PRN 30 days alprazolam (Xanax) 0.5 mg PO DAILY PRN atomoxetine 80 mg PO QAM bisacodyl (Dulcolax (bisacodyl)) 10 mg (2 x 5 mg) PO ONCE 1 day dextroamphetamine-amphetamine 20 mg ER (Adderall XR) 20 mg PO DAILY duloxetine 30 mg PO DAILY fluticasone propionate 50 mcg/actuation (Flonase Allergy Relief) 2 sprays intranasal DAILY guanfacine 1 mg PO DAILY hydrocortisone 2.5% (Proctosol HC) [address] BID-QID ibuprofen 600 mg PO Q8H PRN mirabegron ER (Myrbetriq) 50 mg PO DAILY polyethylene glycol 3350 (Miralax) 238 grams PO ONCE ropinirole 3 mg PO BID tramadol 50 mg PO Q12H PRN verapamil ER 120 mg PO DAILY PFSH Medical History History of deviated nasal septum History of nephrolithotomy with removal of calculi Surgical History History of tonsillectomy H/O adenoidectomy History of back surgery Family History Mother Hypertension Lung cancer Father Lung cancer COPD (chronic obstructive pulmonary disease) Arterial vascular disease Sister Stroke Hypertension Social History Housing: House Alcohol intake: current Alcohol intake frequency: holidays/special occasions only Patient Tobacco Use Status: Never used Tobacco e-Cigarette/Vaping Use: Never Used Second Hand Smoke Exposure: No service: No Current occupational status: disabled Cognitive needs: No Hearing needs: No Vision needs: Yes Physical Exam Vital Signs: BMI result Body Mass Index 37.6 Const Other: Well-nourished well-developed very friendly female awake alert and oriented x3 in no acute distress Extrem Other: Bilateral lower extremity examination shows good capillary refill, no skin lesions noted, normal sensation light touch Bilateral knee examination shows minimal effusions, palpable crepitus with range of motion, pain with range of motion, range of motion from -3 degrees to 115 degrees, no instability Office Procedures Joint Injection/Aspiration Joint Injection/Aspiration Primary Site: left knee Prep: site was prepped using aseptic technique Injected: 20 mg of (Euflexxa viscosupplementation) and 1% plain lidocaine Procedure: The patient tolerated the procedure well Coding 17336 - Large joint Procedure code (CPT) selection complete Joint Injection/Aspiration Joint Injection/Aspiration Primary Site: right knee Prep: site was prepped using aseptic technique Injected: 20 mg of (Euflexxa viscosupplementation) and 1% plain lidocaine Procedure: The patient tolerated the procedure well Coding - Large joint Procedure code (CPT) selection complete Results Reviewed Results Reviewed: X-rays of the patient's bilateral knees taken previously show joint space narrowing, subchondral sclerosis, no acute bony abnormalities Assessment & Plan Assessment & Plan (1) Osteoarthritis of left knee: Code(s): M17.12 - Unilateral primary osteoarthritis, left knee Category: Medical (2) Osteoarthritis of right knee: Code(s): M17.11 - Unilateral primary osteoarthritis, right knee Category: Medical Plan Ms. Stoddard presents with bilateral knee pains due to degenerative joint disease. The risks and benefits of a series of 3 Euflexxa viscosupplementation injections were discussed at length with the patient. The patient wished to proceed. She tolerated the 1st set of injections well. She will continue with her home exercise program. She will follow up next week as scheduled. Feel free to call me at any time should questions regarding her orthopedic management arise. I spent 20 minutes in reviewing the patient's records and imaging studies, seeing the patient and documenting in the medical record. Orders: Orders AMB Joint Injection/Aspiration Today M17.12 - Unilateral primary osteoarthritis, left knee AMB Joint Injection/Aspiration Today M17.11 - Unilateral primary osteoarthritis, right knee Coding Level of Care Code Est Pt Level 3 (76009) Complex EM visit Add On G2211 Diagnoses Osteoarthritis of left knee M17.12 Osteoarthritis of right knee M17.11 CPT Codes Coding - Large joint: 62386 - Large joint ([id number]) Coding - 58292 Large joint: 96332 - Large joint ([id number])
[2024-08-02 11:18] VITALS: BMI 37.6
== END 2024-08-02 11:43 | disposition home or self-care (01) ==
PROVIDERS: PCP Internal Medicine; Visit Provider Orthopaedic Surgery
DX: M17.0 Bilateral primary osteoarthritis of knee (principal)
CPT/HCPCS: 20610; 99213

== ENCOUNTER → 2024-08-02 11:10 | Outpatient (BNVA) | payer MEDICARE, MEDICAID, SELFPAY | PROVIDERS: PCP Internal Medicine; Visit Provider Orthopaedic Surgery | DX: M17.0 Bilateral primary osteoarthritis of knee (principal) | CPT/HCPCS: 20610; 99212; J7323 ==

== ENCOUNTER 2024-08-09 11:36 | Outpatient (AMB) | payer MEDICARE, MEDICAID, SELFPAY ==
--- NOTE | 2024-08-09 11:46 | MHC.OFFVIS ---
Intake Visit Reasons: B/L Knees Euflexxa # 2 Intake Note: Gayatri is a 64 year old female who presents with bilateral knee pains. She states that she got mild relief from the Euflexxa injections that she was given at her last visit. She continues with her home exercise program. Allergies amlodipine Allergy (Unknown, Verified 08/09/24 11:47) unknown prednisolone Allergy (Unknown, Verified 08/09/24 11:47) anaphylaxis prednisone [PREDNISONE] Allergy (Unknown, Verified 08/09/24 11:47) DEPRESSION Sulfa (Sulfonamide Antibiotics) Allergy (Unknown, Verified 08/09/24 11:47) hives, rash sulfamethoxazole [From BACTRIM] Allergy (Unknown, Verified 08/09/24 11:47) RASH trimethoprim [From BACTRIM] Allergy (Unknown, Verified 08/09/24 11:47) RASH clindamycin Adverse Reaction (Severe, Verified 08/09/24 11:47) joint pain methylprednisolone Adverse Reaction (Unknown, Verified 08/09/24 11:47) Tingling procaine [From Novocain] Adverse Reaction (Unknown, Verified 08/09/24 11:47) Chest Pain sumatriptan [From IMITREX] Adverse Reaction (Unknown, Verified 08/09/24 11:47) UNK ORCHIDS Allergy (Intermediate, Uncoded 07/20/24 11:34) Angioedema Medication List - Last Reconciled 08/09/24 by Rakesh Cox MD albuterol sulfate 90 mcg/actuation 2 puffs inhalation Q6H PRN 30 days alprazolam (Xanax) 0.5 mg PO DAILY PRN atomoxetine 80 mg PO QAM bisacodyl (Dulcolax (bisacodyl)) 10 mg (2 x 5 mg) PO ONCE 1 day cyanocobalamin (vitamin B-12) 500 mcg PO DAILY 30 days dextroamphetamine-amphetamine 20 mg ER (Adderall XR) 20 mg PO DAILY duloxetine 30 mg PO DAILY fluticasone propionate 50 mcg/actuation (Flonase Allergy Relief) 2 sprays intranasal DAILY guanfacine 1 mg PO DAILY hydrocortisone 2.5% (Proctosol HC) 1 appl [place] BID-QID ibuprofen 600 mg PO Q8H PRN mirabegron ER (Myrbetriq) 50 mg PO DAILY polyethylene glycol 3350 (Miralax) 238 grams PO ONCE ropinirole 3 mg PO BID tramadol 50 mg PO Q12H PRN verapamil ER 120 mg PO DAILY PFSH Medical History History of deviated nasal septum History of nephrolithotomy with removal of calculi Surgical History History of tonsillectomy H/O adenoidectomy History of back surgery Family History Mother Hypertension Lung cancer Father Lung cancer COPD (chronic obstructive pulmonary disease) Arterial vascular disease Sister Stroke Hypertension Social History Housing: House Alcohol intake: current Alcohol intake frequency: holidays/special occasions only Patient Tobacco Use Status: Never used Tobacco e-Cigarette/Vaping Use: Never Used Second Hand Smoke Exposure: No service: No Current occupational status: disabled Cognitive needs: No Hearing needs: No Vision needs: Yes Physical Exam Extrem Other: Bilateral knee examination shows minimal effusions, palpable crepitus with range of motion, pain with range of motion, no instability Office Procedures Joint Injection/Aspiration Joint Injection/Aspiration Primary Site: right knee Prep: site was prepped using aseptic technique Injected: 20 mg of (Euflexxa viscosupplementation) and 1% plain lidocaine Coding 79456 - Large joint Procedure code (CPT) selection complete Joint Injection/Aspiration Joint Injection/Aspiration Primary Site: left knee Prep: site was prepped using aseptic technique Injected: 20 mg of (Euflexxa viscosupplementation) and 1% plain lidocaine Procedure: The patient tolerated the procedure well Coding 27540 - Large joint Procedure code (CPT) selection complete Assessment & Plan Assessment & Plan (1) Osteoarthritis of left knee: Code(s): M17.12 - Unilateral primary osteoarthritis, left knee Category: Medical (2) Osteoarthritis of right knee: Code(s): M17.11 - Unilateral primary osteoarthritis, right knee Category: Medical Plan Ms. Stoddard presents with bilateral knee pains due to degenerative joint disease. I had a lengthy discussion with the patient regarding the treatment options. The risks and benefits of a 2nd set of Euflexxa injections were discussed at length with the patient. The patient tolerated the bilateral knee injections well. She will continue with her home exercise program. She will follow up next week as scheduled. Feel free to call me at any time should questions regarding her orthopedic management arise. Orders: Orders AMB Joint Injection/Aspiration Today M17.11 - Unilateral primary osteoarthritis, right knee AMB Joint Injection/Aspiration Today M17.12 - Unilateral primary osteoarthritis, left knee Coding Level of Care Code Procedure Only Diagnoses Osteoarthritis of left knee M17.12 Osteoarthritis of right knee M17.11 CPT Codes Coding - 55733 Large joint: 51465 - Large joint ([id number]) Coding - 11955 Large joint: 94314 - Large joint ([id number])
== END 2024-08-09 12:12 | disposition home or self-care (01) ==
PROVIDERS: PCP Internal Medicine; Visit Provider Orthopaedic Surgery
DX: M17.0 Bilateral primary osteoarthritis of knee (principal)
CPT/HCPCS: 20610

== ENCOUNTER → 2024-08-09 11:36 | Outpatient (BNVA) | payer MEDICARE, MEDICAID, SELFPAY | PROVIDERS: PCP Internal Medicine; Visit Provider Orthopaedic Surgery | DX: M17.0 Bilateral primary osteoarthritis of knee (principal) | CPT/HCPCS: 20610; J7323 ==

== ENCOUNTER 2024-08-16 09:27 | Outpatient (AMB) | payer MEDICARE, MEDICAID, SELFPAY ==
--- NOTE | 2024-08-16 09:30 | MHC.OFFVIS ---
Vital Signs 08/16/24 09:34 Height 4 ft 10 in Weight 180 lb BMI 37.6 Intake Visit Reasons: B/L Knees Euflexxa #3 Intake Note: Gayatri is a 64 year old female that presents today for B/L Knees Euflexxa #3. She states that she has gotten mild relief from the 1st 2 injections. She continues with her home exercise program. Allergies amlodipine Allergy (Unknown, Verified 08/16/24 10:16) unknown prednisolone Allergy (Unknown, Verified 08/16/24 10:16) anaphylaxis prednisone [PREDNISONE] Allergy (Unknown, Verified 08/16/24 10:16) DEPRESSION Sulfa (Sulfonamide Antibiotics) Allergy (Unknown, Verified 08/16/24 10:16) hives, rash sulfamethoxazole [From BACTRIM] Allergy (Unknown, Verified 08/16/24 10:16) RASH trimethoprim [From BACTRIM] Allergy (Unknown, Verified 08/16/24 10:16) RASH clindamycin Adverse Reaction (Severe, Verified 08/16/24 10:16) joint pain methylprednisolone Adverse Reaction (Unknown, Verified 08/16/24 10:16) Tingling procaine [From Novocain] Adverse Reaction (Unknown, Verified 08/16/24 10:16) Chest Pain sumatriptan [From IMITREX] Adverse Reaction (Unknown, Verified 08/16/24 10:16) UNK ORCHIDS Allergy (Intermediate, Uncoded 07/20/24 11:34) Angioedema Medication List - Last Reconciled 08/16/24 by Rakesh Cox MD albuterol sulfate 90 mcg/actuation 2 puffs inhalation Q6H PRN 30 days alprazolam (Xanax) 0.5 mg PO DAILY PRN atomoxetine 80 mg PO QAM bisacodyl (Dulcolax (bisacodyl)) 10 mg (2 x 5 mg) PO BEDTIME cyanocobalamin (vitamin B-12) 500 mcg PO DAILY 30 days dextroamphetamine-amphetamine 20 mg ER (Adderall XR) 20 mg PO DAILY docusate sodium 100 mg PO BEDTIME duloxetine 30 mg PO DAILY fluticasone propionate 50 mcg/actuation (Flonase Allergy Relief) 2 sprays intranasal DAILY guanfacine 1 mg PO DAILY hydrocortisone 2.5% (Proctosol HC) 1 appl VA BID-QID ibuprofen 600 mg PO Q8H PRN magnesium citrate (Citrate of Magnesia oral) 150 mL PO DAILY PRN melatonin 3 mg PO BEDTIME PRN mirabegron ER (Myrbetriq) 50 mg PO DAILY neomycin-polymyxin B-dexameth 3.5mg/mL-10,000 unit/mL-0.1 % drps ophthalmic (eye) polyethylene glycol 3350 (Miralax) 238 grams PO ONCE ropinirole 3 mg PO BID tramadol 50 mg PO Q12H PRN verapamil ER 120 mg PO DAILY PFSH Medical History History of deviated nasal septum History of nephrolithotomy with removal of calculi Surgical History (Updated 08/16/24 @ 10:42 by SYLVAIN Beavers) H/O colonoscopy History of tonsillectomy H/O adenoidectomy History of back surgery Family History Mother Hypertension Lung cancer Father Lung cancer COPD (chronic obstructive pulmonary disease) Arterial vascular disease Sister Stroke Hypertension Social History Housing: House Alcohol intake: current Alcohol intake frequency: holidays/special occasions only Patient Tobacco Use Status: Never used Tobacco e-Cigarette/Vaping Use: Never Used Second Hand Smoke Exposure: No service: No Current occupational status: disabled Cognitive needs: No Hearing needs: No Vision needs: Yes Physical Exam Vital Signs: BMI result Body Mass Index 37.6 Const Other: Well-nourished well-developed very friendly female awake alert and oriented x3 in no acute distress Extrem Other: Bilateral lower extremity examination shows good capillary refill, no skin lesions noted, normal sensation light touch Bilateral knee examination shows minimal effusions, palpable crepitus with range of motion, pain with range of motion, no instability Assessment & Plan Assessment & Plan (1) Osteoarthritis of left knee: Code(s): M17.12 - Unilateral primary osteoarthritis, left knee Category: Medical (2) Osteoarthritis of right knee: Code(s): M17.11 - Unilateral primary osteoarthritis, right knee Category: Medical Plan Ms. Stoddard presents with bilateral knee pains due to degenerative joint disease. The risks and benefits of a 3rd set of Euflexxa viscosupplementation injections were discussed at length with the patient. The patient wished to proceed. She tolerated the injections well. She will continue with her home exercise program. She will follow up with me on an as-needed basis should her symptoms not plateau at an unacceptable level over the next few months. Feel free to call me at any time should questions regarding her orthopedic management arise. I spent 20 minutes in reviewing the patient's records and imaging studies, seeing the patient and documenting in the medical record. Orders: Orders AMB Joint Injection/Aspiration Today M17.12 - Unilateral primary osteoarthritis, left knee AMB Joint Injection/Aspiration Today M17.11 - Unilateral primary osteoarthritis, right knee Coding Level of Care Code Procedure Only Diagnoses Osteoarthritis of left knee M17.12 Osteoarthritis of right knee M17.11
[2024-08-16 09:34] VITALS: BMI 37.6
== END 2024-08-16 09:49 | disposition home or self-care (01) ==
PROVIDERS: PCP Internal Medicine; Visit Provider Orthopaedic Surgery
DX: M17.0 Bilateral primary osteoarthritis of knee (principal)
CPT/HCPCS: 20610

== ENCOUNTER → 2024-08-16 09:27 | Outpatient (BNVA) | payer MEDICARE, MEDICAID, SELFPAY | PROVIDERS: PCP Internal Medicine; Visit Provider Orthopaedic Surgery | DX: K59.01 Slow transit constipation (principal); R14.0 Abdominal distension (gaseous); M17.0 Bilateral primary osteoarthritis of knee | CPT/HCPCS: 20610; 99212; J7323 ==

== ENCOUNTER 2024-08-16 10:16 | Outpatient (AMB) | payer MEDICARE, MEDICAID, SELFPAY ==
[2024-08-16 10:14] VITALS: BP 140/84; PULSE 72; O2SAT 97; BMI 38.4
--- NOTE | 2024-08-16 10:14 | A.OFFVIS_ITS ---
Vital Signs 08/16/24 10:14 Height 4 ft 10 in Weight 183 lb 13.848 oz BMI 38.4 BP 140/84 H Blood Pressure Location Rt brachial Position Sitting Pulse 72 Pulse Source Pulse Oximeter Pulse Oximetry (%) 97 Oxygen Delivery Method Room Air Intake Visit Reasons: Severe constipation Intake Note: Gayatri presents in office today for a same day visit by cancellation availability. CC; Pt reports severe constipation. Pt has hx of CIC and cancelled/no showed their last visit s/p colo. Pt was last seen 1 year ago. Pt reports that their last BM of any level was yesterday. Pt was able to pass a small amount of soft stool and flatulence but nothing else. Pt has been taking multiple treatments at home, including but not limited to; senna, miralax, and suppositories with no success. Modular Set Crew Member Required: No Allergies amlodipine Allergy (Unknown, Verified 08/16/24 10:16) unknown prednisolone Allergy (Unknown, Verified 08/16/24 10:16) anaphylaxis prednisone [PREDNISONE] Allergy (Unknown, Verified 08/16/24 10:16) DEPRESSION Sulfa (Sulfonamide Antibiotics) Allergy (Unknown, Verified 08/16/24 10:16) hives, rash sulfamethoxazole [From BACTRIM] Allergy (Unknown, Verified 08/16/24 10:16) RASH trimethoprim [From BACTRIM] Allergy (Unknown, Verified 08/16/24 10:16) RASH clindamycin Adverse Reaction (Severe, Verified 08/16/24 10:16) joint pain methylprednisolone Adverse Reaction (Unknown, Verified 08/16/24 10:16) Tingling procaine [From Novocain] Adverse Reaction (Unknown, Verified 08/16/24 10:16) Chest Pain sumatriptan [From IMITREX] Adverse Reaction (Unknown, Verified 08/16/24 10:16) UNK ORCHIDS Allergy (Intermediate, Uncoded 07/20/24 11:34) Angioedema HPI HPI Severe constipation: Details: LAST VISIT: Chronic idiopathic constipation Continue taking MiraLax daily. Patient was encouraged to increase fluid intake and activity to promote better bowel motility IBS (irritable bowel syndrome) Occasional postprandial abdominal bloating and occasional loose stools, however patient is more constipated now. Patient can use MiraLax daily. Low FODMAP diet discussed with patient. Patient does have a list of food that is recommended and food to avoid at home. Screen for colon cancer Patient denies melena, hematochezia, unintentional weight loss or ribbon like stools. Patient does report occasional blood in the stool when she wipes, h owever patient has been constipated as well. History of polyps on previous colonoscopies. Colonoscopy done at [facility] over 5 years ago. Patient denies any issues with anesthesia in the past. Not on any anticoagulation medication. No history of infectious diseases in the past or present. History of sleep apnea. Patient denies any cardiac or respiratory symptoms. Discussed with patient the importance of good bowel prep and clear liquid diet day before the procedure. I will see her after the procedure, sooner on as needed basis. Patient is agreeable to this plan and verbalizes understanding of instructions. She was given the opportunity to ask questions and all questions answered. ? Thank you for allowing me to participate in her care Plan Medications New bisacodyl (Dulcolax (bisacodyl)) take 2 tabs at noon the day before your colonoscopy 10 mg (2 x 5 mg) PO ONCE 2 tabs 0RF 1 day Z12.11 - Encounter for screening for malignant neoplasm of colon polyethylene glycol 3350 (Miralax) As directed by gastroenterology department at [facility] 238 grams PO ONCE 238 grams 0RF Z12.11 - Encounter for screening for malignant neoplasm of colon Discontinued sennosides Discontinued Reason: Patient no longer taking 17.2 mg (2 x 8.6 mg) PO BEDTIME 60 tabs 3RF constipation K59.00 - Constipation, unspecified linaclotide Discontinued Reason: Patient no longer taking 145 mcg PO DAILY 30 caps 2RF COLONOSCOPY Findings: Terminal Ileum- normal Cecum:normal Ascending Colon: normal Transverse Colon -normal Descending Colon:normal Sigmoid Colon: normal Rectum: Retroflexion with small internal hemorrhoids, grade I, x2 sessile polyps 8-9 mm, one removed with cold snare and the other with cold forceps Anorectum - normal Colon preparation: Casey Bowel Preparation Scale Right colon; 2 Transverse colon: 1-2 Left colon; 2 (0 = Unprepared colon segment with mucosa not seen due to solid stool that cannot be cleared. 1 = Portion of mucosa of the colon segment seen, but other areas of the colon segment not well seen due to staining, residual stool and/or opaque liquid. 2 = Minor amount of residual staining, small fragments of stool and/or opaque liquid, but mucosa of colon segment seen well. 3 = Entire mucosa of colon segment seen well with no residual staining, small fragments of stool or opaque liquid) Impression and Post Procedure Diagnosis: polyps internal hemorrhoids Plan: High fiber diet leaflet Avoid straining at stool, epsom salts and sitz bath, anusol supps or cream Repeat Colonoscopy in 5 years due to fair prep in some areas or earlier if clinically indicated PATHOLOGY RESULTS Diagnosis Rectum, polypectomy: Hyperplastic mucosal polyp TODAY'S VISIT: Patient is here today for requested visit. Patient stopped it the office reported that she needs to be seen. Patient reports no bowel movement for over 1 week. Patient was seen last she has colonoscopy that showed 1 hyperplastic polyp. Suboptimal prep and colonoscopy was recommended meals. Patient reports that she tried Senokot in MiraLax without any results. Small pebble like stool. Reports abdominal distention, discomfort without abdominal pain. Patient denies any nausea or vomiting. Patient denies any dyspepsia, dysphagia or odynophagia. Patient denies any other GI concerning symptoms. Not taking any opioids [facility] Medical History History of deviated nasal septum History of nephrolithotomy with removal of calculi Surgical History (Updated 08/16/24 @ 10:42 by SYLVAIN Beavers) H/O colonoscopy History of tonsillectomy H/O adenoidectomy History of back surgery Family History Mother Hypertension Lung cancer Father Lung cancer COPD (chronic obstructive pulmonary disease) Arterial vascular disease Sister Stroke Hypertension Social History Housing: House Alcohol intake: current Alcohol intake frequency: holidays/special occasions only Patient Tobacco Use Status: Never used Tobacco e-Cigarette/Vaping Use: Never Used Second Hand Smoke Exposure: No service: No Current occupational status: disabled Cognitive needs: No Hearing needs: No Vision needs: Yes Review of Systems Const Denies weight gain and Denies weight loss ENT Reports no additional complaints, Denies dysphagia and Denies odynophagia Card Reports no additional complaints Resp Reports no additional complaints GI Reports abdominal pain, Denies belching, Denies melena, Denies bloating, Denies change in bowel habits, Reports constipation, Denies dysphagia, Denies excessive flatus, Denies dyspepsia, Denies heartburn, Denies diarrhea, Denies loose stools, Denies nausea, Denies odynophagia and Denies vomiting Reports no additional complaints Musc Reports no additional complaints Neuro Reports no additional complaints Psych Reports no additional complaints Endo Reports no additional complaints Physical Exam Vital Signs: Last Vital Signs Pulse 72 08/16/24 10:14 BP 140/84 H 08/16/24 10:14 Pulse Ox 97 08/16/24 10:14 Oxygen Delivery Method Room Air 08/16/24 10:14 BMI result Body Mass Index 38.4 Const General: healthy appearing and no acute distress Nutritional Appearance: obese Orientation/consciousness: patient oriented x3 Resp Effort & Inspection: normal respiratory effort, able to speak in complete sentences, no tracheal deviation and symmetric chest movement Auscultation: clear to auscultation bilaterally Cardio Rate: regular rate GI Inspection: Yes normal to inspection, No distended and Yes obesity Palpation (GI): Soft to palpation, not firm, nontender and No hepatosplenomegaly present Auscultation: normal bowel sounds General: Yes no CVA tenderness Back/Spine/Pelvis Back: no CVA tenderness Skin General skin exam: elasticity normal, turgor normal and dry skin Neuro General: patient oriented x3 Psych Appearance: grossly normal Mental Status: mental status grossly normal Assessment & Plan Assessment & Plan (1) Constipation: Code(s): K59.00 - Constipation, unspecified Qualifiers: Constipation type: slow transit constipation Qualified Code(s): K59.01 - Slow transit constipation (2) Abdominal bloating: Code(s): R14.0 - Abdominal distension (gaseous) Plan Patient can take half a bottle of Mag citrate today if no bowel movement in 2-3 hours she can repeat. Patient will start taking Dulcolax 2 tablets in the evening with Colace. Increase fluid intake and activity to promote better bowel motility. Patient will call if she will continue to be constipated. Follow-up in 6 months, sooner on as needed basis. Patient is agreeable to this plan and verbalizes understanding of instructions. She was given the opportunity to ask questions and all questions answered. Thank you for allowing me to participate in her care Medications: New docusate sodium 100 mg PO BEDTIME 90 caps 3RF K59.00 - Constipation, unspecified magnesium citrate (Citrate of Magnesia oral) 150 mL PO DAILY PRN 296 mL 5RF constipation K59.00 - Constipation, unspecified bisacodyl (Dulcolax (bisacodyl)) 10 mg (2 x 5 mg) PO BEDTIME 180 tabs 4RF Discontinued bisacodyl (Dulcolax (bisacodyl)) take 2 tabs at noon the day before your colonoscopy Discontinued Reason: Doctor's Order 10 mg (2 x 5 mg) PO ONCE 1 day 2 tabs 0RF Z12.11 - Encounter for screening for malignant neoplasm of colon Coding Level of Care Code Est Pt Level 3 (39228) Diagnoses Slow transit constipation K59.01 Constipation type: slow transit constipation Abdominal bloating R14.0 Time Spent (min) 25 Comment 15 minutes spent with patient and additional 10 minutes spent reviewing her records
== END 2024-08-16 11:18 | disposition home or self-care (01) ==
PROVIDERS: PCP Internal Medicine; Visit Provider Nurse Practitioner Family
DX: K59.01 Slow transit constipation (principal); R14.0 Abdominal distension (gaseous)
CPT/HCPCS: 99213

== ENCOUNTER 2024-08-26 14:03 | Outpatient (REF) | payer MEDICARE, MEDICAID, SELFPAY ==
--- NOTE | 2024-08-26 14:07 | EMG_ITS ---
Chief complaint: Numbness on anterior lateral leg and dorsal feet, big toe, pain going up the buttocks, chronic back pain, history of lumbar surgery Reason for referral: Evaluate for radiculopathy Referred by: Jenni Browning NP Procedure done: Bilateral lower extremity NCS/EMG Precautions and/or limitations: None The limb temperature was monitored continuously and remained between 32-36 degrees C during the performance of the NCS. Nerve Conduction Studies Anti Sensory Summary Table ?Stim Site NR Onset (ms) Norm Onset (ms) Peak (ms) Norm Peak (ms) O-P Amp (?V) Norm O-P Amp Site1 Site2 Delta-0 (ms) Dist (cm) Manjinder (m/s) Norm Manjinder (m/s) Left Sural Anti Sensory (Lat Mall) Calf ? 2.3 3.0 <4.0 8.2 >5.0 Calf Lat Mall 2.3 14.0 61 Right Sural Anti Sensory (Lat Mall) Calf ? 2.6 3.2 <4.0 14.7 >5.0 Calf Lat Mall 2.6 14.0 54 Motor Summary Table ?Stim Site NR Onset (ms) Norm Onset (ms) O-P Amp (mV) Norm O-P Amp iAmp (mV) Amp (1st) (%) Site1 Site2 Delta-0 (ms) Dist (cm) Manjinder (m/s) Norm Manjinder (m/s) Right Peroneal Motor (Ext Dig Brev) Ankle ? 4.0 <4.0 3.6 >2.5 3.9 100.0 Ankle Ext Dig Brev 4.0 0.0 B Fib ? 9.2 3.2 3.6 88.9 B Fib Ankle 5.2 27.5 53 >40 Poplt ? 10.2 3.1 3.4 86.1 Poplt B Fib 1.0 5.0 50 >40 Left Tibial Motor (Abd Hopkins Brev) Ankle ? 4.5 <5 2.9 >2.5 4.3 100.0 Ankle Abd Hopkins Brev 4.5 0.0 Knee ? 12.0 2.4 3.5 82.8 Knee Ankle 7.5 33.0 44 >40 Right Tibial Motor (Abd Hopkins Brev) Ankle ? 3.6 <5 5.0 >2.5 7.1 100.0 Ankle Abd Hopknis Brev 3.6 0.0 Knee ? 10.8 3.2 4.9 64.0 Knee Ankle 7.2 34.0 47 >40 EMG ?Side Muscle Nerve Root Ins Act Fibs Psw Amp Dur Poly Recrt Int Pat Comment Right AbdHallucis MedPlantar S1-2 Nml Nml Nml Nml Nml 0 Nml Complete Right AntTibialis Dp Br Peron L4-5 Nml Nml Nml Nml Nml 0 Nml Complete Right PostTibialis Tibial L5, S1 Nml Nml Nml Nml Nml 0 Nml Complete Right MedGastroc Tibial S1-2 Nml Nml Nml Nml Nml 0 Nml Complete Right VastusMed Femoral L2-4 Nml Nml Nml Nml Nml 0 Nml Complete Left AbdHallucis MedPlantar S1-2 Nml Nml Nml Nml Nml 0 Nml Complete Left AntTibialis Dp Br Peron L4-5 Nml Nml Nml Nml Nml 0 Nml Complete Left PostTibialis Tibial L5, S1 Nml Nml Nml Nml Nml 0 Nml Complete Left MedGastroc Tibial S1-2 Nml Nml Nml Nml Nml 0 Nml Complete Left VastusMed Femoral L2-4 Nml Nml Nml Nml Nml 0 Nml Complete FINDINGS: All motor and sensory nerves tested showed normal latencies, amplitudes and conduction velocities. Concentric needle EMG was performed in selected muscles of the bilateral lower extremity. Study did not reveal signs of electric abnormalities as shown in the table above. IMPRESSION: 1. This is a normal study. 2. There is no electrodiagnostic evidence for peroneal neuropathy, tibial neuropathy, lumbosacral plexopathy, lumbar radiculopathy, or peripheral neuropathy. Thank you for your kind referral. Niharika Estevez MD, BOUCHRA Board Certified, [place] [employer] and [employer] (ABPMR) Board Certified, [place] [employer] Electrodiagnostic [employer] (ABEM) CODIN 20038 x 2 MTDD
== END 2024-08-26 14:04 | disposition home or self-care (01) ==
LOC: HO.NEURO 14:03
PROVIDERS: PCP Internal Medicine; Visit Provider Registered Nurse Emergency
DX: R20.2 Paresthesia of skin (principal); R52 Pain, unspecified
CPT/HCPCS: 95886; 95909

== ENCOUNTER → 2024-08-26 14:07 | Outpatient (BNV) | payer MEDICARE, MEDICAID, SELFPAY | PROVIDERS: PCP Internal Medicine; Visit Provider Physical Medicine & Rehabilitation | DX: R20.2 Paresthesia of skin (principal); R20.0 Anesthesia of skin | CPT/HCPCS: 95886; 95909 ==

== ENCOUNTER 2024-08-31 10:34 | Outpatient (AMB) | payer MEDICARE, MEDICAID, SELFPAY ==
--- NOTE | 2024-08-31 10:48 | MHC.OFFVIS ---
Vital Signs 08/31/24 10:49 Height 4 ft 10 in Weight 182 lb BMI 38.0 BP 175/79 H Blood Pressure Location Rt brachial Position Sitting Pulse 92 Pulse Source Pulse Oximeter Pulse Oximetry (%) 96 Oxygen Delivery Method Room Air Intake Visit Reasons: Discuss MRI Results Allergies amlodipine Allergy (Unknown, Verified 08/31/24 10:50) unknown prednisolone Allergy (Unknown, Verified 08/31/24 10:50) anaphylaxis prednisone [PREDNISONE] Allergy (Unknown, Verified 08/31/24 10:50) DEPRESSION Sulfa (Sulfonamide Antibiotics) Allergy (Unknown, Verified 08/31/24 10:50) hives, rash sulfamethoxazole [From BACTRIM] Allergy (Unknown, Verified 08/31/24 10:50) RASH trimethoprim [From BACTRIM] Allergy (Unknown, Verified 08/31/24 10:50) RASH clindamycin Adverse Reaction (Severe, Verified 08/31/24 10:50) joint pain methylprednisolone Adverse Reaction (Unknown, Verified 08/31/24 10:50) Tingling procaine [From Novocain] Adverse Reaction (Unknown, Verified 08/31/24 10:50) Chest Pain sumatriptan [From IMITREX] Adverse Reaction (Unknown, Verified 08/31/24 10:50) UNK ORCHIDS Allergy (Intermediate, Uncoded 08/31/24 10:50) Angioedema Medication List - Last Reconciled 08/31/24 by Charlotte Barnes albuterol sulfate 90 mcg/actuation 2 puffs inhalation Q6H PRN 30 days alprazolam (Xanax) 0.5 mg PO DAILY PRN atomoxetine 80 mg PO QAM bisacodyl (Dulcolax (bisacodyl)) 10 mg (2 x 5 mg) PO BEDTIME cyanocobalamin (vitamin B-12) 500 mcg PO DAILY 30 days dextroamphetamine-amphetamine 20 mg ER (Adderall XR) 20 mg PO DAILY docusate sodium 100 mg PO BEDTIME duloxetine 30 mg PO DAILY fluticasone propionate 50 mcg/actuation (Flonase Allergy Relief) 2 sprays intranasal DAILY guanfacine 1 mg PO DAILY hydrocortisone 2.5% (Proctosol HC) 1 appl DE BID-QID ibuprofen 600 mg PO Q8H PRN magnesium citrate (Citrate of Magnesia oral) 150 mL PO DAILY PRN melatonin 3 mg PO BEDTIME PRN methylcellulose (laxative) (Citrucel) 500 mg PO DAILY mirabegron ER (Myrbetriq) 50 mg PO DAILY neomycin-polymyxin B-dexameth 3.5mg/mL-10,000 unit/mL-0.1 % drps ophthalmic (eye) polyethylene glycol 3350 (Miralax) 238 grams PO ONCE ropinirole 3 mg PO BID tramadol 50 mg PO Q12H PRN verapamil ER 120 mg PO DAILY HPI Comments Details: Patient presents back to the office today, accompanied by her , for follow-up and review of recent MRI and EMG MRI and EMG reviewed, results as per below. Continues with lower back pain that radiates down both legs. Also with heaviness, fatigue of both legs with walking. This improves with forward flexed position. Pain today is rated as a 6/10 She is taking Tylenol and NSAIDs without improvement. Previously prescribed tramadol for her knees by Orthopedics. She states this did not provide her any relief. Denies red flag symptoms including new loss of bowel, bladder or saddle anesthesia Intake: Gayatri is a very pleasant 64-year-old female who presents to the office today for evaluation and management of her bilateral lower leg pain Patient reports she has been suffering with this pain for approximately 4 months, denies inciting injury, fall, trauma Endorses fatigue and heaviness in the legs. Worse with walking and improves with rest. While shopping she will utilize the car to maintain a forward flexed position that aids with the discomfort in her legs Patient was evaluated by Orthopedics, she had injections in her knees did not improve her symptoms. Recently evaluated by our vascular surgeons, ultrasound was negative for vascular concerns. Endorses some midline lower back discomfort, worse with sitting. She states this is most pronounced when she is on the toilet having a bowel movement even if she does not to push Reports burning shooting pain down the right leg to the foot. Endorses numbness and tingling of both thighs. Also has occasional feeling of ?bugs crawling up the legs? Denies red flag symptoms including new loss of bowel, bladder or saddle anesthesia. Patient has tried anti-inflammatory medications with minimal improvement. Recently was given tramadol from the orthopedic doctor. Has not noticed any improvement with this medication either Underwent injections to the right knee with no improvement. Scheduled for gel injections, awake appointment with ortho In terms of muscle damage condition is described as numbness, burning, jumping, tiring, heavy, tingling, spreading Pain is negatively impacting patient's ability to sleep, perform activities of daily living, function normally, mood, general activity Denies implantable devices, pacemaker or defibrillator Denies current use of anticoagulation Denies current use of alcohol, tobacco, nicotine or illicit substances. [facility] Medical History (Updated 08/31/24 @ 11:24 by Jenni Browning, [employer] INSPECTOR, DITCH WORKER) History of deviated nasal septum History of nephrolithotomy with removal of calculi Surgical History (Updated 08/16/24 @ 10:42 by SYLVAIN Beavers) H/O colonoscopy History of tonsillectomy H/O adenoidectomy History of back surgery Family History Mother Hypertension Lung cancer Father Lung cancer COPD (chronic obstructive pulmonary disease) Arterial vascular disease Sister Stroke Hypertension Social History Housing: House Alcohol intake: current Alcohol intake frequency: holidays/special occasions only Patient Tobacco Use Status: Never used Tobacco e-Cigarette/Vaping Use: Never Used Second Hand Smoke Exposure: No service: No Current occupational status: disabled Cognitive needs: No Hearing needs: No Vision needs: Yes Review of Systems Const All systems reviewed & are unremarkable except as noted in HPI and below Physical Exam Vital Signs: Last Vital Signs Pulse 92 08/31/24 10:49 BP 175/79 H 08/31/24 10:49 Pulse Ox 96 08/31/24 10:49 Oxygen Delivery Method Room Air 08/31/24 10:49 BMI result Body Mass Index 38.0 General: awake, alert, oriented. Answers questions appropriately. Fully engaged in examination. Skin: warm, dry, intact HEENT: Normocephalic. Hearing intact. Cardiac: External chest normal in appearance. Respiratory: No cough, audible wheezing or stridor. Abdomen: without gross distension. MS: No obvious swelling or deformities. Able to transition from sit to stand unassisted. Ambulates with bilaterally normal heel strike and toe off Neurological: Oriented to person, place, time and situation. Thought process intact. No gait abnormalities appreciated. Psychiatric: Appropriate mood and affect. Good judgment and insight. Results Reviewed Results Reviewed: 08/26/24 EMG Impression: This is a normal study. 08/22/24 MRI lumbar spine 05/04/23 XR/XR lumbar spine 2-3V FINDINGS: Lumbar vertebrae have normal height. No fracture or bone destruction. Multilevel degenerative spondylosis spine. L5-S1: Marked disc height narrowing L5-S1 and severe bilateral facet joint arthrosis. L4-L5: Marked disc height narrowing L4-L5 facet joint arthrosis. Grade 1 anterolisthesis of L4 and L5 due to spondylolysis. L3-L4: Mild disc height narrowing at L3-L4. Mild facet joint arthrosis. L2-L3: Mild lumbar disc height narrowing. Facet joints are normal. L1-L2: Lumbar disc height normal. Mild anterior vertebral endplate spur. Normal facet joint. T12-L1: Marked disc height narrowing vacuum disc phenomena. Anterior vertebral endplate spurs. T11-T12: Marked disc height narrowing vacuum disc phenomenon and vertebral endplate spurs. Degenerative spurring and disc height narrowing at the anterior lower thoracic vertebrae visualized through the T7 vertebral body. No fracture. No bone destruction. Sacroiliac joints are normal. Large volume of stool in right colon. No abnormally dilated bowel loop. Nonobstructive bowel pattern. No radiopaque urinary calculus. IMPRESSION: 1. No acute abnormality. 2. Multilevel degenerative spondylosis of the lumbar spine. 3. Grade 1 anterolisthesis of L4 and L5 due to spondylolysis. 4. Degenerative spondylosis of the lower thoracic spine. Assessment & Plan Assessment & Plan (1) Spinal stenosis: Code(s): M48.00 - Spinal stenosis, site unspecified Category: Medical (2) Painful paresthesia: Comment: right lower extremity Code(s): R20.2 - Paresthesia of skin; R52 - Pain, unspecified Category: Medical (3) Back pain with sciatica: Code(s): M54.9 - Dorsalgia, unspecified; M54.30 - Sciatica, unspecified side Category: Medical (4) Chronic lower back pain: Code(s): M54.50 - Low back pain, unspecified; G89.29 - Other chronic pain Category: Medical Qualifiers: Back pain laterality: right Sciatica presence: without sciatica Qualified Code(s): M54.50 - Low back pain, unspecified; G89.29 - Other chronic pain Plan Gayatri presented to the office today follow up, review recent MRI and EMG. MRI and EMG reviewed, results as per above Referral placed for neuro spine Will try pregabalin 50 mg p.o. twice daily. Patient advised on cautions for use. Do not take with alcohol or other INTERACTIVE MEDIA DIRECTOR suppressants. No driving while taking this medication. All questions and concerns were answered, patient agrees to the plan. Follow up after neurosurgical evaluation, sooner if needed Orders: Referrals Neuro Spine Referral M48.00 - Spinal stenosis, site unspecified Medications: New pregabalin May cause drowsiness. No driving while taking this medication. Do not take with alcohol or other INTERACTIVE MEDIA DIRECTOR depressants. 50 mg PO BID 60 caps 1RF Coding Level of Care Code Est Pt Level 3 (26412) Complex EM visit Add On G2211 Diagnoses Spinal stenosis M48.00 Painful paresthesia R20.2; R52 Back pain with sciatica M54.9; M54.30 Chronic right-sided low back pain without sciatica M54.50; G89.29 Back pain laterality: right Sciatica presence: without sciatica
[2024-08-31 10:49] VITALS: BP 175/79; PULSE 92; O2SAT 96; BMI 38.0
== END 2024-08-31 11:23 | disposition home or self-care (01) ==
PROVIDERS: PCP Internal Medicine; Visit Provider Registered Nurse Emergency
DX: M48.00 Spinal stenosis, site unspecified (principal); R20.2 Paresthesia of skin; R52 Pain, unspecified; M54.9 Dorsalgia, unspecified; M54.30 Sciatica, unspecified side; M54.50 Low back pain, unspecified; G89.29 Other chronic pain
CPT/HCPCS: 99213; G2211

== ENCOUNTER → 2024-08-31 10:34 | Outpatient (BNVA) | payer MEDICARE, MEDICAID, SELFPAY | PROVIDERS: PCP Internal Medicine; Visit Provider Registered Nurse Emergency | DX: M48.00 Spinal stenosis, site unspecified (principal); R20.2 Paresthesia of skin; M54.30 Sciatica, unspecified side; M54.50 Low back pain, unspecified; G89.29 Other chronic pain | CPT/HCPCS: 99212 ==

== ENCOUNTER 2024-09-12 10:31 | Outpatient (REF) | payer MEDICARE, MEDICAID, SELFPAY | END 2024-09-12 10:32 | disposition home or self-care (01) | LOC: HO.HOSX 10:31 | PROVIDERS: PCP Internal Medicine; Referring Provider Registered Nurse Emergency; Visit Provider Physician Assistant | DX: M48.00 Spinal stenosis, site unspecified (principal); R20.0 Anesthesia of skin | CPT/HCPCS: 72110; 99202 ==

== ENCOUNTER 2024-09-12 10:31 | Outpatient (AMB) | payer MEDICARE, MEDICAID, SELFPAY ==
--- NOTE | 2024-09-12 10:35 | A.SPINEOV_ITS ---
Intake Visit Reasons: spinal stenosis Intake Note: Mrs. Stoddard is here today c/o Low back pain. Anaesthetic Technician Required: No Allergies amlodipine Allergy (Unknown, Verified 09/12/24 10:40) unknown prednisolone Allergy (Unknown, Verified 09/12/24 10:40) anaphylaxis prednisone [PREDNISONE] Allergy (Unknown, Verified 09/12/24 10:40) DEPRESSION Sulfa (Sulfonamide Antibiotics) Allergy (Unknown, Verified 09/12/24 10:40) hives, rash sulfamethoxazole [From BACTRIM] Allergy (Unknown, Verified 09/12/24 10:40) RASH trimethoprim [From BACTRIM] Allergy (Unknown, Verified 09/12/24 10:40) RASH clindamycin Adverse Reaction (Severe, Verified 09/12/24 10:40) joint pain methylprednisolone Adverse Reaction (Unknown, Verified 09/12/24 10:40) Tingling procaine [From Novocain] Adverse Reaction (Unknown, Verified 09/12/24 10:40) Chest Pain sumatriptan [From IMITREX] Adverse Reaction (Unknown, Verified 09/12/24 10:40) UNK ORCHIDS Allergy (Intermediate, Uncoded 08/31/24 10:50) Angioedema Assessment & Plan Assessment & Plan (1) Spinal stenosis: Code(s): M48.00 - Spinal stenosis, site unspecified Category: Medical (2) Numbness in both hands: Code(s): R20.0 - Anesthesia of skin Category: Medical Plan Dear Jenni, Thank you for referring Mrs Stoddard to our office today. She is a very nice 64-year-old female with previous history lumbar diskectomy done twice in the 1980s, L4-5 was the targeted level, possibly L5-S1 as well. She had the initial injury she was bending forward to pick something up and felt a pop then it went down her leg. About 4 years later she had something similar and was operated on it the same spot. She believes this was L4-5. About a year ago or so, maybe even more she started to notice back pain that was radiating down into her buttocks. It was associated with some tingling of her feet. She is getting numbness of her big toe. She had progressive trouble walking. She is also having trouble standing. She was also getting difficulty with sleeping at [facility]. The pain has been getting steadily worse. The pain is in the middle of her low back and radiates down into her buttocks and will go into her calves. She uses a shopping cart in the store. She went for an EMG to rule out neuropathy and this was negative. She underwent a lumbar MRI showing multilevel degenerative changes with a spondylolisthesis at L4-5. She was sent today to see us for an evaluation. In terms of conservative management, she takes Tylenol and ibuprofen. She has previously done physical therapy but none recently. No cortisone injections. No chiropractic or acupuncture. PMH: She has ADD, anxiety, depression, PTSD, hypertension. She is prediabetic. She has a heart murmur which is stable and does not give her any issues. She has sleep apnea. Constipation, carpal tunnel release in the left hand, 2 previous back surgeries as outlined above, bladder sling surgery. Denies any major issues with her heart, lungs, liver, kidneys. She did have a kidney stone at 1 point but nothing currently or recent. She has have an overactive bladder. No history of blood clots, bleeding disorders, cancer or stroke. Social hx: She does not smoke cigarettes, no marijuana or alcohol Medications: Albuterol, Xanax, atomexitine, , vitamin B12, Dulcolax, dextroamphetamine Adderall, Colace, duloxetine, Flonase, hydrocortisone 2.5% for hemorrhoid, Mag citrate, melatonin, Citrucel, Myrbetriq, MiraLax, ropinirole, tramadol, verapamil Allergies: Please see the list Physical exam: She is awake alert oriented no acute distress, she is able stand up out of a chair on her own, her strength in bilateral upper and lower extremities is full. She does have hyperreflexia in the upper extremities with Cervantes's sign. Slightly decreased reflexes in the lower extremities at the patella. She has a large 6 in incision on her low back which is well healed. Imaging review: She is a lumbar MRI done at the [facility] and this shows a grade 1-2 spondylolisthesis at L4-5 with severe central canal stenosis. She also has a slight spondylolisthesis at L3-4 with moderate central canal stenosis. She appears to have auto fused the L5-S1 disc. Impression: 64-year-old female history of 2 previous lumbar diskectomies in the 1980s, the patient believes he were at L4-5 and possibly L5-S1 presents to the office today for evaluation of progressively worsening back pain radiating into her buttocks down her legs with tingling of her legs. She had an EMG which did not reveal neuropathy. She had an MRI as outlined above showing significant degenerative changes, worse at L4-5 where she has a grade 1-2 spondylolisthesis with severe central canal stenosis. She has a slight spondylolisthesis at L3-4 with moderate stenosis. L5-S1 appears to be auto fused. I sat down with the patient and explained to her and showed her all of her imaging. I believe the L4-5 segment is likely unstable, and is the source of her symptoms. I will send her for flexion-extension x-rays to evaluate this. We did briefly discuss the treatment of choice typically with Dr. Jacobs for this would be an oblique lumbar interbody fusion. We reviewed risks, benefits etc.. She has a slight spondylolisthesis at L3-4 as well. I am not sure if this is involved with her symptoms at this time. We will also get a better look at this with the flexion- extension x-rays as well. Once I have a chance to review everything with Dr. Jacobs, I will get back to the patient with a final plan. The patient was also reporting a history of numbness in her right arm as well as numbness in both of her hands that has been going on some time on and off now for awhile. More recently it has been worse over the last few weeks. She has hyperreflexia on her exam with Cervantes's sign. This can be due to her duloxetine as a side effect, however I would like to rule out spinal cord compression with a cervical MRI as a precaution. Thank you for allowing us to care for your patient. The total time spent with this visit with this patient was 45 minutes reviewing history, physical exam, lumbar imaging review, and implementation of treatment plan or further diagnostic testing Nasir Jacobs MD,PhD [facility] Orders: Orders MR cervical spine wo con Today R20.0 - Anesthesia of skin XR lumbar spine 4V min Today M48.00 - Spinal stenosis, site unspecified Coding Level of Care Code New Pt Level 4 (73832) Diagnoses Spinal stenosis M48.00 Numbness in both hands R20.0
== END 2024-09-12 11:41 | disposition home or self-care (01) ==
PROVIDERS: PCP Internal Medicine; Referring Provider Registered Nurse Emergency; Visit Provider Physician Assistant
DX: M48.00 Spinal stenosis, site unspecified (principal); R20.0 Anesthesia of skin
CPT/HCPCS: 99204

== ENCOUNTER 2024-09-14 10:12 | Outpatient (AMB) | payer MEDICARE, MEDICAID, SELFPAY ==
[2024-09-14 10:14] VITALS: BP 128/76; PULSE 73; O2SAT 96; BMI 37.0
--- NOTE | 2024-09-14 10:14 | MHC.PC.OV ---
Vital Signs 09/14/24 10:14 Height 4 ft 10 in Weight 177 lb BMI 37.0 BP 128/76 Blood Pressure Location Rt brachial Position Sitting Pulse 73 Pulse Source Pulse Oximeter Pulse Oximetry (%) 96 Oxygen Delivery Method Room Air Intake Visit Reasons: 6 Month F/U Allergies amlodipine Allergy (Unknown, Verified 09/14/24 10:32) unknown prednisolone Allergy (Unknown, Verified 09/14/24 10:32) anaphylaxis prednisone [PREDNISONE] Allergy (Unknown, Verified 09/14/24 10:32) DEPRESSION Sulfa (Sulfonamide Antibiotics) Allergy (Unknown, Verified 09/14/24 10:32) hives, rash sulfamethoxazole [From BACTRIM] Allergy (Unknown, Verified 09/14/24 10:32) RASH trimethoprim [From BACTRIM] Allergy (Unknown, Verified 09/14/24 10:32) RASH clindamycin Adverse Reaction (Severe, Verified 09/14/24 10:32) joint pain methylprednisolone Adverse Reaction (Unknown, Verified 09/14/24 10:32) Tingling procaine [From Novocain] Adverse Reaction (Unknown, Verified 09/14/24 10:32) Chest Pain sumatriptan [From IMITREX] Adverse Reaction (Unknown, Verified 09/14/24 10:32) UNK ORCHIDS Allergy (Intermediate, Uncoded 08/31/24 10:50) Angioedema Medication List - Last Reconciled 09/14/24 by Timbo Lucas MD albuterol sulfate 90 mcg/actuation 2 puffs inhalation Q6H PRN 30 days alprazolam (Xanax) 0.5 mg PO DAILY PRN atomoxetine 80 mg PO QAM bisacodyl (Dulcolax (bisacodyl)) 10 mg (2 x 5 mg) PO BEDTIME cyanocobalamin (vitamin B-12) 500 mcg PO DAILY 30 days dextroamphetamine-amphetamine 20 mg ER (Adderall XR) 20 mg PO DAILY docusate sodium 100 mg PO BEDTIME fluticasone propionate 50 mcg/actuation (Flonase Allergy Relief) 2 sprays intranasal DAILY guanfacine 1 mg PO DAILY hydrocortisone 2.5% (Proctosol HC) 1 appl IN BID-QID ibuprofen 600 mg PO Q8H PRN methylcellulose (laxative) (Citrucel) 500 mg PO DAILY mirabegron ER (Myrbetriq) 50 mg PO DAILY polyethylene glycol 3350 (Miralax) 238 grams PO ONCE pregabalin 50 mg PO BID ropinirole 3 mg PO BID verapamil ER 120 mg PO DAILY Tobacco use date assessed: 09/14/24 Fall risk assessment: No Falls in past year Last assessed Fall Risk: 09/14/24 Dental Screening Dental Screen Date: 09/14/24 Did you have a dental visit in the last 12 months?: Yes Did you have a dental problem in the last 6 months where you did not have access to dental care?: No Was dental information given to patient?: Patient has dentist HPI 6 Month F/U HPI Details Patient came in for six-month follow-up appointment on blood pressure , patient have history of sleep apnea, restless legs syndrome, major depression, spinal canal stenosis and disc herniation lumbar spine Hypertension, migraine headache anxiety, ADD, allergies, constipation Other providers patient seeing are Dr. Lopez, for sleep apnea and restless leg treatment Dr. Mccarthy Urology for kidney stones Dr. Kaufman neurology for migraine headaches Gastroenterology [facility], next colonoscopy will be in [address] Dixon neurosurgeon Which is very well controlled Only medication from PCP office is verapamil Labs done in June She has seen Dr. Dixon neurosurgeon for her back pain And had MRI done Patient have a broad-based disc herniation lumbar spine Her pain is located right side radiating to right leg Patient says that she will be having surgery done early October. She has appointment coming up in February with [place] Lab order placed to be done fasting before that visit REPLACED BY [facility] Medical History History of deviated nasal septum History of nephrolithotomy with removal of calculi Surgical History H/O colonoscopy History of tonsillectomy H/O adenoidectomy History of back surgery Family History Mother Hypertension Lung cancer Father Lung cancer COPD (chronic obstructive pulmonary disease) Arterial vascular disease Sister Stroke Hypertension Social History Housing: House Alcohol intake: current Alcohol intake frequency: holidays/special occasions only Patient Tobacco Use Status: Never used Tobacco e-Cigarette/Vaping Use: Never Used Second Hand Smoke Exposure: No service: No Current occupational status: disabled Cognitive needs: No Hearing needs: No Vision needs: Yes Questionnaire Thrive Questionnaire Date Thrive assessed: 11/25/23 AUDIT C Alcohol Use Questionnaire (AUDIT-C) 1. How often do you have a drink containing alcohol?: Never 3. How often do you have six or more drinks on one occasion?: Never Total Score: 0 Score Reviewed/Action Taken: Yes WAQAS-7 AMB Questionnaire WAQAS-7 Date WAQAS - 7 assessed: 11/25/23 Source: Developed by Drs. Isaac Pak, Jacey Ingram, Paramjit Barker and colleagues, with an educational kathy from [employer]. Review of Systems Const Denies chills and Denies fever(s) ENT Denies epistaxis and Denies nasal discharge Card Denies chest pain Resp Denies chest congestion, Denies cough and Denies hemoptysis GI Denies diarrhea and Denies nausea Skin/Breast Denies rash Neuro Reports no additional complaints Psych Reports no additional complaints Endo Reports no additional complaints Physical exam (Primary Care) Vital Signs: Last Vital Signs Pulse 73 09/14/24 10:14 BP 128/76 09/14/24 10:14 Pulse Ox 96 09/14/24 10:14 Oxygen Delivery Method Room Air 09/14/24 10:14 BMI result Body Mass Index 37.0 Tobacco/Smoking Status: Tobacco use Status Tobacco use date assessed 09/14/24 09/14/24 10:33 Patient Tobacco Use Status Never used Tobacco 09/14/24 10:15 e-Cigarette/Vaping Use Never Used 09/14/24 10:15 Thrive Assessment: Date of Thrive Assessment Date Thrive assessed 11/25/23 09/14/24 10:15 Const General: cooperative, comfortable and no acute distress Orientation/consciousness: patient oriented x3 HENMT Head: Yes normocephalic Eyes General: appearance normal, both eyes and all related structures Neck Neck: Yes supple Resp Effort & Inspection: normal respiratory effort, no cough and no stridor Cardio Rhythm: regular rhythm Heart sounds: S1 normal heart sound present and S2 normal heart sound present Skin General skin exam: turgor normal Neuro General: patient oriented x3, tone normal and moves all extremities Extrem Right lower extremity: no edema Left lower extremity: no edema Coding Level of Care Code Est Pt Level 4 (66455) Diagnoses Hypertension, essential I10 Moderate episode of recurrent major depressive disorder F33.1 Active/Remission status: currently active Major depression episode severity: moderate Spinal stenosis of lumbar region with neurogenic claudication M48.062 Neurogenic claudication status: with neurogenic claudication Spinal region: lumbar Lumbar disc herniation M51.26 Restless legs syndrome G25.81 Low ferritin level R79.0 Low vitamin B12 level R79.89 Assessment & Plan Assessment & Plan (1) Hypertension, essential: Code(s): I10 - Essential (primary) hypertension Category: Medical (2) Major depression, recurrent: Code(s): F33.9 - Major depressive disorder, recurrent, unspecified Category: Medical Qualifiers: Active/Remission status: currently active Major depression episode severity: moderate Qualified Code(s): F33.1 - Major depressive disorder, recurrent, moderate (3) Spinal stenosis: Code(s): M48.00 - Spinal stenosis, site unspecified Category: Medical Qualifiers: Neurogenic claudication status: with neurogenic claudication Spinal region: lumbar Qualified Code(s): M48.062 - Spinal stenosis, lumbar region with neurogenic claudication (4) Lumbar disc herniation: Code(s): M51.26 - Other intervertebral disc displacement, lumbar region Category: Medical (5) Restless legs syndrome: Code(s): G25.81 - Restless legs syndrome Category: Medical (6) Low ferritin level: Code(s): R79.0 - Abnormal level of blood mineral Category: Medical (7) Low vitamin B12 level: Code(s): R79.89 - Other specified abnormal findings of blood chemistry Category: Medical Plan Patient came in for six-month follow-up appointment on blood pressure , patient have history of sleep apnea, restless legs syndrome, major depression, spinal canal stenosis and disc herniation lumbar spine Hypertension, migraine headache anxiety, ADD, allergies, constipation Other providers patient seeing are Dr. Lopez, for sleep apnea and restless leg treatment Dr. Mccarthy Urology for kidney stones Dr. Kaufman neurology for migraine headaches Gastroenterology [facility], next colonoscopy will be in [address] Dixon neurosurgeon Which is very well controlled Only medication from PCP office is verapamil Labs done in [place] reviewed She has seen Dr. Panic neurosurgeon for her back pain And had MRI done Patient have a broad-based disc herniation lumbar spine Her pain is located right side radiating to right leg Patient says that she will be having surgery done early October. She has appointment coming up in February with me Lab order placed to be done fasting before that visit Orders: Orders Complete Blood Count Auto Diff Today F33.1 - Major depressive disorder, recurrent, moderate, G25.81 - Restless legs syndrome, I10 - Essential (primary) hypertension, R79.0 - Abnormal level of blood mineral, R79.89 - Other specified abnormal findings of blood chemistry Comprehensive [place]. Panel Fast Today F33.1 - Major depressive disorder, recurrent, moderate, G25.81 - Restless legs syndrome, I10 - Essential (primary) hypertension, R79.0 - Abnormal level of blood mineral, R79.89 - Other specified abnormal findings of blood chemistry Vitamin D 25-OH (D2 and D3) Today F33.1 - Major depressive disorder, recurrent, moderate, G25.81 - Restless legs syndrome, I10 - Essential (primary) hypertension, R79.0 - Abnormal level of blood mineral, R79.89 - Other specified abnormal findings of blood chemistry Lipid Panel Today F33.1 - Major depressive disorder, recurrent, moderate, G25.81 - Restless legs syndrome, I10 - Essential (primary) hypertension, R79.0 - Abnormal level of blood mineral, R79.89 - Other specified abnormal findings of blood chemistry
== END 2024-09-14 11:14 | disposition home or self-care (01) ==
PROVIDERS: PCP Internal Medicine; Visit Provider Internal Medicine
DX: I10 Essential (primary) hypertension (principal); F33.1 Major depressive disorder, recurrent, moderate; M48.062 Spinal stenosis, lumbar region with neurogenic claudication; M51.26 Other intervertebral disc displacement, lumbar region; G25.81 Restless legs syndrome; R79.0 Abnormal level of blood mineral; R79.89 Other specified abnormal findings of blood chemistry

== ENCOUNTER → 2024-09-14 10:12 | Outpatient (BNVA) | payer MEDICARE, MEDICAID, SELFPAY | PROVIDERS: PCP Internal Medicine; Visit Provider Internal Medicine | DX: I10 Essential (primary) hypertension (principal); F33.1 Major depressive disorder, recurrent, moderate; M48.062 Spinal stenosis, lumbar region with neurogenic claudication; M51.26 Other intervertebral disc displacement, lumbar region; G25.81 Restless legs syndrome; R79.89 Other specified abnormal findings of blood chemistry; E53.8 Deficiency of other specified B group vitamins | CPT/HCPCS: 99212 ==

== ENCOUNTER → 2024-10-06 13:36 | Outpatient (BNV) | payer MEDICARE, MEDICAID, SELFPAY | PROVIDERS: Admitting Provider Neurological Surgery; PCP Internal Medicine; Visit Provider Internal Medicine Cardiovascular Disease | DX: R94.31 Abnormal electrocardiogram [ECG] [EKG] (principal) | CPT/HCPCS: 93010 ==

== ENCOUNTER 2024-10-06 13:56 | Outpatient (REF) | payer MEDICARE, MEDICAID, SELFPAY ==
[2024-10-06 16:50] LABS: Ferritin 67 ng/mL (10-250); Vitamin D 25-OH Total 17.8 ng/mL (>30)
[2024-10-06 16:51] LABS: Alanine Aminotransferase 12 U/L (0-31); Albumin Level 3.9 g/dL (3.5-5.0); Alkaline Phosphatase 120 U/L (39-117); Anion Gap 9 (12-20); Aspartate Amino Transferase 24 U/L (5-31); Bilirubin Total 0.3 mg/dL (0.0-1.0); Blood Urea Nitrogen 22 mg/dL (9-16); Calcium 8.8 mg/dL (8.4-10.2); Carbon Dioxide 29 mmol/L (22-29); Chloride 104 mmol/L (96-108); Estimated Glomerular Filt Rate > 60; Glucose Random 99 mg/dL (60-115); Potassium 3.7 mmol/L (3.3-5.1); Sodium 138 mmol/L (135-145); Thyroid Stimulating Hormone 0.83 uIU/mL (0.32-4.0); Total Protein 6.4 g/dL (6.5-8.0)
[2024-10-06 17:01] LABS: Folate 8.4 ng/mL (> or = 4.0); Vitamin B12 916 pg/mL (200-900)
== END 2024-10-06 13:57 | disposition home or self-care (01) ==
LOC: HO.LAB 13:56
PROVIDERS: PCP Internal Medicine; Visit Provider Internal Medicine Rheumatology
DX: F43.20 Adjustment disorder, unspecified (principal); F90.1 Attention-deficit hyperactivity disorder, predominantly hyperactive type; F33.0 Major depressive disorder, recurrent, mild; F41.1 Generalized anxiety disorder
CPT/HCPCS: 36415; 80053; 82306; 82607; 82728; 82746; 83735; 84443

== ENCOUNTER 2024-10-12 14:32 | Outpatient (AMB) | payer MEDICARE, MEDICAID, SELFPAY ==
--- NOTE | 2024-10-12 14:57 | HO.SPINEOV ---
Intake Visit Reasons: Discuss surgery Intake Note: Mrs. Stoddard is here today to discuss surgery. Res Habilitation Assistant Required: No Allergies prednisolone Allergy (Severe, Verified 10/05/24 15:22) anaphylaxis prednisone [PREDNISONE] Allergy (Severe, Verified 10/05/24 15:22) DEPRESSION Sulfa (Sulfonamide Antibiotics) Allergy (Intermediate, Verified 10/05/24 15:22) hives, rash sulfamethoxazole [From BACTRIM] Allergy (Intermediate, Verified 10/05/24 15:22) hives, rash amlodipine Allergy (Unknown, Verified 10/05/24 15:22) unknown trimethoprim [From BACTRIM] Allergy (Unknown, Verified 10/05/24 15:22) hives, rash clindamycin Adverse Reaction (Severe, Verified 10/05/24 15:22) joint pain methylprednisolone Adverse Reaction (Severe, Verified 10/05/24 15:22) Anaphylaxis procaine [From Novocain] Adverse Reaction (Intermediate, Verified 10/05/24 15:22) Chest Pain sumatriptan [From IMITREX] Adverse Reaction (Verified 10/05/24 15:22) advised to avoid, may cause interaction with ADHD meds ORCHIDS Allergy (Severe, Uncoded 10/05/24 15:22) Angioedema Assessment & Plan Assessment & Plan (1) Spondylolisthesis, lumbar region: Code(s): M43.16 - Spondylolisthesis, lumbar region Category: Medical Plan On twenty, two thousand twenty four saw for preoperative visit Gayatri Stoddard. She scheduled to undergo an oblique lumbar interbody fusion L4-5 for lumbar spondylolisthesis. Today we had a meeting grade were all questions were answered satisfactorily. We also discuss right arm numbness starts in the hand and then travels to her right shoulder. It comes especially with writing and during driving. Differential diagnosis is carpal tunnel versus cervical radiculopathy. An MRI of the cervical spine does show cervical spondylosis at C5-6 and C6-7 clinically points more to a carpal tunnel syndrome. We will revisit this problem after the lumbar fusion surgery and an EMG will be required if the patient is symptomatic enough. I spent 25 minutes in reviewing imaging and discussing plan of care. Alban Jacobs MD, PhD Spine Fellowship Trained Neurosurgeon Director, [facility] Coding Level of Care Code Est Pt Level 3 (91452) Diagnoses Spondylolisthesis, lumbar region M43.16
== END 2024-10-12 15:41 | disposition home or self-care (01) ==
PROVIDERS: PCP Internal Medicine; Visit Provider Neurological Surgery
DX: M43.16 Spondylolisthesis, lumbar region (principal)
CPT/HCPCS: 99213

== ENCOUNTER → 2024-10-12 14:32 | Outpatient (BNVA) | payer MEDICARE, MEDICAID, SELFPAY | PROVIDERS: PCP Internal Medicine; Visit Provider Neurological Surgery | DX: Z01.818 Encounter for other preprocedural examination (principal); M43.16 Spondylolisthesis, lumbar region | CPT/HCPCS: 99212 ==

== ENCOUNTER 2024-10-25 10:21 | Inpatient (IN) | payer MEDICARE, MEDICAID, SELFPAY ==
--- NOTE | 2024-10-06 | ECG_ITS ---
Test Reason : PRE OP Blood Pressure : / mmHG Vent. Rate : 077 BPM Atrial Rate : 077 BPM P-R Int : 134 ms QRS Dur : 094 ms QT Int : 424 ms P-R-T Axes : 066 014 091 degrees QTc Int : 479 ms Normal sinus rhythm Abnormal QRS-T angle, consider primary T wave abnormality Abnormal ECG When compared with ECG of 09-APR-2020 14:51, No significant change was found Referred By: Magi Dial Electronically Signed By:David Gerard
[2024-10-06 12:35] VITALS: BP 164/73; PULSE 80; RESP 16; O2SAT 97; BMI 38.2
[2024-10-25] VITALS (13 sets, daily range): BP systolic 117–190; BP diastolic 57–94; PULSE 61–81; RESP 16–18; TEMP 36–37.3; O2SAT 93–99; BMI 37.2
[2024-10-25] MEDS: methocarbamoL 750 MG TABLET PO (10:53)
[2024-10-25] MEDS: Gabapentin 300 MG CAPSULE PO (10:53)
[2024-10-25] MEDS: Lactated Ringers 1,000 ML 100 ML IVCONT (11:16)
--- NOTE | 2024-10-25 12:18 | P.HPSUR_ITS ---
Pre-Procedural Eval Section A - 24 Hr Update-Section A only Date of Service: 10/25/24 The patient is an INPATIENT: No Changes since office visit: No Cold of Flu in the past 2 weeks, No New Medical Problems, No Changes in Medication and No Patient answered all questions The patient has been examined within 24 hours of the surgical procedure. The History & Physical has been completed within 30 days and I have reviewed it.: No Section B - Complete if H&P > 30 days Chief Complaint: surgery L4-5 OLIF Allergies: Allergies Allergy/AdvReac Type Severity Reaction Status Date / Time prednisolone Allergy Severe anaphylaxis Verified 10/25/24 10:34 prednisone [PREDNISONE] Allergy Severe DEPRESSION Verified 10/25/24 10:34 Sulfa (Sulfonamide Allergy Intermediate hives, rash Verified 10/25/24 10:34 Antibiotics) sulfamethoxazole Allergy Intermediate hives, rash Verified 10/25/24 10:34 [From BACTRIM] amlodipine Allergy Unknown unknown Verified 10/25/24 10:34 trimethoprim [From BACTRIM] Allergy Unknown hives, rash Verified 10/25/24 10:34 clindamycin AdvReac Severe joint pain Verified 10/25/24 10:34 methylprednisolone AdvReac Severe Anaphylaxis Verified 10/25/24 10:34 procaine [From Novocain] AdvReac Intermediate Chest Pain Verified 10/25/24 10:34 sumatriptan [From IMITREX] AdvReac advised to Verified 10/25/24 10:34 avoid, may cause interaction with ADHD meds ORCHIDS Allergy Severe Angioedema Uncoded 10/25/24 10:34 Review of Systems Sugical H&P ROS: Negative: Constitution, Cardiovascular, Respiratory, Neurological, Psychiatric, Hem-Onc, Allergic/Immunologic, Gastrointestinal, Genitourinary, Musculoskeletal, Integumentary, Endocrine and Ey es/Ears/Nose/Throat Exam Surgical H&P Exam: Normal: HEENT, Normal: Heart, Normal: Lungs, Normal: Extremities, Normal: Abdomen, Normal: Skin and Normal: Neurological (awake, alert,oriented x 3 ) Plan Diagnosis/Plan: Unchanged L4-5 OLIF Time Spent With Patient Time: Total time managing care of this patient today __5__ minutes.
--- NOTE | 2024-10-25 12:18 | P.HPSUR_ITS ---
Pre-Procedural Eval Section A - 24 Hr Update-Section A only Date of Service: 10/25/24 The patient is an INPATIENT: Yes Section B - Complete if H&P > 30 days Chief Complaint: surgery L4-5 OLIF Details of Present Illness: backpain neurogenic claudication Allergies: Allergies Allergy/AdvReac Type Severity Reaction Status Date / Time prednisolone Allergy Severe anaphylaxis Verified 10/25/24 10:34 prednisone [PREDNISONE] Allergy Severe DEPRESSION Verified 10/25/24 10:34 Sulfa (Sulfonamide Allergy Intermediate hives, rash Verified 10/25/24 10:34 Antibiotics) sulfamethoxazole Allergy Intermediate hives, rash Verified 10/25/24 10:34 [From BACTRIM] amlodipine Allergy Unknown unknown Verified 10/25/24 10:34 trimethoprim [From BACTRIM] Allergy Unknown hives, rash Verified 10/25/24 10:34 clindamycin AdvReac Severe joint pain Verified 10/25/24 10:34 methylprednisolone AdvReac Severe Anaphylaxis Verified 10/25/24 10:34 procaine [From Novocain] AdvReac Intermediate Chest Pain Verified 10/25/24 10:34 sumatriptan [From IMITREX] AdvReac advised to Verified 10/25/24 10:34 avoid, may cause interaction with ADHD meds ORCHIDS Allergy Severe Angioedema Uncoded 10/25/24 10:34 Review of Systems Sugical H&P ROS: Negative: Constitution, Cardiovascular, Respiratory, Neurological, Psychiatric, Hem-Onc, Allergic/Immunologic, Gastrointestinal, Genitourinary, Musculoskeletal, Integumentary, Endocrine and Eyes/Ears/Nose/Throat Exam Surgical H&P Exam: Normal: HEENT, Normal: Heart, Normal: Lungs, Normal: Extremities, Normal: Abdomen, Normal: Skin and Normal: Neurological (awkae, alert) Plan Diagnosis/Plan: Unchanged I have reviewed the history and physical and performed a pertinent physical examination on my patient. No changes have occurred unless specified. L 4-5 oblique lumbar interbody fusion Time Spent With Patient Time: Total time managing care of this patient today ____ minutes.
--- NOTE | 2024-10-25 12:45 | P.CONAN_ITS ---
Documented by User: Magi Dial NP 10/24/24 10:00 HPI - Anesthesia Eval Consult details Narrative: 64yo F for L4-5 Oblique Lumbar Interbody Fusion, 10/25/24 No recent illness No CP/SOB with minimal activity r/t back pain BAILEY: rare CPAP, encouraged to use with all sleep leading up to surgery PMFSH Active Problems Active Problems: All Active Problems Lumbar disc herniation (Acute) Numbness in both hands (Acute) Spinal stenosis (Acute) Osteoarthritis of right knee (Acute) Osteoarthritis of left knee (Acute) Painful paresthesia (Acute) Low vitamin B12 level (Acute) Low ferritin level (Acute) Back pain with sciatica (Acute) Vomiting (Acute) Excessive sleepiness (Acute) Shortness of breath (Acute) Migraine headache (Acute) Feeling sick (Acute) Varicose veins of right lower extremity with inflammation (Acute) Varicose veins of bilateral lower extremities with pain (Acute) Arthritis of right knee (Acute) Arthritis of left knee (Acute) Chronic lower back pain (Acute) Major depression, recurrent (Acute) Arthritis of both knees (Acute) Left knee pain (Acute) Right knee pain (Acute) Impaired fasting blood sugar (Acute) Pain in both feet (Acute) Stress and adjustment reaction (Acute) Encounter for general adult medical examination with abnormal findings (Acute) Prolonged QT interval (Acute) Nonspecific ST-T wave electrocardiographic changes (Acute) Family history of coronary artery disease (Acute) History of rectal bleeding (Acute) Left arm pain (Acute) Strain of left trapezius muscle (Acute) Medicare annual wellness visit, subsequent (Acute) Bereavement counseling (Acute) Headache syndrome (Acute) Psychiatric illness (Acute) Pneumonia (Acute) Frequency of urination (Acute) Cough (Acute) Chest congestion (Acute) Obesity due to excess calories (Acute) Hypertension, essential (Acute) Urine blood (Acute) Dysuria (Acute) Viral syndrome (Acute) Hypertension (Acute) Periodic limb movement disorder (Acute) Restless legs syndrome (Acute) Obstructive sleep apnea (Acute) Past Medical History Medical History (Updated 10/12/24 @ 16:44 by Alban Jacobs MD, PhD) Recent bereavement Depression Numbness BAILEY (obstructive sleep apnea) Seasonal allergies Constipation RLS (restless legs syndrome) HTN (hypertension) Anxiety ADHD (attention deficit hyperactivity disorder) History of deviated nasal septum History of nephrolithotomy with removal of calculi Family History Family History Mother Hypertension Lung cancer Father Lung cancer COPD (chronic obstructive pulmonary disease) Arterial vascular disease Sister Stroke Hypertension Family history of problems with anesthesia: No Surgical History Surgical History (Updated 10/06/24 @ 12:31 by Althea Mclain, ROZ) Hx of nasal septoplasty Hx of laparoscopy (1999) History of carpal tunnel release (~2010) H/O colonoscopy (08/12/23) History of tonsillectomy (1966) H/O adenoidectomy (1966) History of back surgery (~1982) History of Problems with Anesthesia: No Social History Social History (Updated 10/06/24 @ 13:01 by Althea Mclain RN) Household Members: Spouse Housing: House Are you a primary school child care attendant to a significant other at home: No Do you presently have visiting nurse or other home services: No Alcohol intake: current Alcohol intake frequency: holidays/special occasions only Patient Tobacco Use Status: Never used Tobacco e-Cigarette/Vaping Use: Never Used Second Hand Smoke Exposure: No Use of substances other than those prescribed or required for medical reasons: No Have you been hit, kicked, punched, or otherwise hurt by someone within the past year? If so, by whom?: No Are you DNR?: No Advance Directives: No Advance Directives Information Provided: Yes Advance Directives on File: No Healthcare Proxy: No Recently lost weight without trying: No Nutrition Risks: No Nutritional Risk Poor oral hygiene: No service: No Current occupational status: disabled Cognitive needs: No Hearing needs: No Vision needs: Yes Meds Allergies Allergy/AdvReac Type Severity Reaction Status Date / Time prednisolone Allergy Severe anaphylaxis Verified 10/25/24 10:34 prednisone [PREDNISONE] Allergy Severe DEPRESSION Verified 10/25/24 10:34 Sulfa (Sulfonamide Allergy Intermediate hives, rash Verified 10/25/24 10:34 Antibiotics) sulfamethoxazole Allergy Intermediate hives, rash Verified 10/25/24 10:34 [From BACTRIM] amlodipine Allergy Unknown unknown Verified 10/25/24 10:34 trimethoprim [From BACTRIM] Allergy Unknown hives, rash Verified 10/25/24 10:34 clindamycin AdvReac Severe joint pain Verified 10/25/24 10:34 methylprednisolone AdvReac Severe Anaphylaxis Verified 10/25/24 10:34 procaine [From Novocain] AdvReac Intermediate Chest Pain Verified 10/25/24 10:34 sumatriptan [From IMITREX] AdvReac advised to Verified 10/25/24 10:34 avoid, may cause interaction with ADHD meds ORCHIDS Allergy Severe Angioedema Uncoded 10/25/24 10:34 Home Medications ?Medication ?Instructions ?Recorded ?Confirmed ?Last Taken ?Type mirabegron 50 mg tablet,extended 50 mg PO DAILY 02/24/23 10/25/24 10/25/24 08:00 History release 24 hr (Myrbetriq) atomoxetine 80 mg capsule 80 mg PO QAM 11/25/23 10/25/24 Unknown History alprazolam 0.5 mg tablet (Xanax) 0.5 mg PO DAILY PRN Anxiety 03/01/24 10/25/24 10/25/24 08:00 History dextroamphetamine-amphetamine ER 20 mg PO DAILY 03/01/24 10/25/24 Unknown History 20 mg 24hr capsule,extend release (Adderall XR) guanfacine 1 mg tablet 1 mg PO DAILY 06/30/24 10/25/24 Unknown History acetaminophen 500 mg capsule 1,000 mg PO Q6H PRN Pain 10/05/24 10/25/24 Unknown History duloxetine 30 mg capsule,delayed 30 mg PO DAILY 10/05/24 10/25/24 10/25/24 08:00 History release chlorhexidine gluconate 0.12 % PO DAILY 10/06/24 Unknown History mouthwash clotrimazole-betamethasone 1 1 appl topical BID 10/06/24 10/06/24 Unknown History %-0.05 % topical cream Exam Height,Weight and Vital Signs: Height 4 ft 10 in Weight 83.007 kg Last Vital Signs Pulse 80 10/06/24 12:35 Resp 16 10/06/24 12:35 BP 164/73 H 10/06/24 12:35 Pulse Ox 97 10/06/24 12:35 O2 Del Method Room Air 10/06/24 12:35 Pertinent Lab Results Pertinent Lab Results: Lab Results 10/17/24 Range/Units 15:19 Blood Type O Positive Antibody Screen NEGATIVE Laboratory Tests 06/23/24 10/06/24 11:28 14:14 WBC 8.7 Hgb 12.3 Hct 37.0 Plt Count 269 Sodium 138 Potassium 3.7 Chloride 104 Carbon Dioxide 29 BUN 22 H Creatinine 0.73 Narrative Narrative: EKG 09/2024 Vent. Rate : 077 BPM Atrial Rate : 077 BPM P-R Int : 134 ms QRS Dur : 094 ms QT Int : 424 ms P-R-T Axes : 066 014 091 degrees QTc Int : 479 ms Normal sinus rhythm Abnormal QRS-T angle, consider primary T wave abnormality Abnormal ECG When compared with ECG of 09-APR-2020 14:51, No significant change was found ECHO 2022 Conclusions: - 1. Normal LV systolic function with grade 1 diastolic dysfunction 2. Normal cardiac valvular Doppler 3. Normal RV systolic pressure 4. No gross pericardial effusion Exercise Stress 2022 Protocol: JORGE Max HR: 134 BPM 85% of Pred: 156 BPM Max BP: 194/068 mmHG Max Work Load: 6.5 METS Exercise stress test with exercise 5 min 31 sec of Jorge protocol ( last minute speed reduced to 2.2 MPH) achieving 82% MPHR, with moderate shortness of breath and need to stop exercise, with isolated PACs, with hypertensive response to exercise with max BP 194/68, without EKG changes meeting criteria for ischemia at acheived workload. In recovery her breathing gradually improved back to baseline normal and BP came down to 142/76. Test reviewed with Dr López Airway Mallampati Class: II TM Dist: >3cm Neck ROM: Full Loose/Missing/Broken Teeth: Yes (missing molars, #8&9 capped, 23-26 with questionable root integrity but not loose) Heart: RRR Lungs: CTAB Assessment and Plan Assessment Anesthesia Assessment: Anesthesia Plan Discussed and PAT Visit Final Anesthetic Review Family History of Problems with Anesthesia: No History of Problems with Anesthesia: No Documented by User: America Villarreal DO 10/25/24 12:55 [facility] Past Medical History Medical History (Updated 10/12/24 @ 16:44 by Alban Jacobs MD, PhD) Recent bereavement Depression Numbness BAILEY (obstructive sleep apnea) Seasonal allergies Constipation RLS (restless legs syndrome) HTN (hypertension) Anxiety ADHD (attention deficit hyperactivity disorder) History of deviated nasal septum History of nephrolithotomy with removal of calculi Family History Family History Mother Hypertension Lung cancer Father Lung cancer COPD (chronic obstructive pulmonary disease) Arterial vascular disease Sister Stroke Hypertension Family history of problems with anesthesia: No Surgical History Surgical History (Updated 10/06/24 @ 12:31 by Althea Mclain, RN) Hx of nasal septoplasty Hx of laparoscopy (1999) History of carpal tunnel release (~2010) H/O colonoscopy (08/12/23) History of tonsillectomy (1966) H/O adenoidectomy (1966) History of back surgery (~1982) History of Problems with Anesthesia: No Social History Social History (Updated 10/06/24 @ 13:01 by Althea Mclain RN) Household Members: Spouse Housing: House Are you a primary school child care attendant to a significant other at home: No Do you presently have visiting nurse or other home services: No Alcohol intake: current Alcohol intake frequency: holidays/special occasions only Patient Tobacco Use Status: Never used Tobacco e-Cigarette/Vaping Use: Never Used Second Hand Smoke Exposure: No Use of substances other than those prescribed or required for medical reasons: No Have you been hit, kicked, punched, or otherwise hurt by someone within the past year? If so, by whom?: No Are you DNR?: No Advance Directives: No Advance Directives Information Provided: Yes Advance Directives on File: No Healthcare Proxy: No Recently lost weight without trying: No Nutrition Risks: No Nutritional Risk Poor oral hygiene: No service: No Current occupational status: disabled Cognitive needs: No Hearing needs: No Vision needs: Yes Meds Allergies Allergy/AdvReac Type Severity Reaction Status Date / Time prednisolone Allergy Severe anaphylaxis Verified 10/25/24 10:34 prednisone [PREDNISONE] Allergy Severe DEPRESSION Verified 10/25/24 10:34 Sulfa (Sulfonamide Allergy Intermediate hives, rash Verified 10/25/24 10:34 Antibiotics) sulfamethoxazole Allergy Intermediate hives, rash Verified 10/25/24 10:34 [From BACTRIM] amlodipine Allergy Unknown unknown Verified 10/25/24 10:34 trimethoprim [From BACTRIM] Allergy Unknown hives, rash Verified 10/25/24 10:34 clindamycin AdvReac Severe joint pain Verified 10/25/24 10:34 methylprednisolone AdvReac Severe Anaphylaxis Verified 10/25/24 10:34 procaine [From Novocain] AdvReac Intermediate Chest Pain Verified 10/25/24 10:34 sumatriptan [From IMITREX] AdvReac advised to Verified 10/25/24 10:34 avoid, may cause interaction with ADHD meds ORCHIDS Allergy Severe Angioedema Uncoded 10/25/24 10:34 Home Medications ?Medication ?Instructions ?Recorded ?Confirmed ?Last Taken ?Type mirabegron 50 mg tablet,extended 50 mg PO DAILY 02/24/23 10/25/24 10/25/24 08:00 History release 24 hr (Myrbetriq) atomoxetine 80 mg capsule 80 mg PO QAM 11/25/23 10/25/24 Unknown History alprazolam 0.5 mg tablet (Xanax) 0.5 mg PO DAILY PRN Anxiety 03/01/24 10/25/24 10/25/24 08:00 History dextroamphetamine-amphetamine ER 20 mg PO DAILY 03/01/24 10/25/24 Unknown History 20 mg 24hr capsule,extend release (Adderall XR) guanfacine 1 mg tablet 1 mg PO DAILY 06/30/24 10/25/24 Unknown History acetaminophen 500 mg capsule 1,000 mg PO Q6H PRN Pain 10/05/24 10/25/24 Unknown History duloxetine 30 mg capsule,delayed 30 mg PO DAILY 10/05/24 10/25/24 10/25/24 08:00 History release chlorhexidine gluconate 0.12 % PO DAILY 10/06/24 Unknown History mouthwash clotrimazole-betamethasone 1 1 appl topical BID 10/06/24 10/06/24 Unknown History %-0.05 % topical cream Exam Exam Date and Time: 10/25/24 1245 Height,Weight and Vital Signs: Height 4 ft 10 in Weight 83.007 kg Last Vital Signs Pulse 80 10/06/24 12:35 Resp 16 10/06/24 12:35 BP 164/73 H 10/06/24 12:35 Pulse Ox 97 10/06/24 12:35 O2 Del Method Room Air 10/06/24 12:35 Vital Signs Pulse Rate 80 10/06/24 12:35 Respiratory Rate 16 10/06/24 12:35 Blood Pressure 164/73 H 10/06/24 12:35 Pulse Oximetry 97 10/06/24 12:35 Oxygen Delivery Method Room Air 10/06/24 12:35 Temperature 99.1 F 10/25/24 11:17 Pulse Rate 61 10/25/24 11:17 Respiratory Rate 16 10/25/24 11:17 Blood Pressure 126/57 L 10/25/24 11:17 Pulse Oximetry 95 10/25/24 11:17 Oxygen Delivery Method Room Air 10/25/24 11:17 Airway Mallampati Class: II TM Dist: >3cm Neck ROM: Full Loose/Missing/Broken Teeth: Yes (missing molars, #8&9 capped, #23-26 with questionable root integrity but not loose) Heart: S1S2 Assessment and Plan Assessment Anesthesia Assessment: Anesthesia Plan Discussed and Chart Reviewed Final Anesthetic Review Family History of Problems with Anesthesia: No History of Problems with Anesthesia: No NPO: Yes ASA Class: III Final Preanesthetic Review: No Changes in Pt Med Stat, Meds/Allgs Chart Reviewed, Consent Obtained/Reviewed and Anes Risks/Benef Reviewed Patient Risk: Intermediate Procedure Risk: Intermediate Anesthetic Plan Anesthetic Plan: GA and Agree w/ Assess. and Plan Disposition: Standard PACU
--- NOTE | 2024-10-25 15:13 | W.PM.OPN ---
Operative Note Operative Note Date of Service: 10/25/24 Narrative: Preop Diagnosis: 1.) L4-5 lumbar spondylolisthesis 2.) Neurogenic claudication back pain Procedure: 1) L4-5 discectomy, arthrodesis and implantation cage through an anterolateral, retroperitoneal approach 2) L4-5 posterior instrumented fusion 3) allograft 4) Injection of 10 cc of Exparel at the transverse process for a muscular erector spinae block and additional Exparel in paravertebral tissue for postop management Consent Informed Consent was obtained for this operation. I have explained the nature, purpose and benefits of the operation. I have discussed the risks and benefit of the operation including possible complications or adverse events with patient/family. Alternative(s) were discussed with the patient with their relative benefits and risks as well as the consequences of not accepting the operation were included in obtaining consent. Surgeon: MARGARETTE JAVED MD, PHD Procedure Assisted By: rosanne Victoria Description of Procedure This 64-year-old female suffering from back pain and neurogenic claudication due to an L4-5 lumbar spondylolisthesis. The patient was offered an oblique lumbar interbody fusion L4-5. The procedure complications were explained. The patient was consented. The patient was brought to the operating room and endotracheally intubated. The patient was turned in a lateral position with the left side up. Prep and drape was done followed by timeout. A small incision was made in the left lower abdominal quadrant. The muscle fascia was opened after which the 3 muscle layer was split to enter the retroperitoneal space. Dilators were docked in the anterior one third of the L4-5 disc space followed by a retractor. The retractor was opened. The L4-5 disc space was exposed. An annulotomy was done after which an elevator Ashraf was used to release the disc material from its endplates and to perforate the contralateral side. A partial discectomy was done. An 8 mm height trial implant was inserted. The discectomy was completed. The endplates were prepared. This patient is suffering from osteopenia. An 8 x 45 mm with 0 degree lordosis 4 web cage filled with allograft was inserted into the disc space under fluoroscopic guidance. This resulted in reduction of the spondylolisthesis. The retractor was removed. Hemostasis was done. The incision was closed in 2 layers. Steri-Strips used to approximate incision. An OpSite with Tegaderm was used to cover the incision. This marked first part of the procedure. The patient was turned prone on the [employer] spine table. 2C arms were installed for fluoroscopy. Prep and drape was done followed by a second timeout. Injection of 10 cc of Exparel at the bilateral L4 transverse process for a muscular erector spinae block. Two paramedian incisions were made lateral from the L4-5 pedicles. The muscle fascia was opened after which the muscle layer was split bluntly to expose the posterolateral gutter. The following steps were taken. A pediguard tap was used to create a transpedicular trajectory into the vertebral body. A K wire was placed. A specially designed instrument was advanced over the K wire to decorticate the posterolateral gutter in preparation for the posterolateral fusion. A pedicle screw was advanced over the K wire and the K wire was removed. The steps were done for the bilateral L4 and L5 pedicles. A total of 4 screws were placed with a diameter of 6.5 x 45 mm. Pedicle screws were connected with 45 mm nimesh bilaterally and locked down with locking caps. The extension towers were removed. The posterolateral gutter was filled with allograft to complete the posterolateral [] fusion Hemostasis was done and the incision was closed in 2 layers. Steri-Strips were used to approximate the incision. An OpSite were taken and was used to cover the incision. All sponge and needle counts were correct. Patient was extubated and transferred in stable is to recovery room. Anesthesia: General Estimated Blood Loss (ml): 40 mL Duration of Surgery: 2 hours Complications: None Postoperative Plan: Admit to inpatient for observation
[2024-10-25] MEDS: HYDROmorphone HCl 0.5 MG/0.5 ML SYRINGE IVPUSH ×2 (16:38→17:04)
--- NOTE | 2024-10-25 17:38 | PHA.MEDREC ---
Pharmacy Consult ? Medication Reconciliation RN has completed the medication reconciliation, pharmacy reviewed.
[2024-10-25] MEDS: 0.9 % Sodium Chloride 1,000 ML 75 ML IVCONT (18:37)
--- NOTE | 2024-10-25 19:06 | PC.NURSE ---
No resus status ordered. Contacted [facility]. Patient is a full code per [facility].
[2024-10-25] MEDS: Ketorolac Tromethamine 15 MG/ML VIAL IVPUSH (20:38)
[2024-10-25] MEDS: ceFAZolin Sodium/Dextrose,Iso 2 GM/50 ML PIGGYBACK IV (20:38)
[2024-10-25] MEDS: rOPINIRole HCL 1 MG TABLET 3 MG PO (21:54)
[2024-10-25] MEDS: Acetaminophen 1,000 MG/100 ML PIGGYBACK 400 MG IV (21:54)
[2024-10-25] MEDS: Docusate Sodium 100 MG CAPSULE PO (21:55)
[2024-10-26] MEDS: oxyCODONE HCl Immed Release 5 MG TABLET 10 MG PO ×3 (00:06→23:34)
[2024-10-26] MEDS: ALPRAZolam 0.5 MG TABLET PO ×3 (00:57→18:03)
[2024-10-26] MEDS: Ketorolac Tromethamine 15 MG/ML VIAL IVPUSH ×4 (00:59→21:46)
[2024-10-26 01:00] VITALS: RESP 16
[2024-10-26] MEDS: ceFAZolin Sodium/Dextrose,Iso 2 GM/50 ML PIGGYBACK IV ×2 (01:05→07:39)
[2024-10-26] MEDS: Acetaminophen 1,000 MG/100 ML PIGGYBACK 400 MG IV ×4 (03:48→21:56)
[2024-10-26 05:18] VITALS: BP 127/58; PULSE 77; RESP 16; TEMP 36; O2SAT 96
--- NOTE | 2024-10-26 07:08 | HO.NEURO.PN ---
Neurosurgery Operative Note Date of Service: 10/26/24 Narrative: POD: 1 Procedure: L4-5 OLIF Gayatri was seen this morning laying in bed on . Patient reports she had a difficult course overnight and was dealing with some post-operative pain. She has been up OOB, walking around is otherwise doing well. She feels her symptoms are better than pre-operatively, and reports the numbness in her R leg is gone. She still reports pain in her low back despite current pain regimen. She is voiding well, tolerating diet. She was seen again this afternoon and was reporting increased pain, despite 10mg Oxycodone and 1mg dilaudid IV push. She reported that she would like to stay in the hospital an additional day if possible. Afebrile, vital signs stable. Full strength 5/5 LE. Back dressings have some staining without signs of hematoma. No active sanguineous drainage. Area is dry. Plan: Pleasant 64 year old female POD:1 s/p L4-5 OLIF. She is progressing well and is OOB voiding independently and tolerating her current diet. Unfortunately she has been having a hard time with pain control despite a multi-modal pain regimen. We would like the patient to work with PT today to evaluate for mobility and strength. At this time she will remain admitted to [facility] for continued pain control and monitoring. She was seen at bedside with Dr. Jacobs.
--- NOTE | 2024-10-26 07:09 | P.DS_ITS ---
DS: Providers Provider Date of Service: 10/27/24 Date of admission: 10/25/24 10:21 Primary care physician: Timbo Lucas MD DS: Summary Time Attestation Discharge Coordination Time (in mins): 15 Quality: Safe Use of Opioids Does Pt have an Active Cancer Diagnosis on the Problem List?: No Quality: Stroke Does the patient have a stroke diagnosis?: No Physical Exam Vital Signs: Vital Signs: Last Vital Signs Temp 96.8 F 10/26/24 05:18 Pulse 77 10/26/24 05:18 Resp 16 10/26/24 05:18 BP 127/58 L 10/26/24 05:18 Pulse Ox 96 10/26/24 05:18 O2 Del Method Room Air 10/26/24 05:18 O2 Flow Rate 4 10/25/24 17:24 BMI result Body Mass Index 37.2 Discharge Plan Discharge Anticipated Discharge Date/Time: 10/27/24 09:12 Patient Disposition: Home, Self-Care Discharge Diagnosis: s/p L4-5 OLIF Referrals: Timbo Lucas MD [Primary Care Provider] - 1 Week Discharge Medications: New oxycodone 5 mg tablet See Rx Instructions .ROUTE .COMPLEX PRN (Reason: pain) Qty: 30 0RF Rx Instructions: Take 1-2 tablets by mouth every 4 hours. Partial Fill upon patient request. Continued verapamil 120 mg tablet extended release 120 mg PO DAILY Qty: 90 0RF ropinirole 3 mg tablet 3 mg PO BID Qty: 180 1RF albuterol sulfate 90 mcg/actuation HFA aerosol inhaler 2 puff inhalation Q6H PRN (Reason: bronchospasm) 30 Days Qty: 8.5 1RF ibuprofen 600 mg tablet 600 mg PO Q8H PRN (Reason: pain) Qty: 60 2RF cyanocobalamin (vitamin B-12) 500 mcg tablet 500 mcg PO DAILY 30 Days Qty: 30 6RF fluticasone propionate [Flonase Allergy Relief] 50 mcg/actuation spray,suspension 2 spray intranasal DAILY Qty: 16 2RF Rx Instructions: administer into each nostril duloxetine 30 mg capsule,delayed release(DR/EC) 30 mg PO DAILY acetaminophen 500 mg Capsule 1,000 mg PO Q6H PRN (Reason: Pain) chlorhexidine gluconate 0.12 % mouthwash 15 ml buccal DAILY clotrimazole-betamethasone 1-0.05 % Cream 1 appl TOPICAL BID Myrbetriq 50 mg tablet extended release 24 hr 50 mg PO DAILY dextroamphetamine-amphetamine [Adderall XR] 20 mg capsule,extended release 24hr 20 mg PO DAILY alprazolam [Xanax] 0.5 mg tablet 0.5 mg PO DAILY PRN (Reason: Anxiety) atomoxetine 80 mg capsule 80 mg PO QAM hydrocortisone [Proctosol HC] 2.5 % cream with perineal applicator 1 appl AR BID-QID Qty: 30 2RF guanfacine 1 mg tablet 1 mg PO DAILY docusate sodium 100 mg capsule 100 mg PO BEDTIME Qty: 90 3RF Discharge Orders: Discharge Order (Routine); Ordered 10/27/24 Ordered By: Saleem Rodriguez Diet: Advance to usual diet Activity on Discharge: As tolerated Stand Alone Forms: Patient Portal Discharge page Print Language: [place] Activity Restrictions/Additional Instructions: After your spinal surgery we ask you to observe the following restrictions/guidelines: Activity: With lumbar fusion surgery it is normal to have days in the first couple of weeks where you have increased leg pain. This usually lasts 1-2 days and self resolves with the continuation of medication. Attempt to stay mobile and continue activity as tolerated. It is normal to feel some discomfort as you increase your activity, but that will improve with time. We ask you avoid heavy lifting or activities that cause pain. As a general rule, 8lbs is a safe limit for lifting right after surgery. Walk as much as you feel comfortable but not to exhaustion. You will feel extra tired the first few days after surgery. Stay well hydrated. It is OK to walk up and down stairs You may return to driving when you are off narcotics (such as vicodin, oxycodone, dilaudid, etc), and you are back to normal functional capacity. If you have any concerns please check with office before driving. Return to work is specific to each patient and each surgery, so please speak with your doctor/PA at first follow up. Please bring paperwork such as FMLA at that time if you need it filled out. Medications: Please take the least amount of oxycodone possible to control your pain, as you are on other narcotic medications that can interact with this and cause drowsiness. It is recommended that you take Tylenol 500 mg every 4 hours for the 1st week postoperatively, ?alongside ibuprofen 600 mg every 8 hours. We will give you a short supply of narcotics after surgery (usually one weeks worth). ??Please use this for breakthrough pain that is refractory to the Tylenol ibuprofen and gabapentin. If you need more please call the office but do not use more than prescribed. You will need to give our office 48 hours notice if you need narcotics refilled and we do not fill narcotics on weekends or evenings. If you are on a narcotic, it is a good idea to take a stool softener such as colace or senna to avoid constipation If you take blood thinner such as aspirin, Plavix, Coumadin, Effient, Eliquis etc for conditions such as Afib, DVT, Pulmonary embolus, coronary disease, stents etc please speak with your surgeon about specific details as to when you can resume these medications. You can resume NSAIDs on post op day 1 (eg: Motrin, Naproxen, etc). Follow up: Please call the office, , after surgery to arrange a 3 week follow up for wound check. Wound Care: You may remove your dressing on the first day after surgery. ?You may ?leave open to air. Please do not remove the steri strips underneath. they will fall off on their own in one week. IT IS NORMAL FOR THE WOUND TO OOZE OR BE BLOODY FOR A FEW DAYS AFTER SURGERY. ?IF THIS HAPPENS JUST PLACE NEW DRESSING OVER IT TO AVOID STAINING CLOTHES. You may shower on post op day # 1 We ask that you do not let the water soak the wound. If it does get wet, just towel dry lightly. Please do not scrub your incision or place any type of chemical/ointment on the wound. No tub baths, pools or jacuzzis for one month. If you have any leaking or redness from your wound, or fevers, please call office Care Plan Goals: Return to normal activity as tolerated Health Concerns: None Plan of Treatment: Follow-up in clinic in 2-3 weeks Assessment: POD: 2 Procedure: L4-5 IVÁN Mendieta was seen this morning sitting on the side of her bed on 3-S. She still had some pain overnight, but feels it is well controlled now. She has been up OOB, walking around is otherwise doing well. She feels her symptoms are better than pre-operatively, and reports the numbness in her R leg is gone. Afebrile, vital signs stable. Full strength 5/5 LE. Back dressings have some staining without signs of hematoma. No active sanguineous drainage. Area is dry. Plan: Pleasant 64 year old female POD:2 s/p L4-5 OLIF. She is progressing well and is OOB voiding independently and tolerating her current diet. Her pain is reportedly well controlled today. He is medically cleared to be discharged home. I have sent in a prescription of oxycodone to the pharmacy here at [facility]. Saleem Jacobs MD,PhD [facility]
[2024-10-26] MEDS: Docusate Sodium 100 MG CAPSULE PO ×2 (07:40→21:47)
[2024-10-26] MEDS: Mirabegron 50 MG TAB.ER.24H PO (07:40)
[2024-10-26] MEDS: DULoxetine HCl 30 MG CAPSULE.DR PO (07:40)
[2024-10-26] MEDS: VerapamiL HCL SR 120 MG TABLET.ER PO (07:40)
[2024-10-26] MEDS: Dextroamphetamine/Amphetamine XR 10 MG CAP.ER.24H 20 MG PO (07:41)
[2024-10-26] MEDS: Cyanocobalamin (Vitamin B-12) 500 MCG TABLET PO (07:41)
[2024-10-26] MEDS: Fluticasone Propionate Nasal 16 GM SPRAY 2 SPRAY NOSTRIL-B (07:42)
[2024-10-26] MEDS: Nystatin/Triamcinolone Cream 15 GM TUBE 1 APPL TOPICAL ×2 (07:42→22:20)
[2024-10-26 07:49] VITALS: BP 122/60; PULSE 78; RESP 16; TEMP 36.3; O2SAT 97
[2024-10-26] MEDS: rOPINIRole HCL 1 MG TABLET 3 MG PO ×2 (09:30→21:47)
[2024-10-26] MEDS: HYDROmorphone HCl 1 MG/ML SYRINGE IVPUSH (09:32)
--- NOTE | 2024-10-26 09:45 | HO.POSTANES ---
Post Anesthesia Evaluation Post Anesthesia Evaluation Date of Service: 10/26/24 Vital Signs: Vital Signs Temp Pulse Resp BP Pulse Ox O2 Del Method 10/26/24 07:49 97.3 F 78 16 122/60 97 Room Air 10/26/24 05:18 96.8 F 77 16 127/58 L 96 Room Air 10/26/24 01:00 16 10/25/24 23:59 81 16 156/65 H Anesthesia: General Endotracheal-GETA Mental Status: Awake Pain Control: Satisfactory Nausea/Vomiting: None Hydration: Adequate Anesthesia-Related Issues: No Anes. Related Issues
--- NOTE | 2024-10-26 14:21 | MHC.CM.PN ---
IMM DELIVERED. PATIENT LIVES IN A HOME W/ . FUNCTIONALLY INDEPENDENT. USES BIPAP, SUPPLIES VIA [employer]. PCP TUAN PAREDES MD COMPLETED HCP NAMING [facility]: 1) [facility], 2) SISTER MJ RAMSEY. DP: PT REC OUTPATIENT SERVICES. HOME SELF CARE. TRANSPORT. CM WILL CONTINUE TO FOLLOW.
[2024-10-26 16:07] LABS: Glucose, Whole Blood 96 mg/dL (60-115)
[2024-10-26] MEDS: oxyCODONE HCl Immed Release 5 MG TABLET PO (17:52)
[2024-10-26] MEDS: methocarbamoL 750 MG TABLET PO (18:54)
[2024-10-26 19:28] VITALS: BP 127/60; PULSE 89; RESP 18; TEMP 36.1; O2SAT 93
[2024-10-27] MEDS: Ketorolac Tromethamine 15 MG/ML VIAL IVPUSH ×2 (02:44→07:06)
[2024-10-27] MEDS: Acetaminophen 1,000 MG/100 ML PIGGYBACK 400 MG IV ×2 (03:38→07:58)
[2024-10-27 06:00] VITALS: BP 115/51; PULSE 84; RESP 18; TEMP 36.7; O2SAT 95
[2024-10-27 07:59] VITALS: BP 116/57; PULSE 81; RESP 12; TEMP 36.4; O2SAT 97
[2024-10-27] MEDS: Mirabegron 50 MG TAB.ER.24H PO (07:59)
[2024-10-27] MEDS: rOPINIRole HCL 1 MG TABLET 3 MG PO (07:59)
[2024-10-27 08:00] VITALS: BP 121/56; PULSE 82
[2024-10-27] MEDS: Cyanocobalamin (Vitamin B-12) 500 MCG TABLET PO (08:00)
[2024-10-27] MEDS: Docusate Sodium 100 MG CAPSULE PO (08:00)
[2024-10-27] MEDS: VerapamiL HCL SR 120 MG TABLET.ER PO (08:00)
[2024-10-27] MEDS: DULoxetine HCl 30 MG CAPSULE.DR PO (08:00)
[2024-10-27] MEDS: Dextroamphetamine/Amphetamine XR 10 MG CAP.ER.24H 20 MG PO (08:00)
--- NOTE | 2024-10-27 09:17 | MHC.CM.PN ---
Patient medically cleared for dc home self care. will provide transport around 10am. RN aware.
[2024-10-27] MEDS: oxyCODONE HCl Immed Release 5 MG TABLET PO (09:49)
--- NOTE | 2024-10-27 13:52 | PC.NURSE ---
LATE ENTRY: On 10/26 1740 This information writer pulled out 10mg of oxycodone for pt as she was reporting 7/10 back pain. Went to admin and scanned the oxy and 2 orders popped up as pt could have 1 tab (5mg) or 2 tabs (10mg). This information writer inadvertantly chose the 5mg order and the MAR reflected that at 1751 only 5mg were given when it was 10mg that were actually given. Attempted to chart correctly administered dose but pt has been d/c.
== END 2024-10-27 10:46 | disposition home or self-care (01) | DRG 451 ==
LOC: HO.SSSA 10:27 → HO.S3 16:35
PROVIDERS: Neurological Surgery; Admitting Provider Physician Assistant; PCP Internal Medicine; Visit Provider Physician Assistant
PROC: 0SG00A0 Fusion of Lumbar Vertebral Joint with Interbody Fusion Device, Anterior Approach, Anterior Column, Open Approach (ICD-10-PCS; principal; 2024-10-25 13:10)
DX: M43.16 Spondylolisthesis, lumbar region (principal); G47.33 Obstructive sleep apnea (adult) (pediatric); M48.062 Spinal stenosis, lumbar region with neurogenic claudication; Z79.51 Long term (current) use of inhaled steroids; Z79.899 Other long term (current) drug therapy
CPT/HCPCS: 82947; 86850; 86900; 86901; 93005; 97161; 97535; C1713; C1889; C9290; J0131; J0665; J0690; J1100; J1171; J1885; J2003; J2250; J2405; J2704; J3010; L8699

== ENCOUNTER → 2024-10-25 10:21 | Outpatient (BNV) | payer MEDICARE, MEDICAID, SELFPAY | PROVIDERS: Admitting Provider Physician Assistant; PCP Internal Medicine; Visit Provider Neurological Surgery | DX: Z48.89 Encounter for other specified surgical aftercare (principal) | CPT/HCPCS: 20930; 22551; 22558; 22612; 22840; 22853; 99024 ==

== ENCOUNTER 2024-11-14 10:30 | Outpatient (AMB) | payer MEDICARE, MEDICAID, SELFPAY ==
--- NOTE | 2024-11-14 10:31 | A.SPINEOV_ITS ---
Intake Visit Reasons: 1st post op Intake Note: Ms. Stoddard is here today for her 1st post op [employer] Required: No Allergies prednisolone Allergy (Severe, Verified 10/25/24 10:34) anaphylaxis prednisone [PREDNISONE] Allergy (Severe, Verified 10/25/24 10:34) DEPRESSION Sulfa (Sulfonamide Antibiotics) Allergy (Intermediate, Verified 10/25/24 10:34) hives, rash sulfamethoxazole [From BACTRIM] Allergy (Intermediate, Verified 10/25/24 10:34) hives, rash amlodipine Allergy (Unknown, Verified 10/25/24 10:34) unknown trimethoprim [From BACTRIM] Allergy (Unknown, Verified 10/25/24 10:34) hives, rash clindamycin Adverse Reaction (Severe, Verified 10/25/24 10:34) joint pain methylprednisolone Adverse Reaction (Severe, Verified 10/25/24 10:34) Anaphylaxis procaine [From Novocain] Adverse Reaction (Intermediate, Verified 10/25/24 10:34) Chest Pain sumatriptan [From IMITREX] Adverse Reaction (Verified 10/25/24 10:34) advised to avoid, may cause interaction with ADHD meds ORCHIDS Allergy (Severe, Uncoded 10/25/24 10:34) Angioedema Assessment & Plan Assessment & Plan (1) Spondylolisthesis, lumbar region: Code(s): M43.16 - Spondylolisthesis, lumbar region Category: Medical Plan Procedure: L4-5 IVÁN Mendieta is a pleasant 64 year old female who comes in today for her 1st postoperative visit. She underwent L4-5 lumbar fusion about 3 weeks ago. She reports that she did have a few flare-up of pains directly after surgery as a result of increased mobility/activity. Given this, she has been doing very well since her surgery. Her pain has gotten significantly better, and she is slowly resuming some activities such as driving (no longer taking her narcotic pain medication). We discussed the postoperative healing course, and I answered all of her questions regarding this to the best of my ability. No new neurological deficits. The patient ambulates well and rises from a seated position without difficulty. Her posterior and oblique incision sites appear closed, and well healing. No drainage. I would like to follow up again in 6 weeks with a set of x-rays to review with the patient. Saleempauline Jaocbs MD,PhD [facility] Coding Level of Care Code Global (48935) Diagnoses Spondylolisthesis, lumbar region M43.16
== END 2024-11-14 11:12 | disposition home or self-care (01) ==
PROVIDERS: PCP Internal Medicine; Visit Provider Physician Assistant
DX: M43.16 Spondylolisthesis, lumbar region (principal)
CPT/HCPCS: 99024

== ENCOUNTER → 2024-11-14 10:30 | Outpatient (BNVA) | payer MEDICARE, MEDICAID, SELFPAY | PROVIDERS: PCP Internal Medicine; Visit Provider Physician Assistant | DX: Z48.89 Encounter for other specified surgical aftercare (principal); M43.16 Spondylolisthesis, lumbar region; Z98.890 Other specified postprocedural states | CPT/HCPCS: 99212 ==

== ENCOUNTER 2024-12-26 10:27 | Outpatient (REF) | payer MEDICARE, MEDICAID, SELFPAY ==
--- NOTE | ~2024-12-26 | XR_ITS ---
EXAMINATION: X-ray lumbar spine. CLINICAL INFORMATION: Spondylolisthesis, lumbar spine. COMPARISON: September 12, 2024. TECHNIQUE: 4 views of the lumbar spine. FINDINGS: Metallic screws through the pedicles of L4 and L5, bilaterally. Intervertebral disc spacer placement at L4-5. 8 mm anterolisthesis L4-5 in neutral position which contains during flexion and/or extension position. Multilevel marginal osteophyte formation and endplate sclerosis involving the lower thoracic and upper lumbar spine. S-shaped curvature of the thoracolumbar spine. XR/XR lumbar spine 4V min IMPRESSION: Status post posterior lumbar fusion L4-5 and intervertebral disc spacer placement without gross instability. Electronically signed by: Ji Lewis MD 12/26/2024 11:57 AM [email or web address]
--- OUTSIDE RECORDS SUMMARY | 2024-12-26 11:17 | XMS_ITS | Clinical Summary ---
Author Organization [facility] Address [address] [place] [address] Care Team Providers Care Tuyere Fitter Name Role Phone Timbo Paredes MD Primary Care Provider [phone] Surgical History Surgery Date Site/Laterality Comments SPINE SURGERY PROCEDURE:SPINE SURGERY CARPAL TUNNEL RELEASE PROCEDURE:CARPAL TUNNEL RELEASE WISDOM TOOTH EXTRACTION PROCEDURE:WISDOM TOOTH EXTRACTION Medical History Medical History Date Comments Depression DX:Depression Family History Medical History Relation Name Comments Cancer Father Cancer Mother Hypertension Mother Relation Name Status Comments Father Mother Social History Tobacco Use Types Packs/Day Years Used Date Smoking Tobacco: Never Assessed Sex and Gender Information Value Date Recorded Sex Assigned at Not on file Gender Identity Not on file Sexual Orientation Not on file Obstetrics History Plan of Treatment Health Maintenance Due Date Last Done Comments Zoster Vaccines (1 of 2) 2008 Cholesterol Screening (Lipid Panel) 10/30/2022 Colorectal Cancer Screening: Colonoscopy 10/30/2022 Depression Screening 10/30/2022 Hepatitis C Screening 10/30/2022 Social Influencers of Health Screening 10/30/2022 Hypertension/CHF/CAD Annual BMP Blood Test 11/05/2022 Breast Cancer Screening 03/18/2023 03/18/20 21, 12/14/2019 Falls Risk Assessment 2023 Pneumococcal Vaccine: 65+ Years (2 of 2 - PCV) 2023 12/29/2011 DTaP,Tdap,and Td Vaccines (2 - Tdap) 11/03/2023 11/03/2013 COVID-19 Vaccine ( - 2023-2 5 season) 2024 Influenza Vaccine (#1) 2024 Osteoporosis Screening (Bone Density Screening) 12/14/2029 12/14/2019 RSV Immunization Patients 60 + Years Old (1 - 1-dose 75+ series) 2033 HIB Vaccines Aged Out No longer eligi ble based on patient's age to complete this topic HPV Vaccines Aged Out No longer eligi ble based on patient's age to complete this topic Hepatitis A Vaccines Aged Out No long er eligible based on patient's age to complete this topic Hepatitis B Vaccines Aged Out No long er eligible based on patient's age to complete this topic IPV Vaccines Aged Out No longer eligi ble based on patient's age to complete this topic MMR Vaccines Aged Out No longer eligi ble based on patient's age to complete this topic Meningococcal ACWY Vaccine Aged Out N o longer eligible based on patient's age to complete this topic RSV Immunization Patients Under 20 months Aged Out No longer eligible b ased on patient's age to complete this topic Varicella Vaccines Aged Out No longer eligible based on patient's age to complete this topic Procedures Procedure Name Priority Date/Time Associated Diagnosis Comments [facility] SCREENING DIGITAL Routine 03/18/2021 11:02 AM EDT Encounter for screening mammogram for malignant neoplasm of breast [facility] DEXA AXIAL SKELETON Routine 12/14/2019 10:58 AM EST Encounter for screening for osteoporosis from Last 3 Months or Most Recently Relevant to Health Maintenance Results * [facility] SCREENING DIGITAL (03/18/2021 11:02 AM EDT) Anatomical Region Laterality Modality Mammography 03/18/2021 9:51 AM EDT Narrative 03/18/2021 11:02 AM EDT [facility] Diagnostic Imaging Department [address] [place], [place] [id number] Patient: ??GAYATRI BLAS ?/Age/Sex: 1960 - 60 - F Unit#: ??[id number] ? Location/Status: ??SPDIMAM/REG CLI ? Mnemonic/Ordering Site: ??DIGSC/SPMAM Ordering Physician: ??TIMBO PAREDES MD [facility] Screening Digital - 03/18/21 - 1023 EXAM: [facility] Screening Digital EXAM DATE AND TIME: 03/18/2021 10:24 AM HISTORY: ??Annual screening mammography. COMPARISON: ??12/14/2022 through 09/17/2016 TECHNIQUE: CC and MLO views of both breasts were obtained using full field digital mammography. Bilateral digital breast tomosynthesis was performed in the MLO projection. Computer aided detection with the Transinsight 7.2-CC video was employed. TISSUE DENSITY: b. There are scattered areas of fibroglandular density. FINDINGS: No suspicious masses, grouped microcalcifications, or areas of architectural distortion are seen. ??Scattered asymmetric densities in bilateral breasts are stable. ??The skin and vascularity are unremarkable. IMPRESSION: Stable mammographic appearance of the breasts. ??No evidence of malignancy is seen. A negative mammogram in the presence of a clinically suspicious palpable abnormality does not preclude the possibility of malignancy or alter the indications for biopsy. BI-RADS: ??Category 2: Benign RECOMMENDATION(S): 1: Routine screening mammogram BILATERAL in 1 year. 85153, 17970 3342F, 7025F Dictating Physician: ??EMI MAGANA MD Electronically Signed by: ??EMI MAGANA MD Dic Date/Time: ??03/18/21 1056 Sign date/Time: ??03/18/21 1102 Procedure Note Susan Magana MD - 11/11/2022 [facility] Diagnostic Imaging Department [address] [place] [id number] Patient: GAYATRI BLAS /Age/Sex: 1960 - 60 - F Unit#: [id number] Location/Status: SPDIMAM/REG CLI Mnemonic/Ordering Site: [facility] Ordering Physician: TIMBO PAREDES MD [facility] Screening Digital - 03/18/21 - 1023 EXAM: [facility] Screening Digital EXAM DATE AND TIME: 03/18/2021 10:24 AM HISTORY: Annual screening mammography. COMPARISON: 12/14/2022 through 09/17/2016 TECHNIQUE: CC and MLO views of both breasts were obtained using fullfield digital mammography. Bilateral digital breast tomosynthesis was performedin the MLO projection. Computer aided detection with the Transinsight 7.2-Hwas employed. TISSUE DENSITY: b. There are scattered areas of fibroglandular density. FINDINGS: No suspicious masses, grouped microcalcifications, or areas ofarchitectural distortion are seen. Scattered asymmetric densities in bilateral breastsare stable. The skin and vascularity are unremarkable. IMPRESSION: Stable mammographic appearance of the breasts. No evidence of malignancyis seen. A negative mammogram in the presence of a clinically suspicious palpable abnormality does not preclude the possibility of malignancy or alter the indications for biopsy. BI-RADS: Category 2: Benign RECOMMENDATION(S): 1: Routine screening mammogram BILATERAL in 1 year. 95549, 92682 3342F, 7025F Dictating Physician: EMI MAGANA MD Electronically Signed by: EMI MAGANA MD Dic Date/Time: 03/18/21 1056 Sign date/Time: 03/18/21 1102 Timbo Paredes MD IMG BI PROCEDURES * [facility] DEXA AXIAL SKELETON (12/14/2019 10:58 AM EST) Anatomical Region Laterality Modality Mammography 12/14/2019 10:0 9 AM EST Narrative 12/14/2019 10:58 AM EST [facility] Diagnostic Imaging Department [address] [place] [address] Patient: ??GAYATRI BLAS ?/Age/Sex: 1960 - 59 - F Unit#: ??[id number] ? Location/Status: ??SPDIMAM/REG CLI ? Mnemonic/Ordering Site: ??MAMDEXAAX/SPMAM Ordering Physician: ??SHAUNNA QUIÑONEZ MD [facility] Dexa Axial Skeleton - 12/14/19 - 1048 HISTORY: ??The patient is a 59-year-old postmenopausal female with clinical concern for metabolic bone disease. FINDINGS: ??Dual energy x-ray absorptiometry of the lumbar spine and femurs is performed. The mean bone mineral density at L1-L4 is 1.251 gm/cm2 which is 106% of that of young normals and 114% of that of age matched controls. This yields a T-score of 0.6 and a Z-score of 1.3 and there is therefore no evidence of osteoporosis or osteopenia here. The mean bone mineral density of the femurs bilaterally is 0.877 gm/cm2 which is 87% of that of young normals and 94% of that of age matched controls. ??This yields a T-score of -1.0 and a Z-score of -0.5 and there is therefore no evidence of osteoporosis or osteopenia here. ??However, the T-score of the right femoral neck is -2.6 which is diagnostic of osteoporosis. IMPRESSION: 1. Osteoporosis. ??There has been no change in bone mineral density in the lumbar spine since the prior examination of 03/08/2015. ??There has been a decrease of 6.0% in bone mineral density in the right femur and a decrease of 7.0% in bone mineral density in the left femur. 2. FRAX analysis yields a 10-year probability of major osteoporotic fracture of 11.5% and a 10-year probability of hip fracture of 2.3%. Code 22406 Dictating Physician: ??JENNIFER FRY MD Electronically Signed by: ??JENNIFER FRY MD Dic Date/Time: ??12/14/19 1055 Sign date/Time: ??12/14/19 1058 Procedure Note Jennifer Fry - 11/12/2022 [facility] Diagnostic Imaging Department [address] [place] [address] Patient: GAYATRI BLAS./Age/Sex: 1960 - 59 - F Unit#: [id number] Location/Status: [facility]/REG CLI [facility] Ordering Physician: SHAUNNA QUIÑONEZ MD [facility] Dexa Axial Skeleton - 12/14/19 - 1048 HISTORY: The patient is a 59-year-old postmenopausal female withclinical concern for metabolic bone disease. FINDINGS: Dual energy x-ray absorptiometry of the lumbar spine and femursis performed. The mean bone mineral density at L1-L4 is 1.251 gm/cm2 which is106% of that of young normals and 114% of that of age matched controls. Thisyields a T-score of 0.6 and a Z-score of 1.3 and there is therefore no evidenceof osteoporosis or osteopenia here. The mean bone mineral density of the femurs bilaterally is 0.877 gm/fx7louqf is 87% of that of young normals and 94% of that of age matched controls.This yields a T-score of -1.0 and a Z-score of -0.5 and there is therefore no evidence of osteoporosis or osteopenia here. However, the T-score of theright femoral neck is -2.6 which is diagnostic of osteoporosis. IMPRESSION: 1. Osteoporosis. There has been no change in bone mineral density inthe lumbar spine since the prior examination of 03/08/2015. There has been a decrease of 6.0% in bone mineral density in the right femur and a decreaseof 7.0% in bone mineral density in the left femur. 2. FRAX analysis yields a 10-year probability of major osteoporoticfracture of 11.5% and a 10-year probability of hip fracture of 2.3%. Code 82582 Dictating Physician: JENNIFER FRY MD Electronically Signed by: JENNIFER FRY MD Dic Date/Time: 12/14/19 1055 Sign date/Time: 12/14/19 1058 Shaunna Quiñonez MD IMG BI PROCEDURES from Last 3 Months or Most Recently Relevant to Health Maintenance Care Teams Tuyere Fitter Relationship Specialty Start Date End Date Timbo Paredes MD [address] [place] [address] PCP - General 01/11/21
--- OUTSIDE RECORDS SUMMARY | 2024-12-26 11:18 | XMS_ITS | Clinical Summary ---
Author Organization [facility] Address [address] [place] [address] Care Team Providers Care Roll Tube Setter Name Role Phone Timbo Lucas MD Primary Care Provider [phone] Allergies Active Allergy Reactions Criticality Noted Date Comments Amlodipine Other (See Comments) 12/16/2022 Clindamycin Other (See Comments) 12/16/2022 Codeine 04/05/2014 Morphine 12/16/2022 Prednisone Other (See Comments) 12/16/2022 Sulfa Antibiotics 07/10/2017 Sumatriptan Other (See Comments) 12/16/2022 Medications Medication Sig Dispensed Refills Start Date End Date Status ALPRAZolam (XANAX) 0.25 MG tablet TAKE 1 TO 2 TABLETS AT BEDTIME FOR SLEEP NEEDED 0 04/28/2017 Active amphetamine-dextroam phetamine (ADDERALL) 10 MG tablet TAKE 1 TABLET BY MOUTH TWICE A DAY 0 06/16/2017 Active buPROPion (WELLBUTRIN XL) 300 MG 24 hr tablet TAKE 1 TABLET BY MOUTH EVERY MORNING 0 04/24/2017 Active nortriptyline (PAMELOR) 50 MG capsule Take 50 mg by mouth every night at bedtime. 0 04/24/2017 Active topiramate (TOPAMAX) 25 MG tablet TAKE 1 TABLET BY MOUTH DAILY FOR 1 WEEK, INCREASE BY 1 TAB EVERY WEEK TO [facility] OF 70-100MG DAILY 6 05/05/2017 Active venlafaxine (EFFEXOR-XR) 150 MG 24 hr capsule TAKE 1 CAPSULE BY MOUTH DAILY 0 04/24/2017 Active verapamil (VERELAN PM) 120 MG 24 hr capsule TAKE ONE CAPSULE BY MOUTH EVERY DAY 3 04/08/2017 Active mirtazapine (REMERON) 15 MG tablet TAKE 1 TABLET BY MOUTH EVERY EVENING 3 08/27/2017 Active buPROPion (WELLBUTRIN XL) 150 MG 24 hr tablet Take 150 mg by mouth daily. 0 09/23/2017 Active atomoxetine (STRATTERA) 40 MG capsule Take 40 mg by mouth daily. 0 02/17/2018 Active atomoxetine (STRATTERA) 80 MG capsule Take 80 mg by mouth daily. 0 02/17/2018 Active albuterol (PROVENTIL HFA;VENTOLIN HFA) 108 (90 Base) MCG/ACT inhaler Inhale 1 puff into the lungs. 0 01/17/2019 Active fluticasone (FLONASE) 50 MCG/ACT nasal spray spray or apply 50 mcg inside Nose. 0 12/02/2018 Active ergocalciferol (VITAMIN D2) capsule 59111 units Take 50,000 Units by mouth. 0 04/22/2019 Active amphetamine-dextroam phetamine (ADDERALL XR) 20 MG 24 hr capsule Take 20 mg by mouth. 0 Acti ve Venlafaxine HCl ER 225 MG TB24 Take 1 tablet by mouth. 0 Active butalbital-acetamino phen-caffeine (FIORICET, ESGIC) 50-325-40 MG per tablet 0 11/23/2019 Active vitamin D3 (CHOLECALCIFEROL) 1.25 MG (26325 UT) CAPS capsule Take 50,000 Units by mouth once a week. 0 11/24/2019 Active clotrimazole-betamet hasone (LOTRISONE) cream 0 11/22/2019 Active AIMOVIG SOAJ 0 11/24/2019 Active guanFACINE (TENEX) 1 MG tablet 0 11/04/2019 Active ALPRAZolam (XANAX) 0.5 MG tablet 0 03/09/2020 Active oxybutynin (DITROPAN) 5 MG tablet Take 5 mg by mouth every night at bedtime. 0 12/29/2019 Active gabapentin (NEURONTIN) 300 MG capsule TAKE 1 CAPSULE BY MOUTH EVERYDAY AT BEDTIME 0 06/12/2020 Active rOPINIRole (REQUIP) 0.25 MG tablet TAKE 3 TABLETS BY MOUTH 3 HOURS PRIOR TO BEDTIME EVERY DAY 0 05/27/2020 Active phenazopyridine (PYRIDIUM) 200 MG tablet Take 200 mg by mouth every 8 (eight) hours. 0 10/01/2020 Active methenamine (HIPREX) 1 g tablet 1 TABLET BY MOUTH TWICE A DAY TAKE W/CRANBERRY OR VIT C STOP IF ON ANY OTHER ANTIBIOITICS 0 10/16/2020 Active HYDROcodone-acetamin ophen (NORCO) 5-325 MG per tablet TAKE 1 TABLET BY MOUTH EVERY 6 TO 8 HOURS NEEDED FOR PAIN 0 10/01/2020 Active Potassium Citrate ER 15 MEQ (1620 MG) TBCR Take 2 tablets by mouth 2 (two) times a day. 0 12/22/2020 Active DULoxetine (CYMBALTA) DR capsule 30 mg Take 30 mg by mouth daily. 0 03/19/2021 Active meloxicam (MOBIC) 7.5 MG tablet Take 7.5 mg by mouth daily as needed. for pain 0 06/02/2021 Active tamsulosin (FLOMAX) 0.4 MG CAPS Take 0.4 mg by mouth daily. 0 06/02/2021 Active melatonin 3 MG TABS tablet TAKE 3 TABLETS BY MOUTH AT BEDTIME FOR SLEEP 0 12/12/2021 Active promethazine (PHENERGAN) suppository 25 mg 0 02/24/2022 Active SUMAtriptan (IMITREX) 50 MG tablet TAKE 1 TABLET BY MOUTH ONCE WITH FLUIDS WITH ONSET OF MIGRAINE. MAY REPEAT ONCE IN 24 HRS 0 01/15/2022 Active Myrbetriq 25 MG TB24 24 hr tablet Take 1 tablet (25 mg total) by mouth daily. 0 07/29/2022 Active Hospital, Clinic, or Other Facility Administered Medication Ordered Dose Route Frequency Start Date End Date Status methylPREDNISolone acetate (DEPO-Medrol) injection 40 mgIndications:Primary osteoarthritis of both knees 40 mg IX Once 11/26/2021 Active Active Problems Problem Noted Date Diagnosed Date Primary osteoarthritis of right knee 12/14/2018 Primary osteoarthritis of left knee 10/08/2018 Arthritis of right knee 08/21/2017 Chronic pain of right knee 07/14/2017 Family History Medical History Relation Name Comments Cancer Father Cancer Mother Hypertension Mother Relation Name Status Comments Father Mother Social History Tobacco Use Types Packs/Day Years Used Date Smoking Tobacco: Never Assessed Sex and Gender Information Value Date Recorded Sex Assigned at Not on file Gender Identity Not on file Sexual Orientation Not on file Job Start Date Occupation Industry Not on file Not on file Not on file Last Filed Vital Signs Vital Sign Reading Time Taken Comments Blood Pressure - - Pulse - - Temperature - - Respiratory Rate - - Oxygen Saturation - - Inhaled Oxygen Concentration - - Weight 91.6 kg (202 lb) 07/14/2017 8:47 AM EDT Height 149.9 cm (4' 11 ) 07/14/2017 8:47 AM EDT Body Mass Index 40.8 07/14/2017 8:47 AM EDT Plan of Treatment Health Maintenance Due Date Last Done Comments Hepatitis C Screening 1960 COVID-19 Vaccine (#1) 1960 Depression Screening 1970 Preventative Health Evaluation 1976 Colon Cancer Screening (Colonoscopy) 2003 Breast Cancer Screening (Mammogram) 2008 Shingrix-Zoster Vaccine (1 of 2) 2008 Fall Risk Assessment 2023 Osteoporosis Screening (DEXA Scan) 2023 Pneumococcal Vaccine (2 of 2 - PCV) 2023 12/29/2011 DTap / Tdap / Td (2 - Tdap) 11/03/2023 11/03/2013 Influenza Vaccine (#1) 2024 RSV Adult > 60+ Yrs or Pregn ant (1 - 1-dose 75+ series) 2033 Hepatitis B Vaccines Aged Out No long er eligible based on patient's age to complete this topic RSV Ped < 20 months Aged Out No longe r eligible based on patient's age to complete this topic Care Teams Roll Tube Setter Relationship Specialty Start Date End Date Timbo Lucas MD [address] [place] [address] PCP - General Internal Medicine 01/11/21
== END 2024-12-26 10:28 | disposition home or self-care (01) ==
LOC: HO.HOSX 10:27
PROVIDERS: PCP Internal Medicine; Visit Provider Physician Assistant
DX: M43.16 Spondylolisthesis, lumbar region (principal); Z98.890 Other specified postprocedural states
CPT/HCPCS: 72110; 99212

== ENCOUNTER 2024-12-26 10:27 | Outpatient (AMB) | payer MEDICARE, MEDICAID, SELFPAY ==
--- NOTE | 2024-12-26 10:53 | HO.SPINEOV ---
Intake Visit Reasons: 2nd post op with xrays Intake Note: Ms. Stoddard is here today for her 2nd post op appointment with xrays. 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 Allergies prednisolone Allergy (Severe, Verified 10/25/24 10:34) anaphylaxis prednisone [PREDNISONE] Allergy (Severe, Verified 10/25/24 10:34) DEPRESSION Sulfa (Sulfonamide Antibiotics) Allergy (Intermediate, Verified 10/25/24 10:34) hives, rash sulfamethoxazole [From BACTRIM] Allergy (Intermediate, Verified 10/25/24 10:34) hives, rash amlodipine Allergy (Unknown, Verified 10/25/24 10:34) unknown trimethoprim [From BACTRIM] Allergy (Unknown, Verified 10/25/24 10:34) hives, rash clindamycin Adverse Reaction (Severe, Verified 10/25/24 10:34) joint pain methylprednisolone Adverse Reaction (Severe, Verified 10/25/24 10:34) Anaphylaxis procaine [From Novocain] Adverse Reaction (Intermediate, Verified 10/25/24 10:34) Chest Pain sumatriptan [From IMITREX] Adverse Reaction (Verified 10/25/24 10:34) advised to avoid, may cause interaction with ADHD meds ORCHIDS Allergy (Severe, Uncoded 10/25/24 10:34) Angioedema Assessment & Plan Assessment & Plan (1) Status post lumbar spine surgery for decompression of spinal cord: Code(s): Z98.890 - Other specified postprocedural states Category: Surgical Plan Gayatri is a pleasant 64 year old female who comes in today for her 2nd postop visit after having L4-[address] Jacobs a couple months ago. To recap she was initially evaluated in office for back pain that was radiating down into her buttocks. She was doing well in the immediate postoperative period. During her last visit she reported her pain was getting much better, and she was beginning to resume regular activities such as driving. unfortunately, today she reports that her pain has returned. She feels significant mid and low back pain and pain in her bilateral buttocks. She has been utilizing Voltaren gel to help mitigate this pain. Her accompanies her to this visit today, and reports that she has been very inactive for the last few weeks. The patient also attests to this. She has not been walking daily, and has mostly been sitting around her home. This may be contributing to her symptoms. We discussed this at length. I reviewed her lumbar x-rays from today which shows stable placement of her surgical construct with no changes from fluoroscopy. No new neurological deficits. The patient ambulates well and rises from a seated position without difficulty. Her posterior incision sites are closed and well healed. I would like to see Gayatri increase her walking daily. We discussed setting a goal to walk 1 mi per day in total. She finds this very difficult to do as it is cold outside. I encouraged her to either walk around somewhere indoors ( the mall, grocery store, hospital ) or to obtain a gym membership so she can walk on a treadmill indoors where it is warm. In addition to this I will send her for a course of physical therapy. I would like to see her back in the office after physical therapy. Saleem Jacobs MD,PhD [facility] Orders: Orders PT Evaluation and Treatment Today Z98.890 - Other specified postprocedural states XR lumbar spine 4V min Today M43.16 - Spondylolisthesis, lumbar region Medications: New ibuprofen 600 mg PO Q8H PRN 30 tabs 1RF pain Coding Level of Care Code Global (66854) Diagnoses Status post lumbar spine surgery for decompression of spinal cord Z98.890
== END 2024-12-26 11:17 | disposition home or self-care (01) ==
PROVIDERS: PCP Internal Medicine; Visit Provider Physician Assistant
DX: Z98.890 Other specified postprocedural states (principal)
CPT/HCPCS: 99024

== ENCOUNTER → 2024-12-26 10:43 | Outpatient (BNV) | payer MEDICARE, MEDICAID, SELFPAY | PROVIDERS: PCP Internal Medicine; Visit Provider Radiology Diagnostic Radiology | DX: M43.16 Spondylolisthesis, lumbar region (principal) | CPT/HCPCS: 72110 ==

== ENCOUNTER 2025-02-14 11:03 | Outpatient (AMB) | payer MEDICARE, MEDICAID, SELFPAY ==
--- NOTE | 2025-02-14 11:05 | MHC.OFFVIS ---
Vital Signs 02/14/25 11:17 Height 4 ft 10 in Weight 175 lb 7.807 oz BMI 36.7 BP 142/64 H Blood Pressure Location Rt brachial Position Sitting Pulse 76 Pulse Source Pulse Oximeter Pulse Oximetry (%) 97 Oxygen Delivery Method Room Air Intake Visit Reasons: 6 month follow up Intake Note: ESTABLISHED PATIENT for [facility] mgmt. Chief Complaint; C/O intermittent constipation w/ hx of hemorrhoids. Pt admits that she is not as consistent with taking rx'd tx as instructed. When she does take her meds, it appears to be helpful. No additional concerns at this time. 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 Accompanied by: Self / Same As Patient Allergies prednisolone Allergy (Severe, Verified 02/14/25 11:05) anaphylaxis prednisone [PREDNISONE] Allergy (Severe, Verified 02/14/25 11:05) DEPRESSION Sulfa (Sulfonamide Antibiotics) Allergy (Intermediate, Verified 02/14/25 11:05) hives, rash sulfamethoxazole [From BACTRIM] Allergy (Intermediate, Verified 02/14/25 11:05) hives, rash amlodipine Allergy (Unknown, Verified 02/14/25 11:05) unknown trimethoprim [From BACTRIM] Allergy (Unknown, Verified 02/14/25 11:05) hives, rash clindamycin Adverse Reaction (Severe, Verified 02/14/25 11:05) joint pain methylprednisolone Adverse Reaction (Severe, Verified 02/14/25 11:05) Anaphylaxis procaine [From Novocain] Adverse Reaction (Intermediate, Verified 02/14/25 11:05) Chest Pain sumatriptan [From IMITREX] Adverse Reaction (Verified 02/14/25 11:05) advised to avoid, may cause interaction with ADHD meds ORCHIDS Allergy (Severe, Uncoded 02/14/25 11:05) Angioedema HPI HPI 6 month follow up: Details: LAST VISIT: Constipation Abdominal bloating Plan Patient can take half a bottle of Mag citrate today if no bowel movement in 2-3 hours she can repeat. Patient will start taking Dulcolax 2 tablets in the evening with Colace. Increase fluid intake and activity to promote better bowel motility. Patient will call if she will continue to be constipated. Follow-up in 6 months, sooner on as needed basis. Patient is agreeable to this plan and verbalizes understanding of instructions. She was given the opportunity to ask questions and all questions answered. ? Thank you for allowing me to participate in her care Medications New docusate sodium 100 mg PO BEDTIME 90 caps 3RF K59.00 magnesium citrate (Citrate of Magnesia oral) 150 mL PO DAILY PRN 296 mL 5RF constipation K59.00 bisacodyl (Dulcolax (bisacodyl)) 10 mg (2 x 5 mg) PO BEDTIME 180 tabs 4RF Discontinued bisacodyl (Dulcolax (bisacodyl)) take 2 tabs at noon the day before your colonoscopy Discontinued Reason: Doctor's Order 10 mg (2 x 5 mg) PO ONCE 1 day 2 tabs 0RF Z12.11 TODAY'S VISIT Patient is here today for follow-up. Patient reports that she has been doing well, however if not using Dulcolax patient is constipated. Patient reports that sometimes she gets very dizzy and forgets to take the medication. No change in her diet. Patient could drink more fluids. Denies melena, hematochezia, unintentional weight loss or ribbon like stools. Denies any dyspepsia, dysphagia or odynophagia. Uses MiraLax as needed not always helpful. Patient denies any other GI concerning symptoms. [facility] Medical History Recent bereavement Depression Numbness BAILEY (obstructive sleep apnea) Seasonal allergies Constipation RLS (restless legs syndrome) HTN (hypertension) Anxiety ADHD (attention deficit hyperactivity disorder) History of deviated nasal septum History of nephrolithotomy with removal of calculi Surgical History Hx of nasal septoplasty Hx of laparoscopy (1999) History of carpal tunnel release (~2010) H/O colonoscopy (08/12/23) History of tonsillectomy (1966) H/O adenoidectomy (1966) History of back surgery (~1982) Family History Mother Hypertension Lung cancer Father Lung cancer COPD (chronic obstructive pulmonary disease) Arterial vascular disease Sister Stroke Hypertension Social History Household Members: Spouse Housing: House Are you a primary care administrative tech to a significant other at home: No Do you presently have visiting nurse or other home services: No Alcohol intake: current Alcohol intake frequency: holidays/special occasions only Patient Tobacco Use Status: Never used Tobacco e-Cigarette/Vaping Use: Never Used Second Hand Smoke Exposure: No service: No Current occupational status: disabled Cognitive needs: No Hearing needs: No Vision needs: Yes Review of Systems Const Denies weight gain and Denies weight loss ENT Reports no additional complaints, Denies dysphagia and Denies odynophagia Card Reports no additional complaints Resp Reports no additional complaints GI Denies abdominal pain, Denies belching, Denies melena, Reports bloating, Denies change in bowel habits, Reports constipation, Denies dysphagia, Denies excessive flatus, Denies dyspepsia, Denies heartburn, Denies diarrhea, Denies loose stools, Denies nausea, Denies odynophagia and Denies vomiting Reports no additional complaints Musc Reports no additional complaints Neuro Reports no additional complaints Psych Reports no additional complaints Endo Reports no additional complaints Physical Exam Vital Signs: Last Vital Signs Pulse 76 02/14/25 11:17 BP 142/64 H 02/14/25 11:17 Pulse Ox 97 02/14/25 11:17 Oxygen Delivery Method Room Air 02/14/25 11:17 BMI result Body Mass Index 36.7 Const General: healthy appearing and no acute distress Nutritional Appearance: obese Orientation/consciousness: patient oriented x3 Resp Effort & Inspection: normal respiratory effort, able to speak in complete sentences, no tracheal deviation and symmetric chest movement Auscultation: clear to auscultation bilaterally Cardio Rate: regular rate GI Inspection: Yes normal to inspection, No distended and Yes obesity Palpation (GI): Soft to palpation, not firm, nontender and No hepatosplenomegaly present Auscultation: normal bowel sounds General: Yes no CVA tenderness Back/Spine/Pelvis Back: no CVA tenderness Skin General skin exam: elasticity normal, turgor normal and dry skin Neuro General: patient oriented x3 Psych Appearance: grossly normal Mental Status: mental status grossly normal Assessment & Plan Assessment & Plan (1) Constipation: Code(s): K59.00 - Constipation, unspecified Qualifiers: Constipation type: slow transit constipation Qualified Code(s): K59.01 - Slow transit constipation (2) Abdominal bloating: Code(s): R14.0 - Abdominal distension (gaseous) Plan Continue MiraLax and Dulcolax daily. May use stool softeners as needed. Avoid straining. Sits baths with Epsom salts as needed. Follow-up in 6 months, sooner on as needed basis. Patient is agreeable to this plan and verbalizes understanding of instructions. She was given the opportunity to ask questions and all questions answered. Thank you for allowing me to participate in her care Medications: New bisacodyl (Dulcolax (bisacodyl)) 10 mg (2 x 5 mg) PO BEDTIME 180 tabs 4RF magnesium oxide 400 mg PO BEDTIME 90 tabs 2RF Coding Level of Care Code Est Pt Level 3 (28554) Diagnoses Slow transit constipation K59.01 Constipation type: slow transit constipation Abdominal bloating R14.0 Time Spent (min) 30 Comment 20 minutes spent with patient and additional 10 minutes spent reviewing her records
[2025-02-14 11:17] VITALS: BP 142/64; PULSE 76; O2SAT 97; BMI 36.7
== END 2025-02-14 11:49 | disposition home or self-care (01) ==
LOC: HO.HGI 11:04
PROVIDERS: PCP Internal Medicine; Visit Provider Nurse Practitioner Family
DX: K59.01 Slow transit constipation (principal); R14.0 Abdominal distension (gaseous)
CPT/HCPCS: 99213

== ENCOUNTER → 2025-02-14 11:03 | Outpatient (BNVA) | payer MEDICARE, MEDICAID, SELFPAY | PROVIDERS: PCP Internal Medicine; Visit Provider Nurse Practitioner Family | DX: K59.01 Slow transit constipation (principal); R14.0 Abdominal distension (gaseous) | CPT/HCPCS: 99212 ==

== ENCOUNTER 2025-03-08 12:44 | Outpatient (AMB) | payer MEDICARE, MEDICAID, SELFPAY ==
--- NOTE | 2025-03-08 12:51 | A.SPINEOV_ITS ---
Intake Visit Reasons: Pain in the hands and numbness Intake Note: Ms. Stoddard is her today c/o Pain in the hands and numbness. Paper Bundler Required: No Allergies prednisolone Allergy (Severe, Verified 03/08/25 13:27) anaphylaxis prednisone [PREDNISONE] Allergy (Severe, Verified 03/08/25 13:27) DEPRESSION Sulfa (Sulfonamide Antibiotics) Allergy (Intermediate, Verified 03/08/25 13:27) hives, rash sulfamethoxazole [From BACTRIM] Allergy (Intermediate, Verified 03/08/25 13:27) hives, rash amlodipine Allergy (Unknown, Verified 03/08/25 13:27) unknown trimethoprim [From BACTRIM] Allergy (Unknown, Verified 03/08/25 13:27) hives, rash clindamycin Adverse Reaction (Severe, Verified 03/08/25 13:27) joint pain magnesium oxide Adverse Reaction (Severe, Verified 03/08/25 13:27) Insomnia methylprednisolone Adverse Reaction (Severe, Verified 03/08/25 13:27) Anaphylaxis trazodone Adverse Reaction (Severe, Verified 03/08/25 13:27) Insomnia procaine [From Novocain] Adverse Reaction (Intermediate, Verified 03/08/25 13:27) Chest Pain sumatriptan [From IMITREX] Adverse Reaction (Verified 03/08/25 13:27) advised to avoid, may cause interaction with ADHD meds ORCHIDS Allergy (Severe, Uncoded 02/14/25 11:05) Angioedema Assessment & Plan Assessment & Plan (1) Status post lumbar spine surgery for decompression of spinal cord: Code(s): Z98.890 - Other specified postprocedural states Category: Surgical Plan: Dear colleague, On 03/08/2025 saw your patient Gayatri Stoddard to discuss her ongoing bilateral hand numbness and pain. In the last visit, the symptoms were intermittent, especially with driving in writing. Now the patient states that she has a constant numbness and tingling of her hands with intermittent swelling. The left side is more affected than the right side. She underwent a left-sided carpal tunnel release in the past in another institution. As you know, she underwent a correction of the lumbar spondylolisthesis from which she had a good recovery. She is still in physical therapy for pain on the left side of her buttock. On exam there is a grade 3/5 weakness of the opponens pollicis bilaterally. No clear atrophy. There is diffuse numbness on the palmar side of the bilateral hands. The symptoms are most suggestive of a bilateral carpal tunnel syndrome. She does have cervical spondylosis with spinal stenosis and foraminal stenosis and this is in the differential diagnosis. We will 1st obtain an EMG and if carpal tunnel syndrome as confirmed then we will perform a release of the median nerve. I will follow-up after the test is done. I spent 25 minutes in his consult for history physical exam and discussing plan of care Alban Jacobs MD, PhD Spine Fellowship Trained Neurosurgeon Director, [facility] (2) Numbness in both hands: Code(s): R20.0 - Anesthesia of skin Category: Medical Plan s Orders: Orders PT Evaluation and Treatment Today Z98.890 - Other specified postprocedural states NE electromyogram (EMG) Today R20.0 - Anesthesia of skin Coding Level of Care Code Est Pt Level 3 (59893) Diagnoses Status post lumbar spine surgery for decompression of spinal cord Z98.890 Numbness in both hands R20.0
--- OUTSIDE RECORDS SUMMARY | 2025-03-08 15:06 | XMS_ITS | Clinical Summary ---
Author Organization [facility] ity Address [address] [place] [address] Care Team Providers Care Loss Prevention Auditor Name Role Phone Timbo Paredes MD Primary Care Provider [phone] Surgical History Surgery Date Site/Laterality Comments SPINE SURGERY PROCEDURE:SPINE SURGERY CARPAL TUNNEL RELEASE PROCEDURE:CARPAL TUNNEL RELEASE WISDOM TOOTH EXTRACTION PROCEDURE:WISDOM TOOTH EXTRACTION Medical History Medical History Date Comments Depression DX:Depression Family History Medical History Relation Name Comments Cancer Father Cancer Mother Hypertension Mother Relation Name Status Comments Father Mother Social History Tobacco Use Types Packs/Day Years Used Date Smoking Tobacco: Never Assessed Comments Unknown Sex and Gender Information Value Date Recorded Sex Assigned at Not on file Legal Sex Female 4:17 PM EST Gender Identity Not on file Sexual Orientation Not on file Obstetrics History Plan of Treatment Health Maintenance Due Date Last Done Comments Zoster Vaccines (1 of 2) 2008 Pneumococcal Vaccine: 50+ Years (2 of 2 - PCV) 12/29/2012 12/29/2011 Cholesterol Screening (Lipid Panel) 10/30/2022 Colorectal Cancer Screening: Colonoscopy 10/30/2022 Depression Screening 10/30/2022 Hepatitis C Screening 10/30/2022 Social Influencers of Health Screening 10/30/2022 Hypertension/CHF/CAD Annual BMP Blood Test 11/05/2022 Breast Cancer Screening 03/18/2023 03/18/20 21, 12/14/2019 Falls Risk Assessment 2023 DTaP,Tdap,and Td Vaccines (2 - Tdap) 11/03/2023 11/03/2013 COVID-19 Vaccine (2023-2 5 season) 2024 Influenza Vaccine (Season Ended) 2025 Osteoporosis Screening (Bone Density Screening) 12/14/2029 12/14/2019 RSV Immunization Adult Patients (1 - 1-dose 75+ series) 2033 HIB [...] patient's age to complete this topic Meningococcal B Vaccine Aged Out No l onger eligible based on patient's age to complete this topic RSV Immunization Patients Under 20 months Aged Out No longer eligible b ased on patient's age to complete this topic Varicella Vaccines Aged Out No longer eligible based on patient's age to complete this topic Procedures Procedure Name Priority Date/Time Associated Diagnosis Comments [facility] SCREENING DIGITAL Routine 03/18/2021 11:02 AM EDT Encounter for screening mammogram for malignant neoplasm of breast [facility] DEXA AXIAL SKELETON Routine 12/14/2019 10:58 AM EST Encounter for screening for osteoporosis from Last 3 Months or Most Recently Relevant to Health Maintenance Results * [facility] SCREENING DIGITAL (03/18/2021 11:02 AM EDT) Anatomical Region Laterality Modality Mammography 03/18/2021 9:51 AM EDT Narrative 03/18/2021 11:02 AM EDT [facility] Diagnostic Imaging Department [address] [place] [id number] Patient: ??GAYATRI BLAS ?/Age/Sex: 1960 - 60 - F Unit#: ??[id number] ? Location/Status: ??SPDIMAM/REG CLI ? Mnemonic/Ordering Site: ??DIGSC/SPMAM Ordering Physician: ??TIMBO PAREDES MD [facility] Screening Digital - 03/18/21 - 1023 EXAM: [facility] Screening Digital EXAM DATE AND TIME: 03/18/2021 10:24 AM HISTORY: ??Annual screening mammography. COMPARISON: ??12/14/2022 through 09/17/2016 TECHNIQUE: CC and MLO views of both breasts were obtained using full field digital mammography. Bilateral digital breast tomosynthesis was performed in the MLO projection. Computer aided detection with the [employer]-Eyeview was employed. TISSUE DENSITY: b. There are [...] Routine screening mammogram BILATERAL in 1 year. 04323, 46862 3342F, 7025F Dictating Physician: ??EMI MAGANA MD Electronically Signed by: ??EMI MAGANA MD Dic Date/Time: ??03/18/21 1056 Sign date/Time: ??03/18/21 1102 Procedure Note Susan Magana MD - 11/11/2022 [facility] Diagnostic Imaging Department [address] [place] [address] Patient: SALMONTANAGAYATRIMICAH FineO.B./Age/Sex: 1960 - 60 - F Unit#: [id number] Location/Status: SPDIMA/[facility] CLI Mnemonic/Ordering Site: [facility] Ordering Physician: TIMBO PAREDES MD [facility] Screening Digital - 03/18/21 - 1023 EXAM: [facility] Screening Digital EXAM DATE AND TIME: 03/18/2021 10:24 AM HISTORY: Annual screening mammography. COMPARISON: 12/14/2022 through 09/17/2016 TECHNIQUE: CC and MLO views of both breasts were obtained using fullfield digital mammography. Bilateral digital breast tomosynthesis was performedin the MLO projection. Computer aided detection with the [employer] 7.2-Hwas employed. TISSUE DENSITY: b. There are [...] Routine screening mammogram BILATERAL in 1 year. 32226, 35139 3342F, 7272F Dictating Physician: EMI MAGANA MD Electronically Signed by: EMI MAGANA MD Dic Date/Time: 03/18/21 1056 Sign date/Time: 03/18/21 1105 Timbo Paredes MD IMG BI PROCEDURES Final Result * [facility] DEXA AXIAL SKELETON (12/14/2019 10:58 AM EST) Anatomical Region Laterality Modality Mammography 12/14/2019 10:0 9 AM EST Narrative 12/14/2019 10:58 AM EST [facility] Diagnostic Imaging Department [address] [place] [address] Patient: ??GAYATRI BLAS ?/Age/Sex: 1960 - 59 - F Unit#: ??[id number] ? Location/Status: ??SPDIMAM/REG CLI ? Mnemonic/Ordering Site: ??MAMDEXAAX/SPMAM Ordering Physician: ??RAMON QUIÑONEZ MD [facility] Dexa Axial Skeleton - 12/14/191047 HISTORY: ??The patient is a 59-year-old postmenopausal [...] probability of hip fracture of 2.3%. Code 60629 Dictating Physician: ??JENNIFER FRY MD Electronically Signed by: ??JENNIFER FRY MD Dic Date/Time: ??12/14/19 1055 Sign date/Time: ??12/14/19 1058 Procedure Note Jennifer Fry - 11/12/2022 [facility] Diagnostic Imaging Department [address] [place] [address] Patient: SALMONTANAGAYATRI./Age/Sex: 1960 - 59 - F Unit#: [id number] Location/Status: SPDIMAM/REG CLI [facility] Ordering Physician: RAMON QUIÑONEZ MD [facility] Dexa Axial Skeleton - [...] density of the femurs bilaterally is 0.877 gm/xx6biriz is 87% of that of young normals [...] probability of hip fracture of 2.3%. Code 82177 Dictating Physician: JENNIFER FRY MD Electronically Signed by: JENNIFER FRY MD Dic Date/Time: 12/14/19 1055 Sign date/Time: 12/14/19 1058 Ramon Quiñonez MD IMG BI PROCEDURES Final Resu lt from Last 3 Months or Most Recently Relevant to Health Maintenance Care Teams Loss Prevention Auditor Relationship Specialty Start Date End Date Timbo Paredes MD [address] [place] [address] [facility] - General 01/11/21
--- OUTSIDE RECORDS SUMMARY | 2025-03-08 15:06 | XMS_ITS ---
Author Name [facility] Organization Unknown Encounters Encounter Type Encounter Reason Primary Diagnosis Location Date Ambulatory [facility] 03/24/2023 Ambulatory [facility] 02/18/2023
--- OUTSIDE RECORDS SUMMARY | 2025-03-08 15:06 | XMS_ITS | Clinical Summary ---
Author Organization [facility] Address [address] [place] [address] Care Team Providers Care Oral Therapist Name Role Phone Timbo Lucas MD Primary Care Provider [phone] Allergies Active Allergy Reactions Criticality Noted Date [...] 0 12/02/2018 Active ergocalciferol (VITAMIN D2) capsule 42365 units Take 50,000 Units by mouth. 0 04/22/2019 Active amphetamine-dextroam phetamine (ADDERALL XR) 20 MG 24 hr capsule Take 20 mg by mouth. 0 Acti ve Venlafaxine HCl ER 225 MG TB24 Take 1 tablet by mouth. 0 Active butalbital-acetamino phen-caffeine (FIORICET, ESGIC) 50-325-40 MG per tablet 0 11/23/2019 Active vitamin D3 (CHOLECALCIFEROL) 1.25 MG (26433 UT) CAPS capsule Take 50,000 Units by [...] age to complete this topic Care Teams Oral Therapist Relationship Specialty Start Date End Date Timbo Lucas MD [address] [place] [address] PCP - General Internal Medicine 01/11/21
== END 2025-03-08 13:25 | disposition home or self-care (01) ==
LOC: HO.HNS 12:45
PROVIDERS: PCP Internal Medicine; Visit Provider Neurological Surgery
DX: Z98.890 Other specified postprocedural states (principal); R20.0 Anesthesia of skin
CPT/HCPCS: 99213

== ENCOUNTER → 2025-03-08 12:44 | Outpatient (BNVA) | payer MEDICARE, MEDICAID, SELFPAY | PROVIDERS: PCP Internal Medicine; Visit Provider Neurological Surgery | DX: R20.0 Anesthesia of skin (principal); Z98.890 Other specified postprocedural states | CPT/HCPCS: 99212 ==

== ENCOUNTER 2025-03-15 10:30 | Outpatient (REF) | payer MEDICARE, MEDICAID, SELFPAY ==
[2025-03-15 13:23] LABS: MANUAL DIFF FLAG NO
--- OUTSIDE RECORDS SUMMARY | 2025-03-15 13:30 | XMS_ITS | Clinical Summary ---
Author Organization [facility] Address [address] [place] [address] Care Team Providers Care Marketing Technologist Name Role Phone Timbo Lucas MD Primary Care Provider [phone] Allergies Active Allergy Reactions Criticality Noted Date [...] 0 12/02/2018 Active ergocalciferol (VITAMIN D2) capsule 43570 units Take 50,000 Units by mouth. 0 04/22/2019 Active amphetamine-dextroam phetamine (ADDERALL XR) 20 MG 24 hr capsule Take 20 mg by mouth. 0 Acti ve Venlafaxine HCl ER 225 MG TB24 Take 1 tablet by mouth. 0 Active butalbital-acetamino phen-caffeine (FIORICET, ESGIC) 50-325-40 MG per tablet 0 11/23/2019 Active vitamin D3 (CHOLECALCIFEROL) 1.25 MG (44485 UT) CAPS capsule Take 50,000 Units by [...] age to complete this topic Care Teams Marketing Technologist Relationship Specialty Start Date End Date Timbo Lucas MD [address] [place] [address] PCP - General Internal Medicine 01/11/21
--- OUTSIDE RECORDS SUMMARY | 2025-03-15 13:30 | XMS_ITS | Clinical Summary ---
Author Organization [employer] [facility] ity Address [address] [place] [address] Care Team Providers Care Roving Can Tender Name Role Phone Timbo Paredes MD Primary Care Provider [phone] Surgical History Surgery Date Site/Laterality Comments SPINE [...] Procedure Name Priority Date/Time Associated Diagnosis Comments [facility] SCREENING DIGITAL Routine 03/18/2021 11:02 AM EDT Encounter for screening mammogram for malignant neoplasm of breast [facility] DEXA AXIAL SKELETON Routine 12/14/2019 10:58 AM EST Encounter for screening for osteoporosis from Last 3 Months or Most Recently Relevant to Health Maintenance Results * [facility] SCREENING DIGITAL (03/18/2021 11:02 AM EDT) Anatomical Region Laterality Modality Mammography 03/18/2021 9:51 AM EDT Narrative 03/18/2021 11:02 AM EDT [facility] Diagnostic Imaging Department [address] [place] [address] Patient: ??GAYATRI BLAS ?/Age/Sex: 1960 - 60 - F Unit#: ??[id number] ? Location/Status: ??SPDIMAM/REG CLI ? Mnemonic/Ordering Site: ??DIGSC/SPMAM Ordering Physician: ??TIMBO PAREDES MD [facility] Screening Digital - 03/18/21 - 1023 EXAM: [facility] Screening Digital EXAM DATE AND TIME: 03/18/2021 10:24 AM HISTORY: ??Annual screening mammography. COMPARISON: ??12/14/2022 through 09/17/2016 TECHNIQUE: CC and MLO views of both breasts were obtained using full field digital mammography. Bilateral digital breast tomosynthesis was performed in the MLO projection. 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 TISSUE DENSITY: b. There are [...] Routine screening mammogram BILATERAL in 1 year. 64839, 64456 3342F, 7025F Dictating Physician: ??EMI MAGANA MD Electronically Signed by: ??EMI MAGANA MD Dic Date/Time: ??03/18/21 1056 Sign date/Time: ??03/18/21 1102 Procedure Note Susan Magana MD - 11/11/2022 [facility] Diagnostic Imaging Department [address] [place] [address] Patient: SALMONTANAGAYATRIMICAH FineO.B./Age/Sex: 1960 - 60 - F Unit#: [id number] Location/Status: [facility] CLI Mnemonic/Ordering Site: [facility] Ordering Physician: TIMBO PAREDES MD [facility] Screening Digital - 03/18/21 - 1023 EXAM: [facility] Screening Digital EXAM DATE AND TIME: 03/18/2021 10:24 AM HISTORY: Annual screening mammography. COMPARISON: 12/14/2022 through 09/17/2016 TECHNIQUE: CC and MLO views of both breasts were obtained using fullfield digital mammography. Bilateral digital breast tomosynthesis was performedin the MLO projection. Computer aided detection with the [employer] 7.2-Hwas employed. TISSUE DENSITY: b. There are [...] Routine screening mammogram BILATERAL in 1 year. 86465, 49306 3342F, 1278F Dictating Physician: EMI MAGANA MD Electronically Signed by: EMI MAGANA MD Dic Date/Time: 03/18/21 1056 Sign date/Time: 03/18/21 110 Timbo Paredes MD IMG BI PROCEDURES Final Result * [facility] DEXA AXIAL SKELETON (12/14/2019 10:58 AM EST) Anatomical Region Laterality Modality Mammography 12/14/2019 10:0 9 AM EST Narrative 12/14/2019 10:58 AM EST [facility] Diagnostic Imaging Department [address] [place] [address] Patient: ??GAYATRI BLAS ?/Age/Sex: 1960 - 59 - F Unit#: ??[id number] ? Location/Status: ??SPDIMAM/REG CLI ? Mnemonic/Ordering Site: ??MAMDEXAAX/SPMAM Ordering Physician: ??RAMON QUIÑONEZ MD [facility] Dexa Axial Skeleton - 12/14/191047 [...] probability of hip fracture of 2.3%. Code 96933 Dictating Physician: ??JENNIFER FRY MD Electronically Signed by: ??JENNIFER FRY MD Dic Date/Time: ??12/14/19 1055 Sign date/Time: ??12/14/19 1058 Procedure Note Jennifer Fry - 11/12/2022 [facility] Diagnostic Imaging Department [address] [place] [address] Patient: SALMONTANAGAYATRI./Age/Sex: 1960 - 59 - F Unit#: [id number] Location/Status: SPDIMAM/REG CLI [facility] Ordering Physician: RAMON QUIÑONEZ MD [...] density of the femurs bilaterally is 0.877 gm/ww7xiopu is 87% of that of young normals [...] probability of hip fracture of 2.3%. Code 95371 Dictating Physician: JENNIFER FRY MD Electronically Signed by: JENNIFER FRY MD Dic Date/Time: 12/14/19 1055 Sign date/Time: 12/14/19 1058 Ramon Quiñonez MD IMG BI PROCEDURES Final Resu lt from Last 3 Months or Most Recently Relevant to Health Maintenance Care Teams Roving Can Tender Relationship Specialty Start Date End Date Timbo Paredes MD [address] [place] [address] [facility] - General 01/11/21
[2025-03-15 13:43] LABS: Appearance Urine Clear; Color Urine Dark Yellow; Glucose Urine UA Negative (Negative); Leukocyte Esterase Urine Negative (Negative); Nitrite Urine Negative (Negative); PH 5.5 (5.0-9.0); Specific Gravity - Urine >= 1.030 (1.005-1.025); Urine Blood Negative (Negative); Urine Ketones Trace mg/dL (Negative); Urine Protein Trace mg/dL (Neg-Trace)
[2025-03-15 13:47] LABS: Basophils Absolute Auto 0.1 X10*3/uL (0.0-0.2); Basophils Percent Auto 0.9 % (0-2); Eosinophils Absolute Auto 0.1 X10*3/uL (0.0-0.4); Eosinophils Percent Auto 1.6 % (0-4); Hematocrit 37.5 % (37.0-47.0); Hemoglobin 12.2 g/dl (12.0-16.0); Imm Gran Abs Auto 0.02 X10*3/uL (0.00-0.03); Imm Gran Pct Auto 0.3 % (0.0-0.4); Lymphocytes Absolute Auto 1.6 X10*3/uL (1.2-4.9); Lymphocytes Percent Auto 23.5 % (20-40); Mean Corpuscular HGB Conc 32.5 g/dl (31.0-35.0); Mean Platelet Volume 9.3 fL (9.4-12.3); Monocytes Absolute Auto 0.4 X10*3/uL (0.1-1.2); Monocytes Percent Auto 6.5 % (2-11); Neutrophils Absolute Auto 4.6 x10*3/uL (2.0-8.3); Neutrophils Percent Auto 67.2 % (45-73); Platelet Count 261 X10*3/uL (160-400); Red Blood Count 4.36 X10*6/uL (4.20-5.50); Red Cell Distribution Width 12.8 % (11.0-16.0); White Blood Count 6.8 X10*3/uL (4.8-10.8)
[2025-03-15 14:02] LABS: Alanine Aminotransferase 10 U/L (0-31); Alkaline Phosphatase 114 U/L (39-117); Anion Gap 12 (12-20); Aspartate Amino Transferase 22 U/L (5-31); Bilirubin Total 0.3 mg/dL (0.0-1.0); Blood Urea Nitrogen 29 mg/dL (9-16); Calcium 9.2 mg/dL (8.4-10.2); Carbon Dioxide 26 mmol/L (22-29); Chloride 103 mmol/L (96-108); Estimated Glomerular Filt Rate > 60; Glucose Random 102 mg/dL (60-115); Sodium 137 mmol/L (135-145); Total Protein 6.7 g/dL (6.5-8.0)
[2025-03-15 14:06] LABS: TSH reflex Free T4 1.34 uIU/mL (0.32-4.0)
[2025-03-15 14:11] LABS: Vitamin B12 1092 pg/mL (200-900)
[2025-03-16 07:29] LABS: LDL Cholesterol Direct 128 mg/dL (<100)
[2025-03-19 14:28] LABS: Vitamin D 25-OH, D2 <4 ng/mL; Vitamin D 25-OH, D3 14 ng/mL; Vitamin D 25-OH, Total 14 ng/mL (30-100)
== END 2025-03-15 10:31 | disposition home or self-care (01) ==
LOC: HO.HMGCLDS 10:30
PROVIDERS: PCP Internal Medicine; Visit Provider Internal Medicine
DX: Z00.01 Encounter for general adult medical examination with abnormal findings (principal); I10 Essential (primary) hypertension; G47.61 Periodic limb movement disorder; G25.81 Restless legs syndrome; E66.01 Morbid (severe) obesity due to excess calories; Z68.37 Body mass index [BMI] 37.0-37.9, adult; G44.89 Other headache syndrome; R73.01 Impaired fasting glucose; M17.11 Unilateral primary osteoarthritis, right knee; F99 Mental disorder, not otherwise specified
CPT/HCPCS: 36415; 80053; 81003; 82306; 82607; 83721; 84443; 85025; 96127; 99212; 99397

== ENCOUNTER 2025-03-15 10:30 | Outpatient (AMB) | payer MEDICARE, MEDICAID, SELFPAY ==
--- NOTE | 2025-03-15 10:38 | MHC.PC.OV ---
Vital Signs 03/15/25 10:39 Height 4 ft 10 in Weight 176 lb 4 oz BMI 36.8 BP 146/86 H Blood Pressure Location Lt brachial Position Sitting Pulse 88 Pulse Source Pulse Oximeter Pulse Oximetry (%) 98 Oxygen Delivery Method Room Air Intake Visit Reasons: Annual PE Allergies prednisolone Allergy (Severe, Verified 03/15/25 10:40) anaphylaxis prednisone [PREDNISONE] Allergy (Severe, Verified 03/15/25 10:40) DEPRESSION Sulfa (Sulfonamide Antibiotics) Allergy (Intermediate, Verified 03/15/25 10:40) hives, rash sulfamethoxazole [From BACTRIM] Allergy (Intermediate, Verified 03/15/25 10:40) hives, rash amlodipine Allergy (Unknown, Verified 03/15/25 10:40) unknown trimethoprim [From BACTRIM] Allergy (Unknown, Verified 03/15/25 10:40) hives, rash clindamycin Adverse Reaction (Severe, Verified 03/15/25 10:40) joint pain magnesium oxide Adverse Reaction (Severe, Verified 03/15/25 10:40) Insomnia methylprednisolone Adverse Reaction (Severe, Verified 03/15/25 10:40) Anaphylaxis trazodone Adverse Reaction (Severe, Verified 03/15/25 10:40) Insomnia procaine [From Novocain] Adverse Reaction (Intermediate, Verified 03/15/25 10:40) Chest Pain sumatriptan [From IMITREX] Adverse Reaction (Verified 03/15/25 10:40) advised to avoid, may cause interaction with ADHD meds ORCHIDS Allergy (Severe, Uncoded 03/15/25 10:40) Angioedema Medication List - Last Reconciled 03/15/25 by Timbo Lucas MD acetaminophen 1,000 mg PO Q6H PRN albuterol sulfate 90 mcg/actuation 2 puffs inhalation Q6H PRN 30 days alprazolam (Xanax) 0.5 mg PO DAILY PRN atomoxetine 80 mg PO QAM bisacodyl (Dulcolax (bisacodyl)) 10 mg (2 x 5 mg) PO BEDTIME chlorhexidine gluconate 0.12% 15 mL buccal DAILY clotrimazole-betamethasone 1-0.05 % 1 appl topical BID cyanocobalamin (vitamin B-12) 500 mcg PO DAILY 30 days dextroamphetamine-amphetamine 20 mg ER (Adderall XR) 20 mg PO DAILY docusate sodium 100 mg PO BEDTIME duloxetine 30 mg PO DAILY fluticasone propionate 50 mcg/actuation (Flonase Allergy Relief) 2 sprays intranasal DAILY hydrocortisone 2.5% (Proctosol HC) 1 appl [place] BID-QID ibuprofen 600 mg PO Q8H PRN magnesium oxide 400 mg PO BEDTIME mirabegron ER (Myrbetriq) 50 mg PO DAILY oxycodone Take 1 tablets by mouth every 4 hours. Partial Fill upon patient request. polyethylene glycol 3350 (Miralax) 17 grams PO DAILY ropinirole 3 mg PO BID verapamil ER 120 mg PO DAILY Tobacco use date assessed: 03/15/25 Fall risk assessment: No Falls in past year Last assessed Fall Risk: 03/15/25 Dental Screening Dental Screen Date: 03/15/25 Did you have a dental visit in the last 12 months?: Yes Did you have a dental problem in the last 6 months where you did not have access to dental care?: No Was dental information given to patient?: Patient has dentist HPI Annual PE HPI Details - The patient is a 64-year-old female presenting for a physical examination. - Has a history of hypertension; current blood pressure reading was slightly elevated at 146 mmHg. She mentioned that the elevated reading may be due to anxiety about arriving late to the appointment. - The patient has been taking a new sleep medication, though intermittently, prescribed by psych med prescriber - Reports elevated liver enzymes and high B12 levels from recent lab work. . - Has been experiencing issues with Vitamin D deficiency, for which she is not taking supplements. Instructed to start taking supplement daily - Diagnosed with sleep apnea and under the care of a neurologist group. - Experiencing numbness most likely attributed to carpal tunnel syndrome, and she is going to be tested for it. Through neurology [facility] . - Reports using alprazolam for anxiety; also taking duloxetine, inhalers, and other medications for various symptoms including restless leg syndrome, constipation, and bladder incontinence. All psychiatric medications through psych med prescriber - Suffers from migraines, stable at this time - Has recent complaints of shoulder pain on the left side, extending under the armpit down the side, with concerns about potential breast issues, though no lumps were found upon examination. - Also mentions experiencing noteworthy stress eating, leading to weight gain after a prior surgery, without identifying the specific cause of stress. - Had a mammogram scheduled for June and a previous colonoscopy was performed last June with normal results. - Currently consulting a therapist named Patti Stephens for psychological support. Health Maintenance - Scheduled mammogram in June. - Last colonoscopy performed June of previous year, with good results; next one recommended in five years. - Blood work indicates elevated liver enzymes and high B12 levels, with a history of Vitamin D deficiency. - Periodic re-evaluation of blood pressure is necessary, with home monitoring recommended. - Normal thyroid function from previous labs. - Follow-up with neurologist and coordination with therapist for ongoing management. Medications - Tylenol for aches and pains - Alprazolam for anxiety - Dulcolax for constipation - B12 supplement for high B12 levels - Adderall for concentration - Duloxetine for mood - Flonase for nasal symptoms - Ibuprofen for aches and pains as needed - MiraBigron for bladder incontinence - Oxycodone as needed for back pain - Ropinirole for restless leg syndrome - MiraLAX for constipation - Verapamil 120 mg for hypertension management Diagnostic results - Labs: Elevated liver enzymes, high Vitamin B12 level, low Vitamin D, normal thyroid function Patient Instructions - Continue taking current medications as prescribed. - Monitor blood pressure regularly at home. - Schedule follow-up appointment in six months. - Ensure to attend upcoming mammogram. - Maintain Vitamin D supplementation. - Follow recommendations provided by therapist. - Report persistent or worsening symptoms immediately. Review of Systems - General: No fever no chills - Neurological: No headaches no dizziness - Ear nose throat: No sore throat no hearing difficulty no ear pain - Cardiovascular: No syncope, no chest pain, no palpitations - Gastrointestinal: No nausea vomiting or diarrhea - Endocrine: No polyuria polydipsia no heat intolerance - Genitourinary: No dysuria - Skin: No new complaints Physical Exam General: Cooperative, healthy appearing, comfortable, no acute distress Orientation: Patient oriented x3 Head: Normal to inspection Ears: Within normal limit visually Nose: Normal external nose present Face and sinus: Normal facial exam Eyes: Appearance normal, extraocular movement intact pupils reactive Neck: Normal visual inspection and supple Respiratory: Normal respiratory effort and able to speak in complete sentences. Clear to auscultation, no stridor Cardiovascular: S1 and S2 RRR Chest exam reveals no tenderness Breast exam benign GI: Normal to inspection. Soft to palpation and nontender Skin: Turgor normal, no acute findings Neuro: Patient oriented x3, motor sensory intact, balance intact, tandem pass Extremities: Normal to inspection, both shoulders with full range of motion without any pain [facility] Medical History Recent bereavement Depression Numbness BAILEY (obstructive sleep apnea) Seasonal allergies Constipation RLS (restless legs syndrome) HTN (hypertension) Anxiety ADHD (attention deficit hyperactivity disorder) History of deviated nasal septum History of nephrolithotomy with removal of calculi Surgical History Hx of nasal septoplasty Hx of laparoscopy (1999) History of carpal tunnel release (~2010) H/O colonoscopy (08/12/23) History of tonsillectomy (1966) H/O adenoidectomy (1966) History of back surgery (~1982) Family History Mother Hypertension Lung cancer Father Lung cancer COPD (chronic obstructive pulmonary disease) Arterial vascular disease Sister Stroke Hypertension Social History Household Members: Spouse Housing: House Are you a primary director medicare sales to a significant other at home: No Do you presently have visiting nurse or other home services: No Alcohol intake: current Alcohol intake frequency: holidays/special occasions only Patient Tobacco Use Status: Never used Tobacco e-Cigarette/Vaping Use: Never Used Second Hand Smoke Exposure: No service: No Current occupational status: disabled Cognitive needs: No Hearing needs: No Vision needs: Yes Questionnaire PHQ-9 Over the last 2 weeks, how often have you been bothered by any of the following problems? 1. Little interest or pleasure in doing things: not at all 2. Feeling down, depressed, or hopeless: not at all 3. Trouble falling or staying asleep, or sleeping too much: not at all 4. Feeling tired or having little energy: not at all 5. Poor appetite or overeating: not at all 6. Feeling bad about yourself - or that you are a failure or have let yourself or your family down: not at all 7. Trouble concentrating on things, such as reading the newspaper or watching television: not at all 8. Moving or speaking so slowly that other people could have noticed. Or the opposite - being so fidgety or restless that you have been moving around a lot more than usual: not at all 9. Thoughts that you would be better off or of hurting yourself in some way: not at all Total score: 0 Depression Screening Interpretation: Negative Depression Screening Done: Yes 03129 - PHQ-9 Billing: Yes Source: Developed by Drs. Isaac Pak, Jacey Ingram, Paramjit Barker and colleagues, with an educational kathy from [employer]. Thrive Questionnaire Date Thrive assessed: 03/15/25 I am a: Patient What is your living situation today?: I have a steady place to live Within the past 12 months, did the food you bought not last and you didn't have the money to get more?: Never true Within the past 12 months, did you worry whether your food would run out before you got money to buy more?: Never true Do you have trouble paying for medicines?: No Do you have trouble getting transportation to medical appointments?: No Do you have trouble paying your heating and electricity bill?: No Do you have trouble taking care of your child, family member or friend?: No Do you have trouble with day-to-day activities such as bathing, preparing meals, shopping, managing finances, etc.?: No Are you currently unemployed and looking for a job?: No Are you interested in more education?: No Please select the resources that you would like help with: None THRIVE Score: 0 AUDIT C Alcohol Use Questionnaire (AUDIT-C) 1. How often do you have a drink containing alcohol?: Never 3. How often do you have six or more drinks on one occasion?: Never Total Score: 0 Score Reviewed/Action Taken: Yes WAQAS-7 AMB Questionnaire WAQAS-7 Date WAQAS - 7 assessed: 03/15/25 Feeling nervous, anxious, or on edge: 0 = Not at all Not being able to stop or control worryin = Not at all Worrying too much about different things: 0 = Not at all Trouble relaxin = Not at all Being so restless that it is hard to sit still: 0 = Not at all Becoming easily annoyed or irritable: 0 = Not at all Feeling afraid as if something awful might happen: 0 = Not at all Total WAQAS-7 score (0-4 normal; 5-9 mild; 10-14 moderate; 15-21 severe): 0 Source: Developed by Drs. Isaac Pak, Jacey Ingram, Paramjit Barker and colleagues, with an educational kathy from [employer]. WAQAS-7 Assessment Billing WAQAS-7 Assessment Tool: WAQAS-7 Assessment 50926 Physical exam (Primary Care) Vital Signs: Last Vital Signs Pulse 88 03/15/25 10:39 BP 146/86 H 03/15/25 10:39 Pulse Ox 98 03/15/25 10:39 Oxygen Delivery Method Room Air 03/15/25 10:39 BMI result Body Mass Index 36.8 Tobacco/Smoking Status: Tobacco use Status Tobacco use date assessed 03/15/25 03/15/25 10:42 Patient Tobacco Use Status Never used Tobacco 03/15/25 10:42 e-Cigarette/Vaping Use Never Used 03/15/25 10:42 PHQ-9: PHQ-9 Score PHQ-9: Total score 0 03/15/25 10:56 Depression Screening Interpretation: Negative Thrive Assessment: Date of Thrive Assessment Date Thrive assessed 03/15/25 03/15/25 10:42 Coding Level of Care Code Est Pt Level 4 (35599) Est Pt Prev Care >65y(41995) Diagnoses Encounter for general adult medical examination with abnormal findings Z00.01 Hypertension, essential I10 Periodic limb movement disorder G47.61 Restless legs syndrome G25.81 Class 2 severe obesity due to excess calories with serious comorbidity and body mass index (BMI) of 37.0 to 37.9 in adult E66.01; Z68.37 Body mass index: BMI 37.0-37.9 Obesity classification: adult class 2 (BMI 35 - 39.9) Serious obesity comorbidity presence: with serious comorbidity Headache syndrome G44.89 Impaired fasting blood sugar R73.01 Primary osteoarthritis of right knee M17.11 Osteoarthritis type: primary Obstructive sleep apnea G47.33 Psychiatric illness F99 Additional Codes WAQAS-7 Assessment Billing - WAQAS-7 Assessment Tool: WAQAS-7 Assessment 25423 ([id number]) PHQ-9 - 23011 - PHQ-9 Billing: Yes ([id number]) Assessment & Plan Assessment & Plan (1) Encounter for general adult medical examination with abnormal findings: Code(s): Z00.01 - Encounter for general adult medical examination with abnormal findings Category: Medical (2) Hypertension, essential: Code(s): I10 - Essential (primary) hypertension Category: Medical (3) Periodic limb movement disorder: Code(s): G47.61 - Periodic limb movement disorder Category: Medical (4) Restless legs syndrome: Code(s): G25.81 - Restless legs syndrome Category: Medical (5) Obesity due to excess calories: Code(s): E66.09 - Other obesity due to excess calories Category: Medical Qualifiers: Body mass index: BMI 37.0-37.9 Obesity classification: adult class 2 (BMI 35 - 39.9) Serious obesity comorbidity presence: with serious comorbidity Qualified Code(s): E66.01 - Morbid (severe) obesity due to excess calories; Z68.37 - Body mass index [BMI] 37.0-37.9, adult (6) Headache syndrome: Code(s): G44.89 - Other headache syndrome Category: Medical (7) Impaired fasting blood sugar: Comment: Some information regarding diabetic diet __Carbohydrates, proteins, and fats : Our bodies break down the food we eat into small pieces called carbohydrates, proteins, and fats. Carbohydrates, which are sugars that our bodies use for energy, can raise a person's blood sugar level. Your doctor, nurse, or dietitian will tell you how many carbohydrates you should eat at each meal or snack. Foods that have carbohydrates include: 1] Bread, pasta, and rice ----- 2 ] Vegetables and fruits ....... 3 ] Dairy foods ...... 4 ] Foods with added sugar ...... ------Calories : People need to eat a certain amount of calories each day to keep their weight the same. People who are overweight and want to lose weight need to eat fewer calories each day......... ......Fiber : Eating foods with a lot of fiber can help control a person's blood sugar level.......... ......Cholesterol : People who have high cholesterol levels might need to reduce the amount of cholesterol they eat. Foods with a lot of cholesterol include red meat, whole milk, and egg yolks......... .......Salt : People who have high blood pressure should not eat foods that contain a lot of salt (also called sodium). People with high blood pressure should also eat healthy foods, such as fruits, vegetables, and low-fat dairy foods......... ......Alcohol : Having more than 1 drink (for women) or 2 drinks (for men) a day can raise blood sugar levels. Also, drinks that have fruit juice or soda in them can raise blood sugar levels.......... What can I do if I need to lose weight? If you need to lose weight, you can: .......Exercise : Try to exercise for 30 minutes a day, most days of the week. Some people with diabetes need to change their medicine dose before they exercise. They might also need to check their blood sugar levels before and after exercising......... ......Eat fewer calories : Your doctor, nurse, or dietitian can tell you how many calories you should eat each day in order to lose weight. Code(s): R73.01 - Impaired fasting glucose Category: Medical (8) Osteoarthritis of right knee: Code(s): M17.11 - Unilateral primary osteoarthritis, right knee Category: Medical Qualifiers: Osteoarthritis type: primary Qualified Code(s): M17.11 - Unilateral primary osteoarthritis, right knee (9) Obstructive sleep apnea: Code(s): G47.33 - Obstructive sleep apnea (adult) (pediatric) Category: Medical (10) Psychiatric illness: Code(s): F99 - Mental disorder, not otherwise specified Category: Medical Plan - The patient is a 64-year-old female presenting for a physical examination. - Has a history of hypertension; current blood pressure reading was slightly elevated at 146 mmHg. She mentioned that the elevated reading may be due to anxiety about arriving late to the appointment. - The patient has been taking a new sleep medication, though intermittently, prescribed by psych med prescriber - Reports elevated liver enzymes and high B12 levels from recent lab work. . - Has been experiencing issues with Vitamin D deficiency, for which she is not taking supplements. Instructed to start taking supplement daily - Diagnosed with sleep apnea and under the care of a neurologist group. - Experiencing numbness most likely attributed to carpal tunnel syndrome, and she is going to be tested for it. Through neurology [facility] . - Reports using alprazolam for anxiety; also taking duloxetine, inhalers, and other medications for various symptoms including restless leg syndrome, constipation, and bladder incontinence. All psychiatric medications through psych med prescriber - Suffers from migraines, stable at this time - Has recent complaints of shoulder pain on the left side, extending under the armpit down the side, with concerns about potential breast issues, though no lumps were found upon examination. - Also mentions experiencing noteworthy stress eating, leading to weight gain after a prior surgery, without identifying the specific cause of stress. - Had a mammogram scheduled for June and a previous colonoscopy was performed last June with normal results. - Currently consulting a therapist named Patti Stephens for psychological support. Health Maintenance - Scheduled mammogram in June. - Last colonoscopy performed June of previous year, with good results; next one recommended in five years. - Blood work indicates elevated liver enzymes and high B12 levels, with a history of Vitamin D deficiency. - Periodic re-evaluation of blood pressure is necessary, with home monitoring recommended. - Normal thyroid function from previous labs. - Follow-up with neurologist and coordination with therapist for ongoing management. Medications - Tylenol for aches and pains - Alprazolam for anxiety - Dulcolax for constipation - B12 supplement for high B12 levels - Adderall for concentration - Duloxetine for mood - Flonase for nasal symptoms - Ibuprofen for aches and pains as needed - MiraBigron for bladder incontinence - Oxycodone as needed for back pain - Ropinirole for restless leg syndrome - MiraLAX for constipation - Verapamil 120 mg for hypertension management Diagnostic results - Labs: Elevated liver enzymes, high Vitamin B12 level, low Vitamin D, normal thyroid function Patient Instructions - Continue taking current medications as prescribed. - Monitor blood pressure regularly at home. - Schedule follow-up appointment in six months. - Ensure to attend upcoming mammogram. - Maintain Vitamin D supplementation. - Follow recommendations provided by therapist. - Report persistent or worsening symptoms immediately. Orders: Orders Comprehensive Met. Panel Today E66.01 - Morbid (severe) obesity due to excess calories, G25.81 - Restless legs syndrome, G44.89 - Other headache syndrome, G47.61 - Periodic limb movement disorder, I10 - Essential (primary) hypertension, M17.11 - Unilateral primary osteoarthritis, right knee, R73.01 - Impaired fasting glucose, Z00.01 - Encounter for general adult medical examination with abnormal findings, Z68.37 - Body mass index [BMI] 37.0-37.9, adult TSH reflex Free T4 Today E66.01 - Morbid (severe) obesity due to excess calories, G25.81 - Restless legs syndrome, G44.89 - Other headache syndrome, G47.61 - Periodic limb movement disorder, I10 - Essential (primary) hypertension, M17.11 - Unilateral primary osteoarthritis, right knee, R73.01 - Impaired fasting glucose, Z00.01 - Encounter for general adult medical examination with abnormal findings, Z68.37 - Body mass index [BMI] 37.0-37.9, adult UA CC w/rflx Micro + Cult Today E66.01 - Morbid (severe) obesity due to excess calories, G25.81 - Restless legs syndrome, G44.89 - Other headache syndrome, G47.61 - Periodic limb movement disorder, I10 - Essential (primary) hypertension, M17.11 - Unilateral primary osteoarthritis, right knee, R73.01 - Impaired fasting glucose, Z00.01 - Encounter for general adult medical examination with abnormal findings, Z68.37 - Body mass index [BMI] 37.0-37.9, adult Complete Blood Count Auto Diff Today E66.01 - Morbid (severe) obesity due to excess calories, G25.81 - Restless legs syndrome, G44.89 - Other headache syndrome, G47.61 - Periodic limb movement disorder, I10 - Essential (primary) hypertension, M17.11 - Unilateral primary osteoarthritis, right knee, R73.01 - Impaired fasting glucose, Z00.01 - Encounter for general adult medical examination with abnormal findings, Z68.37 - Body mass index [BMI] 37.0-37.9, adult LDL Cholesterol Direct Today E66.01 - Morbid (severe) obesity due to excess calories, G25.81 - Restless legs syndrome, G44.89 - Other headache syndrome, G47.61 - Periodic limb movement disorder, I10 - Essential (primary) hypertension, M17.11 - Unilateral primary osteoarthritis, right knee, R73.01 - Impaired fasting glucose, Z00.01 - Encounter for general adult medical examination with abnormal findings, Z68.37 - Body mass index [BMI] 37.0-37.9, adult Vitamin B12 Today E66.01 - Morbid (severe) obesity due to excess calories, G25.81 - Restless legs syndrome, G44.89 - Other headache syndrome, G47.61 - Periodic limb movement disorder, I10 - Essential (primary) hypertension, M17.11 - Unilateral primary osteoarthritis, right knee, R73.01 - Impaired fasting glucose, Z00.01 - Encounter for general adult medical examination with abnormal findings, Z68.37 - Body mass index [BMI] 37.0-37.9, adult Vitamin D 25-OH (D2 and D3) Today E66.01 - Morbid (severe) obesity due to excess calories, G25.81 - Restless legs syndrome, G44.89 - Other headache syndrome, G47.61 - Periodic limb movement disorder, I10 - Essential (primary) hypertension, M17.11 - Unilateral primary osteoarthritis, right knee, R73.01 - Impaired fasting glucose, Z00.01 - Encounter for general adult medical examination with abnormal findings, Z68.37 - Body mass index [BMI] 37.0-37.9, adult Medications: Discontinued magnesium oxide Discontinued Reason: Doctor's Order 400 mg PO BEDTIME 90 tabs 2RF
[2025-03-15 10:39] VITALS: BP 146/86; PULSE 88; O2SAT 98; BMI 36.8
--- OUTSIDE RECORDS SUMMARY | 2025-03-15 12:25 | XMS_ITS | Clinical Summary ---
Author Organization [facility] Address [address] [place] [address] Care Team Providers Care Arc Trimmer Name Role Phone Timbo Lucas MD Primary Care Provider [phone] Allergies Active Allergy Reactions Criticality Noted Date [...] 0 12/02/2018 Active ergocalciferol (VITAMIN D2) capsule 33159 units Take 50,000 Units by mouth. 0 04/22/2019 Active amphetamine-dextroam phetamine (ADDERALL XR) 20 MG 24 hr capsule Take 20 mg by mouth. 0 Acti ve Venlafaxine HCl ER 225 MG TB24 Take 1 tablet by mouth. 0 Active butalbital-acetamino phen-caffeine (FIORICET, ESGIC) 50-325-40 MG per tablet 0 11/23/2019 Active vitamin D3 (CHOLECALCIFEROL) 1.25 MG (18558 UT) CAPS capsule Take 50,000 Units by [...] age to complete this topic Care Teams Arc Trimmer Relationship Specialty Start Date End Date Timbo Lucas MD [address] [place] [id number] PCP - General Internal Medicine 01/11/21
--- OUTSIDE RECORDS SUMMARY | 2025-03-15 12:25 | XMS_ITS | Clinical Summary ---
Author Organization [facility] [employer] [facility] ity Address [address] [place] [address] Care Team Providers Care Admiralty Lawyer Name Role Phone Timbo Paredes MD Primary Care Provider [phone] Surgical History Surgery Date Site/Laterality Comments SPINE [...] Procedure Name Priority Date/Time Associated Diagnosis Comments [facility] SCREENING DIGITAL Routine 03/18/2021 11:02 AM EDT Encounter for screening mammogram for malignant neoplasm of breast [facility] DEXA AXIAL SKELETON Routine 12/14/2019 10:58 AM EST Encounter for screening for osteoporosis from Last 3 Months or Most Recently Relevant to Health Maintenance Results * [facility] SCREENING DIGITAL (03/18/2021 11:02 AM EDT) Anatomical Region Laterality Modality Mammography 03/18/2021 9:51 AM EDT Narrative 03/18/2021 11:02 AM EDT [facility] Diagnostic Imaging Department [address] [place] [address] Patient: ??GAYATRI BLAS ?/Age/Sex: 1960 - 60 - F Unit#: ??[id number] ? Location/Status: ??SPDIMAM/REG CLI ? Mnemonic/Ordering Site: ??DIGSC/SPMAM Ordering Physician: ??TIMBO PAREDES MD [facility] Screening Digital - 03/18/21 - 1023 EXAM: [facility] Screening Digital EXAM DATE AND TIME: 03/18/2021 10:24 AM HISTORY: ??Annual screening mammography. COMPARISON: ??12/14/2022 through 09/17/2016 TECHNIQUE: CC and MLO views of both breasts were obtained using full field digital mammography. Bilateral digital breast tomosynthesis was performed in the MLO projection. 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 TISSUE DENSITY: b. There are [...] Routine screening mammogram BILATERAL in 1 year. 83870, 67750 3342F, 7025F Dictating Physician: ??EMI MAGANA MD Electronically Signed by: ??EMI MAGANA MD Dic Date/Time: ??03/18/21 1056 Sign date/Time: ??03/18/21 1102 Procedure Note Susan Magana MD - 11/11/2022 [facility] Diagnostic Imaging Department [address] [place] [address] Patient: SALMONTANAGAYATIRMICAH FineO.B./Age/Sex: 1960 - 60 - F Unit#: [id number] Location/Status: [facility] CLI [facility] Ordering Physician: TIMBO PAREDES MD [facility] Screening Digital - 03/18/21 - 1023 EXAM: [facility] Screening Digital EXAM DATE AND TIME: 03/18/2021 10:24 AM HISTORY: Annual screening mammography. COMPARISON: 12/14/2022 through 09/17/2016 TECHNIQUE: CC and MLO views of both breasts were obtained using fullfield digital mammography. Bilateral digital breast tomosynthesis was performedin the MLO projection. 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 TISSUE DENSITY: b. There are [...] Routine screening mammogram BILATERAL in 1 year. 59500, 44913 3342F, 9066F Dictating Physician: EMI MAGANA MD Electronically Signed by: EMI MAGANA MD Dic Date/Time: 03/18/21 1056 Sign date/Time: 03/18/21 1100 Timbo Paredes MD IMG BI PROCEDURES Final Result * [facility] DEXA AXIAL SKELETON (12/14/2019 10:58 AM EST) Anatomical Region Laterality Modality Mammography 12/14/2019 10:0 9 AM EST Narrative 12/14/2019 10:58 AM EST [facility] Diagnostic Imaging Department [address] [place] [address] Patient: ??GAYATRI BLAS ?/Age/Sex: 1960 - 59 - F Unit#: ??[id number] ? Location/Status: ??SPDIMAM/REG CLI ? Mnemonic/Ordering Site: ??MAMDEXAAX/SPMAM Ordering Physician: ??RAMON QUIÑONEZ MD [facility] Dexa Axial Skeleton - 12/14/191047 HISTORY: [...] probability of hip fracture of 2.3%. Code 29109 Dictating Physician: ??JENNIFER FRY MD Electronically Signed by: ??JENNIFER FRY MD Dic Date/Time: ??12/14/19 1055 Sign date/Time: ??12/14/19 1058 Procedure Note Jennifer Fry - 11/12/2022 [facility] Diagnostic Imaging Department [address] [place] [address] Patient: SALMONTANAGAYATRI./Age/Sex: 1960 - 59 - F Unit#: [id number] Location/Status: SPDIMAM/REG CLI [facility] Ordering Physician: RAMON QUIÑONEZ MD [facility] Dexa [...] density of the femurs bilaterally is 0.877 gm/uy5gjwxp is 87% of that of young normals [...] probability of hip fracture of 2.3%. Code 75663 Dictating Physician: JENNIFER FRY MD Electronically Signed by: JENNIFER FRY MD Dic Date/Time: 12/14/19 1055 Sign date/Time: 12/14/19 1058 Ramon Quiñonez MD IMG BI PROCEDURES Final Resu lt from Last 3 Months or Most Recently Relevant to Health Maintenance Care Teams Admiralty Lawyer Relationship Specialty Start Date End Date Timbo Paredes MD [address] [place] [address] [facility] - General 01/11/21
== END 2025-03-15 11:03 | disposition home or self-care (01) ==
LOC: HO.HMCC 10:30
PROVIDERS: PCP Internal Medicine; Visit Provider Internal Medicine
DX: Z00.01 Encounter for general adult medical examination with abnormal findings (principal); I10 Essential (primary) hypertension; E66.01 Morbid (severe) obesity due to excess calories; Z68.37 Body mass index [BMI] 37.0-37.9, adult; G47.61 Periodic limb movement disorder; G25.81 Restless legs syndrome; G44.89 Other headache syndrome; R73.01 Impaired fasting glucose; M17.11 Unilateral primary osteoarthritis, right knee; G47.33 Obstructive sleep apnea (adult) (pediatric); F99 Mental disorder, not otherwise specified

== ENCOUNTER 2025-05-09 08:28 | Outpatient (REF) | payer MEDICARE, MEDICAID, SELFPAY ==
--- NOTE | 2025-05-09 08:33 | EMG_ITS ---
Bilateral median and ulnar motor and sensory studies were performed. Bilateral radial sensory studies were performed and paraspinal muscles were tested with a needle. IMPRESSION: 1. 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 2. Mild bilateral ulnar neuropathy across cubital tunnel. MD JAKE Matthew/CHRISL / [id number]
--- OUTSIDE RECORDS SUMMARY | 2025-05-09 08:43 | XMS_ITS | Clinical Summary ---
Author Organization [facility] ity Address [address] [place] [address] Care Team Providers Care Loss Prevention Analyst Name Role Phone Timbo Paredes MD Primary Care Provider [phone] Surgical History Surgery Date Site/Laterality Comments SPINE [...] Name Priority Date/Time Associated Diagnosis Comments [facility] SCREENING DIGITAL Routine 03/18/2021 11:02 AM EDT Encounter for screening mammogram for malignant neoplasm of breast [facility] DEXA AXIAL SKELETON Routine 12/14/2019 10:58 AM EST Encounter for screening for osteoporosis from Last 3 Months or Most Recently Relevant to Health Maintenance Results * [facility] SCREENING DIGITAL (03/18/2021 11:02 AM EDT) Anatomical Region Laterality Modality Mammography 03/18/2021 9:51 AM EDT Narrative 03/18/2021 11:02 AM EDT [facility] Diagnostic Imaging Department [address] [place] [address] Patient: ??GAYATRI BLAS ?/Age/Sex: 1960 - 60 - F Unit#: ??[id number] ? Location/Status: ??SPDIMAM/REG CLI ? Mnemonic/Ordering Site: ??DIGSC/SPMAM Ordering Physician: ??TIMBO PAREDES MD [facility] Screening Digital - 03/18/21 - 1023 EXAM: [facility] Screening Digital EXAM DATE AND TIME: 03/18/2021 10:24 AM HISTORY: ??Annual screening mammography. COMPARISON: ??12/14/2022 through 09/17/2016 TECHNIQUE: CC and MLO views of both breasts were obtained using full field digital mammography. Bilateral digital breast tomosynthesis was performed in the MLO projection. 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 TISSUE DENSITY: b. There are [...] Routine screening mammogram BILATERAL in 1 year. 16637, 57449 3342F, 7025F Dictating Physician: ??EMI MAGANA MD Electronically Signed by: ??EMI MAGANA MD Dic Date/Time: ??03/18/21 1056 Sign date/Time: ??03/18/21 1102 Procedure Note Susan Magana MD - 11/11/2022 [facility] Diagnostic Imaging Department [address] [place] [address] Patient: SALMONTANAGAYATRIMICAH FineO.B./Age/Sex: 1960 - 60 - F Unit#: [id number] Location/Status: [facility] CLI Mnemonic/Ordering Site: [facility] Ordering Physician: TIMBO PAREDES MD [facility] Screening Digital - 03/18/21 - 1023 EXAM: [facility] Screening Digital EXAM DATE AND TIME: 03/18/2021 10:24 AM HISTORY: Annual screening mammography. COMPARISON: 12/14/2022 through 09/17/2016 TECHNIQUE: CC and MLO views of both breasts were obtained using fullfield digital mammography. Bilateral digital breast tomosynthesis was performedin the MLO projection. Computer aided detection with the [employer] 7.2-Hwas employed. TISSUE DENSITY: b. There are [...] Routine screening mammogram BILATERAL in 1 year. 75808, 18464 3342F, 9885F Dictating Physician: EMI MAGANA MD Electronically Signed by: EMI MAGANA MD Dic Date/Time: 03/18/21 1056 Sign date/Time: 03/18/21 1104 Timbo Paredes MD IMG BI PROCEDURES Final Result * [facility] DEXA AXIAL SKELETON (12/14/2019 10:58 AM EST) Anatomical Region Laterality Modality Mammography 12/14/2019 10:0 9 AM EST Narrative 12/14/2019 10:58 AM EST [facility] Diagnostic Imaging Department [address] [place] [address] Patient: ??GAYATRI BLAS ?/Age/Sex: 1960 - 59 - F Unit#: ??[id number] ? Location/Status: ??SPDIMAM/REG CLI ? Mnemonic/Ordering Site: ??MAMDEXAAX/SPMAM Ordering Physician: ??RAMON QUIÑONEZ MD [facility] Dexa Axial Skeleton - 12/14/191047 [...] probability of hip fracture of 2.3%. Code 34971 Dictating Physician: ??JENNIFER FRY MD Electronically Signed by: ??JENNIFER FRY MD Dic Date/Time: ??12/14/19 1055 Sign date/Time: ??12/14/19 1058 Procedure Note Jennifer Fry - 11/12/2022 [facility] Diagnostic Imaging Department [address] [place] [address] Patient: SALMONTANAGAYATRI./Age/Sex: 1960 - 59 - F Unit#: [id number] Location/Status: SPDIMAM/REG CLI [facility] Ordering Physician: RAMON QUIÑONEZ MD [...] density of the femurs bilaterally is 0.877 gm/xh5gzvbk is 87% of that of young normals [...] probability of hip fracture of 2.3%. Code 64034 Dictating Physician: JENNIFER FRY MD Electronically Signed by: JNENIFER FRY MD Dic Date/Time: 12/14/19 1055 Sign date/Time: 12/14/19 1058 Ramon Quiñonez MD IMG BI PROCEDURES Final Resu lt from Last 3 Months or Most Recently Relevant to Health Maintenance Care Teams Loss Prevention Analyst Relationship Specialty Start Date End Date Timbo Paredes MD [address] [place] [address] [facility] - General 01/11/21
== END 2025-05-09 08:29 | disposition home or self-care (01) ==
LOC: HO.NEURO 08:28
PROVIDERS: PCP Internal Medicine; Visit Provider Neurological Surgery
DX: R20.0 Anesthesia of skin (principal)
CPT/HCPCS: 95886; 95911

== ENCOUNTER 2025-05-17 15:01 | Outpatient (AMB) | payer MEDICARE, MEDICAID, SELFPAY ==
--- NOTE | 2025-05-17 15:07 | A.SPINEOV_ITS ---
Intake Visit Reasons: EMG f/u Intake Note: Mrs. Stoddard is here today to F/u on the results of her EMG. Assembler Insulator Required: No Allergies prednisolone Allergy (Severe, Verified 05/17/25 15:07) anaphylaxis prednisone (PREDNISONE) Allergy (Severe, Verified 05/17/25 15:07) DEPRESSION Sulfa (Sulfonamide Antibiotics) Allergy (Intermediate, Verified 05/17/25 15:07) hives, rash sulfamethoxazole (From BACTRIM) Allergy (Intermediate, Verified 05/17/25 15:07) hives, rash amlodipine Allergy (Unknown, Verified 05/17/25 15:07) unknown trimethoprim (From BACTRIM) Allergy (Unknown, Verified 05/17/25 15:07) hives, rash clindamycin Adverse Reaction (Severe, Verified 05/17/25 15:07) joint pain magnesium oxide Adverse Reaction (Severe, Verified 05/17/25 15:07) Insomnia methylprednisolone Adverse Reaction (Severe, Verified 05/17/25 15:07) Anaphylaxis trazodone Adverse Reaction (Severe, Verified 05/17/25 15:07) Insomnia procaine (From Novocain) Adverse Reaction (Intermediate, Verified 05/17/25 15:07) Chest Pain sumatriptan (From IMITREX) Adverse Reaction (Verified 05/17/25 15:07) advised to avoid, may cause interaction with ADHD meds ORCHIDS Allergy (Severe, Uncoded 03/15/25 10:40) Angioedema Assessment & Plan Assessment & Plan (1) Carpal tunnel syndrome of right wrist: Code(s): G56.01 - Carpal tunnel syndrome, right upper limb Category: Medical Plan: Patient was seen. EMG was reviewed. EMG shows severe right carpal tunnel syndrome. She will be scheduled for right carpal tunnel release. All questions were answered regarding the EMG and upcoming surgery. We spent 20 minutes in his consult to answer questions. Alban Jacobs MD, PhD Spine Fellowship Trained Neurosurgeon Director, [facility] Coding Level of Care Code Est Pt Level 3 (49345) Diagnoses Carpal tunnel syndrome of right wrist G56.01
== END 2025-05-17 16:38 | disposition home or self-care (01) ==
LOC: HO.HNS 15:02
PROVIDERS: PCP Internal Medicine; Visit Provider Neurological Surgery
DX: G56.01 Carpal tunnel syndrome, right upper limb (principal)
CPT/HCPCS: 99213

== ENCOUNTER → 2025-05-17 15:01 | Outpatient (BNVA) | payer MEDICARE, MEDICAID, SELFPAY | PROVIDERS: PCP Internal Medicine; Visit Provider Neurological Surgery | DX: G56.01 Carpal tunnel syndrome, right upper limb (principal) | CPT/HCPCS: 99212 ==

== ENCOUNTER 2025-06-14 10:27 | Outpatient (REF) | payer MEDICARE, MEDICAID, SELFPAY ==
--- OUTSIDE RECORDS SUMMARY | 2025-06-15 11:18 | XMS_ITS | Clinical Summary ---
Author Organization [facility] Address [address] [place] [address] Care Team Providers Care Ross Lift Operator Name Role Phone Timbo Lucas MD Primary Care Provider [phone] Allergies Active Allergy Reactions Criticality Noted Date [...] 0 12/02/2018 Active ergocalciferol (VITAMIN D2) capsule 95869 units Take 50,000 Units by mouth. 0 04/22/2019 Active amphetamine-dextroam phetamine (ADDERALL XR) 20 MG 24 hr capsule Take 20 mg by mouth. 0 Acti ve Venlafaxine HCl ER 225 MG TB24 Take 1 tablet by mouth. 0 Active butalbital-acetamino phen-caffeine (FIORICET, ESGIC) 50-325-40 MG per tablet 0 11/23/2019 Active vitamin D3 (CHOLECALCIFEROL) 1.25 MG (03470 UT) CAPS capsule Take 50,000 Units by [...] age to complete this topic Care Teams Ross Lift Operator Relationship Specialty Start Date End Date Timbo Lucas MD [address] [place] [address] PCP - General Internal Medicine 01/11/21
--- OUTSIDE RECORDS SUMMARY | 2025-06-15 11:18 | XMS_ITS | Clinical Summary ---
Author Organization [facility] ity Address [address] [place] [address] Care Team Providers Care Sheet Rock Installation Helper Name Role Phone Timbo Paredes MD Primary Care Provider [phone] Surgical History Surgery Date Site/Laterality Comments SPINE [...] Procedure Name Priority Date/Time Associated Diagnosis Comments [facility] SCREENING DIGITAL Routine 03/18/2021 11:02 AM EDT Encounter for screening mammogram for malignant neoplasm of breast [facility] DEXA AXIAL SKELETON Routine 12/14/2019 10:58 AM EST Encounter for screening for osteoporosis from Last 3 Months or Most Recently Relevant to Health Maintenance Results * [facility] SCREENING DIGITAL (03/18/2021 11:02 AM EDT) Anatomical Region Laterality Modality Mammography 03/18/2021 9:51 AM EDT Narrative 03/18/2021 11:02 AM EDT [facility] Diagnostic Imaging Department [address] [place] [address] Patient: GAYATRI BLAS /Age/Sex: 1960 - 60 - F Unit#: [id number] Location/Status: [facility] CLI Mnemonic/Ordering Site: [facility] Ordering Physician: TIMBO PAREDES MD [facility] Screening Digital - 03/18/21 - 1023 EXAM: [facility] Screening Digital EXAM DATE AND TIME: 03/18/2021 10:24 AM HISTORY: Annual screening mammography. COMPARISON: 12/14/2022 through 09/17/2016 TECHNIQUE: CC and MLO views of both breasts were obtained using full field digital mammography. Bilateral digital breast tomosynthesis was performed in the MLO projection. 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 TISSUE DENSITY: b. There are [...] Routine screening mammogram BILATERAL in 1 year. 52569, 86264 3342F, 7025F Dictating Physician: EMI MAGANA MD Electronically Signed by: EMI MAGANA MD Dic Date/Time: 03/18/21 1056 Sign date/Time: 03/18/21 1102 Procedure Note Susan Magana MD - 11/11/2022 [facility] Diagnostic Imaging Department [address] [place], [place] [id number] Patient: GAYATRI BLAS /Age/Sex: 1960 - 60 - F Unit#: [id number] Location/Status: SPD[facility]/REG CLI Mnemonic/Ordering Site: [facility] Ordering Physician: TIMBO PAREDES MD [facility] Screening Digital - 03/18/21 - 1023 EXAM: [facility] Screening Digital EXAM DATE AND TIME: 03/18/2021 10:24 AM HISTORY: Annual screening mammography. COMPARISON: 12/14/2022 through 09/17/2016 TECHNIQUE: CC and MLO views of both breasts were obtained using fullfield digital mammography. Bilateral digital breast tomosynthesis was performedin the MLO projection. 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 TISSUE DENSITY: b. There are scattered [...] Routine screening mammogram BILATERAL in 1 year. 82277, 53940 3342F, 7025F Dictating Physician: MEI MAGANA MD Electronically Signed by: EMI MAGANA MD Dic Date/Time: 03/18/21 1056 Sign date/Time: 03/18/21 1102 us Timbo Paredes MD IMG BI PROCEDURES Final Result * [facility] DEXA AXIAL SKELETON (12/14/2019 10:58 AM EST) Anatomical Region Laterality Modality Mammography 12/14/2019 10:0 9 AM EST Narrative 12/14/2019 10:58 AM EST [facility] Diagnostic Imaging Department [address] [place] [address] Patient: MINISTERIO BLASUREEN /Age/Sex: 1960 - 59 - F Unit#: [id number] Location/Status: [facility] CLI Mnemonic/Ordering Site: [facility] Ordering Physician: RAMON [...] probability of hip fracture of 2.3%. Code 66017 Dictating Physician: JENNIFER FRY MD Electronically Signed by: JENNIFER FRY MD Dic Date/Time: 12/14/19 105 Sign date/Time: 12/14/19 105 Procedure Note Jennifer Fry - 11/12/2022 [facility] Diagnostic Imaging Department [address] [place] [address] Patient: WANGAYATRI Gupta./Age/Sex: 1960 - 59 - F Unit#: [id number] Location/Status: [facility] Mnemonic[facility] Ordering Physician: RAMON QUIÑONEZ MD [...] density of the femurs bilaterally is 0.877 gm/gi0nsucr is 87% of that of young normals [...] probability of hip fracture of 2.3%. Code 58181 Dictating Physician: JENNIFER FRY MD Electronically Signed by: JENNIFER FRY MD Dic Date/Time: 12/14/19 1055 Sign date/Time: 12/14/19 1058 Ramon Quiñonez MD IM BI PROCEDURES Final Resu lt from Last 3 Months or Most Recently Relevant to Health Maintenance Care Teams Sheet Rock Installation Helper Relationship Specialty Start Date End Date Timbo Paredes MD [address] [place] [address] PCP - General 01/11/21
== END 2025-06-14 10:28 | disposition home or self-care (01) ==
LOC: HO.HOSX 10:27
PROVIDERS: Visit Provider Orthopaedic Surgery
DX: L30.9 Dermatitis, unspecified (principal); Z79.899 Other long term (current) drug therapy
CPT/HCPCS: 99212

== ENCOUNTER 2025-06-14 14:28 | Outpatient (AMB) | payer MEDICARE, MEDICAID, SELFPAY ==
--- OUTSIDE RECORDS SUMMARY | 2025-06-14 15:04 | XMS_ITS ---
Author Name [facility] Organization Unknown Encounters Encounter Type Encounter Reason Primary Diagnosis Location Date Ambulatory [facility] [place] 03/24/2023 Ambulatory [facility] [place] 02/18/2023
--- OUTSIDE RECORDS SUMMARY | 2025-06-14 15:04 | XMS_ITS | Clinical Summary ---
Author Organization [facility] ity Address [address] [place] [address] Care Team Providers Care Obstetrics Nurse Name Role Phone Timbo Paredes MD Primary Care Provider [phone] Surgical History Surgery Date Site/Laterality Comments SPINE [...] Panel) 10/30/2022 Colorectal Cancer Screening: Colonoscopy 10/30/2022 Hepatitis C Screening 10/30/2022 Social Influencers of Health Screening 10/30/2022 Hypertension/CHF/CAD Annual BMP Blood Test 11/05/2022 Breast Cancer Screening 03/18/2023 03/18/20 21, 12/14/2019 Falls Risk Assessment 2023 DTaP,Tdap,and Td Vaccines (2 - Tdap) 11/03/2023 11/03/2013 COVID-19 Vaccine ( - 2023-2 5 season) 2024 Depression Screening 11/23/2024 Influenza Vaccine (#1) 2025 Osteoporosis Screening (Bone Density Screening) 12/14/2029 [...] Procedure Name Priority Date/Time Associated Diagnosis Comments [facility] SCREENING DIGITAL Routine 03/18/2021 11:02 AM EDT Encounter for screening mammogram for malignant neoplasm of breast [facility] DEXA AXIAL SKELETON Routine 12/14/2019 10:58 AM EST Encounter for screening for osteoporosis from Last 3 Months or Most Recently Relevant to Health Maintenance Results * [facility] SCREENING DIGITAL (03/18/2021 11:02 AM EDT) Anatomical Region Laterality Modality Mammography 03/18/2021 9:51 AM EDT Narrative 03/18/2021 11:02 AM EDT [facility] Diagnostic Imaging Department [address] [place] [address] Patient: GAYATRI BLAS /Age/Sex: 1960 - 60 - F Unit#: [id number] Location/Status: [facility] CLI Mnemonic/Ordering Site: [facility] Ordering Physician: TIMBO PAREDES MD [facility] Screening Digital - 03/18/21 - 1023 EXAM: [facility] Screening Digital EXAM DATE AND TIME: 03/18/2021 10:24 AM HISTORY: Annual screening mammography. COMPARISON: 12/14/2022 through 09/17/2016 TECHNIQUE: CC and MLO views of both breasts were obtained using full field digital mammography. Bilateral digital breast tomosynthesis was performed in the MLO projection. 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 TISSUE DENSITY: b. There are scattered areas of fibroglandular density. FINDINGS: No suspicious masses, grouped microcalcifications, or areas of architectural distortion are seen. Scattered asymmetric densities in bilateral breasts are stable. The skin and vascularity are unremarkable. IMPRESSION: Stable mammographic appearance of the breasts. No evidence of malignancy is seen. A negative mammogram in the presence of a clinically suspicious palpable abnormality does not preclude the possibility of malignancy or alter the indications for biopsy. BI-RADS: Category 2: Benign RECOMMENDATION(S): 1: Routine screening mammogram BILATERAL in 1 year. 34107, 46111 3342F, 7025F Dictating Physician: EMI MAGANA MD Electronically Signed by: EMI MAGANA MD Dic Date/Time: 03/18/21 1056 Sign date/Time: 03/18/21 1102 Procedure Note Susan Magana MD - 11/11/2022 [facility] Diagnostic Imaging Department [address] [place], [place] [id number] Patient: GAYATRI BLAS /Age/Sex: 1960 - 60 - F Unit#: [id number] Location/Status: SPDIMAM/REG CLI Mnemonic/Ordering Site: [facility] Ordering Physician: TIMBO PAREDES MD [facility] Screening Digital - 03/18/21 - 1023 EXAM: [facility] Screening Digital EXAM DATE AND TIME: 03/18/2021 10:24 AM HISTORY: Annual screening mammography. COMPARISON: 12/14/2022 through 09/17/2016 TECHNIQUE: CC and MLO views of both breasts were obtained using fullfield digital mammography. Bilateral digital breast tomosynthesis was performedin the MLO projection. 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 TISSUE DENSITY: b. There are scattered [...] Routine screening mammogram BILATERAL in 1 year. 17414, 92990 3342F, 7025F Dictating Physician: EMI MAGANA MD Electronically Signed by: EMI MAGANA MD Dic Date/Time: 03/18/21 1056 Sign date/Time: 03/18/21 1102 us Timbo Paredes MD IMG BI PROCEDURES Final Result * [facility] DEXA AXIAL SKELETON (12/14/2019 10:58 AM EST) Anatomical Region Laterality Modality Mammography 12/14/2019 10:0 9 AM EST Narrative 12/14/2019 10:58 AM EST [facility] Diagnostic Imaging Department [address] [place] [address] Patient: MINISTERIO BLASUREEN /Age/Sex: 1960 - 59 - F Unit#: [id number] Location/Status: [facility] CLI Mnemonic/Ordering Site: [facility] Ordering Physician: RAMON QUIÑONEZ MD [facility] Dexa Axial Skeleton - 12/14/191047 HISTORY: The patient is a 59-year-old postmenopausal female with clinical concern for metabolic bone disease. FINDINGS: Dual [...] 94% of that of age matched controls. This yields a T-score of -1.0 and a Z-score of -0.5 and there is therefore no evidence of osteoporosis or osteopenia here. However, the T-score of the right femoral neck [...] probability of hip fracture of 2.3%. Code 35049 Dictating Physician: JENNIFER FRY MD Electronically Signed by: JENNIFER FRY MD Dic Date/Time: 12/14/19 105 Sign date/Time: 12/14/19 105 Procedure Note Jennifer Fry - 11/12/2022 [facility] Diagnostic Imaging Department [address] [place] [address] Patient: WANGAYATRI Gupta./Age/Sex: 1960 - 59 - F Unit#: [id number] Location/Status: [facility] Mnemonic[facility]ing [facility] Ordering Physician: RAMON QUIÑONEZ MD Andrew [...] density of the femurs bilaterally is 0.877 gm/sp8oxeqc is 87% of that of young normals [...] probability of hip fracture of 2.3%. Code 36506 Dictating Physician: JENNIFER FRY MD Electronically Signed by: JENNIFER FRY MD Dic Date/Time: 12/14/19 1055 Sign date/Time: 12/14/19 1058 Ramon Quiñonez MD IM BI PROCEDURES Final Resu lt from Last 3 Months or Most Recently Relevant to Health Maintenance Care Teams Obstetrics Nurse Relationship Specialty Start Date End Date Timbo Paredes MD [address] [place] [address] PCP - General 01/11/21
--- OUTSIDE RECORDS SUMMARY | 2025-06-14 15:04 | XMS_ITS | Clinical Summary ---
Author Organization [facility] Address [address] [place] [address] Care Team Providers Care Business Information Manager Name Role Phone Timbo Lucas MD Primary Care Provider [phone] Allergies Active Allergy Reactions Criticality Noted Date [...] 0 12/02/2018 Active ergocalciferol (VITAMIN D2) capsule 08510 units Take 50,000 Units by mouth. 0 04/22/2019 Active amphetamine-dextroam phetamine (ADDERALL XR) 20 MG 24 hr capsule Take 20 mg by mouth. 0 Acti ve Venlafaxine HCl ER 225 MG TB24 Take 1 tablet by mouth. 0 Active butalbital-acetamino phen-caffeine (FIORICET, ESGIC) 50-325-40 MG per tablet 0 11/23/2019 Active vitamin D3 (CHOLECALCIFEROL) 1.25 MG (08640 UT) CAPS capsule Take 50,000 Units by [...] - Tdap) 11/03/2023 11/03/2013 Influenza Vaccine (#1) 2025 RSV Adult > 60+ Yrs or Pregn ant (1 - 1-dose 75+ series) 2033 Hepatitis B Vaccines Aged Out No long er eligible based on patient's age to complete this topic RSV Ped < 20 months Aged Out No longe r eligible based on patient's age to complete this topic Care Teams Business Information Manager Relationship Specialty Start Date End Date Timbo Lucas MD [address] [place] [address] PCP - General Internal Medicine 01/11/21
[2025-06-14 15:19] VITALS: BP 122/60; PULSE 81; TEMP 37.6; O2SAT 98; BMI 36.2
--- NOTE | 2025-06-14 15:19 | AM.OFFWIN_ITS ---
Intake Vital Signs 06/14/25 15:19 Height 4 ft 10 in Weight 173 lb BMI 36.2 BP 122/60 Blood Pressure Location Lt brachial Position Sitting Pulse 81 Pulse Source Pulse Oximeter Temp 99.6 F Temp Source Oral Pulse Oximetry (%) 98 Oxygen Delivery Method Room Air Intake Visit Reasons: EP-scalp irritated/itchy Intake Note: presents with itchy, flaky & bumpy scalp Patient Tobacco Use Status: Never used Tobacco Allergies prednisolone Allergy (Severe, Verified 06/14/25 15:19) anaphylaxis prednisone (PREDNISONE) Allergy (Severe, Verified 06/14/25 15:19) DEPRESSION Sulfa (Sulfonamide Antibiotics) Allergy (Intermediate, Verified 06/14/25 15:19) hives, rash sulfamethoxazole (From BACTRIM) Allergy (Intermediate, Verified 06/14/25 15:19) hives, rash amlodipine Allergy (Unknown, Verified 06/14/25 15:19) unknown trimethoprim (From BACTRIM) Allergy (Unknown, Verified 06/14/25 15:19) hives, rash clindamycin Adverse Reaction (Severe, Verified 06/14/25 15:19) joint pain magnesium oxide Adverse Reaction (Severe, Verified 06/14/25 15:19) Insomnia methylprednisolone Adverse Reaction (Severe, Verified 06/14/25 15:19) Anaphylaxis trazodone Adverse Reaction (Severe, Verified 06/14/25 15:19) Insomnia procaine (From Novocain) Adverse Reaction (Intermediate, Verified 06/14/25 15:19) Chest Pain sumatriptan (From IMITREX) Adverse Reaction (Verified 06/14/25 15:19) advised to avoid, may cause interaction with ADHD meds ORCHIDS Allergy (Severe, Uncoded 03/15/25 10:40) Angioedema Medication List - Last Reconciled 06/14/25 by Kecia Vides PA-C acetaminophen 1,000 mg PO Q6H PRN albuterol sulfate 90 mcg/actuation 2 puffs inhalation Q6H PRN 30 days alprazolam (Xanax) 0.5 mg PO DAILY PRN atomoxetine 80 mg PO QAM bisacodyl (Dulcolax (bisacodyl)) 10 mg PO BEDTIME PRN chlorhexidine gluconate 0.12% 15 mL buccal DAILY PRN cholecalciferol (vitamin D3) 25 mcg PO DAILY 90 days clobetasol 0.05% 1 appl topical BID 1 week clotrimazole-betamethasone 1-0.05 % 1 appl topical BID cyanocobalamin (vitamin B-12) 500 mcg PO DAILY 30 days dextroamphetamine-amphetamine 20 mg ER (Adderall XR) 20 mg PO DAILY docusate sodium 100 mg PO BEDTIME duloxetine 30 mg PO DAILY fluticasone propionate 50 mcg/actuation (Flonase Allergy Relief) 2 sprays intran martine DAILY hydrocortisone 2.5% 1 appl MN BID-QID ibuprofen 600 mg PO Q8H PRN mirabegron ER (Myrbetriq) 50 mg PO DAILY polyethylene glycol 3350 (Miralax) 17 grams PO DAILY ropinirole 3 mg PO ONCE verapamil ER 120 mg PO DAILY Do you need a note to return to daycare/school/sports/work: No HPI HPI Comments History of Present Illness0 Details History - The patient is a 64-year-old female pr esenting with scalp eczema. - The patient reports having eczema on h er scalp for approximately 10 years, characterized by dryness, peeling, and scabbing. - She describes the condition as bumpy a nd gross, with a tendency to scratch it frequently, which exacerbates the condition. - The patient is scheduled for carpal tu nnel surgery the following day, which limits her ability to use steroid creams at this time. Physical Exam General: Cooperative, healthy appearing, comfortable, no acute distress and well developed Orientation: Patient oriented x3 Limitations: No limitations Head: Scalp is dry and crusty Ears: Hearing grossly normal bilaterally Nose: Normal External nose present Face and sinus: Normal facial exam Mouth: normal, moist oral mucosa Eyes: Appearance normal, both eyes and all related structures Neck: Normal visual inspection and Yes full ROM Respiratory: Normal respiratory effort and able to speak in complete sentences. Skin: no rashes or lesions noted Neuro: Patient oriented x3, gait normal Extremities: moving all extremities normally PFSH Medical History Recent bereavement Depression Numbness BAILEY (obstructive sleep apnea) Seasonal allergies Constipation RLS (restless legs syndrome) HTN (hypertension) Anxiety ADHD (attention deficit hyperactivity disorder) History of deviated nasal septum History of nephrolithotomy with removal of calculi Surgical History Hx of nasal septoplasty Hx of laparoscopy (1999) History of carpal tunnel release (~2010) H/O colonoscopy (08/12/23) History of tonsillectomy (1966) H/O adenoidectomy (1966) History of back surgery (~1982) Family History Mother Hypertension Lung cancer Father Lung cancer COPD (chronic obstructive pulmonary disease) Arterial vascular disease Sister Stroke Hypertension Social History Household Members: Spouse Housing: House Are you a primary health care facilities inspector to a significant other at home: No Do you presently have visiting nurse or other home services: No Alcohol intake: current Alcohol intake frequency: holidays/special occasions only Patient Tobacco Use Status: Never used Tobacco e-Cigarette/Vaping Use: Never Used Second Hand Smoke Exposure: No service: No Current occupational status: disabled Cognitive needs: No Hearing needs: No Vision needs: Yes Review of Systems Const All systems reviewed & are unremarkable except as noted in HPI and below Physical Exam Vital Signs: Last Vital Signs Temp 99.6 F 06/14/25 15:19 Pulse 81 06/14/25 15:19 BP 122/60 06/14/25 15:19 Pulse Ox 98 06/14/25 15:19 Oxygen Delivery Method Room Air 06/14/25 15:19 BMI result Body Mass Index 36.2 Assessment & Plan Assessment & Plan (1) Eczema of scalp: Code(s): L30.9 - Dermatitis, unspecified Plan: Plan Patient was informed and verbally consented to the use of an ambient scribe for clinic note documentation during this visit 1. Eczema - Prescribed clobetasol ointment for application to the scalp, to be used twice daily for seven days. - Advised to wash hands after application to prevent spreading the ointment to other areas. - Patient instructed to return if symptoms persist after completing the course of treatment. Medications: New clobetasol 0.05% 1 appl topical BID 45 grams 0RF 1 week Kecia Vides PA-C Changed From bisacodyl (Dulcolax (bisacodyl)) 10 mg (2 x 5 mg) PO BEDTIME 180 tabs 4RF To bisacodyl (Dulcolax (bisacodyl)) 10 mg PO BEDTIME PRN SAPNA Aguirre-BC From ropinirole 3 mg PO BID 180 tabs 1RF To ropinirole 3 mg PO ONCE SAPNA Guy Coding Level of Care Code Est Pt Level 3 (56762) Diagnoses Eczema of scalp L30.9
== END 2025-06-14 16:23 | disposition home or self-care (01) ==
PROVIDERS: PCP Internal Medicine; Visit Provider Physician Assistant
DX: L30.9 Dermatitis, unspecified (principal)

== ENCOUNTER 2025-06-15 09:59 | Day surgery (SDC) | payer MEDICARE, MEDICAID, SELFPAY ==
--- OUTSIDE RECORDS SUMMARY | 2025-05-19 13:06 | XMS_ITS | Clinical Summary ---
Author Organization [facility] Address [address] [place] [address] Care Team Providers Care Director Of Learning Name Role Phone Timbo Lucas MD Primary Care Provider [phone] Allergies Active Allergy Reactions Criticality Noted Date [...] 0 12/02/2018 Active ergocalciferol (VITAMIN D2) capsule 05806 units Take 50,000 Units by mouth. 0 04/22/2019 Active amphetamine-dextroam phetamine (ADDERALL XR) 20 MG 24 hr capsule Take 20 mg by mouth. 0 Acti ve Venlafaxine HCl ER 225 MG TB24 Take 1 tablet by mouth. 0 Active butalbital-acetamino phen-caffeine (FIORICET, ESGIC) 50-325-40 MG per tablet 0 11/23/2019 Active vitamin D3 (CHOLECALCIFEROL) 1.25 MG (90229 UT) CAPS capsule Take 50,000 Units by [...] (2 - Tdap) 11/03/2023 11/03/2013 Influenza Vaccine (Season Ended) 2025 RSV Adult > 60+ Yrs or Pregn ant (1 - 1-dose 75+ series) 2033 Hepatitis B Vaccines Aged Out No long er eligible based on patient's age to complete this topic RSV Ped < 20 months Aged Out No longe r eligible based on patient's age to complete this topic Care Teams Director Of Learning Relationship Specialty Start Date End Date Timbo Lucas MD [address] [place] [address] PCP - General Internal Medicine 01/11/21
[2025-06-13 08:29] VITALS: BMI 36.8
[2025-06-15 10:34] VITALS: BMI 36.1
[2025-06-15 10:49] VITALS: BP 127/60; PULSE 75; RESP 16; TEMP 36.4; O2SAT 98
[2025-06-15] MEDS: Lactated Ringers 1,000 ML 100 ML IVCONT (11:04)
--- NOTE | 2025-06-15 11:16 | P.HPSUR_ITS ---
Pre-Procedural Eval Section A - 24 Hr Update-Section A only Date of Service: 06/15/25 The patient is an INPATIENT: No Section B - Complete if H&P > 30 days Chief Complaint: Carpal tunnel syndrome, right upper limb Allergies: Allergies Allergy/AdvReac Type Severity Reaction Status Date / Time prednisolone Allergy Severe anaphylaxis Verified 06/14/25 15:19 prednisone (PREDNISONE) Allergy Severe DEPRESSION Verified 06/14/25 15:19 Sulfa (Sulfonamide Allergy Intermediate hives, rash Verified 06/14/25 15:19 Antibiotics) sulfamethoxazole (From Allergy Intermediate hives, rash Verified 06/14/25 15:19 BACTRIM) amlodipine Allergy Unknown unknown Verified 06/14/25 15:19 trimethoprim (From BACTRIM) Allergy Unknown hives, rash Verified 06/14/25 15:19 clindamycin AdvReac Severe joint pain Verified 06/14/25 15:19 magnesium oxide AdvReac Severe Insomnia Verified 06/14/25 15:19 methylprednisolone AdvReac Severe Anaphylaxis Verified 06/14/25 15:19 trazodone AdvReac Severe Insomnia Verified 06/14/25 15:19 procaine (From Novocain) AdvReac Intermediate Chest Pain Verified 06/14/25 15:19 sumatriptan (From IMITREX) AdvReac advised to Verified 06/14/25 15:19 avoid, may cause interaction with ADHD meds ORCHIDS Allergy Severe Angioedema Uncoded 03/15/25 10:40 Review of Systems Sugical H&P ROS: Negative: Constitution, Cardiovascular, Respiratory, Neurological, Psychiatric, Hem-Onc, Allergic/Immunologic, Gastrointestinal, Genitourinary, Musculoskeletal, Integumentary, Endocrine and Eyes/Ears/N ose/Throat Exam Surgical H&P Exam: Normal: HEENT, Normal: Heart, Normal: Lungs, Normal: Extremities, Normal: Abdomen, Normal: Skin and Normal: Neurological (Awake, alert) Plan Diagnosis/Plan: Unchanged I have reviewed the history and physical and performed a pertinent physical examination on my patient. No changes have occurred unless specified. Right carpal tunnel release Time Spent With Patient Time: Total time managing care of this patient today ___6_ minutes.
--- NOTE | 2025-06-15 11:48 | HO.ANESPROP2 ---
Documented by User: Beverly Workman NP 06/14/25 10:08 HPI - Anesthesia Eval Consult details Narrative: 64 yr old female for right Carpal Tunnel Release s/p L40-5 OLIF 10/2024 BAILEY PMFSH Active Problems Active Problems: All Active Problems Carpal tunnel syndrome of right wrist (Acute) Status post lumbar spine surgery for decompression of spinal cord (Acute) Spondylolisthesis, lumbar region (Acute) Lumbar disc herniation (Acute) Numbness in both hands (Acute) Spinal stenosis (Acute) Osteoarthritis of right knee (Acute) Osteoarthritis of left knee (Acute) Painful paresthesia (Acute) Low vitamin B12 level (Acute) Low ferritin level (Acute) Back pain with sciatica (Acute) Vomiting (Acute) Excessive sleepiness (Acute) Shortness of breath (Acute) Migraine headache (Acute) Feeling sick (Acute) Varicose veins of right lower extremity with inflammation (Acute) Varicose veins of bilateral lower extremities with pain (Acute) Arthritis of right knee (Acute) Arthritis of left knee (Acute) Chronic lower back pain (Acute) Major depression, recurrent (Acute) Arthritis of both knees (Acute) Left knee pain (Acute) Right knee pain (Acute) Impaired fasting blood sugar (Acute) Pain in both feet (Acute) Stress and adjustment reaction (Acute) Encounter for general adult medical examination with abnormal findings (Acute) Prolonged QT interval (Acute) Nonspecific ST-T wave electrocardiographic changes (Acute) Family history of coronary artery disease (Acute) History of rectal bleeding (Acute) Left arm pain (Acute) Strain of left trapezius muscle (Acute) Medicare annual wellness visit, subsequent (Acute) Bereavement counseling (Acute) Headache syndrome (Acute) Psychiatric illness (Acute) Pneumonia (Acute) Frequency of urination (Acute) Cough (Acute) Chest congestion (Acute) Obesity due to excess calories (Acute) Hypertension, essential (Acute) Urine blood (Acute) Dysuria (Acute) Viral syndrome (Acute) Hypertension (Acute) Periodic limb movement disorder (Acute) Restless legs syndrome (Acute) Obstructive sleep apnea (Acute) Past Medical History Medical History (Updated 06/15/25 @ 10:39 by Rima Clemens RN) Heart murmur Recent bereavement Depression Numbness BAILEY (obstructive sleep apnea) Seasonal allergies Constipation RLS (restless legs syndrome) HTN (hypertension) Anxiety ADHD (attention deficit hyperactivity disorder) History of deviated nasal septum History of nephrolithotomy with removal of calculi Family History Family History Mother Hypertension Lung cancer Father Lung cancer COPD (chronic obstructive pulmonary disease) Arterial vascular disease Sister Stroke Hypertension Family history of problems with anesthesia: No Surgical History Surgical History (Updated 06/15/25 @ 10:41 by Rima Clemens RN) Hx of nasal septoplasty Hx of laparoscopy (1999) History of carpal tunnel release (~2010) H/O colonoscopy (08/12/23) History of tonsillectomy (1966) H/O adenoidectomy (1966) History of back surgery (~1982) History of Problems with Anesthesia: No Social History Social History Household Members: Spouse Housing: House Are you a primary home care and home health aides teacher to a significant other at home: No Do you presently have visiting nurse or other home services: No Alcohol intake: current Alcohol intake frequency: holidays/special occasions only Patient Tobacco Use Status: Former Tobacco user e-Cigarette/Vaping Use: Never Used Second Hand Smoke Exposure: No Use of substances other than those prescribed or required for medical reasons: No Are you DNR?: No Advance Directives: No Advance Directives Information Provided: Yes Patient : No : No Poor oral hygiene: No service: No Current occupational status: disabled Cognitive needs: No Hearing needs: No Vision needs: Yes Meds Allergies Allergy/AdvReac Type Severity Reaction Status Date / Time prednisolone Allergy Severe anaphylaxis Verified 06/14/25 15:19 prednisone (PREDNISONE) Allergy Severe DEPRESSION Verified 06/14/25 15:19 Sulfa (Sulfonamide Allergy Intermediate hives, rash Verified 06/14/25 15:19 Antibiotics) sulfamethoxazole (From Allergy Intermediate hives, rash Verified 06/14/25 15:19 BACTRIM) amlodipine Allergy Unknown unknown Verified 06/14/25 15:19 trimethoprim (From BACTRIM) Allergy Unknown hives, rash Verified 06/14/25 15:19 clindamycin AdvReac Severe joint pain Verified 06/14/25 15:19 magnesium oxide AdvReac Severe Insomnia Verified 06/14/25 15:19 methylprednisolone AdvReac Severe Anaphylaxis Verified 06/14/25 15:19 trazodone AdvReac Severe Insomnia Verified 06/14/25 15:19 procaine (From Novocain) AdvReac Intermediate Chest Pain Verified 06/14/25 15:19 sumatriptan (From IMITREX) AdvReac advised to Verified 06/14/25 15:19 avoid, may cause interaction with ADHD meds ORCHIDS Allergy Severe Angioedema Uncoded 03/15/25 10:40 Home Medications ?Medication ?Instructions ?Recorded ?Confirmed ?Last Taken ?Type mirabegron 50 mg tablet,extended 50 mg PO DAILY 02/24/23 06/14/25 06/15/25 03:00 History release 24 hr (Myrbetriq) atomoxetine 80 mg capsule 80 mg PO QAM 11/25/23 06/14/25 Unknown History alprazolam 0.5 mg tablet (Xanax) 0.5 mg PO DAILY PRN Anxiety 03/01/24 06/14/25 10/25/24 08:00 History dextroamphetamine-amphetamine ER 20 mg PO DAILY 03/01/24 06/14/25 Unknown History 20 mg 24hr capsule,extend release (Adderall XR) acetaminophen 500 mg capsule 1,000 mg PO Q6H PRN Pain 10/05/24 06/14/25 Unknown History duloxetine 30 mg capsule,delayed 30 mg PO DAILY 10/05/24 06/14/25 10/25/24 08:00 History release clotrimazole-betamethasone 1 1 appl topical BID 10/06/24 06/14/25 Unknown History %-0.05 % topical cream polyethylene glycol 3350 17 17 g PO DAILY 02/14/25 06/14/25 Unknown History gram/dose oral powder (Miralax) bisacodyl 5 mg tablet,delayed 10 mg PO BEDTIME PRN 06/14/25 06/14/25 Unknown History release (Dulcolax (bisacodyl)) chlorhexidine gluconate 0.12 % 15 ml buccal DAILY PRN 06/14/25 06/14/25 Unknown History mouthwash ropinirole 3 mg tablet 3 mg PO ONCE 06/14/25 06/14/25 Unknown History Exam Height,Weight and Vital Signs: Height 4 ft 10 in Weight 79.832 kg Narrative Narrative: EKG 10/2024 Sinus rhythm, sinus arrhythmia, possible lateral infarct, rate 85 Unchanged from prior EKG 2022 Assessment and Plan Final Anesthetic Review Family History of Problems with Anesthesia: No History of Problems with Anesthesia: No Documented by User: America Villarreal, 06/15/25 11:51 HPI - Anesthesia Eval Consult details Narrative: 64 yr old female for right Carpal Tunnel Release s/p L4-5 OLIF 10/2024 BAILEY on CPAP PMFSH Past Medical History Medical History (Updated 06/15/25 @ 10:39 by Rima Clemens RN) Heart murmur Recent bereavement Depression Numbness BAILEY (obstructive sleep apnea) Seasonal allergies Constipation RLS (restless legs syndrome) HTN (hypertension) Anxiety ADHD (attention deficit hyperactivity disorder) History of deviated nasal septum History of nephrolithotomy with removal of calculi Family History Family History Mother Hypertension Lung cancer Father Lung cancer COPD (chronic obstructive pulmonary disease) Arterial vascular disease Sister Stroke Hypertension Family history of problems with anesthesia: No Surgical History Surgical History (Updated 06/15/25 @ 10:41 by Rima Clemens RN) Hx of nasal septoplasty Hx of laparoscopy (1999) History of carpal tunnel release (~2010) H/O colonoscopy (08/12/23) History of tonsillectomy (1966) H/O adenoidectomy (1966) History of back surgery (~1982) History of Problems with Anesthesia: No Social History Social History Household Members: Spouse Housing: House Are you a primary home care and home health aides teacher to a significant other at home: No Do you presently have visiting nurse or other home services: No Alcohol intake: current Alcohol intake frequency: holidays/special occasions only Patient Tobacco Use Status: Former Tobacco user e-Cigarette/Vaping Use: Never Used Second Hand Smoke Exposure: No Use of substances other than those prescribed or required for medical reasons: No Are you DNR?: No Advance Directives: No Advance Directives Information Provided: Yes Patient : No : No Poor oral hygiene: No service: No Current occupational status: disabled Cognitive needs: No Hearing needs: No Vision needs: Yes Meds Allergies Allergy/AdvReac Type Severity Reaction Status Date / Time prednisolone Allergy Severe anaphylaxis Verified 06/14/25 15:19 prednisone (PREDNISONE) Allergy Severe DEPRESSION Verified 06/14/25 15:19 Sulfa (Sulfonamide Allergy Intermediate hives, rash Verified 06/14/25 15:19 Antibiotics) sulfamethoxazole (From Allergy Intermediate hives, rash Verified 06/14/25 15:19 BACTRIM) amlodipine Allergy Unknown unknown Verified 06/14/25 15:19 trimethoprim (From BACTRIM) Allergy Unknown hives, rash Verified 06/14/25 15:19 clindamycin AdvReac Severe joint pain Verified 06/14/25 15:19 magnesium oxide AdvReac Severe Insomnia Verified 06/14/25 15:19 methylprednisolone AdvReac Severe Anaphylaxis Verified 06/14/25 15:19 trazodone AdvReac Severe Insomnia Verified 06/14/25 15:19 procaine (From Novocain) AdvReac Intermediate Chest Pain Verified 06/14/25 15:19 sumatriptan (From IMITREX) AdvReac advised to Verified 06/14/25 15:19 avoid, may cause interaction with ADHD meds ORCHIDS Allergy Severe Angioedema Uncoded 03/15/25 10:40 Home Medications ?Medication ?Instructions ?Recorded ?Confirmed ?Last Taken ?Type mirabegron 50 mg tablet,extended 50 mg PO DAILY 02/24/23 06/14/25 06/15/25 03:00 History release 24 hr (Myrbetriq) atomoxetine 80 mg capsule 80 mg PO QAM 11/25/23 06/14/25 Unknown History alprazolam 0.5 mg tablet (Xanax) 0.5 mg PO DAILY PRN Anxiety 03/01/24 06/14/25 10/25/24 08:00 History dextroamphetamine-amphetamine ER 20 mg PO DAILY 03/01/24 06/14/25 Unknown History 20 mg 24hr capsule,extend release (Adderall XR) acetaminophen 500 mg capsule 1,000 mg PO Q6H PRN Pain 10/05/24 06/14/25 Unknown History duloxetine 30 mg capsule,delayed 30 mg PO DAILY 11/06/14/25 10/25/24 08:00 History release clotrimazole-betamethasone 1 1 appl topical BID 10/06/24 06/14/25 Unknown History %-0.05 % topical cream polyethylene glycol 3350 17 17 g PO DAILY 02/14/25 06/14/25 Unknown History gram/dose oral powder (Miralax) bisacodyl 5 mg tablet,delayed 10 mg PO BEDTIME PRN 06/14/25 06/14/25 Unknown History release (Dulcolax (bisacodyl)) chlorhexidine gluconate 0.12 % 15 ml buccal DAILY PRN 06/14/25 06/14/25 Unknown History mouthwash ropinirole 3 mg tablet 3 mg PO ONCE 06/14/25 06/14/25 Unknown History Exam Exam Date and Time: 06/15/25 1145 Height,Weight and Vital Signs: Height 4 ft 10 in Weight 79.832 kg Vital Signs Temperature 97.5 F 06/15/25 10:49 Pulse Rate 75 06/15/25 10:49 Respiratory Rate 16 06/15/25 10:49 Blood Pressure 127/60 06/15/25 10:49 Pulse Oximetry 98 06/15/25 10:49 Oxygen Delivery Method Room Air 06/15/25 10:49 Temperature 97.5 F 06/15/25 10:49 Pulse Rate 75 06/15/25 10:49 Respiratory Rate 16 06/15/25 10:49 Blood Pressure 127/60 06/15/25 10:49 Pulse Oximetry 98 06/15/25 10:49 Oxygen Delivery Method Room Air 06/15/25 10:49 Airway Mallampati Class: II TM Dist: <=3cm Neck ROM: Full Loose/Missing/Broken Teeth: Yes (missing molars) Heart: S1S2 Lungs: CTAB Assessment and Plan Assessment Anesthesia Assessment: Anesthesia Plan Discussed and Chart Reviewed Final Anesthetic Review Family History of Problems with Anesthesia: No History of Problems with Anesthesia: No NPO: Yes ASA Class: III Final Preanesthetic Review: No Changes in Pt Med Stat, Meds/Allgs Chart Reviewed, Consent Obtained/Reviewed and Anes Risks/Benef Reviewed Patient Risk: Intermediate Procedure Risk: Low Anesthetic Plan Anesthetic Plan: MAC: and Agree w/ Assess. and Plan Disposition: Standard PACU
--- NOTE | 2025-06-15 12:25 | W.PM.OPN ---
Operative Note Operative Note Date of Service: 06/15/25 Narrative: Diagnosis: Right carpal tunnel syndrome Procedure: Right median nerve release Surgeon: Alban Jacobs MD PhD Description procedure: This patient is suffering from a right carpal tunnel syndrome. The patient was offered a decompression of the median nerve. The procedure complications were explained. The patient was consented. The patient was brought to the operating room, where moderate sedation was applied. Prepping and draping was done followed by time-out. Marcaine was injected into the mid volar region. A midvolar incision was made. The ligamentum carpi transversum was opened sharply until the median nerve became visible. A Metzenbaum scissor was used to decompress the median nerve proximally and distally over its trajectory. Significant compression was present. Hemostasis was done. The incision was closed with 3 interrupted sutures. A compressive PERLA wrap was used for hemostasis. All sponge and needle counts were correct. Patient was transported to the recovery room. Anesthesia: Moderate sedation and local anesthetic Blood loss: Minimal Complications: None Disposition: Discharge home
[2025-06-15 12:44] VITALS: BP 105/51; PULSE 76; RESP 16; TEMP 36.1; O2SAT 99
[2025-06-15 12:49] VITALS: BP 99/49; PULSE 73; RESP 17; O2SAT 100
[2025-06-15 12:59] VITALS: BP 134/77; PULSE 71; RESP 18; TEMP 36.1; O2SAT 98
--- NOTE | 2025-06-15 13:05 | PM.DS ---
DS: Providers Provider Date of Service: 06/15/25 Date of discharge: 06/15/25 Primary care physician: Timbo Lucas MD DS: Summary Time Attestation Discharge Coordination Time (in mins): 12 Quality: Safe Use of Opioids Does Pt have an Active Cancer Diagnosis on the Problem List?: No Quality: Stroke Does the patient have a stroke diagnosis?: No Physical Exam Vital Signs: Vital Signs: Last Vital Signs Temp 97.0 F 06/15/25 12:59 Pulse 71 06/15/25 12:59 Resp 18 06/15/25 12:59 BP 134/77 06/15/25 12:59 Pulse Ox 98 06/15/25 12:59 O2 Del Method Room Air 06/15/25 12:59 O2 Flow Rate 6 06/15/25 12:49 BMI result Body Mass Index 36.1 DS: Data Data Completed and Pending Completed studies during hospitalization [Text1]: Procedures Excision of Lumbar Vertebral Disc, Open Approach (10/25/24) Fusion of Lumbar Vertebral Joint with Interbody Fusion Device, Anterior Approach, Anterior Column, Open Approach (10/25/24) Insertion of Interspinous Process Spinal Stabilization Device into Lumbar Vertebral Joint, Open Approach (10/25/24) Discharge Plan Discharge Patient Disposition: Home, Self-Care Referrals: Timbo Lucas MD [Primary Care Provider, Internal Medicine] - 1 Week Discharge Medications: New tramadol 50 mg tablet 50 mg PO Q6H PRN (Reason: pain) Qty: 20 0RF Continued cyanocobalamin (vitamin B-12) 500 mcg tablet 500 mcg PO DAILY 30 Days Qty: 30 6RF albuterol sulfate 90 mcg/actuation HFA aerosol inhaler 2 puff inhalation Q6H PRN (Reason: bronchospasm) 30 Days Qty: 8.5 1RF hydrocortisone 2.5 % cream with perineal applicator 1 appl HI BID-QID Qty: 30 2RF fluticasone propionate [Flonase Allergy Relief] 50 mcg/actuation spray,suspension 2 spray intranasal DAILY Qty: 16 2RF Rx Instructions: administer into each nostril cholecalciferol (vitamin D3) 25 mcg (1,000 unit) capsule 25 mcg PO DAILY 90 Days Qty: 90 1RF verapamil 120 mg tablet extended release 120 mg PO DAILY Qty: 90 0RF duloxetine 30 mg capsule,delayed release(DR/EC) 30 mg PO DAILY acetaminophen 500 mg Capsule 1,000 mg PO Q6H PRN (Reason: Pain) clotrimazole-betamethasone 1-0.05 % Cream 1 appl TOPICAL BID chlorhexidine gluconate 0.12 % mouthwash 15 ml buccal DAILY PRN Myrbetriq 50 mg tablet extended release 24 hr 50 mg PO DAILY dextroamphetamine-amphetamine [Adderall XR] 20 mg capsule,extended release 24hr 20 mg PO DAILY alprazolam [Xanax] 0.5 mg tablet 0.5 mg PO DAILY PRN (Reason: Anxiety) atomoxetine 80 mg capsule 80 mg PO QAM docusate sodium 100 mg capsule 100 mg PO BEDTIME Qty: 90 3RF polyethylene glycol 3350 [Miralax] 17 gram/dose powder 17 g PO DAILY bisacodyl [Dulcolax (bisacodyl)] 5 mg tablet,delayed release (DR/EC) 10 mg PO BEDTIME PRN ropinirole 3 mg tablet 3 mg PO ONCE clobetasol 0.05 % ointment 1 appl topical BID 7 Days Qty: 45 0RF Held ibuprofen 600 mg tablet 600 mg PO Q8H PRN (Reason: pain) Qty: 30 1RF Hold Instructions: Resume on 06/16/25. Discharge Orders: Discharge Order (Routine); Ordered 06/15/25 Ordered By: Saleem Rodriguez Diet: Advance to usual diet Activity on Discharge: As tolerated Activity Restrictions/Additional Instructions: You may remove your zoe wrap on post op day 3, as well as the dressing underneath it There are sutures in your wound, and you will need these removed 10-14 days after surgery. Please call the office to arrange this visit, You can use your hand as much as you like, however, please avoid straining or heavy lifting It will help swelling in your hand to keep it elevated when you are not using it. You can shower on post op day 1, but please keep wound dry You can drive when you feel comfortable and are off narcotics If you experience any signs of infection such as fever, chills or redness/discharge from your wound,please call office right away Print Language: Indonesian
== END 2025-06-15 14:02 | disposition home or self-care (01) ==
PROVIDERS: PCP Internal Medicine; Visit Provider Neurological Surgery
PROC: (CPT 64721; principal; 2025-06-15 12:10)
DX: G56.01 Carpal tunnel syndrome, right upper limb (principal); I10 Essential (primary) hypertension; R73.01 Impaired fasting glucose; G47.33 Obstructive sleep apnea (adult) (pediatric); G25.81 Restless legs syndrome; J30.2 Other seasonal allergic rhinitis; Z79.899 Other long term (current) drug therapy; Z88.2 Allergy status to sulfonamides; Z88.1 Allergy status to other antibiotic agents; Z88.8 Allergy status to other drugs, medicaments and biological substances; Z98.890 Other specified postprocedural states; Z87.891 Personal history of nicotine dependence
CPT/HCPCS: 64721; J0690; J2003; J2704

== ENCOUNTER → 2025-06-15 09:59 | Outpatient (BNV) | payer MEDICARE, MEDICAID, SELFPAY | PROVIDERS: PCP Internal Medicine; Visit Provider Physician Assistant | DX: G56.01 Carpal tunnel syndrome, right upper limb (principal) | CPT/HCPCS: 64721; 99499 ==

== ENCOUNTER 2025-07-05 06:48 | Outpatient (REF) | payer MEDICARE, MEDICAID, SELFPAY ==
--- NOTE | ~2025-07-05 | XR_ITS ---
EXAMINATION: XR KNEE 3 VIEWS BILATERAL HISTORY: Bilateral knee pain COMPARISON: Comparison is made with the prior examination dated 06/24/2023. FINDINGS: Six views of the bilateral knees are submitted. Osseous mineralization is normal. There is no fracture or dislocation. On the right, there is moderate to severe osteoarthritis of the medial compartment and mild osteoarthritis of the lateral and patellofemoral compartments, with joint space narrowing and osteophyte formation. On the left, there is mild narrowing of the medial compartment. There is no significant joint effusion. There is chondrocalcinosis on the right. Again seen is a curvilinear calcification at the posterior aspect of the right knee which may be ligamentous in nature. XR/XR Knee Yoandy 3V IMPRESSION: Osteoarthritis of the bilateral knees as described. Electronically signed by: Isaac Navas MD 07/05/2025 08:23 AM EDT
--- OUTSIDE RECORDS SUMMARY | 2025-07-05 06:50 | XMS_ITS | Clinical Summary ---
Author Organization [facility] Address [address] [place] [address] Care Team Providers Care Dealer Account Manager Name Role Phone Timbo Lucas MD Primary Care Provider Allergies Active Allergy Reactions Criticality Noted Date [...] 0 12/02/2018 Active ergocalciferol (VITAMIN D2) capsule 40264 units Take 50,000 Units by mouth. 0 04/22/2019 Active amphetamine-dextroam phetamine (ADDERALL XR) 20 MG 24 hr capsule Take 20 mg by mouth. 0 Acti ve Venlafaxine HCl ER 225 MG TB24 Take 1 tablet by mouth. 0 Active butalbital-acetamino phen-caffeine (FIORICET, ESGIC) 50-325-40 MG per tablet 0 11/23/2019 Active vitamin D3 (CHOLECALCIFEROL) 1.25 MG (92224 UT) CAPS capsule Take 50,000 Units by [...] age to complete this topic Care Teams Dealer Account Manager Relationship Specialty Start Date End Date Timbo Lucas MD [address] [place] [address] PCP - General Internal Medicine 01/11/21
--- OUTSIDE RECORDS SUMMARY | 2025-07-05 06:50 | XMS_ITS | Clinical Summary ---
Author Organization [facility] it[facility] Address [address] [place] [address] Care Team Providers Care Lean Process Deployment Consultant Name Role Phone Timbo Paredes MD Primary Care Provider [phone] Surgical History Surgery Date Site/Laterality Comments SPINE [...] Procedure Name Priority Date/Time Associated Diagnosis Comments [facility] SCREENING DIGITAL Routine 03/18/2021 11:02 AM EDT Encounter for screening mammogram for malignant neoplasm of breast [facility] DEXA AXIAL SKELETON Routine 12/14/2019 10:58 AM EST Encounter for screening for osteoporosis from Last 3 Months or Most Recently Relevant to Health Maintenance Results * [facility] SCREENING DIGITAL (03/18/2021 11:02 AM EDT) Anatomical Region Laterality Modality Mammography 03/18/2021 9:51 AM EDT Narrative 03/18/2021 11:02 AM EDT [facility] Diagnostic Imaging Department [address] [place] [address] Patient: GAYATRI BLAS /Age/Sex: 1960 - 60 - F Unit#: [id number] Location/Status: [facility] [facility] Mnemonic/Ordering Site: [facility] Ordering Physician: TIMBO PAREDES MD [facility] Screening Digital - 03/18/21 - 1023 EXAM: [facility] Screening Digital EXAM DATE AND TIME: 03/18/2021 10:24 AM HISTORY: Annual screening mammography. COMPARISON: 12/14/2022 through 09/17/2016 TECHNIQUE: CC and MLO views of both breasts were obtained using full field digital mammography. Bilateral digital breast tomosynthesis was performed in the MLO projection. 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 TISSUE DENSITY: b. There are [...] Routine screening mammogram BILATERAL in 1 year. 78796, [id number] 3342F, 7025F Dictating Physician: EMI MAGANA MD Electronically Signed by: EMI MAGANA MD Dic Date/Time: 03/18/21 1056 Sign date/Time: 03/18/21 1102 Procedure Note Susan Magana MD - 11/11/2022 [facility] Diagnostic Imaging Department [address] [place], [place] [id number] Patient: GAYATRI BLAS /Age/Sex: 1960 - 60 - F Unit#: [id number] Location/Status: [facility] Mnemonic/Ordering Site: [facility] Ordering Physician: TIMBO PAREDES MD [facility] Screening Digital - 03/18/21 - 1023 EXAM: [facility] Screening Digital EXAM DATE AND TIME: 03/18/2021 10:24 AM HISTORY: Annual screening mammography. COMPARISON: 12/14/2022 through 09/17/2016 TECHNIQUE: CC and MLO views of both breasts were obtained using fullfield digital mammography. Bilateral digital breast tomosynthesis was performedin the MLO projection. 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 TISSUE DENSITY: b. There are scattered [...] Routine screening mammogram BILATERAL in 1 year. 26922, 25764 3342F, 7025F Dictating Physician: EMI MAGANA MD Electronically Signed by: EMI MAGANA MD Dic Date/Time: 03/18/21 1056 Sign date/Time: 03/18/21 1102 us Timbo Paredes MD IMG BI PROCEDURES Final Result * [facility] DEXA AXIAL SKELETON (12/14/2019 10:58 AM EST) Anatomical Region Laterality Modality Mammography 12/14/2019 10:0 9 AM EST Narrative 12/14/2019 10:58 AM EST [facility] Diagnostic Imaging Department [address] [place] [address] Patient: MINISTERIO BLASUREEN /Age/Sex: 1960 - 59 - F Unit#: [id number] Location/Status: [facility] [facility] Mnemonic/Ordering Site: [facility] Ordering Physician: RAMON [...] probability of hip fracture of 2.3%. Code 80048 Dictating Physician: JENNIFER FRY MD Electronically Signed by: JENNIFER FRY MD Dic Date/Time: 12/14/19 105 Sign date/Time: 12/14/19 105 Procedure Note Jennifer Fry - 11/12/2022 [facility] Diagnostic Imaging Department [address] [place] [address] Patient: WANGAYATRI Gupta./Age/Sex: 1960 - 59 - F Unit#: [id number] Location/Status: [facility] Mnemonic/Ordering [facility] Ordering Physician: RAMON QUIÑONEZ [...] density of the femurs bilaterally is 0.877 gm/yy0csror is 87% of that of young normals [...] probability of hip fracture of 2.3%. Code 68730 Dictating Physician: JENNIFER FRY MD Electronically Signed by: JENNIFER FRY MD Dic Date/Time: 12/14/19 1055 Sign date/Time: 12/14/19 1058 Ramon Quiñonez MD IM BI PROCEDURES Final Resu lt from Last 3 Months or Most Recently Relevant to Health Maintenance Care Teams Lean Process Deployment Consultant Relationship Specialty Start Date End Date Timbo Paredes MD [address] [place] [address] PCP - General 01/11/21
== END 2025-07-05 06:49 | disposition home or self-care (01) ==
LOC: HO.HOSX 06:48
PROVIDERS: Visit Provider Orthopaedic Surgery
DX: M17.0 Bilateral primary osteoarthritis of knee (principal); M25.561 Pain in right knee; M25.562 Pain in left knee; Z79.899 Other long term (current) drug therapy
CPT/HCPCS: 73562; 99212

== ENCOUNTER 2025-07-05 07:52 | Outpatient (AMB) | payer MEDICARE, MEDICAID, SELFPAY ==
--- NOTE | 2025-07-05 08:00 | A.OFFVIS_ITS ---
Vital Signs 07/05/25 08:04 Height 4 ft 10 in Weight 172 lb BMI 35.9 Intake Visit Reasons: Bilateral knee pain Intake Note: Gayatri is a 65 year old female who presents with complaints of progressively worsening bilateral knee pains. She describes her pains as sharp in nature. She did have Euflexxa viscosupplementation injections given into both of her knees last year. She got very good relief from those injections initially. Her pains have returned. She has failed the last 3 months of conservative treatment which has included Tylenol, anti-inflammatory medicines, a home exercise program and physical therapy exercises. At this point the patient's bilateral knee pains are interfering with her activities of daily living and her ability to sleep well through the night. She wishes to hold off on surgery if at all possible. She has had cortisone injections which gave her no relief. Allergies prednisolone Allergy (Severe, Verified 07/05/25 08:00) anaphylaxis prednisone (PREDNISONE) Allergy (Severe, Verified 07/05/25 08:00) DEPRESSION Sulfa (Sulfonamide Antibiotics) Allergy (Intermediate, Verified 07/05/25 08:00) hives, rash sulfamethoxazole (From BACTRIM) Allergy (Intermediate, Verified 07/05/25 08:00) hives, rash amlodipine Allergy (Unknown, Verified 07/05/25 08:00) unknown trimethoprim (From BACTRIM) Allergy (Unknown, Verified 07/05/25 08:00) hives, rash clindamycin Adverse Reaction (Severe, Verified 07/05/25 08:00) joint pain magnesium oxide Adverse Reaction (Severe, Verified 07/05/25 08:00) Insomnia methylprednisolone Adverse Reaction (Severe, Verified 07/05/25 08:00) Anaphylaxis trazodone Adverse Reaction (Severe, Verified 07/05/25 08:00) Insomnia procaine (From Novocain) Adverse Reaction (Intermediate, Verified 07/05/25 08:00) Chest Pain sumatriptan (From IMITREX) Adverse Reaction (Verified 07/05/25 08:00) advised to avoid, may cause interaction with ADHD meds ORCHIDS Allergy (Severe, Uncoded 07/05/25 08:00) Angioedema Medication List - Last Reconciled 07/05/25 by Rakesh Cox MD acetaminophen 1,000 mg PO Q6H PRN albuterol sulfate 90 mcg/actuation 2 puffs inhalation Q6H PRN 30 days alprazolam (Xanax) 0.5 mg PO DAILY PRN atomoxetine 80 mg PO QAM bisacodyl (Dulcolax (bisacodyl)) 10 mg PO BEDTIME PRN chlorhexidine gluconate 0.12% 15 mL buccal DAILY PRN cholecalciferol (vitamin D3) 25 mcg PO DAILY 90 days clobetasol 0.05% 1 appl topical BID 1 week clotrimazole-betamethasone 1-0.05 % 1 appl topical BID cyanocobalamin (vitamin B-12) 500 mcg PO DAILY 30 days dextroamphetamine-amphetamine 20 mg ER (Adderall XR) 20 mg PO DAILY docusate sodium 100 mg PO BEDTIME duloxetine 30 mg PO DAILY fluticasone propionate 50 mcg/actuation (Flonase Allergy Relief) 2 sprays intranasal DAILY hydrocortisone 2.5% 1 appl [place] BID-QID ibuprofen 600 mg PO Q8H PRN Held on 06/15/25. Instructions: Resume on 06/16/25. mirabegron ER (Myrbetriq) 50 mg PO DAILY polyethylene glycol 3350 (Miralax) 17 grams PO DAILY ropinirole 3 mg PO ONCE tramadol 50 mg PO Q6H PRN verapamil ER 120 mg PO DAILY PFSH Medical History Heart murmur Recent bereavement Depression Numbness BAILEY (obstructive sleep apnea) Seasonal allergies Constipation RLS (restless legs syndrome) HTN (hypertension) Anxiety ADHD (attention deficit hyperactivity disorder) History of deviated nasal septum History of nephrolithotomy with removal of calculi Surgical History Hx of nasal septoplasty Hx of laparoscopy (1999) History of carpal tunnel release (~2010) H/O colonoscopy (08/12/23) History of tonsillectomy (1966) H/O adenoidectomy (1966) History of back surgery (~1982) Family History Mother Hypertension Lung cancer Father Lung cancer COPD (chronic obstructive pulmonary disease) Arterial vascular disease Sister Stroke Hypertension Social History Household Members: Spouse Housing: House Are you a primary care professionals to a significant other at home: No Do you presently have visiting nurse or other home services: No Alcohol intake: current Alcohol intake frequency: holidays/special occasions only Patient Tobacco Use Status: Former Tobacco user e-Cigarette/Vaping Use: Never Used Second Hand Smoke Exposure: No service: No Current occupational status: disabled Cognitive needs: No Hearing needs: No Vision needs: Yes Physical Exam Vital Signs: BMI result Body Mass Index 35.9 Const Other: Well-nourished well-developed very friendly female awake alert and oriented x3 in no acute distress Extrem Other: Bilateral knee examination shows minimal effusions, palpable crepitus with range of motion, pain with range of motion, no instability Results Reviewed Results Reviewed: X-rays of the patient's right knee taken today show moderate joint space narrowing within the medial compartment, subchondral sclerosis, no acute bony abnormalities X-rays of the patient's left knee taken today show mild to moderate joint space narrowing within the medial compartment, subchondral sclerosis, no acute bony abnormalities Assessment & Plan Assessment & Plan (1) Bilateral knee pain: Code(s): M25.561 - Pain in right knee; M25.562 - Pain in left knee Category: Medical (2) Osteoarthritis of right knee: Code(s): M17.11 - Unilateral primary osteoarthritis, right knee Category: Medical Qualifiers: Osteoarthritis type: primary Qualified Code(s): M17.11 - Unilateral primary osteoarthritis, right knee (3) Osteoarthritis of left knee: Code(s): M17.12 - Unilateral primary osteoarthritis, left knee Category: Medical Plan Ms. Stoddard presents with bilateral knee pains due to osteoarthritis. I had a lengthy discussion with the patient regarding the treatment options. She wishes to hold off on surgery for as long as possible. I agree with this plan. I will see if her insurance company will cover viscosupplementation injections for both of her knees. I will see her back once the injections are available. Feel free to call me at any time should questions regarding her orthopedic management arise. I spent 21 minutes in reviewing the patient's records and imaging studies, seeing the patient and documenting in the medical record. Orders: Orders XR Knee Yoandy 3V Today M25.561 - Pain in right knee, M25.562 - Pain in left knee Coding Level of Care Code Est Pt Level 3 (97923) Complex EM visit Add On G2211 Diagnoses Bilateral knee pain M25.561; M25.562 Primary osteoarthritis of right knee M17.11 Osteoarthritis type: primary Osteoarthritis of left knee M17.12
[2025-07-05 08:04] VITALS: BMI 35.9
== END 2025-07-05 08:22 | disposition home or self-care (01) ==
LOC: HO.HOS 07:52
PROVIDERS: PCP Internal Medicine; Visit Provider Orthopaedic Surgery
DX: M17.0 Bilateral primary osteoarthritis of knee (principal)
CPT/HCPCS: 99213; G2211

== ENCOUNTER → 2025-07-05 07:54 | Outpatient (BNV) | payer MEDICARE, MEDICAID, SELFPAY | PROVIDERS: Visit Provider Radiology Diagnostic Radiology | DX: M17.0 Bilateral primary osteoarthritis of knee (principal) | CPT/HCPCS: 73562 ==

== ENCOUNTER 2025-07-06 11:25 | Outpatient (AMB) | payer MEDICARE, MEDICAID, SELFPAY ==
--- NOTE | 2025-07-06 11:27 | A.SPINEOV_ITS ---
Intake Visit Reasons: incision check & R hand numb Intake Note: Ms. Stoddard is here today for a wound check. 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 Allergies prednisolone Allergy (Severe, Verified 07/05/25 08:00) anaphylaxis prednisone (PREDNISONE) Allergy (Severe, Verified 07/05/25 08:00) DEPRESSION Sulfa (Sulfonamide Antibiotics) Allergy (Intermediate, Verified 07/05/25 08:00) hives, rash sulfamethoxazole (From BACTRIM) Allergy (Intermediate, Verified 07/05/25 08:00) hives, rash amlodipine Allergy (Unknown, Verified 07/05/25 08:00) unknown trimethoprim (From BACTRIM) Allergy (Unknown, Verified 07/05/25 08:00) hives, rash clindamycin Adverse Reaction (Severe, Verified 07/05/25 08:00) joint pain magnesium oxide Adverse Reaction (Severe, Verified 07/05/25 08:00) Insomnia methylprednisolone Adverse Reaction (Severe, Verified 07/05/25 08:00) Anaphylaxis trazodone Adverse Reaction (Severe, Verified 07/05/25 08:00) Insomnia procaine (From Novocain) Adverse Reaction (Intermediate, Verified 07/05/25 08:00) Chest Pain sumatriptan (From IMITREX) Adverse Reaction (Verified 07/05/25 08:00) advised to avoid, may cause interaction with ADHD meds ORCHIDS Allergy (Severe, Uncoded 07/05/25 08:00) Angioedema Assessment & Plan Assessment & Plan (1) S/P carpal tunnel release: Code(s): Z98.890 - Other specified postprocedural states Category: Medical Plan Procedure: Right carpal tunnel release Gayatri Is a pleasant 65-year-old female comes in today as an acute add on visit after calling the clinic with have concerns that she had some swelling and continued pain near the incision site over the ventral surface of right hand. She has already had the sutures removed from her carpal tunnel surgery. She reports that she has been trying to take Tylenol at home to help mitigate the pain, however in his only been modestly helpful. On examination the patient has mild edema underlying the incision on her right wrist. There is some very mild redness around the incision, but is not indicative of erythema or fluctuance. She is still able to curl her fingertips to the distal palmar crease without issue. There is no active drainage from the incision site. I believe that more in his simply dealing with some inflammation and swelling since her surgery. I advised her to try utilizing ice (in a sealed bag / cloth covering; not wet) on the wrist a few times per day alongside ibuprofen. We will follow up with her routinely in a few weeks. Saleem Jacobs MD,PhD [facility] Coding Level of Care Code Global (05248) Diagnoses S/P carpal tunnel release Z98.890
--- OUTSIDE RECORDS SUMMARY | 2025-07-06 12:31 | XMS_ITS | Clinical Summary ---
Author Organization [facility] Address [address] [place] [address] Care Team Providers Care Ppap Coordinator Name Role Phone Timbo Lucas MD Primary Care Provider [phone] Allergies Active Allergy Reactions Criticality Noted Date [...] 0 12/02/2018 Active ergocalciferol (VITAMIN D2) capsule 04840 units Take 50,000 Units by mouth. 0 04/22/2019 Active amphetamine-dextroam phetamine (ADDERALL XR) 20 MG 24 hr capsule Take 20 mg by mouth. 0 Acti ve Venlafaxine HCl ER 225 MG TB24 Take 1 tablet by mouth. 0 Active butalbital-acetamino phen-caffeine (FIORICET, ESGIC) 50-325-40 MG per tablet 0 11/23/2019 Active vitamin D3 (CHOLECALCIFEROL) 1.25 MG (27994 UT) CAPS capsule Take 50,000 Units by [...] age to complete this topic Care Teams Ppap Coordinator Relationship Specialty Start Date End Date Timbo Lucas MD [address] [place] [address] PCP - General Internal Medicine 01/11/21
--- OUTSIDE RECORDS SUMMARY | 2025-07-06 12:31 | XMS_ITS | Clinical Summary ---
Author Organization [facility] ity Address [address] [place] [address] Care Team Providers Care Barrer And Tacker Name Role Phone Timbo Paredes MD Primary Care Provider [phone] Surgical History Surgery Date Site/Laterality Comments SPINE [...] AM EDT Narrative 03/18/2021 11:02 AM EDT [facility] Diagnostic Imaging Department [address] [place] [id number] Patient: GAYATRI BLAS /Age/Sex: 1960 - 60 - F Unit#: [id number] Location/Status: [facility] CLI Mnemonic/Ordering Site: [facility] Ordering Physician: TIMBO PAREDES MD [facility] Screening Digital - 03/18/21 - 1023 EXAM: [facility] Screening Digital EXAM DATE AND TIME: 03/18/2021 10:24 AM HISTORY: Annual screening mammography. COMPARISON: 12/14/2022 through 09/17/2016 TECHNIQUE: CC and MLO views of both breasts were obtained using full field digital mammography. Bilateral digital breast tomosynthesis was performed in the MLO projection. 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 TISSUE DENSITY: b. There are [...] Routine screening mammogram BILATERAL in 1 year. 96514, 39230 3342F, 7025F Dictating Physician: EMI MAGANA MD Electronically Signed by: EMI MAGANA MD Dic Date/Time: 03/18/21 1056 Sign date/Time: 03/18/21 1102 Procedure Note Susan Magana MD - 11/11/2022 [facility] Diagnostic Imaging Department [address] [place], [place] [id number] Patient: GAYATRI BLAS /Age/Sex: 1960 - 60 - F Unit#: [id number] Location/Status: SPD[facility]AM/REG CLI Mnemonic/Ordering Site: [facility] Ordering Physician: TIMBO PAREDES MD [facility] Screening Digital - 03/18/21 - 1023 EXAM: [facility] Screening Digital EXAM DATE AND TIME: 03/18/2021 10:24 AM HISTORY: Annual screening mammography. COMPARISON: 12/14/2022 through 09/17/2016 TECHNIQUE: CC and MLO views of both breasts were obtained using fullfield digital mammography. Bilateral digital breast tomosynthesis was performedin the MLO projection. 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 TISSUE DENSITY: b. There are scattered [...] Routine screening mammogram BILATERAL in 1 year. 08128, 75081 3342F, 7025F Dictating Physician: EMI MAGANA MD Electronically Signed by: EMI MAGANA MD Dic Date/Time: 03/18/21 1056 Sign date/Time: 03/18/21 1102 us Timbo Paredes MD IMG BI PROCEDURES Final Result * ANDREW DEXA AXIAL SKELETON (12/14/2019 10:58 AM EST) Anatomical Region Laterality Modality Mammography 12/14/2019 10:0 9 AM EST Narrative 12/14/2019 10:58 AM EST [facility] Diagnostic Imaging Department [address] [place] [address] Patient: MINISTERIO BLASUREEN /Age/Sex: 1960 - 59 - F Unit#: [id number] Location/Status: [facility] CLI Mnemonic/Ordering Site: [facility] Ordering [...] probability of hip fracture of 2.3%. Code 22298 Dictating Physician: JENNIFER FRY MD Electronically Signed by: JENNIFER FRY MD Dic Date/Time: 12/14/19 105 Sign date/Time: 12/14/19 105 Procedure Note Jennifer Fry - 11/12/2022 [facility] Diagnostic Imaging Department [address] [place] [address] Patient: WANGAYATRI Gupta./Age/Sex: 1960 - 59 - F Unit#: [id number] Location/Status: [facility] Ordering Physician: RAMON QUIÑONEZ MD Andrew [...] density of the femurs bilaterally is 0.877 gm/[id number] is 87% of that of young normals [...] probability of hip fracture of 2.3%. Code 46257 Dictating Physician: JENNIFER FRY MD Electronically Signed by: JENNIFER FRY MD Dic Date/Time: 12/14/19 1055 Sign date/Time: 12/14/19 1058 Ramon Quiñonez MD IM BI PROCEDURES Final Resu lt from Last 3 Months or Most Recently Relevant to Health Maintenance Care Teams Barrer And Tacker Relationship Specialty Start Date End Date Timbo Paredes MD [address] [place] [address] PCP - General 01/11/21
== END 2025-07-06 11:40 | disposition home or self-care (01) ==
PROVIDERS: Visit Provider Physician Assistant
DX: Z98.890 Other specified postprocedural states (principal)
CPT/HCPCS: 99024

== ENCOUNTER → 2025-07-06 11:25 | Outpatient (BNVA) | payer MEDICARE, MEDICAID, SELFPAY | PROVIDERS: Visit Provider Physician Assistant | DX: Z98.890 Other specified postprocedural states (principal) | CPT/HCPCS: 99212 ==

== ENCOUNTER 2025-08-09 11:20 | Outpatient (AMB) | payer MEDICAID, SELFPAY ==
[2025-08-09 11:24] VITALS: BP 136/74; PULSE 94; O2SAT 98; BMI 36.2
--- NOTE | 2025-08-09 11:24 | A.OFFVIS_ITS ---
Vital Signs 08/09/25 11:24 Height 4 ft 10 in Weight 173 lb BMI 36.2 BP 136/74 Blood Pressure Location Rt brachial Position Sitting Pulse 94 Pulse Source Pulse Oximeter Pulse Oximetry (%) 98 Oxygen Delivery Method Room Air Intake Visit Reasons: 6m Intake Note: ESTABLISHED PATIENT for [facility] mgmt. Chief Complaint; Pt denies any significant GI changes or concerns since last vi sit. Confirms that her Rx are still working as intended. Stopped taking mag oxide and docusate at this time as they did not feel necessary. 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 Accompanied by: Self / Same As Patient Allergies prednisolone Allergy (Severe, Verified 08/09/25 13:23) anaphylaxis prednisone (PREDNISONE) Allergy (Severe, Verified 08/09/25 13:23) DEPRESSION Sulfa (Sulfonamide Antibiotics) Allergy (Intermediate, Verified 08/09/25 13:23) hives, rash sulfamethoxazole (From BACTRIM) Allergy (Intermediate, Verified 08/09/25 13:23) hives, rash amlodipine Allergy (Unknown, Verified 08/09/25 13:23) unknown trimethoprim (From BACTRIM) Allergy (Unknown, Verified 08/09/25 13:23) hives, rash clindamycin Adverse Reaction (Severe, Verified 08/09/25 13:23) joint pain magnesium oxide Adverse Reaction (Severe, Verified 08/09/25 13:23) Insomnia methylprednisolone Adverse Reaction (Severe, Verified 08/09/25 13:23) Anaphylaxis trazodone Adverse Reaction (Severe, Verified 08/09/25 13:23) Insomnia procaine (From Novocain) Adverse Reaction (Intermediate, Verified 08/09/25 13:23) Chest Pain sumatriptan (From IMITREX) Adverse Reaction (Verified 08/09/25 13:23) advised to avoid, may cause interaction with ADHD meds ORCHIDS Allergy (Severe, Uncoded 08/09/25 11:30) Angioedema HPI HPI 6m: Details: LAST VISIT: Constipation Abdominal bloating Plan Continue MiraLax and Dulcolax daily. May use stool softeners as needed. Avoid straining. Sits baths with Epsom salts as needed. Follow-up in 6 months, sooner on as needed basis. Patient is agreeable to this plan and verbalizes understanding of instructions. She was given the opportunity to ask questions and all questions answered. ? Thank you for allowing me to participate in her care New bisacodyl (Dulcolax (bisacodyl)) 10 mg (2 x 5 mg) PO BEDTIME 180 tabs 4RF magnesium oxide 400 mg PO BEDTIME 90 tabs 2RF TODAY'S VISIT: Patient is here today for follow-up. Patient reports that she has been doing fair. Moving her bowels and if she does not have a bowel movement patient will take Dulcolax as needed. Patient has been feeling down lately. She reports that this is the time and inversely also daughter that. Patient her been depressed and feels like she is being forgetful. Patient will call her therapist and psychiatrist to see if they can provide more insight into what is going on with her. Patient make an additional appointment so they can explain to her new medication. She was placed on desvenlafaxine succinate ER 25 mg daily. [facility] Medical History Heart murmur Recent bereavement Depression Numbness BAILEY (obstructive sleep apnea) Seasonal allergies Constipation RLS (restless legs syndrome) HTN (hypertension) Anxiety ADHD (attention deficit hyperactivity disorder) History of deviated nasal septum History of nephrolithotomy with removal of calculi Surgical History Hx of nasal septoplasty Hx of laparoscopy (1999) History of carpal tunnel release (~2010) H/O colonoscopy (08/12/23) History of tonsillectomy (1966) H/O adenoidectomy (1966) History of back surgery (~1982) Family History Mother Hypertension Lung cancer Father Lung cancer COPD (chronic obstructive pulmonary disease) Arterial vascular disease Sister Stroke Hypertension Social History Household Members: Spouse Housing: House Are you a primary hiv/aids care nurse to a significant other at home: No Do you presently have visiting nurse or other home services: No Alcohol intake: current Alcohol intake frequency: holidays/special occasions only Patient Tobacco Use Status: Former Tobacco user e-Cigarette/Vaping Use: Never Used Second Hand Smoke Exposure: No service: No Current occupational status: disabled Cognitive needs: No Hearing needs: No Vision needs: Yes Review of Systems Const Denies weight gain and Denies weight loss ENT Reports no additional complaints, Denies dysphagia and Denies odynophagia Card Reports no additional complaints Resp Reports no additional complaints GI Denies abdominal pain, Denies belching, Denies melena, Reports bloating, Denies change in bowel habits, Reports constipation (Occasional), Denies dysphagia, Denies excessive flatus, Denies dyspepsia, Denies heartburn, Denies diarrhea, Denies loose stools, Denies nausea, Denies odynophagia and Denies vomiting Reports no additional complaints Musc Reports no additional complaints Neuro Reports no additional complaints Psych Reports no additional complaints Endo Reports no additional complaints Physical Exam Vital Signs: Last Vital Signs Pulse 94 08/09/25 11:24 BP 136/74 08/09/25 11:24 Pulse Ox 98 08/09/25 11:24 Oxygen Delivery Method Room Air 08/09/25 11:24 BMI result Body Mass Index 36.2 Const General: healthy appearing and no acute distress Nutritional Appearance: obese Orientation/consciousness: patient oriented x3 Resp Effort & Inspection: normal respiratory effort, able to speak in complete sentences, no tracheal deviation and symmetric chest movement Auscultation: clear to auscultation bilaterally Cardio Rate: regular rate GI Inspection: Yes normal to inspection, No distended and Yes obesity Palpation (GI): Soft to palpation, not firm, nontender and No hepatosplenomegaly present Auscultation: normal bowel sounds General: Yes no CVA tenderness Back/Spine/Pelvis Back: no CVA tenderness Skin General skin exam: elasticity normal, turgor normal and dry skin Neuro General: patient oriented x3 Psych Appearance: grossly normal Mental Status: mental status grossly normal Assessment & Plan Assessment & Plan (1) Constipation: Code(s): K59.00 - Constipation, unspecified Qualifiers: Constipation type: slow transit constipation Qualified Code(s): K59.01 - Slow transit constipation (2) Abdominal bloating: Code(s): R14.0 - Abdominal distension (gaseous) Plan Patient will continue Dulcolax as needed. Increase fluid intake and activity to promote better bowel motility. Patient will follow-up in 1 year, sooner on as needed basis. She is agreeable to this plan and verbalizes understanding of instructions. She was given the opportunity to ask questions and all questions answered. Thank you for allowing me to participate in her care Coding Level of Care Code Est Pt Level 3 (27492) Diagnoses Slow transit constipation K59.01 Constipation type: slow transit constipation Abdominal bloating R14.0 Time Spent (min) 25 Comment 15 minutes spent with patient and additional 10 minutes spent reviewing her records
--- OUTSIDE RECORDS SUMMARY | 2025-08-09 14:40 | XMS_ITS | Clinical Summary ---
Author Organization [employer] [facility] ity Address [address] [place] [address] Care Team Providers Care Supervisor Irrigation Name Role Phone Timbo Paredes MD Primary Care Provider [phone] Surgical History Surgery Date Site/Laterality Comments SPINE [...] Td Vaccines (2 - Tdap) 11/03/2023 11/03/2013 Depression Screening 11/23/2024 COVID-19 Vaccine ( - 2023-2 5 season) 2025 Influenza Vaccine (#1) 2025 Osteoporosis Screening (Bone [...] Procedure Name Priority Date/Time Associated Diagnosis Comments [facility] SCREENING DIGITAL Routine 03/18/2021 11:02 AM EDT Encounter for screening mammogram for malignant neoplasm of breast [facility] DEXA AXIAL SKELETON Routine 12/14/2019 10:58 AM EST Encounter for screening for osteoporosis from Last 3 Months or Most Recently Relevant to Health Maintenance Results * [facility] SCREENING DIGITAL (03/18/2021 11:02 AM EDT) Anatomical Region Laterality Modality Mammography 03/18/2021 9:51 AM EDT Narrative 03/18/2021 11:[address] [facility] Diagnostic Imaging Department [address] [place] [address] Patient: GAYATRI BLAS /Age/Sex: 1960 - 60 - F Unit#: [id number] Location/Status: [facility] CLI Mnemonic/Ordering Site: [facility] Ordering Physician: TIMBO PAREDES MD [facility] Screening Digital - 03/18/21 - 1023 EXAM: [facility] Screening Digital EXAM DATE AND TIME: 03/18/2021 10:24 AM HISTORY: Annual screening mammography. COMPARISON: 12/14/2022 through 09/17/2016 TECHNIQUE: CC and MLO views of both breasts were obtained using full field digital mammography. Bilateral digital breast tomosynthesis was performed in the MLO projection. 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 TISSUE DENSITY: b. There are [...] Routine screening mammogram BILATERAL in 1 year. 34839, 88972 3342F, 7025F Dictating Physician: EMI MAGANA MD Electronically Signed by: EMI MAGANA MD Dic Date/Time: 03/18/21 1056 Sign date/Time: 03/18/21 1102 Procedure Note Susan Magana MD - 11/11/2022 [facility] Diagnostic Imaging Department [address] [place], [place] [id number] Patient: GAYATRI BLAS /Age/Sex: 1960 - 60 - F Unit#: [id number] Location/Status: SPDIMAM/REG CLI Mnemonic/Ordering Site: [facility] Ordering Physician: TIMBO PAREDES MD [facility] Screening Digital - 03/18/21 - 1023 EXAM: [facility] Screening Digital EXAM DATE AND TIME: 03/18/2021 10:24 AM HISTORY: Annual screening mammography. COMPARISON: 12/14/2022 through 09/17/2016 TECHNIQUE: CC and MLO views of both breasts were obtained using fullfield digital mammography. Bilateral digital breast tomosynthesis was performedin the MLO projection. 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 TISSUE DENSITY: b. There are scattered [...] Routine screening mammogram BILATERAL in 1 year. 01583, 06384 3342F, 7025F Dictating Physician: EMI MAGANA MD Electronically Signed by: EMI MAGANA MD Dic Date/Time: 03/18/21 1056 Sign date/Time: 03/18/21 1102 us Timbo Paredes MD IMG BI PROCEDURES Final Result * [facility] DEXA AXIAL SKELETON (12/14/2019 10:58 AM EST) Anatomical Region Laterality Modality Mammography 12/14/2019 10:0 9 AM EST Narrative 12/14/2019 10:[address] [facility] Diagnostic Imaging Department [address] [place] [address] Patient: MINISTERIO BLASUREEN /Age/Sex: 1960 - 59 - F Unit#: [id number] Location/Status: [facility] CLI Mnemonic/Ordering Site: [facility] Ordering Physician: RAMON [...] probability of hip fracture of 2.3%. Code 05696 Dictating Physician: JENNIFER FRY MD Electronically Signed by: JENNIFER FRY MD Dic Date/Time: 12/14/19 105 Sign date/Time: 12/14/19 105 Procedure Note Jennifer Fry - 11/12/2022 [facility] Diagnostic Imaging Department [address] [place] [address] Patient: WANGAYATRI Gupta./Age/Sex: 1960 - 59 - F Unit#: [id number] Location/Status: [facility] Mnemonic[facility] Ordering Physician: RAMON QUIÑONEZ MD [facility] [...] density of the femurs bilaterally is 0.877 gm/kb7duxjh is 87% of that of young normals [...] probability of hip fracture of 2.3%. Code 34727 Dictating Physician: JENNIFER FRY MD Electronically Signed by: JENNIFER FRY MD Dic Date/Time: 12/14/19 1055 Sign date/Time: 12/14/19 1058 Ramon Quiñonez MD IM BI PROCEDURES Final Resu lt from Last 3 Months or Most Recently Relevant to Health Maintenance Care Teams Supervisor Irrigation Relationship Specialty Start Date End Date Timbo Paredes MD [address] [place] [address] PCP - General 01/11/21
--- OUTSIDE RECORDS SUMMARY | 2025-08-09 14:40 | XMS_ITS | Clinical Summary ---
Author Organization [facility] Address [address] [place] [address] Care Team Providers Care Hrbp Name Role Phone Timbo Lucas MD Primary Care Provider [phone] Allergies Active Allergy Reactions Criticality Noted Date [...] 0 12/02/2018 Active ergocalciferol (VITAMIN D2) capsule 27570 units Take 50,000 Units by mouth. 0 04/22/2019 Active amphetamine-dextroam phetamine (ADDERALL XR) 20 MG 24 hr capsule Take 20 mg by mouth. 0 Acti ve Venlafaxine HCl ER 225 MG TB24 Take 1 tablet by mouth. 0 Active butalbital-acetamino phen-caffeine (FIORICET, ESGIC) 50-325-40 MG per tablet 0 11/23/2019 Active vitamin D3 (CHOLECALCIFEROL) 1.25 MG (06084 UT) CAPS capsule Take 50,000 Units by [...] age to complete this topic Care Teams Hrbp Relationship Specialty Start Date End Date Timbo Lucas MD [address] [place] [address] PCP - General Internal Medicine 01/11/21
== END 2025-08-09 12:06 | disposition home or self-care (01) ==
PROVIDERS: PCP Internal Medicine; Visit Provider Nurse Practitioner Family
DX: K59.01 Slow transit constipation (principal); R14.0 Abdominal distension (gaseous)
CPT/HCPCS: 99213

== ENCOUNTER → 2025-08-09 11:20 | Outpatient (BNVA) | payer MEDICARE, SELFPAY | PROVIDERS: PCP Internal Medicine; Visit Provider Nurse Practitioner Family | DX: Z48.811 Encounter for surgical aftercare following surgery on the nervous system (principal); Z98.890 Other specified postprocedural states; K59.01 Slow transit constipation; R14.0 Abdominal distension (gaseous) | CPT/HCPCS: 99212 ==

== ENCOUNTER 2025-08-09 12:30 | Outpatient (AMB) | payer MEDICARE, MEDICAID, SELFPAY ==
--- NOTE | 2025-08-09 13:22 | HO.SPINEOV ---
Intake Visit Reasons: 2nd post op Intake Note: Ms. Stoddard is here today for her 2nd post op. 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 Allergies prednisolone Allergy (Severe, Verified 08/09/25 13:23) anaphylaxis prednisone (PREDNISONE) Allergy (Severe, Verified 08/09/25 13:23) DEPRESSION Sulfa (Sulfonamide Antibiotics) Allergy (Intermediate, Verified 08/09/25 13:23) hives, rash sulfamethoxazole (From BACTRIM) Allergy (Intermediate, Verified 08/09/25 13:23) hives, rash amlodipine Allergy (Unknown, Verified 08/09/25 13:23) unknown trimethoprim (From BACTRIM) Allergy (Unknown, Verified 08/09/25 13:23) hives, rash clindamycin Adverse Reaction (Severe, Verified 08/09/25 13:23) joint pain magnesium oxide Adverse Reaction (Severe, Verified 08/09/25 13:23) Insomnia methylprednisolone Adverse Reaction (Severe, Verified 08/09/25 13:23) Anaphylaxis trazodone Adverse Reaction (Severe, Verified 08/09/25 13:23) Insomnia procaine (From Novocain) Adverse Reaction (Intermediate, Verified 08/09/25 13:23) Chest Pain sumatriptan (From IMITREX) Adverse Reaction (Verified 08/09/25 13:23) advised to avoid, may cause interaction with ADHD meds ORCHIDS Allergy (Severe, Uncoded 08/09/25 11:30) Angioedema Assessment & Plan Assessment & Plan (1) Carpal tunnel syndrome of right wrist: Code(s): G56.01 - Carpal tunnel syndrome, right upper limb Category: Medical Plan Dear colleague, On 08/09/2025 I saw for 2nd postoperative visit Gayatri Stoddard. She is status post carpal tunnel release, right side. She had an excellent recovery. She will let me know when she wants to do her left side. Thank you for allowing me take care of your patient. Alban Jacobs MD, PhD Spine Fellowship Trained Neurosurgeon Director, [facility] Coding Level of Care Code Global (97389) Diagnoses Carpal tunnel syndrome of right wrist G56.01
== END 2025-08-09 13:59 | disposition home or self-care (01) ==
LOC: HO.HNS 12:31
PROVIDERS: PCP Internal Medicine; Visit Provider Neurological Surgery
DX: G56.01 Carpal tunnel syndrome, right upper limb (principal)
CPT/HCPCS: 99024

== ENCOUNTER 2025-08-10 09:47 | Outpatient (AMB) | payer MEDICARE, MEDICAID, SELFPAY ==
--- NOTE | 2025-08-10 09:49 | MHC.OFFVIS ---
Vital Signs 08/10/25 09:50 Height 4 ft 10 in Weight 173 lb BMI 36.2 Intake Visit Reasons: INJ: Bilateral knees Durolane Intake Note: Gayatri is a 65 year old woman who presents with complaints of bilateral knee pains. She describes her pains as sharp in nature. She has failed the last 3 months of conservative treatment which has included Tylenol, anti-inflammatory medicines and physical therapy exercises. She has had cortisone injections which gave her minimal relief. She has also had viscosupplementation injections which gave her fairly good relief. She wishes to hold off on surgery if at all possible. Allergies prednisolone Allergy (Severe, Verified 08/10/25 09:50) anaphylaxis prednisone (PREDNISONE) Allergy (Severe, Verified 08/10/25 09:50) DEPRESSION Sulfa (Sulfonamide Antibiotics) Allergy (Intermediate, Verified 08/10/25 09:50) hives, rash sulfamethoxazole (From BACTRIM) Allergy (Intermediate, Verified 08/10/25 09:50) hives, rash amlodipine Allergy (Unknown, Verified 08/10/25 09:50) unknown trimethoprim (From BACTRIM) Allergy (Unknown, Verified 08/10/25 09:50) hives, rash clindamycin Adverse Reaction (Severe, Verified 08/10/25 09:50) joint pain magnesium oxide Adverse Reaction (Severe, Verified 08/10/25 09:50) Insomnia methylprednisolone Adverse Reaction (Severe, Verified 08/10/25 09:50) Anaphylaxis trazodone Adverse Reaction (Severe, Verified 08/10/25 09:50) Insomnia procaine (From Novocain) Adverse Reaction (Intermediate, Verified 08/10/25 09:50) Chest Pain sumatriptan (From IMITREX) Adverse Reaction (Verified 08/10/25 09:50) advised to avoid, may cause interaction with ADHD meds ORCHIDS Allergy (Severe, Uncoded 08/10/25 09:50) Angioedema Medication List - Last Reconciled 08/10/25 by Rakesh Cox MD acetaminophen 1,000 mg PO Q6H PRN albuterol sulfate 90 mcg/actuation 2 puffs inhalation Q6H PRN 30 days alprazolam (Xanax) 0.5 mg PO DAILY PRN atomoxetine 80 mg PO QAM bisacodyl (Dulcolax (bisacodyl)) 10 mg PO BEDTIME PRN chlorhexidine gluconate 0.12% 15 mL buccal DAILY PRN cholecalciferol (vitamin D3) 25 mcg PO DAILY 90 days clobetasol 0.05% 1 appl topical BID 1 week clotrimazole-betamethasone 1-0.05 % 1 appl topical BID cyanocobalamin (vitamin B-12) 500 mcg PO DAILY 30 days desvenlafaxine succinate ER 25 mg PO QAM dextroamphetamine-amphetamine 20 mg ER (Adderall XR) 20 mg PO DAILY fluticasone propionate 50 mcg/actuation (Flonase Allergy Relief) 2 sprays intranasal DAILY hydrocortisone 2.5% 1 appl [place] BID-QID ibuprofen 600 mg PO Q8H PRN Held on 06/15/25. Instructions: Resume on 06/16/25. mirabegron ER (Myrbetriq) 50 mg PO DAILY polyethylene glycol 3350 (Miralax) 17 grams PO DAILY ropinirole 3 mg PO ONCE tramadol 50 mg PO Q6H PRN verapamil ER 120 mg PO DAILY PFSH Medical History Heart murmur Recent bereavement Depression Numbness BAILEY (obstructive sleep apnea) Seasonal allergies Constipation RLS (restless legs syndrome) HTN (hypertension) Anxiety ADHD (attention deficit hyperactivity disorder) History of deviated nasal septum History of nephrolithotomy with removal of calculi Surgical History Hx of nasal septoplasty Hx of laparoscopy (1999) History of carpal tunnel release (~2010) H/O colonoscopy (08/12/23) History of tonsillectomy (1966) H/O adenoidectomy (1966) History of back surgery (~1982) Family History Mother Hypertension Lung cancer Father Lung cancer COPD (chronic obstructive pulmonary disease) Arterial vascular disease Sister Stroke Hypertension Social History Household Members: Spouse Housing: House Are you a primary patient care coordinator to a significant other at home: No Do you presently have visiting nurse or other home services: No Alcohol intake: current Alcohol intake frequency: holidays/special occasions only Patient Tobacco Use Status: Former Tobacco user e-Cigarette/Vaping Use: Never Used Second Hand Smoke Exposure: No service: No Current occupational status: disabled Cognitive needs: No Hearing needs: No Vision needs: Yes Physical Exam Vital Signs: BMI result Body Mass Index 36.2 Const Other: Well-nourished well-developed very friendly female awake alert and oriented x3 in no acute distress Extrem Other: Bilateral lower extremity examination shows good capillary refill, no skin lesions noted, normal sensation light touch Bilateral knee examination shows minimal effusions, palpable crepitus with range of motion, pain with range of motion, no instability Office Procedures AMB Joint Injection/Aspiration Joint Injection/Aspiration Primary Site: left knee Prep: site was prepped using aseptic technique Injected: 60 mg of (Durolane viscosupplementation) and 1% plain lidocaine Procedure: The patient tolerated the procedure well Coding 18416 - Large joint Procedure code (CPT) selection complete AMB Joint Injection/Aspiration Joint Injection/Aspiration Primary Site: right knee Prep: site was prepped using aseptic technique Injected: 60 mg of (Durolane viscosupplementation) and 1% plain lidocaine Procedure: The patient tolerated the procedure well Coding 51821 - Large joint Procedure code (CPT) selection complete Results Reviewed Results Reviewed: X-rays of the patient's bilateral knees taken previously show joint space narrowing, subchondral sclerosis, no acute bony abnormalities Assessment & Plan Assessment & Plan (1) Osteoarthritis of left knee: Code(s): M17.12 - Unilateral primary osteoarthritis, left knee Category: Medical (2) Osteoarthritis of right knee: Code(s): M17.11 - Unilateral primary osteoarthritis, right knee Category: Medical Qualifiers: Osteoarthritis type: primary Qualified Code(s): M17.11 - Unilateral primary osteoarthritis, right knee Plan Ms. Stoddard presents with bilateral knee pains due to osteoarthritis. The risks and benefits of bilateral knee Durolane viscosupplementation injections were discussed at length with the patient. The patient wished to proceed. She tolerated the injections well. She will continue with her home exercise program. She will contact me prior to her follow-up appointment in 3 months should any questions or concerns arise. Feel free to call me at any time should questions regarding her orthopedic management arise. I spent 22 minutes in reviewing the patient's records and imaging studies, seeing the patient and documenting in the medical record. Orders: Orders AMB Joint Injection/Aspiration Today M17.11 - Unilateral primary osteoarthritis, right knee AMB Joint Injection/Aspiration Today M17.12 - Unilateral primary osteoarthritis, left knee Coding Level of Care Code Est Pt Level 3 (58756) Complex EM visit Add On G2211 Diagnoses Osteoarthritis of left knee M17.12 Primary osteoarthritis of right knee M17.11 Osteoarthritis type: primary CPT Codes Coding - 29761 Large joint: 89462 - Large joint ([id number]) Coding - 77138 Large joint: 54375 - Large joint ([id number])
[2025-08-10 09:50] VITALS: BMI 36.2
--- OUTSIDE RECORDS SUMMARY | 2025-08-10 11:26 | XMS_ITS | Clinical Summary ---
Author Organization [facility] [employer] [facility] ity Address [address] [place] [address] Care Team Providers Care Box Car Loader Name Role Phone Timbo Paredes MD Primary Care Provider [phone] Surgical History Surgery Date Site/Laterality Comments SPINE [...] Procedure Name Priority Date/Time Associated Diagnosis Comments [facility] SCREENING DIGITAL Routine 03/18/2021 11:02 AM EDT Encounter for screening mammogram for malignant neoplasm of breast [facility] DEXA AXIAL SKELETON Routine 12/14/2019 10:58 AM EST Encounter for screening for osteoporosis from Last 3 Months or Most Recently Relevant to Health Maintenance Results * [facility] SCREENING DIGITAL (03/18/2021 11:02 AM EDT) Anatomical Region Laterality Modality Mammography 03/18/2021 9:51 AM EDT Narrative 03/18/2021 11:02 AM EDT [facility] Diagnostic Imaging Department [address] [place] [address] Patient: GAYATRI BLAS /Age/Sex: 1960 - 60 - F Unit#: [id number] Location/Status: [facility] CLI Mnemonic/Ordering Site: [facility] Ordering Physician: TIMBO PAREDES MD [facility] Screening Digital - 03/18/21 - 1023 EXAM: [facility] Screening Digital EXAM DATE AND TIME: 03/18/2021 10:24 AM HISTORY: Annual screening mammography. COMPARISON: 12/14/2022 through 09/17/2016 TECHNIQUE: CC and MLO views of both breasts were obtained using full field digital mammography. Bilateral digital breast tomosynthesis was performed in the MLO projection. 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 TISSUE DENSITY: b. There are [...] Routine screening mammogram BILATERAL in 1 year. 22320, 05097 3342F, 7025F Dictating Physician: EMI MAGANA MD Electronically Signed by: EMI MAGANA MD Dic Date/Time: 03/18/21 1056 Sign date/Time: 03/18/21 1102 Procedure Note Susan Magana MD - 11/11/2022 [facility] Diagnostic Imaging Department [address] [place], [place] [id number] Patient: GAYATRI BLAS /Age/Sex: 1960 - 60 - F Unit#: [id number] Location/Status: [facility]/REG CLI Mnemonic/Ordering Site: [facility] Ordering Physician: TIMBO PAREDES MD [facility] Screening Digital - 03/18/21 - 1023 EXAM: [facility] Screening Digital EXAM DATE AND TIME: 03/18/2021 10:24 AM HISTORY: Annual screening mammography. COMPARISON: 12/14/2022 through 09/17/2016 TECHNIQUE: CC and MLO views of both breasts were obtained using fullfield digital mammography. Bilateral digital breast tomosynthesis was performedin the MLO projection. 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 TISSUE DENSITY: b. There are scattered [...] Routine screening mammogram BILATERAL in 1 year. 51647, 77299 3342F, 7025F Dictating Physician: EMI MAGANA MD Electronically Signed by: EMI MAGANA MD Dic Date/Time: 03/18/21 1056 Sign date/Time: 03/18/21 1102 us Timbo Paredes MD IMG BI PROCEDURES Final Result * [facility] AXIAL SKELETON (12/14/2019 10:58 AM EST) Anatomical Region Laterality Modality Mammography 12/14/2019 10:0 9 AM EST Narrative 12/14/2019 10:58 AM EST [facility] Diagnostic Imaging Department [address] [place] [address] Patient: MINISTERIO BLASUREEN /Age/Sex: 1960 - 59 - F Unit#: [id number] Location/Status: [facility] CLI Mnemonic/Ordering Site: [facility] Ordering Physician: RAMON [...] probability of hip fracture of 2.3%. Code 55894 Dictating Physician: JENNIFER FRY MD Electronically Signed by: JENNIFER FRY MD Dic Date/Time: 12/14/19 105 Sign date/Time: 12/14/19 105 Procedure Note Jennifer Fry - 11/12/2022 [facility] Diagnostic Imaging Department [address] [place] [address] Patient: WANGAYATRI Gupta./Age/Sex: 1960 - 59 - F Unit#: [id number] Location/Status: [facility] Mnemonic[facility] Ordering Physician: RAMON QUIÑONEZ MD Andrew [...] density of the femurs bilaterally is 0.877 gm/kt1bphey is 87% of that of young normals [...] probability of hip fracture of 2.3%. Code 29360 Dictating Physician: JENNIFER FRY MD Electronically Signed by: JENNIFER FRY MD Dic Date/Time: 12/14/19 1055 Sign date/Time: 12/14/19 1058 Ramon Quiñonez MD IM BI PROCEDURES Final Resu lt from Last 3 Months or Most Recently Relevant to Health Maintenance Care Teams Box Car Loader Relationship Specialty Start Date End Date Timbo Paredes MD [address] [place] [address] PCP - General 01/11/21
--- OUTSIDE RECORDS SUMMARY | 2025-08-10 11:26 | XMS_ITS | Clinical Summary ---
Author Organization [facility] Address [address] [place] [address] Care Team Providers Care Microbiological Analyst Name Role Phone Timbo Lucas MD Primary Care Provider [phone] Allergies Active Allergy Reactions Criticality Noted Date [...] 0 12/02/2018 Active ergocalciferol (VITAMIN D2) capsule 57213 units Take 50,000 Units by mouth. 0 04/22/2019 Active amphetamine-dextroam phetamine (ADDERALL XR) 20 MG 24 hr capsule Take 20 mg by mouth. 0 Acti ve Venlafaxine HCl ER 225 MG TB24 Take 1 tablet by mouth. 0 Active butalbital-acetamino phen-caffeine (FIORICET, ESGIC) 50-325-40 MG per tablet 0 11/23/2019 Active vitamin D3 (CHOLECALCIFEROL) 1.25 MG (94462 UT) CAPS capsule Take 50,000 Units by [...] age to complete this topic Care Teams Microbiological Analyst Relationship Specialty Start Date End Date Timbo Lucas MD [address] [place] [address] PCP - General Internal Medicine 01/11/21
== END 2025-08-10 10:14 | disposition home or self-care (01) ==
LOC: HO.HOS 09:48
PROVIDERS: PCP Internal Medicine; Visit Provider Orthopaedic Surgery
DX: M17.0 Bilateral primary osteoarthritis of knee (principal)
CPT/HCPCS: 20610; 99213

== ENCOUNTER → 2025-08-10 09:47 | Outpatient (BNVA) | payer MEDICARE, SELFPAY | PROVIDERS: PCP Internal Medicine; Visit Provider Orthopaedic Surgery | DX: M17.0 Bilateral primary osteoarthritis of knee (principal) | CPT/HCPCS: 20610; 99212; J2003; J7318 ==

== ENCOUNTER 2025-08-11 11:14 | Outpatient (AMB) | payer MEDICARE, SELFPAY ==
[2025-08-11 11:18] VITALS: BP 132/76; PULSE 97; O2SAT 98; BMI 37.0
--- NOTE | 2025-08-11 11:18 | A.OFFPC_ITS ---
Vital Signs 08/11/25 11:18 Height 4 ft 10 in Weight 177 lb BMI 37.0 BP 132/76 Blood Pressure Location Rt brachial Position Sitting Pulse 97 Pulse Source Pulse Oximeter Pulse Oximetry (%) 98 Oxygen Delivery Method Room Air Intake Visit Reasons: walk in follow up; referral for derm Allergies prednisolone Allergy (Severe, Verified 08/11/25 11:18) anaphylaxis prednisone (PREDNISONE) Allergy (Severe, Verified 08/11/25 11:18) DEPRESSION Sulfa (Sulfonamide Antibiotics) Allergy (Intermediate, Verified 08/11/25 11:18) hives, rash sulfamethoxazole (From BACTRIM) Allergy (Intermediate, Verified 08/11/25 11:18) hives, rash amlodipine Allergy (Unknown, Verified 08/11/25 11:18) unknown trimethoprim (From BACTRIM) Allergy (Unknown, Verified 08/11/25 11:18) hives, rash clindamycin Adverse Reaction (Severe, Verified 08/11/25 11:18) joint pain magnesium oxide Adverse Reaction (Severe, Verified 08/11/25 11:18) Insomnia methylprednisolone Adverse Reaction (Severe, Verified 08/11/25 11:18) Anaphylaxis trazodone Adverse Reaction (Severe, Verified 08/11/25 11:18) Insomnia procaine (From Novocain) Adverse Reaction (Intermediate, Verified 08/11/25 11:18) Chest Pain sumatriptan (From IMITREX) Adverse Reaction (Verified 08/11/25 11:18) advised to avoid, may cause interaction with ADHD meds ORCHIDS Allergy (Severe, Uncoded 08/10/25 09:50) Angioedema Medication List - Last Reconciled 08/11/25 by Timbo Lucas MD albuterol sulfate 90 mcg/actuation 2 puffs inhalation Q6H PRN 30 days alprazolam (Xanax) 0.5 mg PO DAILY PRN atomoxetine 80 mg PO QAM bisacodyl (Dulcolax (bisacodyl)) 10 mg PO BEDTIME PRN chlorhexidine gluconate 0.12% 15 mL buccal DAILY PRN cholecalciferol (vitamin D3) 25 mcg PO DAILY 90 days clobetasol 0.05% 1 appl topical BID 1 week cyanocobalamin (vitamin B-12) 500 mcg PO DAILY 30 days desvenlafaxine succinate ER 25 mg PO QAM dextroamphetamine-amphetamine 20 mg ER (Adderall XR) 20 mg PO DAILY fluticasone propionate 50 mcg/actuation (Flonase Allergy Relief) 2 sprays intranasal DAILY hydrocortisone 2.5% 1 appl OR BID-QID mirabegron ER (Myrbetriq) 50 mg PO DAILY polyethylene glycol 3350 (Miralax) 17 grams PO DAILY verapamil ER 120 mg PO DAILY Tobacco use date assessed: 03/15/25 Fall risk assessment: No Falls in past year Last assessed Fall Risk: 08/11/25 Dental Screening Dental Screen Date: 03/15/25 HPI walk in follow up; referral for derm HPI Details History of Present Illness The patient is a 65-year-old female presenting with scalp rash and anxiety. Scalp Rash: - Rash on the scalp since June, prompt ing multiple medical consultations. - Initial exacerbation but has seen impr ovement with a hemp-based medicated shampoo and a topical cream. - Bumps and lumps present; associated wi th anxiety. Anxiety: - Increased anxiety possibly linked to s tress. - established with Psych med prescriber, recently had med changed Medical History: - Anxiety Medications: - Medicated shampoo with hemp for scalp rash - A topical cream for scalp rash Problem List - Rash on the scalp - Anxiety Patient Instructions - Continue using medicated shampoo and t opical cream as needed for scalp rash. - Follow-up as scheduled with the health care provider for regular check-ups. Review of Systems - Skin: Reports rash on the scalp - Psychiatric: Reports anxiety symptoms - General: No fever no chills - Neurological: No headaches no dizziness - Ear nose throat: No sore throat no hearing difficulty no ear pain - Cardiovascular: No syncope, no chest pain, no palpitations - Gastrointestinal: No nausea vomiting or diarrhea Physical Exam General: No acute distress scalp, no rash was seen today Neck: Supple Respiratory system: Able to talk in full sentences, no audible wheeze Extremities: No new findings HEAD ATHLETIC TRAINER/STRENGTH COACH: Alert awake oriented x3 motor intact Skin: Normal turgor Patient was informed and verbally consented to the use of an ambient scribe for clinic note documentation during this visit. [facility] Medical History Heart murmur Recent bereavement Depression Numbness BAILEY (obstructive sleep apnea) Seasonal allergies Constipation RLS (restless legs syndrome) HTN (hypertension) Anxiety ADHD (attention deficit hyperactivity disorder) History of deviated nasal septum History of nephrolithotomy with removal of calculi Surgical History Hx of nasal septoplasty Hx of laparoscopy (1999) History of carpal tunnel release (~2010) H/O colonoscopy (08/12/23) History of tonsillectomy (1966) H/O adenoidectomy (1966) History of back surgery (~1982) Family History Mother Hypertension Lung cancer Father Lung cancer COPD (chronic obstructive pulmonary disease) Arterial vascular disease Sister Stroke Hypertension Social History Household Members: Spouse Housing: House Are you a primary children's zoo caretaker to a significant other at home: No Do you presently have visiting nurse or other home services: No Alcohol intake: current Alcohol intake frequency: holidays/special occasions only Patient Tobacco Use Status: Former Tobacco user e-Cigarette/Vaping Use: Never Used Second Hand Smoke Exposure: No service: No Current occupational status: disabled Cognitive needs: No Hearing needs: No Vision needs: Yes Questionnaire PHQ-9 Over the last 2 weeks, how often have you been bothered by any of the following problems? 1. Little interest or pleasure in doing things: not at all 2. Feeling down, depressed, or hopeless: not at all 3. Trouble falling or staying asleep, or sleeping too much: not at all 4. Feeling tired or having little energy: not at all 5. Poor appetite or overeating: not at all 6. Feeling bad about yourself - or that you are a failure or have let yourself or your family down: not at all 7. Trouble concentrating on things, such as reading the newspaper or watching television: not at all 8. Moving or speaking so slowly that other people could have noticed. Or the opposite - being so fidgety or restless that you have been moving around a lot more than usual: not at all 9. Thoughts that you would be better off or of hurting yourself in some way: not at all Total score: 0 Depression Screening Interpretation: Negative Depression Screening Done: Yes Source: Developed by Drs. Isaac Pak, Paramjit Daniel and colleagues, with an educational kathy from [employer] Thrive Questionnaire Date Thrive assessed: 03/15/25 I am a: Patient What is your living situation today?: I have a steady place to live Within the past 12 months, did the food you bought not last and you didn't have the money to get more?: Never true Within the past 12 months, did you worry whether your food would run out before you got money to buy more?: Never true Do you have trouble paying for medicines?: No Do you have trouble getting transportation to medical appointments?: No Do you have trouble paying your heating and electricity bill?: No Do you have trouble taking care of your child, family member or friend?: No Do you have trouble with day-to-day activities such as bathing, preparing meals, shopping, managing finances, etc.?: No Are you currently unemployed and looking for a job?: No Are you interested in more education?: No Please select the resources that you would like help with: None THRIVE Score: 0 AUDIT C Alcohol Use Questionnaire (AUDIT-C) 1. How often do you have a drink containing alcohol?: Never 3. How often do you have six or more drinks on one occasion?: Never Total Score: 0 WAQAS-7 AMB Questionnaire WAQAS-7 Date WAQAS - 7 assessed: 03/15/25 Feeling nervous, anxious, or on edge: 0 = Not at all Not being able to stop or control worryin = Not at all Worrying too much about different things: 0 = Not at all Trouble relaxin = Not at all Being so restless that it is hard to sit still: 0 = Not at all Becoming easily annoyed or irritable: 0 = Not at all Feeling afraid as if something awful might happen: 0 = Not at all Total WAQAS-7 score (0-4 normal; 5-9 mild; 10-14 moderate; 15-21 severe): 0 Source: Developed by Drs. Isaac Pak, Paramjit Daniel and colleagues, with an educational kathy from [employer]. WAQAS-7 Assessment Billing WAQAS-7 Assessment Tool: WAQAS-7 Assessment 98824 Physical exam (Primary Care) Vital Signs: Last Vital Signs Pulse 97 08/11/25 11:18 BP 132/76 08/11/25 11:18 Pulse Ox 98 08/11/25 11:18 Oxygen Delivery Method Room Air 08/11/25 11:18 BMI result Body Mass Index 37.0 Tobacco/Smoking Status: Tobacco use Status Tobacco use date assessed 03/15/25 08/11/25 11:19 Patient Tobacco Use Status Former Tobacco user 08/11/25 11:19 e-Cigarette/Vaping Use Never Used 08/11/25 11:19 PHQ-9: PHQ-9 Score PHQ-9: Total score 0 08/11/25 11:24 Depression Screening Interpretation: Negative Thrive Assessment: Date of Thrive Assessment Date Thrive assessed 03/15/25 08/11/25 11:19 Coding Level of Care Code Est Pt Level 2 (66838) Diagnoses Rash R21 Additional Codes WAQAS-7 Assessment Billing - WAQAS-7 Assessment Tool: WAQAS-7 Assessment 06577 ([id number]) Assessment & Plan Assessment & Plan (1) Rash: Code(s): R21 - Rash and other nonspecific skin eruption Category: Medical Plan History of Present Illness The patient is a 65-year-old female presenting with scalp rash and anxiety. Scalp Rash: - Rash on the scalp since June, prompting multiple medical consultations. - Initial exacerbation but has seen improvement with a hemp-based medicated shampoo and a topical cream. - Bumps and lumps present; associated with anxiety. Anxiety: - Increased anxiety possibly linked to stress. - established with Psych med prescriber, recently had med changed Medical History: - Anxiety Medications: - Medicated shampoo with hemp for scalp rash - A topical cream for scalp rash Problem List - Rash on the scalp - Anxiety Patient Instructions - Continue using medicated shampoo and topical cream as needed for scalp rash. - Follow-up as scheduled with the healthcare provider for regular check-ups. Patient was informed and verbally consented to the use of an ambient scribe for clinic note documentation during this visit.
--- OUTSIDE RECORDS SUMMARY | 2025-08-11 11:57 | XMS_ITS | Clinical Summary ---
Author Organization [facility] Address [address] [place] [address] Care Team Providers Care Commercial Driver'S License Driver Name Role Phone Timbo Lucas MD Primary Care Provider [phone] Allergies Active Allergy Reactions Criticality Noted Date [...] 0 12/02/2018 Active ergocalciferol (VITAMIN D2) capsule 37774 units Take 50,000 Units by mouth. 0 04/22/2019 Active amphetamine-dextroam phetamine (ADDERALL XR) 20 MG 24 hr capsule Take 20 mg by mouth. 0 Acti ve Venlafaxine HCl ER 225 MG TB24 Take 1 tablet by mouth. 0 Active butalbital-acetamino phen-caffeine (FIORICET, ESGIC) 50-325-40 MG per tablet 0 11/23/2019 Active vitamin D3 (CHOLECALCIFEROL) 1.25 MG (90445 UT) CAPS capsule Take 50,000 Units by [...] age to complete this topic Care Teams Commercial Driver'S License Driver Relationship Specialty Start Date End Date Timbo Lucas MD [address] [place] [address] PCP - General Internal Medicine 01/11/21
--- OUTSIDE RECORDS SUMMARY | 2025-08-11 11:57 | XMS_ITS | Clinical Summary ---
Author Organization [facility] ity Address [address] [place] [address] Care Team Providers Care Entry Level Manager Name Role Phone Timbo Paredes MD Primary Care Provider [phone] Surgical History Surgery Date Site/Laterality Comments SPINE [...] Procedure Name Priority Date/Time Associated Diagnosis Comments [facility] SCREENING DIGITAL Routine 03/18/2021 11:02 AM EDT Encounter for screening mammogram for malignant neoplasm of breast [facility] DEXA AXIAL SKELETON Routine 12/14/2019 10:58 AM EST Encounter for screening for osteoporosis from Last 3 Months or Most Recently Relevant to Health Maintenance Results * [facility] SCREENING DIGITAL (03/18/2021 11:02 AM EDT) Anatomical Region Laterality Modality Mammography 03/18/2021 9:51 AM EDT Narrative 03/18/2021 11:02 AM EDT [facility] Diagnostic Imaging Department [address] [place] [id number] Patient: GAYATRI BLAS /Age/Sex: 1960 - 60 - F Unit#: [id number] Location/Status: [facility] CLI Mnemonic/Ordering Site: [facility] Ordering Physician: TIMBO PAREDES MD [facility] Screening Digital - 03/18/21 - 1023 EXAM: [facility] Screening Digital EXAM DATE AND TIME: 03/18/2021 10:24 AM HISTORY: Annual screening mammography. COMPARISON: 12/14/2022 through 09/17/2016 TECHNIQUE: CC and MLO views of both breasts were obtained using full field digital mammography. Bilateral digital breast tomosynthesis was performed in the MLO projection. 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 TISSUE DENSITY: b. There are [...] Routine screening mammogram BILATERAL in 1 year. 92956, 54903 3342F, 7025F Dictating Physician: EMI MAGANA MD Electronically Signed by: EMI MAGANA MD Dic Date/Time: 03/18/21 1056 Sign date/Time: 03/18/21 1102 Procedure Note Susan Magana MD - 11/11/2022 [facility] Diagnostic Imaging Department [address] [place], [place] [id number] Patient: GAYATRI BLAS /Age/Sex: 1960 - 60 - F Unit#: [id number] Location/Status: [facility]/REG CLI Mnemonic/Ordering Site: [facility] Ordering Physician: TIMBO PAREDES MD [facility] Screening Digital - 03/18/21 - 1023 EXAM: [facility] Screening Digital EXAM DATE AND TIME: 03/18/2021 10:24 AM HISTORY: Annual screening mammography. COMPARISON: 12/14/2022 through 09/17/2016 TECHNIQUE: CC and MLO views of both breasts were obtained using fullfield digital mammography. Bilateral digital breast tomosynthesis was performedin the MLO projection. 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 TISSUE DENSITY: b. There are scattered [...] Routine screening mammogram BILATERAL in 1 year. 52933, 92353 3342F, 7025F Dictating Physician: EMI MAGANA MD Electronically Signed by: EMI MAGANA MD Dic Date/Time: 03/18/21 1056 Sign date/Time: 03/18/21 1102 us Timbo Paredes MD IMG BI PROCEDURES Final Result * [facility] DEXA AXIAL SKELETON (12/14/2019 10:58 AM EST) Anatomical Region Laterality Modality Mammography 12/14/2019 10:0 9 AM EST Narrative 12/14/2019 10:58 AM EST [facility] Diagnostic Imaging Department [address] [place] [address] Patient: MINISTERIO BLASUREEN /Age/Sex: 1960 - 59 - F Unit#: [id number] Location/Status: [facility] CLI Mnemonic/Ordering Site: [facility] Ordering [...] probability of hip fracture of 2.3%. Code 51206 Dictating Physician: JENNIFER FRY MD Electronically Signed by: JENNIFER FRY MD Dic Date/Time: 12/14/19 105 Sign date/Time: 12/14/19 105 Procedure Note Jennifer Fry - 11/12/2022 [facility] Diagnostic Imaging Department [address] [place] [address] Patient: WANGAYATRI Gupta./Age/Sex: 1960 - 59 - F Unit#: [id number] Location/Status: [facility] Ordering Physician: RAMON QUIÑONEZ MD Andrew [...] density of the femurs bilaterally is 0.877 gm/[id number] is 87% of that of young normals [...] probability of hip fracture of 2.3%. Code 77474 Dictating Physician: JENNIFER FRY MD Electronically Signed by: JENNIFER FRY MD Dic Date/Time: 12/14/19 1055 Sign date/Time: 12/14/19 1058 Ramon Quiñonez MD IM BI PROCEDURES Final Resu lt from Last 3 Months or Most Recently Relevant to Health Maintenance Care Teams Entry Level Manager Relationship Specialty Start Date End Date Timbo Paredes MD [address] [place] [address] PCP - General 01/11/21
== END 2025-08-11 11:38 | disposition home or self-care (01) ==
PROVIDERS: PCP Internal Medicine; Visit Provider Internal Medicine
DX: R21 Rash and other nonspecific skin eruption (principal)

== ENCOUNTER → 2025-08-11 11:14 | Outpatient (BNVA) | payer MEDICARE, SELFPAY | PROVIDERS: PCP Internal Medicine; Visit Provider Internal Medicine | DX: R21 Rash and other nonspecific skin eruption (principal); F41.9 Anxiety disorder, unspecified | CPT/HCPCS: 96127; 99212 ==

== ENCOUNTER 2025-09-13 10:58 | Outpatient (AMB) | payer MEDICARE, SELFPAY ==
[2025-09-13 11:04] VITALS: BP 142/70; PULSE 93; O2SAT 96; BMI 36.4
--- NOTE | 2025-09-13 11:04 | A.OFFPC_ITS ---
Vital Signs 09/13/25 11:04 Height 4 ft 10 in Weight 174 lb BMI 36.4 BP 142/70 H Blood Pressure Location Rt brachial Position Sitting Pulse 93 Pulse Source Pulse Oximeter Pulse Oximetry (%) 96 Intake Visit Reasons: 6 month follow up Allergies prednisolone Allergy (Severe, Verified 09/13/25 11:07) anaphylaxis prednisone (PREDNISONE) Allergy (Severe, Verified 09/13/25 11:07) DEPRESSION Sulfa (Sulfonamide Antibiotics) Allergy (Intermediate, Verified 09/13/25 11:07) hives, rash sulfamethoxazole (From BACTRIM) Allergy (Intermediate, Verified 09/13/25 11:07) hives, rash amlodipine Allergy (Unknown, Verified 09/13/25 11:07) unknown trimethoprim (From BACTRIM) Allergy (Unknown, Verified 09/13/25 11:07) hives, rash clindamycin Adverse Reaction (Severe, Verified 09/13/25 11:07) joint pain magnesium oxide Adverse Reaction (Severe, Verified 09/13/25 11:07) Insomnia methylprednisolone Adverse Reaction (Severe, Verified 09/13/25 11:07) Anaphylaxis trazodone Adverse Reaction (Severe, Verified 09/13/25 11:07) Insomnia procaine (From Novocain) Adverse Reaction (Intermediate, Verified 09/13/25 11:07) Chest Pain sumatriptan (From IMITREX) Adverse Reaction (Verified 09/13/25 11:07) advised to avoid, may cause interaction with ADHD meds ORCHIDS Allergy (Severe, Uncoded 08/10/25 09:50) Angioedema Medication List - Last Reconciled 09/13/25 by Timbo Lucas MD albuterol sulfate 90 mcg/actuation 2 puffs inhalation Q6H PRN 30 days alprazolam (Xanax) 0.5 mg PO DAILY PRN atomoxetine 80 mg PO QAM bisacodyl (Dulcolax (bisacodyl)) 10 mg PO BEDTIME PRN chlorhexidine gluconate 0.12% 15 mL buccal DAILY PRN cholecalciferol (vitamin D3) 25 mcg PO DAILY 90 days clobetasol 0.05% 1 appl topical BID 1 week cyanocobalamin (vitamin B-12) 500 mcg PO DAILY 30 days desvenlafaxine succinate ER 25 mg PO QAM dextroamphetamine-amphetamine 20 mg ER (Adderall XR) 20 mg PO DAILY fluticasone propionate 50 mcg/actuation (Flonase Allergy Relief) 2 sprays intranasal DAILY hydrocortisone 2.5% 1 appl NC BID-QID mirabegron ER (Myrbetriq) 50 mg PO DAILY polyethylene glycol 3350 (Miralax) 17 grams PO DAILY verapamil ER 120 mg PO DAILY Tobacco use date assessed: 03/15/25 Fall risk assessment: No Falls in past year Last assessed Fall Risk: 09/13/25 Dental Screening Dental Screen Date: 03/15/25 HPI 6 month follow up HPI Details Patient is 65-year-old female came in today to be evaluated for itchy scaly scalp which has been happening for the past few weeks On examination patient has developed seborrheic dermatitis severe After discussing with her and making sure she is okay with topical steroids I have prescribed derma smooth scalp oil Patient is to apply that 2 times a week and then wash hair with ketoconazole 2% shampoo. Continue doing that and then have a follow-up in 3 months [facility] Medical History Heart murmur Recent bereavement Depression Numbness BAILEY (obstructive sleep apnea) Seasonal allergies Constipation RLS (restless legs syndrome) HTN (hypertension) Anxiety ADHD (attention deficit hyperactivity disorder) History of deviated nasal septum History of nephrolithotomy with removal of calculi Surgical History Hx of nasal septoplasty Hx of laparoscopy (1999) History of carpal tunnel release (~2010) H/O colonoscopy (08/12/23) History of tonsillectomy (1966) H/O adenoidectomy (1966) History of back surgery (~1982) Family History Mother Hypertension Lung cancer Father Lung cancer COPD (chronic obstructive pulmonary disease) Arterial vascular disease Sister Stroke Hypertension Social History Household Members: Spouse Housing: House Are you a primary livestock caretaker to a significant other at home: No Do you presently have visiting nurse or other home services: No Alcohol intake: current Alcohol intake frequency: holidays/special occasions only Patient Tobacco Use Status: Former Tobacco user e-Cigarette/Vaping Use: Never Used Second Hand Smoke Exposure: No service: No Current occupational status: disabled Cognitive needs: No Hearing needs: No Vision needs: Yes Questionnaire Thrive Questionnaire Date Thrive assessed: 03/15/25 I am a: Patient What is your living situation today?: I have a steady place to live Within the past 12 months, did the food you bought not last and you didn't have the money to get more?: Never true Within the past 12 months, did you worry whether your food would run out before you got money to buy more?: Never true Do you have trouble paying for medicines?: No Do you have trouble getting transportation to medical appointments?: No Do you have trouble paying your heating and electricity bill?: No Do you have trouble taking care of your child, family member or friend?: No Do you have trouble with day-to-day activities such as bathing, preparing meals, shopping, managing finances, etc.?: No Are you currently unemployed and looking for a job?: No Are you interested in more education?: No Please select the resources that you would like help with: None THRIVE Score: 0 WAQAS-7 AMB Questionnaire WAQAS-7 Date WAQAS - 7 assessed: 03/15/25 Source: Developed by Drs. Isaac Pak, Jacey Ingram, Paramjit Barker and colleagues, with an educational kathy from [employer]. Review of Systems Const Denies chills and Denies fever(s) ENT Denies epistaxis and Denies nasal discharge Card Denies chest pain Resp Denies chest congestion, Denies cough and Denies hemoptysis Neuro Reports no additional complaints Psych Reports no additional complaints Endo Reports no additional complaints Physical exam (Primary Care) Vital Signs: Last Vital Signs Pulse 93 09/13/25 11:04 BP 142/70 H 09/13/25 11:04 Pulse Ox 96 09/13/25 11:04 BMI result Body Mass Index 36.4 Tobacco/Smoking Status: Tobacco use Status Tobacco use date assessed 03/15/25 09/13/25 11:04 Patient Tobacco Use Status Former Tobacco user 09/13/25 11:04 e-Cigarette/Vaping Use Never Used 09/13/25 11:04 Thrive Assessment: Date of Thrive Assessment Date Thrive assessed 03/15/25 09/13/25 11:04 Const General: cooperative, comfortable and no acute distress Orientation/consciousness: patient oriented x3 HENMT Other: Scaly rash patches all over scalp Head: Yes normocephalic Eyes General: appearance normal, both eyes and all related structures Neck Neck: Yes supple Resp Effort & Inspection: normal respiratory effort, no cough and no stridor Skin General skin exam: turgor normal Neuro General: patient oriented x3, tone normal and moves all extremities Extrem Right lower extremity: no edema Left lower extremity: no edema Coding Level of Care Code Est Pt Level 3 (13153) Diagnoses Seborrheic dermatitis L21.9 Assessment & Plan Assessment & Plan (1) Seborrheic dermatitis: Code(s): L21.9 - Seborrheic dermatitis, unspecified Category: Medical Plan Patient is 65-year-old female came in today to be evaluated for itchy scaly scalp which has been happening for the past few weeks On examination patient has developed seborrheic dermatitis severe After discussing with her and making sure she is okay with topical steroids I have prescribed derma smooth scalp oil Patient is to apply that 2 times a week and then wash hair with ketoconazole 2% shampoo. Continue doing that and then have a follow-up in 3 months Medications: New fluocinolone and shower cap 0.01 % ([place]-Smoothe/FS Scalp Oil) apply a thin film onto wet scalp and massage in, cover with shower cap, leave in overnight or a minimum of 4 hours before washing off with shampoo, TWICE A WEEK 1 appl topical BEDTIME 118.28 mL 0RF
--- OUTSIDE RECORDS SUMMARY | 2025-09-13 14:38 | XMS_ITS | Clinical Summary ---
Author Organization [facility] Address [address] [place] [address] Care Team Providers Care Vice President Biostatistics Name Role Phone Timbo Lucas MD Primary Care Provider [phone] Allergies Active Allergy Reactions Criticality Noted Date [...] 0 12/02/2018 Active ergocalciferol (VITAMIN D2) capsule 22801 units Take 50,000 Units by mouth. 0 04/22/2019 Active amphetamine-dextroam phetamine (ADDERALL XR) 20 MG 24 hr capsule Take 20 mg by mouth. 0 Acti ve Venlafaxine HCl ER 225 MG TB24 Take 1 tablet by mouth. 0 Active butalbital-acetamino phen-caffeine (FIORICET, ESGIC) 50-325-40 MG per tablet 0 11/23/2019 Active vitamin D3 (CHOLECALCIFEROL) 1.25 MG (11022 UT) CAPS capsule Take 50,000 Units by [...] age to complete this topic Care Teams Vice President Biostatistics Relationship Specialty Start Date End Date Timbo Lucas MD [address] [place] [address] PCP - General Internal Medicine 01/11/21
--- OUTSIDE RECORDS SUMMARY | 2025-09-13 14:38 | XMS_ITS | Clinical Summary ---
Author Organization [employer] [facility] ity Address [address] [place] [address] Care Team Providers Care Cake Decorator Name Role Phone Timbo Paredes MD Primary Care Provider [phone] Surgical History Surgery Date Site/Laterality Comments SPINE [...] Health Maintenance Due Date Last Done Comments Colorectal Cancer Screening: Colonoscopy 1960 Zoster Vaccines (1 of 2) 2008 Pneumococcal Vaccine: 50+ Years (2 of 2 - PCV) 12/29/2012 12/29/2011 Cholesterol Screening (Lipid Panel) 10/30/2022 Hepatitis C Screening 10/30/2022 Social Influencers of Health Screening 10/30/2022 Hypertension/CHF/CAD Annual BMP Blood Test 11/05/2022 Breast Cancer Screening 03/18/2023 03/18/20 21, 12/14/2019 Falls Risk Assessment 2023 DTaP,Tdap,and Td Vaccines (2 - Tdap) 11/03/2023 11/03/2013 Depression Screening 11/23/2024 COVID-19 Vaccine (1 - 2023-2 5 season) 2025 Influenza Vaccine [...] Procedure Name Priority Date/Time Associated Diagnosis Comments [facility] SCREENING DIGITAL Routine 03/18/2021 11:02 AM EDT Encounter for screening mammogram for malignant neoplasm of breast [facility] DEXA AXIAL SKELETON Routine 12/14/2019 10:58 AM EST Encounter for screening for osteoporosis from Last 3 Months or Most Recently Relevant to Health Maintenance Results * [facility] SCREENING DIGITAL (03/18/2021 11:02 AM EDT) Anatomical Region Laterality Modality Mammography 03/18/2021 9:51 AM EDT Narrative 03/18/2021 11:02 AM EDT [facility] Diagnostic Imaging Department [address] [place] [address] Patient: GAYATRI STODDARD /Age/Sex: 1960 - 60 - F Unit#: [id number] Location/Status: [facility] CLI Mnemonic/Ordering Site: [facility] Ordering Physician: TIMBO PAREDES MD [facility] Screening Digital - 03/18/21 - 1023 EXAM: [facility] Screening Digital EXAM DATE AND TIME: 03/18/2021 10:24 AM HISTORY: Annual screening mammography. COMPARISON: 12/14/2022 through 09/17/2016 TECHNIQUE: CC and MLO views of both breasts were obtained using full field digital mammography. Bilateral digital breast tomosynthesis was performed in the MLO projection. 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 TISSUE DENSITY: b. There are [...] Routine screening mammogram BILATERAL in 1 year. 31666, 43925 3342F, 7025F Dictating Physician: EMI MAGANA MD Electronically Signed by: EMI MAGANA MD Dic Date/Time: 03/18/21 1056 Sign date/Time: 03/18/21 1102 Procedure Note Susan Magana MD - 11/11/2022 [facility] Diagnostic Imaging Department [address] [place], [place] [id number] Patient: GAYATRI STODDARD /Age/Sex: 1960 - 60 - F Unit#: [id number] Location/Status: SPDIMAM/REG CLI Mnemonic/Ordering Site: [facility] Ordering Physician: TIMBO PAREDES MD [facility] Screening Digital - 03/18/21 - 1023 EXAM: [facility] Screening Digital EXAM DATE AND TIME: 03/18/2021 10:24 AM HISTORY: Annual screening mammography. COMPARISON: 12/14/2022 through 09/17/2016 TECHNIQUE: CC and MLO views of both breasts were obtained using fullfield digital mammography. Bilateral digital breast tomosynthesis was performedin the MLO projection. 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 TISSUE DENSITY: b. There are scattered [...] Routine screening mammogram BILATERAL in 1 year. 09794, 59465 3342F, 7025F Dictating Physician: EMI MAGANA MD Electronically Signed by: EMI MAGANA MD Dic Date/Time: 03/18/21 1056 Sign date/Time: 03/18/21 1102 us Timbo Paredes MD IMG BI PROCEDURES Final Result * [facility]REW DEXA AXIAL SKELETON (12/14/2019 10:58 AM EST) Anatomical Region Laterality Modality Mammography 12/14/2019 10:0 9 AM EST Narrative 12/14/2019 10:58 AM EST [facility] Diagnostic Imaging Department [address] [place] [address] Patient: MINISTERIO STODDARDUREEN /Age/Sex: 1960 - 59 - F Unit#: [id number] Location/Status: [facility] CLI Mnemonic/Ordering Site: [facility] Ordering Physician: SHAUNNA QUIÑONEZ MD [facility] Dexa [...] probability of hip fracture of 2.3%. Code 40128 Dictating Physician: JENNIFER FRY MD Electronically Signed by: JENNIFER FRY MD Dic Date/Time: 12/14/19 105 Sign date/Time: 12/14/19 105 Procedure Note Jennifer Fry - 11/12/2022 [facility] Diagnostic Imaging Department [address] [place] [address] Patient: WANGAYATRI Gupta./Age/Sex: 1960 - 59 - F Unit#: [id number] Location/Status: [facility] Ordering Physician: SHAUNNA QUIÑONEZ MD [facility] Dexa [...] density of the femurs bilaterally is 0.877 gm/zy0hkjfu is 87% of that of young normals [...] probability of hip fracture of 2.3%. Code 75147 Dictating Physician: JENNIFER FRY MD Electronically Signed by: JENNIFER FRY MD Dic Date/Time: 12/14/19 1055 Sign date/Time: 12/14/19 1058 Shaunna Quiñonez MD IM BI PROCEDURES Final Resu lt from Last 3 Months or Most Recently Relevant to Health Maintenance Care Teams Cake Decorator Relationship Specialty Start Date End Date Timbo Paredes MD [address] [place] [address] PCP - General 01/11/21
== END 2025-09-13 11:24 | disposition home or self-care (01) ==
PROVIDERS: PCP Internal Medicine; Visit Provider Internal Medicine
DX: L21.9 Seborrheic dermatitis, unspecified (principal)

== ENCOUNTER → 2025-09-13 10:58 | Outpatient (BNVA) | payer MEDICARE, SELFPAY | PROVIDERS: PCP Internal Medicine; Visit Provider Internal Medicine | DX: I10 Essential (primary) hypertension (principal); L21.9 Seborrheic dermatitis, unspecified | CPT/HCPCS: 99212 ==

== ENCOUNTER 2025-10-25 14:23 | Outpatient (REF) | payer MEDICARE, SELFPAY | END 2025-10-25 14:24 | disposition home or self-care (01) | LOC: HO.LNP 14:23 | PROVIDERS: PCP Internal Medicine; Visit Provider Physician Assistant Medical | DX: R35.0 Frequency of micturition (principal); R39.15 Urgency of urination; R31.9 Hematuria, unspecified; Z88.2 Allergy status to sulfonamides; Z87.442 Personal history of urinary calculi | CPT/HCPCS: 81003; 87086; 99212 ==

== ENCOUNTER 2025-10-25 14:23 | Outpatient (AMB) | payer MEDICARE, SELFPAY ==
--- NOTE | 2025-10-25 14:26 | AM.OFFWIN_ITS ---
Intake Vital Signs 10/25/25 14:27 Height 4 ft 10 in Weight 173 lb BMI 36.2 BP 160/72 H Blood Pressure Location Lt brachial Position Sitting Pulse 83 Pulse Source Pulse Oximeter Temp 98.3 F Temp Source Oral Pulse Oximetry (%) 99 Oxygen Delivery Method Room Air Comment High BP: pt exresses high stress. provider notified. Intake Visit Reasons: EP Possible UTI Intake Note: pt presents with urine frequency and incontinence but is unable to pee for the visit, also c/o non controlled scalp psoriasis - dermasmoothe oil and ketoconazole shampoo is unhelpful Patient Tobacco Use Status: Former Tobacco user Allergies prednisolone Allergy (Severe, Verified 10/25/25 14:35) anaphylaxis prednisone (PREDNISONE) Allergy (Severe, Verified 10/25/25 14:35) DEPRESSION Sulfa (Sulfonamide Antibiotics) Allergy (Intermediate, Verified 10/25/25 14:35) hives, rash sulfamethoxazole (From BACTRIM) Allergy (Intermediate, Verified 10/25/25 14:35) hives, rash amlodipine Allergy (Unknown, Verified 10/25/25 14:35) unknown trimethoprim (From BACTRIM) Allergy (Unknown, Verified 10/25/25 14:35) hives, rash clindamycin Adverse Reaction (Severe, Verified 10/25/25 14:35) joint pain magnesium oxide Adverse Reaction (Severe, Verified 10/25/25 14:35) Insomnia methylprednisolone Adverse Reaction (Severe, Verified 10/25/25 14:35) Anaphylaxis trazodone Adverse Reaction (Severe, Verified 10/25/25 14:35) Insomnia procaine (From Novocain) Adverse Reaction (Intermediate, Verified 10/25/25 14:35) Chest Pain sumatriptan (From IMITREX) Adverse Reaction (Verified 10/25/25 14:35) advised to avoid, may cause interaction with ADHD meds ORCHIDS Allergy (Severe, Uncoded 10/25/25 14:35) Angioedema Do you need a note to return to daycare/school/sports/work: No HPI HPI Comments History of Present Illness Details History - The patient is a 65 year old individua l presenting with symptoms concerning for a bladder infection. - The patient has a history of an overac tive bladder and is on Myrbetriq, and reports experiencing urinary symptoms on and off for the last few weeks. - Symptoms include urinary urgency and d ifficulty initiating urination. - The patient reports an episode of sign ificant urinary incontinence the previous night, described as flooding the bathroom, despite wearing a pad at night. - The patient denies burning with urinat ion but has observed a couple of dots of blood, and has a history of trace blood in the urine. - A painful sensation in the vagina is d escribed, likened to air being sprayed. - The patient's past medical history is significant for nephrolithiasis and a bladder sling procedure. - The patient reports an allergy to sulf a medications. - The patient also reports recently swit monse psychiatric medications and experiencing side effects, including nerve pain. - She denies fever, chills, hematuria, d iarrhea, n/v, abd pain, or vaginal discharge. Physical Exam General: Cooperative, healthy appearing, comfortable, no acute distress and well developed Cardiac: Normal S1 and S2. RRR, no M/R/G noted. Respiratory: Normal respiratory effort and able to speak in complete sentences. Clear to auscultation bilaterally. No w/r/r noted. Skin: No rashes or lesions noted. GI: Normal inspection. Normal BS noted. Soft, non-tender, non-distended. No TTP of all 4 quadrants. No guarding or rebound tenderness noted. Back: Negative CVA bilaterally Patient was informed and verbally consented to the use of an ambient scribe for clinic note documentation during this visit. [facility] Medical History Heart murmur Recent bereavement Depression Numbness BAILEY (obstructive sleep apnea) Seasonal allergies Constipation RLS (restless legs syndrome) HTN (hypertension) Anxiety ADHD (attention deficit hyperactivity disorder) History of deviated nasal septum History of nephrolithotomy with removal of calculi Surgical History Hx of nasal septoplasty Hx of laparoscopy (1999) History of carpal tunnel release (~2010) H/O colonoscopy (08/12/23) History of tonsillectomy (1966) H/O adenoidectomy (1966) History of back surgery (~1982) Family History Mother Hypertension Lung cancer Father Lung cancer COPD (chronic obstructive pulmonary disease) Arterial vascular disease Sister Stroke Hypertension Social History Household Members: Spouse Housing: House Are you a primary reservoir caretaker to a significant other at home: No Do you presently have visiting nurse or other home services: No Alcohol intake: current Alcohol intake frequency: holidays/special occasions only Patient Tobacco Use Status: Former Tobacco user e-Cigarette/Vaping Use: Never Used Second Hand Smoke Exposure: No service: No Current occupational status: disabled Cognitive needs: No Hearing needs: No Vision needs: Yes Review of Systems Const All systems reviewed & are unremarkable except as noted in HPI and below Physical Exam Vital Signs: Last Vital Signs Temp 98.3 F 10/25/25 14:27 Pulse 83 10/25/25 14:27 BP 160/72 H 10/25/25 14:27 Pulse Ox 99 10/25/25 14:27 Oxygen Delivery Method Room Air 10/25/25 14:27 BMI result Body Mass Index 36.2 Assessment & Plan Assessment & Plan (1) Urinary frequency with urgency: Code(s): R35.0 - Frequency of micturition; R39.15 - Urgency of urination Plan Most likely UTI vs stone? UA in the office was negative Plan - Based on the patient's symptoms, empiric antibiotic therapy will be initiated for a suspected urinary tract infection. - Sulfa-based antibiotics will be avoided due to a known allergy. - A urinalysis and urine culture will be ordered to confirm the diagnosis. - Will call her with the results - The patient is instructed to discontinue the antibiotic if the urine culture returns negative. Orders: Orders UA ClnCatch+Micro w/rflx Cult Today R35.0 - Frequency of micturition Medications: New cefuroxime axetil 500 mg PO Q12H 10 tabs 0RF Coding Level of Care Code Est Pt Level 3 (26632) Diagnoses Urinary frequency with urgency R35.0; R39.15
[2025-10-25 14:27] VITALS: BP 160/72; PULSE 83; TEMP 36.8; O2SAT 99; BMI 36.2
--- OUTSIDE RECORDS SUMMARY | 2025-10-25 17:14 | XMS_ITS | Clinical Summary ---
Author Organization [employer] [facility] ity Address [address] [place] [address] Care Team Providers Care Can Tender Name Role Phone Timbo Paredes MD Primary Care Provider [phone] Surgical History Surgery Date Site/Laterality Comments SPINE [...] Depression Screening 11/23/2024 COVID-19 Vaccine (1 - 2024-2 6 season) 2025 Influenza Vaccine (#1) 2025 Osteoporosis [...] Procedure Name Priority Date/Time Associated Diagnosis Comments [facility] SCREENING DIGITAL Routine 03/18/2021 11:02 AM EDT Encounter for screening mammogram for malignant neoplasm of breast [facility] DEXA AXIAL SKELETON Routine 12/14/2019 10:58 AM EST Encounter for screening for osteoporosis from Last 3 Months or Most Recently Relevant to Health Maintenance Results * [facility] SCREENING DIGITAL (03/18/2021 11:02 AM EDT) Anatomical Region Laterality Modality Mammography 03/18/2021 9:51 AM EDT Narrative 03/18/2021 11:02 AM EDT [facility] Diagnostic Imaging Department [address] [place] [address] Patient: GAYATRI BLAS /Age/Sex: 1960 - 60 - F Unit#: [id number] Location/Status: [facility] CLI Mnemonic/Ordering Site: [facility] Ordering Physician: TIMBO PAREDES MD [facility] Screening Digital - 03/18/21 - 1023 EXAM: [facility] Screening Digital EXAM DATE AND TIME: 03/18/2021 10:24 AM HISTORY: Annual screening mammography. COMPARISON: 12/14/2022 through 09/17/2016 TECHNIQUE: CC and MLO views of both breasts were obtained using full field digital mammography. Bilateral digital breast tomosynthesis was performed in the MLO projection. 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 TISSUE DENSITY: b. There are [...] Routine screening mammogram BILATERAL in 1 year. 75400, 82713 3342F, 7025F Dictating Physician: EMI MAGANA MD Electronically Signed by: EMI MAGANA MD Dic Date/Time: 03/18/21 1056 Sign date/Time: 03/18/21 1102 Procedure Note Susan Magana MD - 11/11/2022 [facility] Diagnostic Imaging Department [address] [place], [place] [id number] Patient: GAYATRI BLAS /Age/Sex: 1960 - 60 - F Unit#: [id number] Location/Status: SPDIMAM/REG CLI Mnemonic/Ordering Site: [facility] Ordering Physician: TIMBO PAREDES MD [facility] Screening Digital - 03/18/21 - 1023 EXAM: [facility] Screening Digital EXAM DATE AND TIME: 03/18/2021 10:24 AM HISTORY: Annual screening mammography. COMPARISON: 12/14/2022 through 09/17/2016 TECHNIQUE: CC and MLO views of both breasts were obtained using fullfield digital mammography. Bilateral digital breast tomosynthesis was performedin the MLO projection. 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 TISSUE DENSITY: b. There are scattered [...] Routine screening mammogram BILATERAL in 1 year. 93153, 61993 3342F, 7025F Dictating Physician: EMI MAGANA MD Electronically Signed by: EMI MAGANA MD Dic Date/Time: 03/18/21 1056 Sign date/Time: 03/18/21 1102 us Timbo Paredes MD IMG BI PROCEDURES Final Result * ANDREW DEXA AXIAL SKELETON (12/14/2019 10:58 AM EST) Anatomical Region Laterality Modality Mammography 12/14/2019 10:0 9 AM EST Narrative 12/14/2019 10:58 AM EST [facility] Diagnostic Imaging Department [address] [place] [address] Patient: MINISTERIO BLASUREEN /Age/Sex: 1960 - 59 - F Unit#: [id number] Location/Status: [facility] CLI Mnemonic/Ordering Site: [facility] Ordering Physician: RAMON [...] probability of hip fracture of 2.3%. Code 47267 Dictating Physician: JENNIFER FRY MD Electronically Signed by: JENNIFER FRY MD Dic Date/Time: 12/14/19 105 Sign date/Time: 12/14/19 105 Procedure Note Jennifer Fry - 11/12/2022 [facility] Diagnostic Imaging Department [address] [place] [address] Patient: WANGAYATRI Gupta./Age/Sex: 1960 - 59 - F Unit#: [id number] Location/Status: [facility] Mnemonic[facility] Ordering Physician: RAMON QUIÑONEZ MD [facility] Dexa [...] density of the femurs bilaterally is 0.877 gm/yy5utfga is 87% of that of young normals [...] probability of hip fracture of 2.3%. Code 63767 Dictating Physician: JENNIFER FRY MD Electronically Signed by: JENNIFER FRY MD Dic Date/Time: 12/14/19 1055 Sign date/Time: 12/14/19 1058 Ramon Quiñonez MD IM BI PROCEDURES Final Resu lt from Last 3 Months or Most Recently Relevant to Health Maintenance Care Teams Can Tender Relationship Specialty Start Date End Date Timbo Paredes MD [address] [place] [address] PCP - General 01/11/21
--- OUTSIDE RECORDS SUMMARY | 2025-10-25 17:14 | XMS_ITS | Clinical Summary ---
Author Organization [facility] Prior to 04/22/[address] [place] [address] Care Team Providers Care Dairy Feed Mixing Operator Name Role Phone Timbo Lucas MD Primary Care Provider [phone] Allergies Active Allergy Reactions Criticality Noted Date [...] 0 12/02/2018 Active ergocalciferol (VITAMIN D2) capsule 83890 units Take 50,000 Units by mouth. 0 04/22/2019 Active amphetamine-dextroam phetamine (ADDERALL XR) 20 MG 24 hr capsule Take 20 mg by mouth. 0 Acti ve Venlafaxine HCl ER 225 MG TB24 Take 1 tablet by mouth. 0 Active butalbital-acetamino phen-caffeine (FIORICET, ESGIC) 50-325-40 MG per tablet 0 11/23/2019 Active vitamin D3 (CHOLECALCIFEROL) 1.25 MG (74946 UT) CAPS capsule Take 50,000 Units by [...] age to complete this topic Care Teams Dairy Feed Mixing Operator Relationship Specialty Start Date End Date Timbo Lucas MD [address] [place] [address] PCP - General Internal Medicine 01/11/21
== END 2025-10-25 15:55 | disposition home or self-care (01) ==
PROVIDERS: PCP Internal Medicine; Visit Provider Physician Assistant Medical
DX: R35.0 Frequency of micturition (principal); R39.15 Urgency of urination

== ENCOUNTER 2025-11-09 12:29 | Outpatient (AMB) | payer MEDICARE, SELFPAY ==
--- NOTE | 2025-11-09 12:35 | A.OFFVIS_ITS ---
Intake Visit Reasons: Bilateral knee pain Intake Note: Gayatri 65 yr old female presents with complaints of bilateral knee pains. She describes her pains as sharp in nature. She has tried Tylenol, anti- inflammatory medicines and physical therapy exercises which gave her minimal relief. She wishes to hold off on surgery if at all possible. She has failed the last 3 months of conservative treatment. Allergies prednisolone Allergy (Severe, Verified 11/09/25 12:51) anaphylaxis prednisone (PREDNISONE) Allergy (Severe, Verified 11/09/25 12:51) DEPRESSION Sulfa (Sulfonamide Antibiotics) Allergy (Intermediate, Verified 11/09/25 12:51) hives, rash sulfamethoxazole (From BACTRIM) Allergy (Intermediate, Verified 11/09/25 12:51) hives, rash amlodipine Allergy (Unknown, Verified 11/09/25 12:51) unknown trimethoprim (From BACTRIM) Allergy (Unknown, Verified 11/09/25 12:51) hives, rash clindamycin Adverse Reaction (Severe, Verified 11/09/25 12:51) joint pain magnesium oxide Adverse Reaction (Severe, Verified 11/09/25 12:51) Insomnia methylprednisolone Adverse Reaction (Severe, Verified 11/09/25 12:51) Anaphylaxis trazodone Adverse Reaction (Severe, Verified 11/09/25 12:51) Insomnia procaine (From Novocain) Adverse Reaction (Intermediate, Verified 11/09/25 12:51) Chest Pain sumatriptan (From IMITREX) Adverse Reaction (Verified 11/09/25 12:51) advised to avoid, may cause interaction with ADHD meds ORCHIDS Allergy (Severe, Uncoded 11/09/25 12:51) Angioedema Medication List - Last Reconciled 11/10/25 by Rakesh Cox MD albuterol sulfate 90 mcg/actuation 2 puffs inhalation Q6H PRN 30 days alprazolam (Xanax) 0.5 mg PO DAILY PRN atomoxetine 80 mg PO QAM bisacodyl (Dulcolax (bisacodyl)) 10 mg PO BEDTIME PRN cefuroxime axetil 500 mg PO Q12H chlorhexidine gluconate 0.12% 15 mL buccal DAILY PRN cholecalciferol (vitamin D3) 25 mcg PO DAILY 90 days clobetasol 0.05% 1 appl topical BID 1 week cyanocobalamin (vitamin B-12) 500 mcg PO DAILY 30 days desvenlafaxine succinate ER 25 mg PO QAM dextroamphetamine-amphetamine 20 mg ER (Adderall XR) 20 mg PO DAILY fluocinolone and shower cap 0.01 % (Tobin-Smoothe/FS Scalp Oil) 1 appl topical BEDTIME fluticasone propionate 50 mcg/actuation (Flonase Allergy Relief) 2 sprays intranasal DAILY hydrocortisone 2.5% 1 appl SD BID-QID ketoconazole 2% 1 appl topical 3XW mirabegron ER (Myrbetriq) 50 mg PO DAILY polyethylene glycol 3350 (Miralax) 17 grams PO DAILY verapamil ER 120 mg PO DAILY PFSH Medical History Heart murmur Recent bereavement Depression Numbness BAILEY (obstructive sleep apnea) Seasonal allergies Constipation RLS (restless legs syndrome) HTN (hypertension) Anxiety ADHD (attention deficit hyperactivity disorder) History of deviated nasal septum History of nephrolithotomy with removal of calculi Surgical History Hx of nasal septoplasty Hx of laparoscopy (1999) History of carpal tunnel release (~2010) H/O colonoscopy (08/12/23) History of tonsillectomy (1966) H/O adenoidectomy (1966) History of back surgery (~1982) Family History Mother Hypertension Lung cancer Father Lung cancer COPD (chronic obstructive pulmonary disease) Arterial vascular disease Sister Stroke Hypertension Social History Household Members: Spouse Housing: House Are you a primary neurocritical care physician to a significant other at home: No Do you presently have visiting nurse or other home services: No Alcohol intake: current Alcohol intake frequency: holidays/special occasions only Patient Tobacco Use Status: Former Tobacco user e-Cigarette/Vaping Use: Never Used Second Hand Smoke Exposure: No service: No Current occupational status: disabled Cognitive needs: No Hearing needs: No Vision needs: Yes Physical Exam Extrem Other: Bilateral knee examination shows minimal effusions, palpable crepitus with range of motion, pain with range of motion, no instability Office Procedures AMB Joint Injection/Aspiration Joint Injection/Aspiration Primary Site: Left Knee Prep: site was prepped using aseptic technique Injected: 40 mg of, DepoMedrol, with 3 mL of and 1% plain Lidocaine Procedure: The patient tolerated the procedure well Coding - Large joint Procedure code (CPT) selection complete AMB Joint Injection/Aspiration Joint Injection/Aspiration Primary Site: Right Knee Prep: site was prepped using aseptic technique Injected: 40 mg of, DepoMedrol, with 3 mL of and 1% plain Lidocaine Procedure: The patient tolerated the procedure well Coding - Large joint Procedure code (CPT) selection complete Results Reviewed Results Reviewed: X-rays of the patient's bilateral knees taken previously show joint space narrowing, subchondral sclerosis, no acute bony abnormalities Assessment & Plan Assessment & Plan (1) Osteoarthritis of left knee: Code(s): M17.12 - Unilateral primary osteoarthritis, left knee Category: Medical (2) Arthritis of right knee: Code(s): M17.11 - Unilateral primary osteoarthritis, right knee Category: Medical (3) Bilateral knee pain: Code(s): M25.561 - Pain in right knee; M25.562 - Pain in left knee Category: Medical Plan Ms. Stoddard presents with bilateral knee pains due to osteoarthritis. The risks and benefits of bilateral knee cortisone injections were discussed at length with the patient. The patient wished to proceed. She tolerated the injections well. If she does not get lasting relief from the cortisone injection therapy I will see if the patient's insurance company will cover Durolane injections for both of her knees. I will see her back once the injections are approved. Feel free to call me at any time should questions regarding her orthopedic management arise. I spent 20 minutes in reviewing the patient's records and imaging studies, seeing the patient and documenting in the medical record. Orders: Orders AMB Joint Injection/Aspiration 11/09/25 M17.12 - Unilateral primary osteoarthritis, left knee AMB Joint Injection/Aspiration 11/09/25 M17.11 - Unilateral primary osteoarthritis, right knee Coding Level of Care Code Est Pt Level 3 (27690) Add On Problem Visit Only Diagnoses Osteoarthritis of left knee M17.12 Arthritis of right knee M17.11 Bilateral knee pain M25.561; M25.562 CPT Codes Coding - Large joint: - Large joint ([id number]) Coding - Large joint: - Large joint ([id number])
--- OUTSIDE RECORDS SUMMARY | 2025-11-09 16:18 | XMS_ITS | Clinical Summary ---
Author Organization [facility] ity Address [address] [place] [address] Care Team Providers Care Currency Examiner Name Role Phone Timbo Paredes MD Primary Care Provider [phone] Surgical History Surgery Date Site/Laterality Comments SPINE [...] on file Sexual Orientation Not on file Plan of Treatment Health Maintenance Due Date [...] Procedure Name Priority Date/Time Associated Diagnosis Comments [facility] SCREENING DIGITAL Routine 03/18/2021 11:02 AM EDT Encounter for screening mammogram for malignant neoplasm of breast [facility] DEXA AXIAL SKELETON Routine 12/14/2019 10:58 AM EST Encounter for screening for osteoporosis from Last 3 Months or Most Recently Relevant to Health Maintenance Results * [facility] SCREENING DIGITAL (03/18/2021 11:02 AM EDT) Anatomical Region Laterality Modality Mammography 03/18/2021 9:51 AM EDT Narrative 03/18/2021 11:02 AM EDT [facility] Diagnostic Imaging Department [address] [place] [address] Patient: GAYATRI BLASO.B./Age/Sex: 1960 - 60 - F Unit#: [id number] Location/Status: [facility]/REG CLI Mnemonic/Ordering Site: [facility] Ordering Physician: TIMBO PAREDES MD [facility] Screening Digital - 03/18/21 - 1023 EXAM: [facility] Screening Digital EXAM DATE AND TIME: 03/18/2021 10:24 AM HISTORY: Annual screening mammography. COMPARISON: 12/14/2022 through 09/17/2016 TECHNIQUE: CC and MLO views of both breasts were obtained using full field digital mammography. Bilateral digital breast tomosynthesis was performed in the MLO projection. 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 TISSUE DENSITY: b. There are [...] Routine screening mammogram BILATERAL in 1 year. [address]8586, 14272 3342F, 7025F Dictating Physician: EMI MAGANA MD Electronically Signed by: EMI MAGANA MD Dic Date/Time: 03/18/21 1056 Sign date/Time: 03/18/21 1102 Procedure Note Susan Magana MD - 11/11/2022 [facility] Diagnostic Imaging Department [address] [place], [place] [address] Patient: GAYATRI BLAS /Age/Sex: 1960 - 60 - F Unit#: [id number] Location/Status: [facility]/REG CLI Mnemonic/Ordering Site: [facility] Ordering Physician: TIMBO PAREDES MD [facility] Screening Digital - 03/18/21 - 1023 EXAM: [facility] Screening Digital EXAM DATE AND TIME: 03/18/2021 10:24 AM HISTORY: Annual screening mammography. COMPARISON: 12/14/2022 through 09/17/2016 TECHNIQUE: CC and MLO views of both breasts were obtained using fullfield digital mammography. Bilateral digital breast tomosynthesis was performedin the MLO projection. 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 TISSUE DENSITY: b. There are scattered [...] Routine screening mammogram BILATERAL in 1 year. 57649, 96856 3342F, 7025F Dictating Physician: EMI MAGANA MD Electronically Signed by: EMI MAGANA MD Dic Date/Time: 03/18/21 1056 Sign date/Time: 03/18/21 1102 us Timbo Paredes MD IMG BI PROCEDURES Final Result * [facility] DEXA AXIAL SKELETON (12/14/2019 10:58 AM EST) Anatomical Region Laterality Modality Mammography 12/14/2019 10:0 9 AM EST Narrative 12/14/2019 10:58 AM EST [facility] Diagnostic Imaging Department [address] [place] [address] Patient: MINISTERIO BLASMICAH FineO.B./Age/Sex: 1960 - 59 - F Unit#: [id number] Location/Status: [facility] CLI Mnemonic/Ordering Site: [facility] Ordering Physician: [...] probability of hip fracture of 2.3%. Code 97262 Dictating Physician: JENNIFER FRY MD Electronically Signed by: JENNIFER FRY MD Dic Date/Time: 12/14/19 1055 Sign date/Time: 12/14/19 1058 Procedure Note Jennifer Fry - 11/12/2022 [facility] Diagnostic Imaging Department [address] [place] [address] Patient: MINISTERIO BLASUREEN /Age/Sex: 1960 - 59 - F Unit#: [id number] [facility] Ordering Physician: RAMON QUIÑONEZ MD [...] density of the femurs bilaterally is 0.877 gm/[id number] is 87% of that of young normals [...] probability of hip fracture of 2.3%. Code 85675 Dictating Physician: JENNIFER FRY MD Electronically Signed by: JENNIFER FRY MD Dic Date/Time: 12/14/19 1055 Sign date/Time: 12/14/19 1058 Ramon Quiñonez MD IM BI PROCEDURES Final Resu lt from Last 3 Months or Most Recently Relevant to Health Maintenance Care Teams Currency Examiner Relationship Specialty Start Date End Date Timbo Paredes MD [address] [place] [address] PCP - General 01/11/21
--- OUTSIDE RECORDS SUMMARY | 2025-11-09 16:18 | XMS_ITS | Clinical Summary ---
Author Organization [facility] Prior to 04/22/[address] [place] [address] Care Team Providers Care Manager Insurance Name Role Phone Timbo Lucas MD Primary Care Provider [phone] Allergies Active Allergy Reactions Criticality Noted Date [...] 0 12/02/2018 Active ergocalciferol (VITAMIN D2) capsule 97984 units Take 50,000 Units by mouth. 0 04/22/2019 Active amphetamine-dextroam phetamine (ADDERALL XR) 20 MG 24 hr capsule Take 20 mg by mouth. 0 Acti ve Venlafaxine HCl ER 225 MG TB24 Take 1 tablet by mouth. 0 Active butalbital-acetamino phen-caffeine (FIORICET, ESGIC) 50-325-40 MG per tablet 0 11/23/2019 Active vitamin D3 (CHOLECALCIFEROL) 1.25 MG (91559 UT) CAPS capsule Take 50,000 Units by [...] age to complete this topic Care Teams Manager Insurance Relationship Specialty Start Date End Date Timbo Lucas MD [address] [place] [address] PCP - General Internal Medicine 01/11/21
== END 2025-11-09 13:04 | disposition home or self-care (01) ==
LOC: HO.HOS 12:30
PROVIDERS: PCP Internal Medicine; Visit Provider Orthopaedic Surgery
DX: M17.0 Bilateral primary osteoarthritis of knee (principal); M25.561 Pain in right knee; M25.562 Pain in left knee
CPT/HCPCS: 20610; 99213

== ENCOUNTER → 2025-11-09 12:29 | Outpatient (BNVA) | payer MEDICARE, SELFPAY | PROVIDERS: PCP Internal Medicine; Visit Provider Orthopaedic Surgery | DX: M17.0 Bilateral primary osteoarthritis of knee (principal) | CPT/HCPCS: 20610; 99212; J1010; J2003 ==

== ENCOUNTER 2025-11-17 13:12 | Outpatient (REF) | payer MEDICARE, MEDICAID, SELFPAY ==
[2025-11-17 15:39] LABS: Resp Syncy Virus RNA Qual PCR NEGATIVE (Negative); SARS COV2 PCR INHOUSE NEGATIVE (Negative)
== END 2025-11-17 13:13 | disposition home or self-care (01) ==
LOC: HO.LAB 13:12
PROVIDERS: PCP Internal Medicine; Visit Provider Physician Assistant
DX: J45.901 Unspecified asthma with (acute) exacerbation (principal); R09.89 Other specified symptoms and signs involving the circulatory and respiratory systems; B34.9 Viral infection, unspecified; R06.02 Shortness of breath; Z87.891 Personal history of nicotine dependence
CPT/HCPCS: 87637; 94640; 99212

== ENCOUNTER 2025-11-17 13:12 | Outpatient (AMB) | payer MEDICARE, MEDICAID, SELFPAY ==
--- NOTE | 2025-11-17 13:09 | MHC.OFFWIV ---
Intake Vital Signs 11/17/25 13:10 Height 4 ft 10 in Weight 172 lb BMI 35.9 BP 160/70 H Blood Pressure Location Rt brachial Position Sitting Pulse 90 Pulse Source Pulse Oximeter Temp 98.2 F Temp Source Oral Pulse Oximetry (%) 97 Oxygen Delivery Method Room Air Intake Visit Reasons: EP-wheezing, cough, running nose Intake Note: EP complains of having cough, wheezing, running nose started last night. Patient Tobacco Use Status: Former Tobacco user Allergies prednisone (PREDNISONE) Allergy (Severe, Verified 11/17/25 13:21) DEPRESSION Sulfa (Sulfonamide Antibiotics) Allergy (Intermediate, Verified 11/17/25 13:21) hives, rash sulfamethoxazole (From BACTRIM) Allergy (Intermediate, Verified 11/17/25 13:21) hives, rash amlodipine Allergy (Unknown, Verified 11/17/25 13:21) unknown trimethoprim (From BACTRIM) Allergy (Unknown, Verified 11/17/25 13:21) hives, rash clindamycin Adverse Reaction (Severe, Verified 11/17/25 13:21) joint pain magnesium oxide Adverse Reaction (Severe, Verified 11/17/25 13:21) Insomnia methylprednisolone Adverse Reaction (Severe, Verified 11/17/25 13:57) suicidal trazodone Adverse Reaction (Severe, Verified 11/17/25 13:21) Insomnia procaine (From Novocain) Adverse Reaction (Intermediate, Verified 11/17/25 13:21) Chest Pain sumatriptan (From IMITREX) Adverse Reaction (Verified 11/17/25 13:21) advised to avoid, may cause interaction with ADHD meds ORCHIDS Allergy (Severe, Uncoded 11/17/25 13:21) Angioedema Do you need a note to return to daycare/school/sports/work: No HPI HPI Comments History of Present Illness Details History - The patient is a 65 year old female presenting with cough, wheezing, and shortness of breath. - She reports that her symptoms began last night with feeling cold, a runny nose, and a persistent cough described as being in her lungs, which led to wheezing and shortness of breath. - She has a history of seasonal asthma and used her albuterol inhaler multiple times (5-6 puffs) with little immediate relief, stating it felt like the medication was not reaching her lungs. - She reports a history of high blood pressure, which was noted to be elevated at the visit. - She has been taking a decongestant that can elevate blood pressure. - She has a history of an adverse reaction to oral prednisone (40 mg) approximately 7 years ago, which caused her to feel agitated and suicidal, she confirmed she has never had an anaphylactic reaction but does not want to take oral prednisone ever again with the risk of suicidal feelings. - She also complains of headaches. - She was potentially exposed to influenza last night. [facility] Medical History Heart murmur Recent bereavement Depression Numbness BAILEY (obstructive sleep apnea) Seasonal allergies Constipation RLS (restless legs syndrome) HTN (hypertension) Anxiety ADHD (attention deficit hyperactivity disorder) History of deviated nasal septum History of nephrolithotomy with removal of calculi Surgical History Hx of nasal septoplasty Hx of laparoscopy (1999) History of carpal tunnel release (~2010) H/O colonoscopy (08/12/23) History of tonsillectomy (1966) H/O adenoidectomy (1966) History of back surgery (~1982) Family History Mother Hypertension Lung cancer Father Lung cancer COPD (chronic obstructive pulmonary disease) Arterial vascular disease Sister Stroke Hypertension Social History Household Members: Spouse Housing: House Are you a primary healthcare management to a significant other at home: No Do you presently have visiting nurse or other home services: No Alcohol intake: current Alcohol intake frequency: holidays/special occasions only Patient Tobacco Use Status: Former Tobacco user e-Cigarette/Vaping Use: Never Used Second Hand Smoke Exposure: No service: No Current occupational status: disabled Cognitive needs: No Hearing needs: No Vision needs: Yes Review of Systems Narrative Review of Systems - Constitutional: Reports feeling cold and appearing flushed; denies fever. - HEENT: Reports rhinorrhea and headaches. Denies ear pain. - Respiratory: Reports cough, wheezing, and shortness of breath. - Psychiatric: Reports feeling agitated from past steroid use. Denies current suicidal ideation. All systems reviewed and are unremarkable except as noted in HPI Physical Exam Exam Exam: Physical Exam General: Cooperative, healthy appearing, comfortable and no acute distress Orientation/consciousness: Patient oriented x3 Limitations: No limitations Head: Normal to inspection Ears: Hearing grossly normal bilaterally, external ears normal, EAC's normal bilaterally and TM's normal bilaterally Nose: Normal external nose present, Normal nares present and Nasal discharge present Face and sinus: Normal facial exam and sinuses nontender Mouth: Normal oral and palatal mucosa present and moist mucous membranes Throat: tonsils normal, no exudates, uvula midline, posterior oropharynx erythema Eyes: Appearance normal, both eyes and all related structures Neck: Normal visual inspection, full ROM Respiratory: Clear to auscultation bilaterally. Normal respiratory effort, able to speak in complete sentences, not actively coughing, no respiratory distress, not tachypneic, no tripod positioning and no use of accessory muscles Cardiovascular: Regular rate and rhythm. Normal S1 and S2 Skin: No rashes or lesions noted Neuro: Patient oriented x3 Extremities: Normal to inspection and Yes no clubbing, cyanosis or edema Vital Signs: Last Vital Signs Temp 98.2 F 11/17/25 13:10 Pulse 90 11/17/25 13:10 BP 160/70 H 11/17/25 13:10 Pulse Ox 97 11/17/25 13:10 Oxygen Delivery Method Room Air 11/17/25 13:10 BMI result Body Mass Index 35.9 Office Procedures Nebulizer Treatment Nebulizer Treatment [id number]/MDI RX initial, or Nebulizer Subsequent Treatment Office Meds albuterol sulfate 2.5 mg/3 mL (0.083 %) solution for nebulization Performing Provider: Kecia Vides PA-C [place] [facility] [place] [facility] Administered by: Kecia Vides PA-C on 11/17/25 13:53 Dose Route Admin Location Dispensed Lot Number Expiration Date NDC Smash Hand 2.5 mg inhalation 3 mL [id number] 06/22/27 56638-216-37 [employer] Assessment & Plan Assessment & Plan (1) Acute viral syndrome: Code(s): B34.9 - Viral infection, unspecified Plan: Patient was informed and verbally consented to the use of an ambient scribe for clinic note documentation during this visit. - VSS, pt well appearing and PE unremarkable. - The shortness of breath, with poor response to her home albuterol inhaler, are indicative of an asthma exacerbation. - Lung auscultation is clear, suggesting bronchospasm rather than pneumonia. - An in-office nebulizer treatment will be administered to help open her lungs, she did have some relief with the treatment. - An inhaled steroid (Alvesco inhaler) will be prescribed to deliver medication directly to the lungs, avoiding systemic side effects given her history of intolerance to oral prednisone. She uses Flonase and does not feel the suicidal ideation with that local steroid. - She was advised to discontinue the inhaler if she experiences any adverse effects or suicidal ideation. - Will test for influenza, rsv and COVID-19. - If tests are positive, prescriptions for appropriate antivirals (Tamiflu for flu or Paxlovid for COVID) will be sent, as she is within the effective treatment window. - She was counseled that antivirals may lessen symptom duration but can be discontinued if side effects are not tolerable. - The patient's blood pressure was elevated today 160/70, possibly exacerbated by her use of Bromatestin, a medication containing a decongestant. Recommended switching to Coricidin, as it does not affect blood pressure. - Educated on the risks of prolonged hypertension, including stroke. (2) Mild asthma exacerbation: Code(s): J45.901 - Unspecified asthma with (acute) exacerbation Plan: as above Orders: Orders AMB Nebulizer Treatment Today B34.9 - Viral infection, unspecified, R06.02 - Shortness of breath SARS-CoV2/FLU/RSV Today R09.89 - Other specified symptoms and signs involving the circulatory and respiratory systems Medications: New ciclesonide 80 mcg/actuation (Alvesco) 1 puff inhalation Q12H 6.1 grams 0RF B34.9 - Viral infection, unspecified, J45.901 - Unspecified asthma with (acute) exacerbation Coding Level of Care Code Est Pt Level 3 (02607) Diagnoses Acute viral syndrome B34.9 Mild asthma exacerbation J45.901 CPT Codes Nebulizer Treatment - Nebulizer Treatment, initial or subsequent: [id number] RX initial, or Nebulizer Subsequent Treatment ([id number])
[2025-11-17 13:10] VITALS: BP 160/70; PULSE 90; TEMP 36.8; O2SAT 97; BMI 35.9
--- OUTSIDE RECORDS SUMMARY | 2025-11-17 13:14 | XMS_ITS | Clinical Summary ---
Author Organization [facility] Prior to 04/22/[address] [place] [address] Care Team Providers Care Echo Vasc Tech Name Role Phone Timbo Lucas MD Primary Care Provider [phone] Allergies Active Allergy Reactions Criticality Noted Date [...] 0 12/02/2018 Active ergocalciferol (VITAMIN D2) capsule 71068 units Take 50,000 Units by mouth. 0 04/22/2019 Active amphetamine-dextroam phetamine (ADDERALL XR) 20 MG 24 hr capsule Take 20 mg by mouth. 0 Acti ve Venlafaxine HCl ER 225 MG TB24 Take 1 tablet by mouth. 0 Active butalbital-acetamino phen-caffeine (FIORICET, ESGIC) 50-325-40 MG per tablet 0 11/23/2019 Active vitamin D3 (CHOLECALCIFEROL) 1.25 MG (88373 UT) CAPS capsule Take 50,000 Units by [...] age to complete this topic Care Teams Echo Vasc Tech Relationship Specialty Start Date End Date Timbo Lucas MD [address] [place] [address] PCP - General Internal Medicine 01/11/21
--- OUTSIDE RECORDS SUMMARY | 2025-11-17 13:14 | XMS_ITS | Clinical Summary ---
Author Organization [employer] [facility] ity Address [address] [place] [address] Care Team Providers Care Riprap Man Name Role Phone Timbo Paredes MD Primary Care Provider [phone] Surgical History Surgery Date Site/Laterality Comments SPINE [...] Procedure Name Priority Date/Time Associated Diagnosis Comments [facility] SCREENING DIGITAL Routine 03/18/2021 11:02 AM EDT Encounter for screening mammogram for malignant neoplasm of breast [facility] DEXA AXIAL SKELETON Routine 12/14/2019 10:58 AM EST Encounter for screening for osteoporosis from Last 3 Months or Most Recently Relevant to Health Maintenance Results * [facility] SCREENING DIGITAL (03/18/2021 11:02 AM EDT) Anatomical Region Laterality Modality Mammography 03/18/2021 9:51 AM EDT Narrative 03/18/2021 11:02 AM EDT [facility] Diagnostic Imaging Department [address] [place] [address] Patient: GAYATRI BLASO.B./Age/Sex: 1960 - 60 - F Unit#: [id number] Location/Status: [facility]/REG CLI Mnemonic/Ordering Site: [facility] Ordering Physician: TIMBO PAREDES MD [facility] Screening Digital - 03/18/21 - 1023 EXAM: [facility] Screening Digital EXAM DATE AND TIME: 03/18/2021 10:24 AM HISTORY: Annual screening mammography. COMPARISON: 12/14/2022 through 09/17/2016 TECHNIQUE: CC and MLO views of both breasts were obtained using full field digital mammography. Bilateral digital breast tomosynthesis was performed in the MLO projection. 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 TISSUE DENSITY: b. There are [...] Routine screening mammogram BILATERAL in 1 year. [address]79, 37805 3342F, 7025F Dictating Physician: EMI MAGANA MD Electronically Signed by: EMI MAGANA MD Dic Date/Time: 03/18/21 1056 Sign date/Time: 03/18/21 1102 Procedure Note Susan Magana MD - 11/11/2022 [facility] Diagnostic Imaging Department [address] [place], [place] [id number] Patient: GAYATRI BLAS /Age/Sex: 1960 - 60 - F Unit#: [id number] Location/Status: [facility]/REG CLI Mnemonic/Ordering Site: [facility] Ordering Physician: TIMBO PAREDES MD [facility] Screening Digital - 03/18/21 - 1023 EXAM: [facility] Screening Digital EXAM DATE AND TIME: 03/18/2021 10:24 AM HISTORY: Annual screening mammography. COMPARISON: 12/14/2022 through 09/17/2016 TECHNIQUE: CC and MLO views of both breasts were obtained using fullfield digital mammography. Bilateral digital breast tomosynthesis was performedin the MLO projection. 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 TISSUE DENSITY: b. There are scattered [...] Routine screening mammogram BILATERAL in 1 year. 63099, 75434 3342F, 7025F Dictating Physician: EMI MAGANA MD Electronically Signed by: EMI MAGANA MD Dic Date/Time: 03/18/21 1056 Sign date/Time: 03/18/21 1102 us Timbo Paredes MD IMG BI PROCEDURES Final Result * [facility]RE[facility] DEXA AXIAL SKELETON (12/14/2019 10:58 AM EST) Anatomical Region Laterality Modality Mammography 12/14/2019 10:0 9 AM EST Narrative 12/14/2019 10:58 AM EST [facility] Diagnostic Imaging Department [address] [place] [address] Patient: MINISTERIO BLASMICAH FineO.B./Age/Sex: 1960 - 59 - F Unit#: [id number] Location/Status: [facility] CLI Mnemonic/Ordering Site: [facility] Ordering Physician: [...] probability of hip fracture of 2.3%. Code 62449 Dictating Physician: JENNIFER FRY MD Electronically Signed by: JENNIFER FRY MD Dic Date/Time: 12/14/19 1055 Sign date/Time: 12/14/19 1058 Procedure Note Jennifer Fry - 11/12/2022 [facility] Diagnostic Imaging Department [address] [place] [address] Patient: MINISTERIO BLASUREEN /Age/Sex: 1960 - 59 - F Unit#: [id number] [facility] Ordering Physician: RAMON QUIÑONEZ MD Andrew Dexa [...] density of the femurs bilaterally is 0.877 gm/jq5qoceu is 87% of that of young normals [...] probability of hip fracture of 2.3%. Code 42661 Dictating Physician: JENNIFER FRY MD Electronically Signed by: JENNIFER FRY MD Dic Date/Time: 12/14/19 1055 Sign date/Time: 12/14/19 1058 Ramon Quiñonez MD IM BI PROCEDURES Final Resu lt from Last 3 Months or Most Recently Relevant to Health Maintenance Care Teams Riprap Man Relationship Specialty Start Date End Date Timbo Paredes MD [address] [place] [address] PCP - General 01/11/21
== END 2025-11-17 14:09 | disposition home or self-care (01) ==
PROVIDERS: PCP Internal Medicine; Visit Provider Physician Assistant
DX: B34.9 Viral infection, unspecified (principal); R06.02 Shortness of breath; J45.901 Unspecified asthma with (acute) exacerbation